=== PATIENT | female | born 1985 | race Caucasian/White ===

== ENCOUNTER → 2024-12-30 | Outpatient (CLI) | payer OTHER, SELFPAY ==
--- NOTE | 2024-12-30 15:20 | US_ITS ---
PROCEDURE: PELVIC W/ TRANSVAGINAL REASON FOR EXAM: ENLARGED UTERUS TECHNIQUE: PELVIC W/ TRANSVAGINAL COMPARISON: None FINDINGS: LMP: December 19, 2024. Measurements: Uterus: 23.7 cm x 15.9 cm x 12.1 cm with a volume of 2381.8 mL Endometrial Thickness: 2.4 mm. It is hyperechoic. Right Ovary: Not visualized. Left Ovary: 3.3 cm x 2.4 cm x 1.8 cm with a volume of 7.51 mL. TRANSABDOMINAL: Uterus: There is a large 12 cm x 12.6 cm 12.1 cm uterine fibroid. Endometrium: Unremarkable. Right ovary: Not visualized. Left ovary: Normal size and echotexture. Other: No large pelvic mass identified. Transvaginal sonography was performed to better visualize the endometrium. TRANSVAGINAL: Uterus: Enlarged fibroid uterus as described. There is a 12 cm x 12.6 cm 12.1 cm fibroid. Endometrium: Normal echotexture. Right ovary: Not visualized. Left ovary: Normal size and echotexture. Other adnexal findings: None. Cul-de-sac: No free intraperitoneal fluid identified. Tenderness: No tenderness US/Pelvic w/ Transvaginal IMPRESSION: Enlarged fibroid uterus. Reading Location: [place] [id number]
--- NOTE | 2024-12-30 15:20 | US_ITS ---
PROCEDURE: PELVIC W/ TRANSVAGINAL REASON FOR EXAM: ENLARGED UTERUS TECHNIQUE: PELVIC W/ TRANSVAGINAL COMPARISON: None FINDINGS: LMP: December 19, 2024. Measurements: Uterus: 23.7 cm x 15.9 cm x 12.1 cm with a volume of 2381.8 mL Endometrial Thickness: 2.4 mm. It is hyperechoic. Right Ovary: Not visualized. Left Ovary: 3.3 cm x 2.4 cm x 1.8 cm with a volume of 7.51 mL. TRANSABDOMINAL: Uterus: There is a large 12 cm x 12.6 cm 12.1 cm uterine fibroid. Endometrium: Unremarkable. Right ovary: Not visualized. Left ovary: Normal size and echotexture. Other: No large pelvic mass identified. Transvaginal sonography was performed to better visualize the endometrium. TRANSVAGINAL: Uterus: Enlarged fibroid uterus as described. There is a 12 cm x 12.6 cm 12.1 cm fibroid. Endometrium: Normal echotexture. Right ovary: Not visualized. Left ovary: Normal size and echotexture. Other adnexal findings: None. Cul-de-sac: No free intraperitoneal fluid identified. Tenderness: No tenderness US/Pelvic w/ Transvaginal IMPRESSION: Enlarged fibroid uterus. Reading Location: [place] [id number]
== END | disposition home or self-care (01) ==
LOC: US 15:19
PROVIDERS: PCP Internal Medicine; Referring Provider Nurse Practitioner Family; Visit Provider Nurse Practitioner Family
DX: N85.2 Hypertrophy of uterus (principal)
CPT/HCPCS: 76830; 76856

== ENCOUNTER → 2025-02-24 | Outpatient (CLI) | payer OTHER, SELFPAY ==
--- NOTE | 2025-02-24 09:10 | EMB_PTH ---
PATIENT: ANURAG VALENCIA LOC: [facility] U#:[id number] AGE/SX: 39/F ROOM: RE02/24/[address]: Dr. Dione Arreola MD : [id number] BED: DIS: 02/24/2025 SPEC #: [id number] RECD: 02/24/25 10:33 STATUS: NICOLAS RESilvina #: [id number] AMBERLY: 02/24/25 09:[address]: Dione Arreola DEPT: SURGICAL PATHOLOGY RECD BY: Guy Garcia ENTERED: 02/24/25 11:15 SP TYPE: ENDOM BX/C VINNIE DR: Dr. Kathleen Dumas, DO Tissues: A - Endometrium, NOS Procedures: Surgery Specimen Level IV HEADER OPERATION: Endometrial biopsy PRE-OP DIAGNOSIS: Uterine fibroid TISSUE SUBMITTED: A- Endometrial tissue MICROSCOPIC DIAGNOSIS A. Endometrium, biopsy: * Fragments of proliferative endometrium. * Scant benign endocervical mucosa. * MICROSCOPIC DESCRIPTION Slides are reviewed. GROSS DESCRIPTION A. Received in formalin labeled the patient's name and date of is a 2.8 x 1.9 x 0.3 cm aggregate of mucoid material and dark red tissue fragments. Submitted in 1 cassette. ME 02/24/2025 CPT:92599
[2025-02-24 12:28] LABS: Hematocrit 32.0 % (37-47); Hemoglobin 9.6 g/dL (12.0-15.0); Immature Granulocytes Count 0.040 X10^3/uL (0.0-0.0); Mean Corp Hgb Conc 30.0 g/dL (32-36); Mean Corpuscular Volume 72.2 fL (81-99); Mean Platelet Vol. 10.9 fl (6.2-12.0); NRBC Flagged by Analyzer 0 % (0-5); Platelet Count 321 K/mm3 (150-450); RBC Distribution Width CV 17.8 % (11.6-14.6); RBC Distribution Width SD 46.7 fl (35.1-43.9); Red Blood Count 4.43 M/mm3 (4.2-5.4); White Blood Count 8.4 K/mm3 (4.4-11.0)
[2025-02-28 13:08] LABS: HPV APTIMA, High Risk Negative (Negative)
== END | disposition home or self-care (01) ==
PROVIDERS: PCP Internal Medicine; Referring Provider Obstetrics & Gynecology; Visit Provider Obstetrics & Gynecology
DX: Z12.4 Encounter for screening for malignant neoplasm of cervix (principal); D25.9 Leiomyoma of uterus, unspecified
CPT/HCPCS: 36415; 84443; 85025; 87624; 88175; 88305; G0145

== ENCOUNTER → 2025-03-28 | Outpatient (CLI) | payer OTHER, SELFPAY ==
[2025-03-28 13:10] LABS: Hematocrit 36.2 % (37-47); Hemoglobin 11.3 g/dL (12.0-15.0); Immature Granulocytes Count 0.010 X10^3/uL (0.0-0.0); Mean Corp Hgb Conc 31.2 g/dL (32-36); Mean Corpuscular Volume 74.2 fL (81-99); Mean Platelet Vol. 10.4 fl (6.2-12.0); NRBC Flagged by Analyzer 0 % (0-5); POSITIVE MORPHOLOGY YES; Platelet Count 340 K/mm3 (150-450); RBC Distribution Width CV 21.4 % (11.6-14.6); RBC Distribution Width SD 55.8 fl (35.1-43.9); Red Blood Count 4.88 M/mm3 (4.2-5.4); White Blood Count 6.7 K/mm3 (4.4-11.0)
[2025-03-28 13:11] LABS: Differential Indicated SCAN CRITERIA MET
== END | disposition home or self-care (01) ==
LOC: LAB 12:56
PROVIDERS: PCP Family Medicine; Referring Provider Obstetrics & Gynecology; Visit Provider Obstetrics & Gynecology
DX: D50.9 Iron deficiency anemia, unspecified (principal)
CPT/HCPCS: 36415; 85025

== ENCOUNTER 2025-04-22 09:06 | Inpatient (IN) | payer OTHER, SELFPAY ==
--- NOTE | 2025-04-15 07:44 | EKG12_ITS ---
Test Reason : PREOP Blood Pressure : */* mmHG Vent. Rate : 71 BPM Atrial Rate : 71 BPM P-R Int : 138 ms QRS Dur : 80 ms QT Int : 388 ms P-R-T Axes : 41 41 24 degrees QTcB Int : 421 ms Normal sinus rhythm Normal ECG Confirmed by CAROLINA SAWYER, REG ([id number]), mapping editor LORNE BHATIA ([id number]) on 04/16/2025 9:02:35 AM Referred By: Dione Arreola Confirmed By: REG FIGUEROA MD
[2025-04-15 08:26] LABS: Hematocrit 38.1 % (37-47); Hemoglobin 12.0 g/dL (12.0-15.0); Mean Corp Hgb Conc 31.5 g/dL (32-36); Mean Corpuscular Volume 77.9 fL (81-99); Mean Platelet Vol. 10.5 fl (6.2-12.0); POSITIVE MORPHOLOGY YES; Platelet Count 250 K/mm3 (150-450); RBC Distribution Width CV 21.9 % (11.6-14.6); RBC Distribution Width SD 60.7 fl (35.1-43.9); Red Blood Count 4.89 M/mm3 (4.2-5.4); White Blood Count 6.2 K/mm3 (4.4-11.0)
[2025-04-15 08:27] LABS: Scan Indicated on CBC? Y/N YES- FLAGS NOTED
[2025-04-15 09:06] LABS: AST(SGOT) 16 U/L (<=31); Alanine Aminotransfer ALT/SGPT 14 U/L (<=34); Albumin, Serum 4.0 g/dL (3.5-5.0); Alkaline Phosphatase 46 U/L (35-104); Anion Gap 10 (5-15); BUN 8 mg/dL (4-19); BUN/Creat Ratio 8.6 RATIO (10-20); Calcium,Total 9.0 mg/dL (7.6-11.0); Carbon Dioxide 21.2 mmol/L (21.0-32.0); Chloride 108 mmol/L (98-108); Globulin 3.4 g/dL (2.2-4.2); Glucose 90 mg/dL (70-99); Magnesium 2.2 mg/dL (1.5-2.2); Potassium 4.1 mmol/L (3.3-5.1)
[2025-04-22] VITALS (20 sets, daily range): BP systolic 126–159; BP diastolic 71–97; PULSE 74–97; RESP 15–18; TEMP 36.1–37.3; O2SAT 97–100; BMI 45.1; BMI 45.8
--- OUTSIDE RECORDS SUMMARY | 2025-04-22 07:10 | XMS RPT_ITS | CCD ---
Author Organization [facility] Care Team Providers Care Discharge Rn Name Role Phone Grenora, Ingris Unavailable Unavailable Grenora, Ingris Unavailable Unavailable Trace Varma Unavailable Unavaila ble Reamer HandTrace hernandez Unavailable Unavaila ble Grenora, Ingris October Admitting Unavailab le Grenora, Ingris October Attending Unavailab le Grenora, Ingris October Primary Care Unavailab le HARPSTER, INGRIS OCTOBER Admitting Unavailab le HARPSTER, INGRIS OCTOBER Primary Care Unavailab TRACE Sanchez Attending Unavaila ble HARPSTER, INGRIS OCTOBER Primary Care Unavailab le Grenora, Ingris J Unavailable Unavailable Melanie Dumas DO Primary Care Provider [phone] Melanie Dumas Unavailable Unavailable Unavailable Melanie Dumas DO Primary Care Provider [phone] Piter, Dr. Melanie Mi Primary Care Unava ilable Newbill, Mr. Adis Howard Attending Unavail able Newbill, Mr. Adis Howard Referring Unavail able Oberhauser, Dr. Melanie Mi Attending Unava ilable Oberhauscurt, Dr. Melanie Mi Referring Unava ilable Oberjamie, Dr. Melanie Mi Primary Care Unava ilable Obracquel, Dr. Melanie Mi Attending Unava ilable Oberhauser, Dr. Melanie Mi Referring Unava ilable Oberhauscurt, Dr. Melanie Mi Primary Care Unava ilable Obracquel, Dr. Melanie Mi Referring Unava ilable Oberhauser, Dr. Melaine Mi Primary Care Unava ilable Oberhauser, Dr. Melanie Mi Attending Unava ilable OBERHAUSER, MELANIE Primary Care Unavailable MIRELLA, CECELIA CACERES Attending Unavailable MIRELLA, CECELIA CACERES Attending Unavailable OBERHAUSER, MELANIE Primary Care Unavailable MIRELLA, CECELIA ALVARY Referring Unavailable OBERHAUSER, MELANIE Primary Care Unavailable MIRELLA, CECELIA ALVARY Admitting Unavailable OBERHAUSER, MELANIE Primary Care Unavailable MIRELLA, CECELIA ALVARY Attending Unavailable OBERHAUSER, MELANIE Primary Care Unavailable MIRELLA, CECELIA CACERES Attending Unavailable OBERHAUSER, MELANIE Primary Care Unavailable MIRELLA, CECELIA CACERES Attending Unavailable Oberhauser Melanie GARZON L Primary Care Provider ObMelanie clement DO Unavailable OBERHAUSERMELANIE L Primary Care Unavailable OBERHAUSER, MELANIE L Primary Care Unavailable Unavailable Primary Care Provider Unavailabl e Generic Provider MD, No Assigned Pcp Primary Car e Provider Unavailable Nuris Das Attending Provider Piter GARZON, Dr. Wang Primary Care Provider Nuris Das Referring Provider [phone] Yadira Arenas MD Primary Care Provider MELANIE HUNG Attending Unavailable GENERIC PROVIDER, NO ASSIGNED PCP Primary Care Unavailable YADIRA ARENAS Attending Unavailab YADIRA Denny Primary Care Unavailab FARAZ Limon Attending Unavailable YADIRA ARENAS Referring Unavailab YADIRA Denny Primary Care Unavailab le MELANIE HUNG Attending Unavailable Nuris Das Attending Physician Piter GARZON, Dr. Wang Primary Care Physician Dr. Melanie Dumas DO Referring Provider Maxwell SAWYER, Dr. Parham Attending Physician Maxwell SAWYER, Dr. Parham Referring Provider [phone] ERIN HUNGN Admitting Unavailable SUE MELANIE Attending Unavailable LONGSDORF, YADIRA A Referring Unavailab le LONGSDORF, YADIRA A Primary Care Unavailab le LONGSDORF, YADIRA A Referring Unavailab le LONGSDORF, YADIRA A Primary Care Unavailab FARAZ Limon Referring Unavailable LONGSDORF, YADIRA A Primary Care Unavailab FARAZ Limon Referring Unavailable LONGSDORF, YADIRA A Primary Care Unavailab Dione Menard Referring Unavailable Longsdorf, Yadira Primary Care Unavailable Dione Arreola Attending Unavailable Nuris Rubio Attending Unavailable Dione Arreola Attending Unavailable Oberhauser, Melanie Primary Care Unavailable ObErin clementn Referring Unavailable Dione Arreola Attending Unavailable Maxwell, Dione Referring Unavailable MarcanthonyDione Admitting Unavailable Longsdorf, Yadira Primary Care Unavailable Nuris Rubio Attending Unavailable Nuris Rubio Referring Unavailable Oberhauser, Melanie Primary Care Unavailable Dione Arreola Attending Unavailable Dione Arreola Referring Unavailable Oberhauser, Melanie Primary Care Unavailable Medications Current Medications Medication Drug Class(es) Dates Sig (Normalized) Sig (Original) acetaminophen 500 mg oral tablet (1 source) take 1 tablet by mouth every six hours as needed for pain acetaminophen (TYLENOL) 500 MG tablet Take 1 (one) tablet (500 mg total) by mouth every 6 (six) hours as needed for pain . 0 Active acetaminophen 325 mg / oxyCODONE hydrochloride 5 mg oral tablet (1 source) Opioid Agonist Start: 12-03-2024 End: 12-05-2024 take 1 tablet by mouth every six hours in the evening for pain oxyCODONE-acetamino phen (Percocet) 5-325 mg tablet Indications: Post-operative pain Take 1 tablet by mouth every 6 hours if needed for severe pain (7 - 10) (post-operative pain) for up to 2 days. 8 tablet 12/03/2024 5:17 PM EDT 12/03/2024 12/05/2024 Active busPIRone hydrochloride 5 mg oral tablet (20 sources) Start: 05-11-2021 take 1 tablet by mouth three times daily busPIRone (Buspar) 5 mg tablet Take 1 tablet (5 mg) by mouth 3 times a day. 05/11/2021 Active Start: 05-11-2021 take 1 tablet by osvaldo th three times daily busPIRone HCl - 10 MG Oral Tablet TAKE 1 TABLET 3 TIMES DAILY. Quantity: 90 Refills: 5 Ordered: 24-May-2022 Melanie Dumas DO Start : 11-May-2021 Active calcium chloride 0.0014 meq/ml / potassium chloride 0.004 meq/ml / sodium chloride 0.103 meq/ml / sodium lactate 0.028 meq/ml injectable solution (2 sources) Start: 12-03-2024 End: 12-04-2024 take 125 mL intravenously every hour 125 mL/hr, intravenous, Continuous, Starting on Mon12/03/24 at 1645, For 1 day, Recovery (only) HYDROmorphone (1 source) Opioid Agonist Start: 12-03-2024 0.5 mg, intravenous, Every 5 min PRN, pain severe (7-10), first line, Starting on Mon12/03/24 at 1623, Recovery (only) lisinopril 20 mg oral tablet (2 sources) Angiotensin Converting Enzyme Inhibitor Start: 12-21-2022 End: 01-24-2023 take 1 tablet by mouth once daily lisinopril 20 mg tablet Indications: Primary hypertension Take 1 tablet (20 mg) by mouth once daily. 30 tablet 1 12/21/2022 01/24/2023 Discontinued (Therapy completed) Start: 11-15-2022 End: 05-14-2023 take 1 tablet by mouth once daily lisinopril 10 mg tablet Indications: Primary hypertension Take 1 tablet (10 mg) by mouth once daily. 30 tablet 5 11/15/2022 05/14/2023 Active losartan potassium 25 mg oral tablet (18 sources) Angiotensin 2 Receptor Benjamin Start: 01-24-2023 End: 01-28-2026 take 1 tablet by mouth once daily Losartan 25 mg tablet Active 25 mg PO daily December 19, 2024 12:00am htn Complies with drug therapy medroxyPROGESTERone acetate 5 mg oral tablet (2 sources) Progestin Start: 03-04-2025 End: 03-19-2025 Medroxyprogesterone 5 mg tablet Discontinued 5 mg PO .COMPLEX 33 2 March 17, 2025 5:08pm March 19, 2025 8:46am 5 mg PO bid x 3 days then once daily meloxicam 15 mg oral tablet (1 source) Nonsteroidal Anti-inflammatory Drug Start: 02-01-2022 End: 02-01-2023 take 1 tablet by mouth once daily meloxicam (MOBIC) 15 MG tablet Take 1 (one) tablet (15 mg total) by mouth daily . 30 tablet 3 02/01/2022 02/01/2023 Active metroNIDAZOLE 0.0075 mg/mg topical gel (4 sources) Nitroimidazole Antimicrobial Start: 10-25-2023 End: 10-24-2024 metroNIDAZOLE (Metrogel) 0.75 % gel Indications: Rosacea Apply topically 2 times a day. Apply twice daily to rosacea 45 g 2 10/25/2023 10/24/2024 Active norethindrone acetate 5 mg oral tablet (1 source) Start: 03-19-2025 Start: 03-19-2025 nystatin 100 unt/mg / triamcinolone acetonide 0.001 mg/mg topical ointment (2 sources) Polyene Antifungal, Corticosteroid Start: 12-19-2024 Nystatin-Triamcinolone 100,000-0.1 unit/gram-% ointment Active 1 NMA TOPICAL TWICE A DAY December 19, 2024 12:00am fungal infection Complies with drug therapy Nystatin-Triamcinolone 100,000-0.1 unit/gram-% ointment (1 source) Start: 12-19-2024 Nystatin-Triamcinolone 100,000-0.1 unit/gram-% ointment Active 1 NMA TOPICAL TWICE A DAY December 19, 2024 12:00am oxygen (O2) therapy (1 source) Start: 12-03-2024 inhalation, Continuous - Inhalation, First dose on Mon12/03/24 at 1645, Recovery (only), Device: Simple Face Mask, Rate in Liters per minute: 8 LPM prochlorperazine 5 mg/ml injectable solution (1 source) Phenothiazine Start: 12-03-2024 10 mg, intravenous, Once as needed, nausea/vomiting, first line, Starting on Mon12/03/24 at 1623, For 1 dose, Recovery (only) Completed/Discontinued Medications Medication Drug Class(es) Dates Sig (Normalized) Sig (Original) amoxicillin 875 mg oral tablet (3 sources) Penicillin-class Antibacterial Start: 11-23-2021 take 1 tablet by mouth once daily Amoxicillin 875 MG Oral Tablet TAKE 1 TABLET EVERY 12 HOURS DAILY. Quantity: 14 Refills: 0 Ordered: 23-Nov-2021 Melanie Dumas DO Start : 23-Nov-2021 Active cefOXitin 2000 mg injection (1 source) Cephalosporin Antibacterial Start: 12-03-2024 End: 12-03-2024 2 g, intravenous, at 100 mL/hr, Administer over 30 Minutes, Once, On Mon12/03/24 at 1115, For 1 dose, Preprocedure, Duplex bag - activate before hanging., Suspected Indication (Select all that apply): Surgical Prophylaxis, Indications: Surgical Prophylaxis docusate sodium 50 mg / sennosides, chcf 8.6 mg oral tablet (3 sources) End: 01-28-2025 take 1 tablet by mouth once daily sennosides-docusat e sodium (Jillian-Colace) 8.6-50 mg tablet Take 1 tablet by mouth once daily. 01/28/2025 Discontinued (Med List Cleanup) furosemide 20 mg oral tablet (8 sources) Loop Diuretic Start: 10-25-2023 End: 01-28-2025 take 1 tablet by mouth once daily furosemide (Lasix) 20 mg tablet Indications: Leg edema Take 1 tablet (20 mg) by mouth once daily. 30 tablet 10/25/2023 01/28/2025 Discontinued (Med List Cleanup) 1 ml heparin sodium, porcine 5000 unt/ml injection (1 source) Unfractionated Heparin, Anti-coagulant Start: 12-03-2024 End: 12-03-2024 inject 5000 [IU] by subcutaneous injection once 5,000 Units, subcutaneous, Once, On Mon12/03/24 at 1115, For 1 dose, Preprocedure No Reported Medications (1 source) No Reported Medications Refills: 0 DO Active triamcinolone acetonide 1 mg/ml topical cream (2 sources) Corticosteroid Start: 07-20-2021 End: 11-23-2021 Triamcinolone Acetonide 0.1 % External Cream APPLY AND RUB IN A THIN FILM TO AFFECTED AREAS TWICE DAILY.(AM AND PM). Quantity: 1 Refills: 6 Ordered: 20-Jul-2021 Melanie Dumas DO Start : 20-Jul-2021 End : 23-Nov-2021 Complete Problems Active Problems Problem Classification Problem Date Documented Date Episodic/Chronic Abdominal pain (5 sources) Right upper quadrant pain; Translations: [Right upper quadrant pain] Onset: 01-09-2024 Episodic Administrative/social admission (20 sources) Patient encounter status; Translations: [Other reasons for seeking consultation] 10-25-2023 Episodic Allergic reactions (5 sources) Hand eczema; Translations: [Contact dermatitis and other eczema, unspecified cause] Episodic Anxiety disorders (20 sources) Anxiety; Translations: [Anxiety state, unspecified] Onset: 10-13-2022 10-13-2022 Chronic Benign neoplasm of uterus (6 sources) Uterine leiomyoma; Translations: [Leiomyoma of uterus, unspecified] Onset: 02-25-2025 12-31-2024 Episodic Comment on above: 12cm:plan LINDY per with JV asst Cancer; other and unspecified primary (4 sources) Malignant neoplasm of eye; Translations: [Malignant neoplasm of unspecified site of unspecified eye] 11-10-2020 Chronic Cancer; other and unspecified primary (11 sources) History of retinoblastoma; Translations: [Personal history of malignant neoplasm of eye] Onset: 01-28-2025 01-28-2025 Episodic Cancer; other and unspecified primary (2 sources) Personal history of malignant neoplasm of eye; Translations: [Personal history of malignant neoplasm of eye] Onset: 01-28-2025 Episodic Deficiency and other anemia (2 sources) Anemia, unspecified; Translations: [Anemia, unspecified] Onset: 10-26-2023 Episodic Deficiency and other anemia (1 source) Iron deficiency anemia, unspecified; Translations: [Iron deficiency anemia, unspecified] Onset: 03-28-2025 Episodic Essential hypertension (20 sources) Essential hypertension; Translations: [Essential (primary) hypertension] Onset: 11-15-2022 11-15-2022 Chronic Fracture of lower limb (4 sources) Stress fracture of left foot; Translations: [Stress fracture, left foot, initial encounter for fracture] Episodic Immunizations and screening for infectious disease (1 source) Needs influenza immunization; Translations: [Encounter for immunization] 04-25-2023 Episodic Menstrual disorders (6 sources) Menorrhagia; Translations: [Excessive and frequent menstruation with regular cycle] Onset: 02-25-2025 12-31-2024 Chronic Mycoses (6 sources) Candidiasis of skin; Translations: [Candidiasis of skin and nail] 12-19-2024 Episodic Comment on above: abd/pelvic folds Other acquired deformities (1 source) Equinus contracture of the ankle; Translations: [Contracture, unspecified ankle] Chronic Other aftercare (1 source) Postoperative visit; Translations: [Encounter for other specified surgical aftercare] 12-19-2024 Episodic Other connective tissue disease (5 sources) Pain of toe of right foot; Translations: [Pain in right toe(s)] Onset: 08-01-2017 11-10-2020 Episodic Other connective tissue disease (1 source) Pain in right foot; Translations: [Pain in right foot] Episodic Other connective tissue disease (1 source) Plantar fasciitis of left foot; Translations: [Plantar fascial fibromatosis] Episodic Other connective tissue disease (1 source) Pain in left foot; Translations: [Pain in left foot] Episodic Other connective tissue disease (1 source) Pain in right toe(s); Translations: [Pain in right toe(s)] Onset: 10-03-2022 Episodic Other connective tissue disease (2 sources) Rotator cuff impingement syndrome; Translations: [Impingement syndrome of right shoulder] 02-10-2025 Episodic Other endocrine disorders (1 source) Menarche; Translations: [History of Menarche] Chronic Other female genital disorders (10 sources) Enlarged uterus; Translations: [Hypertrophy of uterus] 12-19-2024 Episodic Comment on above: 23cm per [place] Other female genital disorders (4 sources) Female genital organ symptoms; Translations: [Pelvic pressure in female] 12-31-2024 Episodic Other female genital disorders (1 source) Hypertrophy of uterus; Translations: [Hypertrophy of uterus] Onset: 02-25-2025 Episodic Other inflammatory condition of skin (1 source) Rosacea; Translations: [Rosacea, unspecified] 10-25-2023 Chronic Other nervous system disorders (4 sources) Other chronic pain; Translations: [Other chronic pain] Onset: 01-28-2025 Chronic Other non-traumatic joint disorders (2 sources) Chronic pain of right upper limb; Translations: [Pain in right shoulder] 01-28-2025 Episodic Other non-traumatic joint disorders (5 sources) Pain in right shoulder; Translations: [Pain in joint, shoulder region] Onset: 01-28-2025 02-10-2025 Episodic Other non-traumatic joint disorders (2 sources) Stiffness of right shoulder, not elsewhere classified; Translations: [Stiffness of right shoulder, not elsewhere classified] Onset: 02-11-2025 Episodic Other nutritional; endocrine; and metabolic disorders (4 sources) Morbid obesity; Translations: [Morbid (severe) obesity due to excess calories] 11-10-2020 Chronic Other nutritional; endocrine; and metabolic disorders (11 sources) Body mass index 40+ - severely obese; Translations: [Morbid obesity] Chronic Other nutritional; endocrine; and metabolic disorders (7 sources) Obesity caused by energy imbalance; Translations: [Other obesity due to excess calories] Onset: 12-03-2024 12-03-2024 Chronic Other screening for suspected conditions (not mental disorders or infectious disease) (11 sources) Cancer cervix screening status; Translations: [Screening for malignant neoplasms of cervix] Onset: 01-28-2025 Episodic Other skin disorders (4 sources) Ingrowing great toenail; Translations: [Ingrowing nail] Episodic Other skin disorders (2 sources) Ingrowing nail; Translations: [Ingrowing nail] Onset: 10-03-2022 Episodic Residual codes; unclassified (7 sources) H/O: ; Translations: [Personal history of other genital system and obstetric disorders] Episodic Comment on above: 02-14-13 41wks vagina l femal - 39wks vaginal male 12-03; Residual codes; unclassified (1 source) Edema of lower extremity; Translations: [Localized edema] 10-25-2023 Episodic Skin and subcutaneous tissue infections (2 sources) Cellulitis of right toe; Translations: [Cellulitis of right toe] Onset: 08-30-2022 Episodic Superficial injury; contusion (1 source) Abrasion, right foot, initial encounter; Translations: [Abrasion or friction burn of foot and toe(s), without mention of infection] Episodic Unclassified (5 sources) Patient encounter status; Translations: [Screening for breast cancer] 01-28-2025 Unclassified (1 source) Autogenerated Problem Onset: 11-07-2024 11-07-2024 Unclassified (3 sources) Chronic pain of right upper limb 01-28-2025 Unclassified (1 source) Right shoulder pain, unspecified chronicity 02-10-2025 Past or Other Problems Problem Classification Problem Date Documented Date Episodic/Chronic Biliary tract disease (14 sources) Cholelithiasis without obstruction; Translations: [Calculus of gallbladder without cholecystitis without obstruction] Onset: 11-07-2024 Resolved: 01-28-2025 01-29-2024 Episodic Other circulatory disease (14 sources) Elevated blood pressure; Translations: [Elevated blood-pressure reading, without diagnosis of hypertension] Onset: 10-13-2022 Resolved: 01-28-2025 10-13-2022 Episodic Other connective tissue disease (2 sources) Pain in left foot; Translations: [Pain in left foot] Onset: 02-01-2022 Episodic Other nervous system disorders (8 sources) Postoperative pain ; Translations: [Other acute postprocedural pain] Onset: 12-03-2024 Resolved: 01-28-2025 12-03-2024 Episodic Other skin disorders (4 sources) Ingrowing toenail; Translations: [Ingrowing nail] Onset: 08-01-2017 11-10-2020 Episodic Unclassified (1 source) Cancer cervix screening status; Translations: [Screening for cervical cancer] Unclassified (11 sources) Onset: 10-25-2023 Resolved: 01-28-2025 10-25-2023 Results Test Name Value Interpretation Reference Range Facility CBC W/Diff, Automatedon 11-0 Absolute Lymph 2.91 X10 3/uL Normal 0.83-4.51 [facility] Comment on above: Performed By: #### L 100.0100 #### [facility] [address] [place], [place], [id number] (371) Absolute Neut 3.0 X10 3/uL Normal 2.0-7.7 [facility] Comment on above: Performed By: #### L 100.0100 #### [facility] [address] [place], [address] Basophils/100 WBC (Bld) 0.6 % Normal 0-1 [facility] Comment on above: Performed By: #### L 100.0100 #### [facility] [address] [place], [address] Eosinophils/100 WBC (Bld) 1.8 % Normal 0-5 [facility] Comment on above: Performed By: #### L 100.0100 #### [facility] [address] [place], [address] Erythrocyte distribution width (RBC) [Ratio] 21.4 % High 11.6-14.6 [facility] Comment on above: Performed By: #### L 100.0100 #### [facility] [address] [place], [address] Hematocrit (Bld) [Volume fraction] 36.2 % Low 37-47 [facility] Comment on above: Performed By: #### L 100.0100 #### [facility] [address] [place], [address] Hemoglobin (Bld) [Mass/Vol] 11.3 g/dL Low 12.0-15.0 [facility] Comment on above: Performed By: #### L 100.0100 #### [facility] [address] [place], [address] IG% 0.200 Normal 0.0-0.9 [facility] Comment on above: Result Comment: IG% - Immature Granulocytes (promyelocytes, myelocytes and metamyelocytes) > 1% indicates that a LEFT SHIFT is Present. Performed By: #### L 100.0100 #### [facility] [address] [place], [address] Lymphocytes/100 WBC (Bld) 43.7 % High 19-41 [facility] Comment on above: Performed By: #### L 100.0100 #### [facility] [address] [place], [address] MCH (RBC) [Entitic mass] 23.2 pg Low 27.0-32.0 [facility] Comment on above: Performed By: #### L 100.0100 #### [facility] [address] [place], [address] MCHC (RBC) [Mass/Vol] 31.2 g/dL Low 32-36 [facility] Comment on above: Performed By: #### L 100.0100 #### [facility] [address] [place], [address] MCV (RBC) [Entitic vol] 74.2 fL Low 81-99 [facility] Comment on above: Performed By: #### L 100.0100 #### [facility] [address] [place], [address] Monocytes/100 WBC (Bld) 8.3 % Normal 0-10 [facility] Comment on above: Performed By: #### L 100.0100 #### [facility] [address] [place], [address] Neutrophils/100 WBC (Bld) 45.4 % Low 47-70 [facility] Comment on above: Performed By: #### L 100.0100 #### [facility] [address] [place], [address] Nucleated RBC (Bld) [#/Vol] 0 10*3/uL Normal 0-5 [facility] Comment on above: Performed By: #### L 100.0100 #### [facility] [address] [place], [address] Platelet mean volume (Bld) [Entitic vol] 10.4 fL Normal 6.2-12.0 [facility] Comment on above: Performed By: #### L 100.0100 #### [facility] [address] [place], [address] Platelets (Bld) [#/Vol] 340 10*3/uL Normal 150-450 [facility] Comment on above: Performed By: #### L 100.0100 #### [facility] [address] [place], [address] RBC (Bld) [#/Vol] 4.88 10*6/uL Normal 4.2-5.4 [facility] Comment on above: Performed By: #### L 100.0100 #### [facility] [address] [place], [address] RDW SD 55.8 fl High 35.1-43.9 [facility] Comment on above: Performed By: #### L 100.0100 #### [facility] [address] [place], [address] WBC (Bld) [#/Vol] 6.7 10*3/uL Normal 4.4-11.0 [facility] Comment on above: Performed By: #### L 100.0100 #### [facility] [address] [place], [address] Surgical pathology reportOrd ered By: Ingris Jamison on 03-03-2025 Surgical pathology study [facility] PAP IG HPV APTIMA 16/18,45on 02-28-2025 ADEQ Comment Normal . [facility] Comment on above: Order Comment: Speci men Comment: [id number] Specimen Comment: No. of containers..01 ThinPrep Vial Result Comment: Sati sfactory for evaluation. Endocervical and/or squamous metaplastic cells (endocervical component) are present. Performed By: #### L 7400.0280 #### [facility] [address] [place], [address] COMM . Normal . [facility] Comment on above: Order Comment: Speci men Comment: [id number] Specimen Comment: No. of containers..01 ThinPrep Vial Performed By: #### L 7400.0280 #### [facility] [address] [place], [place], [id number] COMMENT Comment Normal . [facility] Comment on above: Order Comment: Speci men Comment: [id number] Specimen Comment: No. of containers..01 ThinPrep Vial Result Comment: This liquid based ThinPrep(R) pap test was screened with the use of an image guided system. Performed By: #### L 7400.0280 #### [facility] [address] [place], [address] DIAG Comment Normal . [facility] Comment on above: Order Comment: Speci men Comment: [id number] Specimen Comment: No. of containers..01 ThinPrep Vial Result Comment: NEGA TIVE FOR INTRAEPITHELIAL LESION OR MALIGNANCY. Performed By: #### L 7400.0280 #### [facility] [address] [place], [address] HPV APTIMA, HR Negative Normal Negative [facility] Comment on above: Order Comment: Speci men Comment: [id number] Specimen Comment: No. of containers..01 ThinPrep Vial Result Comment: This nucleic acid amplification test detects fourteen high- risk HPV types (16,18,31,33,35,39,45,51,52,56,58,59,66,68) without differentiation. Performed By: #### L 7400.0280 #### [facility] [address] [place], [address] HPV Lianet Rfx Comment Normal . [facility] Comment on above: Order Comment: Speci men Comment: [id number] Specimen Comment: No. of containers..01 ThinPrep Vial Result Comment: Crit eria not met, HPV Genotype not performed. Performed at: [facility] [address] [facility], [place], [place] [id number] Specialties Operator: Ronny Kessler MD, Phone: [phone] Performed at: - [facility] [id number] Specialties Operator: Millie Freedman MD, Phone: [phone] Performed at: = - [facility] [address], [place] [id number] Specialties Operator: Millie Freedman MD, Phone: [phone] Performed By: #### L 7400.0280 #### [facility] [address] [place], [place], [id number] PAPSMR Comment Normal . [facility] Comment on above: Order Comment: Speci men Comment: [id number] Specimen Comment: No. of containers..01 ThinPrep Vial Result Comment: The Pap smear is a screening test designed to aid in the detection of premalignant and malignant conditions of the uterine cervix. It is not a diagnostic procedure and should not be used as the sole means of detecting cervical cancer. Both false-positive and false-negative reports do occur. Performed By: #### L 7400.0280 #### [facility] [address] [place], [place], [address] PERFORM Comment Normal . [facility] Comment on above: Order Comment: Speci men Comment: [id number] Specimen Comment: No. of containers..01 ThinPrep Vial Result Comment: Gilad Santos Separator Operator [employer] (ASCP) Performed By: #### L 7400.0280 #### [facility] [address] [place], [place], [address] Absolute lymphocyte countOrd ered By: Dione Arreola on 02-24-2025 Lymphocytes Auto (Unsp spec) [#/Vol] 2.62 10*3/uL 0.83-4.51 [facility] Absolute neutrophil countOrd ered By: Dione Arreola on 02-24-2025 Neutrophils (Bld) [#/Vol] 4.9 10*3/uL 2.0-7.7 [facility] Automated lymphocyte count a s percentage of total leukocytesOrdered By: Dione rAreola on 02-24-2025 Lymphocytes/100 WBC Auto (Unsp spec) 31.3 % 19-41 [facility] Basophil percentageOrdered B y: Dione Arreola on 02-24-2025 Basophils/100 WBC (Bld) 0.5 % 0-1 [facility] CBC W/Diff, [place] Absolute Lymph 2.62 X10 3/uL Normal 0.83-4.51 [facility] Comment on above: Performed By: #### L 501.9520, L100.0100 #### [facility] [address] [place], [address] Absolute Neut 4.9 X10 3/uL Normal 2.0-7.7 [facility] Comment on above: Performed By: #### L 501.9520, L100.0100 #### [facility] [address] [place], [address] Basophils/100 WBC (Bld) 0.5 % Normal 0-1 [facility] Comment on above: Performed By: #### L 501.9520, L100.0100 #### [facility] [address] [place], [address] Eosinophils/100 WBC (Bld) 1.1 % Normal 0-5 [facility] Comment on above: Performed By: #### L 501.9520, L100.0100 #### [facility] [address] [place], [address] Erythrocyte distribution width (RBC) [Ratio] 17.8 % High 11.6-14.6 [facility] Comment on above: Performed By: #### L 501.9520, L100.0100 #### [facility] [address] [place], [address] Hematocrit (Bld) [Volume fraction] 32.0 % Low 37-47 [facility] Comment on above: Performed By: #### L 501.9520, L100.0100 #### [facility] [address] [place], [address] Hemoglobin (Bld) [Mass/Vol] 9.6 g/dL Low 12.0-15.0 [facility] Comment on above: Performed By: #### L 501.9520, L100.0100 #### [facility] [address] [place], [address] IG% 0.500 Normal 0.0-0.9 [facility] Comment on above: Result Comment: IG% - Immature Granulocytes (promyelocytes, myelocytes and metamyelocytes) > 1% indicates that a LEFT SHIFT is Present. Performed By: #### L 501.9520, L100.0100 #### [facility] [address] [place], [address] Lymphocytes/100 WBC (Bld) 31.3 % Normal 19-41 [facility] Comment on above: Performed By: #### L 501.9520, L100.0100 #### [facility] [address] [place], [address] MCH (RBC) [Entitic mass] 21.7 pg Low 27.0-32.0 [facility] Comment on above: Performed By: #### L 501.9520, L100.0100 #### [facility] [address] [place], [address] MCHC (RBC) [Mass/Vol] 30.0 g/dL Low 32-36 [facility] Comment on above: Performed By: #### L 501.9520, L100.0100 #### [facility] [address] [place], [address] MCV (RBC) [Entitic vol] 72.2 fL Low 81-99 [facility] Comment on above: Performed By: #### L 501.9520, L100.0100 #### [facility] [address] [place], [address] Monocytes/100 WBC (Bld) 8.3 % Normal 0-10 [facility] Comment on above: Performed By: #### L 501.9519, L100.0100 #### [facility] [address] [place], [address] Neutrophils/100 WBC (Bld) 58.3 % Normal 47-70 [facility] Comment on above: Performed By: #### L 501.9519, L100.0100 #### [facility] [address] [place], [address] Nucleated RBC (Bld) [#/Vol] 0 10*3/uL Normal 0-5 [facility] Comment on above: Performed By: #### L 501.9519, L100.0100 #### [facility] [address] [place], [address] Platelet mean volume (Bld) [Entitic vol] 10.9 fL Normal 6.2-12.0 [facility] Comment on above: Performed By: #### L 501.9519, L100.0100 #### [facility] [address] [place], [address] Platelets (Bld) [#/Vol] 321 10*3/uL Normal 150-450 [facility] Comment on above: Performed By: #### L 501.9519, L100.0100 #### [facility] [address] [place], [address] RBC (Bld) [#/Vol] 4.43 10*6/uL Normal 4.2-5.4 [facility] Comment on above: Performed By: #### L 501.9519, L100.0100 #### [facility] [address] [place], [address] RDW SD 46.7 fl High 35.1-43.9 [facility] Comment on above: Performed By: #### L 501.9520, L100.0100 #### [facility] [address] [place], [address] WBC (Bld) [#/Vol] 8.4 10*3/uL Normal 4.4-11.0 [facility] Comment on above: Performed By: #### L 501.9520, L100.0100 #### [facility] [address] [place], [address] Cervical or vaginal specimen microscopic examination by liquid based cytology (reportOrdered By: Dione Arreola on 02-24-2025 Cytology report Cyto stain.thin prep Doc (Cvx/Vag) Comment . [facility] Comment on above: Criteria not met, HP V Genotype not performed.Performed at: [facility] [address] [place], [place] [id number] Director: Ronny Kessler MD, Phone: [phone] at: [address] [id number] Director: Millie Freedman MD, Phone: [phone] at: =[address] [id number] Director: Millie Freedman MD, Phone: [phone] Cervical or vagninal specime n microscopic examination by cytology stain (reported asOrdered By: Dione Arreola on 02-24-2025 Cytology report Cyto stain Doc (Cvx/Vag) Comment . [facility] Comment on above: The Pap smear is a s creening test designed to aid in thedetection of premalignant and malignant conditions of theuterine cervix. It is not a diagnostic procedure andshould not be used as the sole means of detecting cervicalcancer. Both false-positive and false-negative reports dooccur. Detection in cervical specim en of any of human papilloma virus (HPV) 16, 18, 31, 33,Ordered By: Dione Arreola on 02-24-2025 HPV 16+18+31+33+35+39+45+5 1+52+56+58+59+66+68 DNA Probe+sig amp Ql (Cvx) Negative Negative [facility] Comment on above: This nucleic acid am plification test detects fourteen high- risk HPV types (16,18,31,33,35,39,45,51,52,56,58,59,66,68)without differentiation. Eosinophil percentageOrdered By: Dione Arreola on 02-24-2025 Eosinophils/100 WBC (Bld) 1.1 % 0-5 [facility] Erythrocyte distribution wid th ratioOrdered By: Dione Arreola on 02-24-2025 Erythrocyte distribution width (RBC) [Ratio] 17.8 % High 11.6-14.6 [facility] Erythrocyte distribution wid th standard deviationOrdered By: Dione Arreola on 02-24-2025 Erythrocyte distribution width (RBC) [Ratio] 46.7 fl High 35.1-43.9 [facility] Hematocrit Auto (Bld) [Volum e fraction]Ordered By: Dione Arreloa on 02-24-2025 Hematocrit (Bld) [Volume fraction] 32.0 % Low 37-47 [facility] Hemoglobin measurementOrdere d By: Dione Arreola on 02-24-2025 Hemoglobin (Bld) [Mass/Vol] 9.6 g/dL Low 12.0-15.0 [facility] Immature granulocytes/100 WB C Auto (Bld)Ordered By: Dione Arreola on 02-24-2025 Immature granulocytes/100 WBC (Bld) 0.500 % 0.0-0.9 [facility] Comment on above: IG% - Immature Granu locytes (promyelocytes, myelocytes and metamyelocytes) > 1% indicates that a LEFT SHIFT is Present. Laboratory - CytologyOrdered By: Dione Arreola on 02-24-2025 Separator Operator [employer] Cyto stain Nom (Cvx/Vag) [ID] Comment . [facility] Comment on above: Doris Santos Cyt ologist (ASCP) Laboratory - Miscellaneous t estsOrdered By: Dione Arreola on 02-24-2025 Service comment (Unsp spec) [Interp] . . [facility] MCV (mean corpuscular volume ) determinationOrdered By: Dione Arreola on 02-24-2025 MCV (RBC) [Entitic vol] 72.2 fL Low 81-99 [facility] Mean corpuscular hemoglobin (MCH) determinationOrdered By: Dione Arreola on 02-24-2025 MCH (RBC) [Entitic mass] 21.7 pg Low 27.0-32.0 [facility] Mean corpuscular hemoglobin concentration (MCHC) determinationOrdered By: Dione Arreola on 02-24-2025 MCHC (RBC) [Mass/Vol] 30.0 g/dL Low 32-36 [facility] Mean platelet volume determi nationOrdered By: Dione Arreola on 02-24-2025 Platelet mean volume (Bld) [Entitic vol] 10.9 fL 6.2-12.0 [facility] Monocyte percentageOrdered B y: Dione Arreola on 02-24-2025 Monocytes/100 WBC (Bld) 8.3 % 0-10 [facility] Neutrophil percentageOrdered By: Dione Arreola on 02-24-2025 Neutrophils/100 WBC (Bld) 58.3 % 47-70 [facility] No Panel InformationOrdered By: Dione Arreola on 02-24-2025 Pap Smear Specimen Adequacy Comment . [facility] Comment on above: Satisfactory for kd luation. Endocervical and/or squamous metaplasticcells (endocervical component) are present. Nucleated red blood cell per centageOrdered By: Dione Arreola on 02-24-2025 Nucleated RBC/100 WBC (Bld) [Ratio] 0 % 0-5 [facility] Residential Roofer Office Visit Reporton 02-24-2025 Residential Roofer Office Visit Report [facility] [address], [address] [place] [address] OFFICE VISIT Date of Service: 02/24/25 MR#: [id number] Acct: [id number] Name: ANURAG VALENCIA Rep #: [id number] : 1985 Provider: Dr. Dione daiz MD Age/Sex: 39/F [place] [facility] [place]: Signed Intake Vital Signs 12/19/24 08:28 02/24/25 08:20 02/24/25 08:22 Height 5 ft 6 in 5 ft 6 in 5 ft 6 in Weight: 264 lb 2 oz 278 lb 9 oz BMI 42.6 44.9 BP 123/84 H 155/88 H Intake Visit Reasons: consult for TAHBS keep 20 minutes Hand Router Operator Required: No Is patient in pain?: No Allergies No Known Allergies Allergy (Unverified 02/24/25 08:17) Medications ???Medication ???Instructions ???Recorded ???Confirmed ???Type losartan 25 mg tablet 25 mg PO QDAY 12/19/24 02/24/25 Hi story nystatin-triamcinolone 100,000 1 applic topical BID #15 grams 02/24/25 Rx unit/gram-0.1 % topical ointment Is last menstrual period known: Yes Last Menstrual Period: 02/06/25 Post menopausal: No Patient : No : No PFSH Medical History Gallstones Hypertension Retinoblastoma Surgical History (Updated 02/24/25 @ 08:[address] 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 The uterine fibroids were incidentally discovered during a gallbladder surgery in November, and the patient reports heavy menstrual bleeding over the past couple of years, which has worsened recently. She experiences menstrual cycles every 26 days, with bleeding lasting five days and requiring pad changes every three to four hours on days two and three. The patient has a history of hypertension, which is currently managed with medication. She reports urinary frequency, which may be related to the fibroids, and constipation, which she hopes will improve post-surgery. 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 Attestation: Documentation on this patient encounter was supported using ambient scribe technology/ voice AI technology. The patient consented to recording for the purpose of documenting the encounter. Provider reviewed content of the generated note prior to signature. declined test. Female Reproductive History Last Menstrual Period: 02/06/25 Menopausal Symptoms: No night sweats History 2 Elective abortions Hx Para 2 Spontaneous abortions Hx # Term Pregnancies Ectopic pregnancies Hx # Pregnancies Multiple births # of living children 2 Past Pregnancies Del. Date Name GA/Weeks Outcome Route Bth Weight Infant Gen Labor Lgth Anesthesia Del Locatn Provider FOB 02/14/13 Calissa live - full term 7lbs 2oz Female none [place] d 08/21/15 [place] live - full term 7lbs 15oz Male none [place]lan d ROS Const Constitutional: Denies fatigue, night sweats, weight gain or weight loss ENT ENT: Reports system reviewed and no additional complaints, except as documented Cardio Card: Denies chest pain Resp Resp: Denies cough or dyspnea GI GI: Reports as per HPI; Denies abdominal pain, constipation, nausea or vomiting : Denies nipple discharge, urinary frequency, urinary incontinence, urinary hesitancy, urinary urgency, vaginal discharge, vaginal dryness, vaginal odor or vaginal pruritus Musc Musc: Denies arthralgias, back pain or muscle weakness Skin Skin/Breast: Denies alopecia, change in hair, dry skin, breast mass, breast pain, breast skin changes or nipple discharge Neuro (more content not included)... Normal [facility] Platelet countOrdered By: Gerardo Arreola on 02-24-2025 Platelets (Bld) [#/Vol] 321 10*3/uL 150-450 [facility] RBC Auto (Bld) [#/Vol]Mook tellez By: Dione Arreola on 02-24-2025 RBC (Bld) [#/Vol] 4.43 10*6/uL 4.2-5.4 [facility] Surgery Specimen Level Liam 02-24-2025 Surgery Specimen Level IV Patient Age/Sex Location Account Attending Physician ANURAG VALENCIA 39/F [facility] [id number] Dr. Dione Arreola MD Specimen: [id number] Received: 02/24/25 Status: NICOLAS Phillips Num: [id number] Spec Type: JOSE BX/C West Dr: Dr. Dione Arreola MD HEADER OPERATION: Endometrial biopsy PRE-OP DIAGNOSIS: Uterine fibroid TISSUE SUBMITTED: A- Endometrial tissue MICROSCOPIC DIAGNOSIS A. Endometrium, biopsy: * Fragments of proliferative endometrium. * Scant benign endocervical mucosa. * MICROSCOPIC DESCRIPTION Slides are reviewed. GROSS DESCRIPTION A. Received in formalin labeled the patient's name and date of is a 2.8 x 1.9 x 0.3 cm aggregate of mucoid material and dark red tissue fragments. Submitted in 1 cassette. [place] 02/24/2025 CPT:62593 Patient Age/Sex Location Account Attending Physician ANURAG VALENCIA 39/F [facility] [id number] Dr. Dione Arreola MD Signed (signature on file) Dr. Ingris Jamison MD 03/03/25 1136 Normal [facility] Comment on above: Performed By: #### P SUIV #### [facility] [address] [place], [address] TSH DL <= 0.005 mIU/L QnOrde red By: Dione Arreola on 02-24-2025 TSH Qn 3.060 uIU/mL 0.300-4.200 [facility] Thyroid Stim Hormone (TSH)on 02-24-2025 TSH 3.060 uIU/mL Normal 0.300-4.200 [facility] Comment on above: Performed By: #### L 501.9520, L100.0100 #### [facility] [address] [place], [place], [id number] White blood cell (WBC) count Ordered By: Dione Arreola on 02-24-2025 WBC (Bld) [#/Vol] 8.4 10*3/uL 4.4-11.0 [facility] CBC (INCLUDES DIFF/PLT)on Basophils (Bld) [#/Vol] 0.053 10*3/uL Normal 0-200 [facility] Comment on above: Performed By: #### 6 399, 78805, 7600, 37472 #### [facility] [address] , [address] [place] [id number] [address] Sql Developer: Rodri Latham MD Basophils/100 WBC (Bld) 0.7 % Normal [facility] Comment on above: Performed By: #### 6 399, 26339, 4450, 38228 #### [facility] [address] , [address] [place] [phone] [address] Sql Developer: Rodri Latham MD Eosinophils (Bld) [#/Vol] 0.152 10*3/uL Normal 15-500 [facility] Comment on above: Performed By: #### 6 399, 41340, 7600, 50403 #### [facility] of [place] [address] [address] Sql Developer: Rodri Latham MD Eosinophils/100 WBC (Bld) 2.0 % Normal [facility] Comment on above: Performed By: #### 6 399, 09600, 7600, 22344 #### [facility] [place] [address] [address] Sql Developer: Rodri Latham MD Erythrocyte distribution width (RBC) [Ratio] 17.5 % High 11.0-15.0 [facility] Comment on above: Performed By: #### 6 399, 05002, 7600, 44307 #### [facility] [place] [address] [address] Sql Developer: Rodri Latham MD Hematocrit (Bld) [Volume fraction] 36.2 % Normal 35.0-45.0 [facility] Comment on above: Performed By: #### 6 399, 26163, 7600, 26334 #### [facility] [place] [address] [address] Sql Developer: Rodri Latham MD Hemoglobin (Bld) [Mass/Vol] 10.0 g/dL Low 11.7-15.5 [facility] Comment on above: Performed By: #### 6 399, 56084, 7600, 28683 #### [facility] [place] [address] [address] Sql Developer: Rodri Latham MD Lymphocytes (Bld) [#/Vol] 2.219 10*3/uL Normal 850-3900 [facility] Comment on above: Performed By: #### 6 399, 02265, 7600, 67155 #### [facility] [place] [address] [address] Sql Developer: Rodri Latham MD Lymphocytes/100 WBC (Bld) 29.2 % Normal [facility] Comment on above: Performed By: #### 6 399, 57560, 7600, 26879 #### [facility] [place] [address] [address] Sql Developer: Rodri Latham MD MCH (RBC) [Entitic mass] 21.6 pg Low 27.0-33.0 [facility] Comment on above: Performed By: #### 6 399, 83620, 7600, 91406 #### [facility] [place] [address] [address] Sql Developer: Rodri Latham MD MCHC (RBC) [Mass/Vol] 27.6 g/dL Low 32.0-36.[address] [facility] Comment on above: Result Comment: For adults, a slight decrease in the calculated MCHC value (in the range of 30 to 32 g/dL) is most likely not clinically significant; however, it should be interpreted with caution in correlation with other red cell parameters and the patient's clinical condition. Performed By: #### 6 399, 60628, 7600, 08201 #### [facility] [place] [address] [address] Sql Developer: Rodri Latham MD MCV (RBC) [Entitic vol] 78.4 fL Low 80.0-100.0 [facility] Comment on above: Performed By: #### 6 399, 75732, 7600, 21377 #### [facility] [place] [address] [address] Sql Developer: Rodri Latham MD Monocytes (Bld) [#/Vol] 0.502 10*3/uL Normal 200-950 [facility] Comment on above: Performed By: #### 6 399, 22929, 7600, 58766 #### [facility] [place] [address] [address] Sql Developer: Rodri Latham MD Monocytes/100 WBC (Bld) 6.6 % Normal [facility] Comment on above: Performed By: #### 6 399, 94453, 7600, 40513 #### [facility] [place] [address] [address] Sql Developer: Rodri Latham MD Neutrophils (Bld) [#/Vol] 4.674 10*3/uL Normal 8271-8377 [facility] Comment on above: Performed By: #### 6 399, 24258, 7600, 93810 #### [facility] [place] [address] [address] Sql Developer: Rodri Latham MD Neutrophils/100 WBC (Bld) 61.5 % Normal [facility] Comment on above: Performed By: #### 6 399, 43097, 7600, 41053 #### [facility] [place] [address] [address] Sql Developer: Rodri Latham MD Platelet mean volume (Bld) [Entitic vol] 10.8 fL Normal 7.5-12.5 [facility] Comment on above: Performed By: #### 6 399, 92833, 7600, 01776 #### [facility] [place] [address] [address] Sql Developer: Rodri Latham MD Platelets (Bld) [#/Vol] 339 10*3/uL Normal 140-400 [facility] Comment on above: Performed By: #### 6 399, 44548, 7600, 42853 #### [facility] [place] [address] [address] Sql Developer: Rodri Latham MD RBC (Bld) [#/Vol] 4.62 10*6/uL Normal 3.80-5.10 [facility] Comment on above: Performed By: #### 6 399, 57542, 7600, 99720 #### [facility] [place] [address] [address] Sql Developer: Rodri Latham MD WBC (Bld) [#/Vol] 7.6 10*3/uL Normal 3.8-10.8 [facility] Comment on above: Performed By: #### 6 399, 27396, 7600, 15745 #### [facility] [place] [address] [address] Sql Developer: Rodri Latham MD COMPREHENSIVE METABOLIC PANE L W/ANION GAPon 01-30-2025 Albumin [Mass/Vol] 4.0 g/dL Normal 3.6-5.1 [facility] Comment on above: Performed By: #### 6 399, 56457, 7600, 79747 #### [facility] of [address], [address] [place] [address] Pl Sql Developer: Rodri Latham MD ALP [Catalytic activity/Vol] 57 U/L Normal 31-125 [facility] Comment on above: Performed By: #### 6 399, 41210, 7600, 35455 #### [facility] of [address], [address] [place] [address] Pl Sql Developer: Rodri Latham MD ALT [Catalytic activity/Vol] 13 U/L Normal 6-29 [facility] Comment on above: Performed By: #### 6 399, 94260, 7600, 26234 #### [facility] [place] [address] [address] Sql Developer: Rodri Latham MD AST [Catalytic activity/Vol] 15 U/L Normal 10-30 [facility] Comment on above: Performed By: #### 6 399, 75976, 7600, 88258 #### [facility] [place] [address] [address] Sql Developer: Rodri Latham MD Bilirubin [Mass/Vol] 0.5 mg/dL Normal 0.2-1.2 [facility] Comment on above: Performed By: #### 6 399, 02737, 7600, 33453 #### [facility] [place] [address] [address] Sql Developer: Rodri Latham MD Calcium [Mass/Vol] 9.1 mg/dL Normal 8.6-10.2 [facility] Comment on above: Performed By: #### 6 399, 71513, 7600, 73468 #### [facility] [place] [address] [address] Sql Developer: Rodri Latham MD Chloride [Moles/Vol] 106 mmol/L Normal 98-110 [facility] Comment on above: Performed By: #### 6 399, 46916, 7600, 44917 #### [facility] [place] [address] [address] Sql Developer: Rodri Latham MD CO2 [Moles/Vol] 25 mmol/L Normal 20-32 [facility] Comment on above: Performed By: #### 6 399, 40518, 7600, 70220 #### [facility] [place] [address] [address] Sql Developer: Rodri Latham MD Creatinine [Mass/Vol] 0.76 mg/dL Normal 0.50-0.99 [facility] Comment on above: Performed By: #### 6 399, 75597, 7600, 88455 #### [facility] [place] [address] [address] Sql Developer: Rodri Latham MD ELECTROLYTE BALANCE 7 mmol/L (calc) Normal 7-17 [facility] Comment on above: Performed By: #### 6 399, 22930, 7600, 08111 #### [facility] [place] [address] [address] Sql Developer: Rodri Latham MD GFR/1.73 sq M.predicted among non-blacks MDRD (S/P/Bld) [Vol rate/Area] 101 mL/min/{1.73_m2} Normal > OR = 60 [facility] Comment on above: Performed By: #### 6 399, 79280, 7600, 60390 #### [facility] [place] [address] [address] Sql Developer: Rodri Latham MD Glucose [Mass/Vol] 79 mg/dL Normal 65-99 [facility] Comment on above: Result Comment: Fasting reference interval Performed By: #### 6 399, 29578, 7600, 60296 #### [facility] [place] [address] [address] Sql Developer: Rodri Latham MD Potassium [Moles/Vol] 4.3 mmol/L Normal 3.5-5.3 [facility] Comment on above: Performed By: #### 6 399, 27398, 7600, 42530 #### [facility] of [address], [address] [place] [address] Pl Sql Developer: Rodri Latham MD Protein [Mass/Vol] 7.2 g/dL Normal 6.1-8.1 [facility] Comment on above: Performed By: #### 6 399, 39283, 7600, 03484 #### [facility] [place] [address] [address] Sql Developer: Rodri Latham MD Sodium [Moles/Vol] 138 mmol/L Normal 135-146 [facility] Comment on above: Performed By: #### 6 399, 28326, 7600, 05224 #### [facility] [place] [address] [address] Sql Developer: Rodri Latham MD Urea nitrogen [Mass/Vol] 9 mg/dL Normal 7-25 [facility] Comment on above: Performed By: #### 6 399, 03692, 7600, 19726 #### [facility] [place] [address] [address] Sql Developer: Rodri Latham MD LIPID PANEL, [facility] 01-20 Cholesterol [Mass/Vol] 148 mg/dL Normal <200 [facility] Comment on above: Order Comment: FASTI NG:YES FASTING: YES Performed By: #### 6 399, 33746, 7600, 85305 #### [facility] [place] [address] [address] Sql Developer: Rodri Latham MD Cholesterol in HDL [Mass/Vol] 50 mg/dL Normal > OR = 50 [facility] Comment on above: Order Comment: FASTI NG:YES FASTING: YES Performed By: #### 6 399, 94591, 7600, 82778 #### [facility] [address], [address] [place] [address] Pl Sql Developer: Rodri Latham MD Cholesterol in LDL [Mass/Vol] 78 mg/dL Normal [facility] Comment on above: Order Comment: FASTI NG:YES FASTING: YES Result Comment: Refe rence range: <100 Desirable range <100 mg/dL for primary prevention; <70 mg/dL for patients with CHD or diabetic patients with > or = 2 CHD risk factors. LDL-C is now calculated using the Rafael calculation, which is a validated novel method providing better accuracy than the Friedewald equation in the estimation of LDL-C. Luis GILBERT et al. APRYL. 2013;310(19): 2743-1671 (http://education.Second Porch/faq/BDA069) Performed By: #### 6 399, 02286, 7600, 64413 #### [facility] [address], [address] [place] [address] Pl Sql Developer: Rodri Latham MD Cholesterol.total/Chol esterol in HDL [Mass ratio] 3.0 {ratio} Normal <5.0 [facility] Comment on above: Order Comment: FASTI NG:YES FASTING: YES Performed By: #### 6 399, 00651, 7600, 80503 #### [facility] [address], [address] [place] [address] Pl Sql Developer: Rodri Latham MD NON HDL CHOLESTEROL 98 mg/dL (calc) Normal <130 [facility] Comment on above: Order Comment: FASTI NG:YES FASTING: YES Result Comment: For patients with diabetes plus 1 major ASCVD risk factor, treating to a non-HDL-C goal of <100 mg/dL (LDL-C of <70 mg/dL) is considered a therapeutic option. Performed By: #### 6 399, 04696, 7600, 18396 #### [facility] [address], [address] [place] [address] [address] Sql Developer: Rodri Latham MD Triglyceride [Mass/Vol] 118 mg/dL Normal <150 [facility] Comment on above: Order Comment: FASTI NG:YES FASTING: YES Performed By: #### 6 399, 95214, 7600, 79681 #### [facility] [address], [address] [place] [address] [address] Sql Developer: Rodri Latham MD TSH W/REFLEX TO FT4on 2024 TSH W/REFLEX TO FT4 2.68 mIU/L Normal [facility] Comment on above: Result Comment: Refe rence Range > or = 20 Years 0.40-4.50 Ranges First trimester 0.26-2.66 Second trimester 0.55-2.73 Third trimester 0.43-2.91 Performed By: #### 6 399, 68523, 7600, 37663 #### [facility] [address], [address] [place] [address] Pl Sql Developer: Rodri Latham MD BI MAMMO BILATERAL SCREENING TOMOSYNTHESISon 01-29-2025 BI MAMMO BILATERAL SCREENING TOMOSYNTHESIS Interpreted By: Jacoby Das, STUDY: BI MAMMO BILATERAL SCREENING TOMOSYNTHESIS; 01/29/2025 7:51 am ACCESSION NUMBER(S): [id number] ORDERING CLINICIAN: YADIRA ARENAS INDICATION: Screening. COMPARISON: Digital mammograms dated 10/26/2023 FINDINGS: CC and MLO 2D digital mammograms and digital breast tomosynthesis images were obtained of the bilateral breasts. 3-D volume images were reconstructed in 5 views at an independent workstation as 1 mm slices through the breasts in both the CC and MLO projections. Density: The breasts are almost entirely fatty. No discrete mass or focal asymmetry is identified. No suspicious microcalcifications or foci of architectural distortion are seen. There has been no significant change. This study was interpreted with CAD. IMPRESSION: No mammographic evidence of malignancy. BI-RADS CATEGORY: BI-RADS Category: 1 Negative. Recommendation: Annual Screening. Recommended Date: 1 Year. Laterality: Bilateral. MACRO: None Signed by: Jacoby Das 01/29/2025 9:50 AM Dictation workstation: [id number] [facility] DBT Breast - bilateralon No mammographic evid ence of malignancy. BI-RADS CATEGORY: BI-RADS Category: 1 Negative. Recommendation: Annual Screening. Recommended Date: 1 Year. Laterality: Bilateral. MACRO: None Signed by: Jacoby Das 01/29/2025 9:50 AM Dictation workstation: [id number] MMODAL Interpreted By: Jacoby Sesay, STUDY: BI MAMMO BILATERAL SCREENING TOMOSYNTHESIS; 01/29/2025 7:51 am ACCESSION NUMBER(S): [id number] ORDERING CLINICIAN: YADIRA ARENAS INDICATION: Screening. COMPARISON: Digital mammograms dated 10/26/2023 FINDINGS: CC and MLO 2D digital mammograms and digital breast tomosynthesis images were obtained of the bilateral breasts. 3-D volume images were reconstructed in 5 views at an independent workstation as 1 mm slices through the breasts in both the CC and MLO projections. Density: The breasts are almost entirely fatty. No discrete mass or focal asymmetry is identified. No suspicious microcalcifications or foci of architectural distortion are seen. There has been no significant change. This study was interpreted with CAD. MMODAL Jacoby Das MD - 01/29/2025 Interpreted By: Jacoby Das, STUDY: BI MAMMO BILATERAL SCREENING TOMOSYNTHESIS; 01/29/2025 7:51 am ACCESSION NUMBER(S): [id number] ORDERING CLINICIAN: YADIRA ARENAS INDICATION: Screening. COMPARISON: Digital mammograms dated 10/26/2023 FINDINGS: CC and MLO 2D digital mammograms and digital breast tomosynthesis images were obtained of the bilateral breasts. 3-D volume images were reconstructed in 5 views at an independent workstation as 1 mm slices through the breasts in both the CC and MLO projections. Density: The breasts are almost entirely fatty. No discrete mass or focal asymmetry is identified. No suspicious microcalcifications or foci of architectural distortion are seen. There has been no significant change. This study was interpreted with CAD. IMPRESSION: No mammographic evidence of malignancy. BI-RADS CATEGORY: BI-RADS Category: 1 Negative. Recommendation: Annual Screening. Recommended Date: 1 Year. Laterality: Bilateral. MACRO: None Signed by: Jacoby Das 01/29/2025 9:50 AM Dictation workstation: [id number] [facility] Work Phone: Radiology Study observation (narrative) [facility] Work Phone: DBT Breast - bilateralOrdere d By: Jacoby Das on 01-29-2025 [facility] Work Phone: XR SHOULDER RIGHT 2+ VIEWSon 01-29-2025 XR SHOULDER RIGHT 2+ VIEWS Interpreted By: Shay Kirkland, STUDY: XR SHOULDER RIGHT 2+ VIEWS; 01/29/2025 7:31 am INDICATION: Signs/Symptoms:pain. ,M25.511 Pain in right shoulder,G89.29 Other chronic pain COMPARISON: None. ACCESSION NUMBER(S): [id number] ORDERING CLINICIAN: YADIRA ARENAS TECHNIQUE: Right shoulder series performed with 5 total images. FINDINGS: The normal glenohumeral and acromioclavicular relations are maintained. No acute fracture or subluxation is seen. There is mild spurring along the greater tuberosity which could be related to calcific tendinitis. Soft tissues are unremarkable. IMPRESSION: Mild marginal spurring along the greater tuberosity possibly related to calcific tendinitis. MACRO: None. Signed by: Shay Kirkland 02/01/2025 8:19 AM Dictation workstation: [id number] [facility] Pelvic w/ Transvaginalon Pelvic w/ Transvaginal [facility] Imaging Services [address], [place] [address] Pelvic w/ Transvaginal MR#: [id number] Acct: [id number] Name: ANURAG VALENCIA Rep #: [id number] : 1985 F 39 From: Evert radford MD PCP: Dr. Melanie Dumas, DO Status: REG CLI Study: Pelvic w/ Transvaginal Date of Exam: 12/30/24 Exam# [id number] Ordering Dr: Nuris Rubio PROCEDURE: PELVIC W/ TRANSVAGINAL REASON FOR EXAM: ENLARGED UTERUS TECHNIQUE: PELVIC W/ TRANSVAGINAL COMPARISON: None FINDINGS: LMP: December 19, 2024. Measurements: Uterus: 23.7 cm x 15.9 cm x 12.1 cm with a volume of 2381.8 mL Endometrial Thickness: 2.4 mm. It is hyperechoic. Right Ovary: Not visualized. Left Ovary: 3.3 cm x 2.4 cm x 1.8 cm with a volume of 7.51 mL. TRANSABDOMINAL: Uterus: There is a large 12 cm x 12.6 cm 12.1 cm uterine fibroid. Endometrium: Unremarkable. Right ovary: Not visualized. Left ovary: Normal size and echotexture. Other: No large pelvic mass identified. Transvaginal sonography was performed to better visualize the endometrium. TRANSVAGINAL: Uterus: Enlarged fibroid uterus as described. There is a 12 cm x 12.6 cm 12.1 cm fibroid. Endometrium: Normal echotexture. Right ovary: Not visualized. Left ovary: Normal size and echotexture. Other adnexal findings: None. Cul-de-sac: No free intraperitoneal fluid identified. Tenderness: No tenderness US/Pelvic w/ Transvaginal IMPRESSION: Enlarged fibroid uterus. Reading Location: [place] [address] CC: JOSEY Rubio; Dr. Melanie Dumas DO B Operator: Signed Normal [facility] Residential Roofer Office Visit Reporton 12-19-2024 Residential [facility]ofer Office Visit Report 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: No Is patient in pain?: No Allergies No Known Allergies Allergy (Unverified 12/19/24 08:31) Medications ???Medication ???Instructions ???Recorded ???Confirmed ???Type losartan 25 mg tablet 25 mg PO QDAY 12/19/24 12/19/24 Hi story nystatin-triamcinolone 100,000 1 applic topical BID #15 grams 12/19/24 Rx unit/gram-0.1 % topical ointment Is last menstrual period known: Yes Last Menstrual Period: 11/25/24 Post menopausal: No Patient : No : No Control Method: vasectomy PFSH Medical History Gallstones Hypertension Retinoblastoma Surgical History H/O eye surgery H/O knee surgery History of cholecystectomy Family History Grandfather Myocardial infarction, Onset Age: 65 Grandmother Breast cancer Father Alcoholism CVA (cerebral vascular accident) Hypertension Mother Hypertension Social History adopted: No household members: spouse, family and children number of children: 2 current occupational status: employed 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 Approx 2 weeks ago had gallbladder out; after surgery she was told she had an enlarged uterus. It was recommended that she follow up with [facility] for further evaluation. She reports her menses are regular however heavy--on her heaviest days she is changing maxi pad approx 4-5 times a day then this bleeding tapers off. Her last PAP smear was approx 5 years ago-she has never had an abnormal PAP. Female Reproductive History Last Menstrual Period: 11/25/24 Cycle Length: 21-35 Bleeding Duration: 5 Questions: metrorrhagia: No, sexually active: Yes (vasectomy), dyspareunia: No and PCB: No History 2 Elective abortions Hx Para 2 Spontaneous abortions Hx # Term Pregnancies Ectopic pregnancies Hx # Pregnancies Multiple births # of living children 2 Past Pregnancies Del. Date Name GA/Weeks Outcome Route Bth Weight Infant Gen Labor Lgth Anesthesia Del Locatn Provider FOB 02/14/13 Calissa live - full term 7lbs 2oz Female none [facility] d 08/21/15 [place] live - full term 7lbs 15oz Male none [facility] d ROS Const Constitutional: Denies body ache, chills, fatigue, fever(s) or headache(s) Cardio Card: Denies chest pain at rest or palpitations Resp Resp: Denies cough or dyspnea GI GI: Denies abdominal pain : Reports menorrhagia; Denies prolapse symptoms, vaginal discharge, vaginal dryness, vaginal odor or vaginal pruritus Skin Skin/Breast: Reports other (itchy rash under abdominal skin fold) Exam Const General: cooperative, healthy appearing, comfortable, no acute distress and well developed Resp Effort Inspection: normal respiratory effort and able to speak in complete sentences GI Palpation: soft Rectal Exam: other (midline laparoscopic incision C/D/I; dermabond.) General: bladder normal to palpation External Female Exam: normal external appearance and normal appearance of the urethra Urethra: normal appearance of the urethra Speculum Exam - Vagina: normal appearance of the vagina, normal vaginal discharge, no lesions, no masses, no swelling and nontender Speculum Exam - Cervix: normal appearance of the cervix and nontender Bimanual Exam- Vagina Uterus: normal bimanual exam, normal palpation, uterine size normal (mildly enlarged; soft.), bladder normal to palpation, uterine shape normal, No tender, uterine mobility normal, consistency normal and non-tender Bimanual Exam- Adnexa, other: (more content not included)... Normal [facility] Surgical pathology studyon 0 12-03-2024 Surgical pathology study Pathology report.total SEE COMMENT Surgical Pathology Case: [id number] Authorizing Provider: Melanie Hung MD Collected: 12/03/2024 1535 Ordering Location: [facility] Received: 12/03/2024 1642 Center OR Pathologist: Tyra Tian MD Specimen: GALLBLADDER CHOLECYSTECTOMY, gallbladder Path report.final diagnosis SEE COMMENT GALLBLADDER, CHOLECYSTECTOMY: - Chronic cholecystitis and cholelithiasis. at 1621 EDT Laboratory comment By the signature on this report, the individual or group listed as making the Final Interpretation/Diagnosis certifies that they have reviewed this case. Path report.relevant Hx SEE COMMENT Pre-op diagnosis: Symptomatic cholelithiasis Path report.gross observation SEE COMMENT Received in formalin, labeled with the patient's name, hospital number and gallbladder, is a gallbladder measuring 8.7 x 3.5 x 3.1 cm. The serosa is reyna smooth and glistening. A defect is not present. The lumen contains green viscous bile. The wall measures up to 0.3 cm in thickness. Multiple calculi are identified ranging in size from 1.5 to 3.7 in greatest dimension. A calculus is not impacted in the cystic duct. The mucosa is bile-stained and velvety. A lymph node is not identified adjacent to the cystic duct. Pipeliner sections are submitted in 1 cassette. [facility] Summary of Cassettes: Specimen Label Site A 1 cystic duct margin en face, gallbladder wall Normal [facility] Comment on above: Order Comment: Pre-o p diagnosis: Symptomatic cholelithiasis [K80.20] CBC W Auto Differential pane l (Bld)on 01-09-2024 Basophils (Bld) [#/Vol] 0.04 x10*3/uL Normal 0.00-0.10 [facility] Comment on above: Performed By: #### 5 7021-8 #### AARON KNIGHT ([id number]) [facility] ([facility]) [address] [place] [address] Basophils/100 WBC (Bld) 0.6 % Normal 0.0-2.0 [facility] Comment on above: Performed By: #### 5 7021-8 #### AARON KNIGHT ([id number]) [facility] ([facility]) [address] [place] [address] Eosinophils (Bld) [#/Vol] 0.12 x10*3/uL Normal 0.00-0.70 [facility] Comment on above: Performed By: #### 5 7021-8 #### AARON KNIGHT ([id number]) [facility] ([facility]) [address] [place] [address] Eosinophils/100 WBC (Bld) 1.7 % Normal 0.0-6.0 [facility] Comment on above: Performed By: #### 7021-8 #### AARON KNIGHT ([id number]) [facility] ([facility]) [address] [place] [address]697 Erythrocyte distribution width (RBC) [Ratio] 17.9 % High 11.5-14.5 [facility] Comment on above: Performed By: #### 5 7021-8 #### AARON KNIGHT ([id number]) [facility] ([facility]) [address] [place] [address] Hematocrit (Bld) [Volume fraction] 36.7 % Normal 36.0-46.0 [facility] Comment on above: Performed By: #### 5 7021-8 #### AARON KNIGHT ([id number]) [facility] ([facility]) [address] [place] [address] Hemoglobin (Bld) [Mass/Vol] 10.9 g/dL Low 12.0-16.0 [facility] Comment on above: Performed By: #### 5 7021-8 #### AARON KNIGHT ([id number]) [facility] ([facility]) [address] [place] [address]39[address] Immature granulocytes (Bld) [#/Vol] 0.01 x10*3/uL Normal 0.00-0.70 [facility] Comment on above: Performed By: #### 5 7021-8 #### AARON KNIGHT ([id number]) [facility] ([facility]) [address] [place] [address] 27974 Immature granulocytes/100 WBC (Bld) 0.1 % Normal 0.0-0.9 [facility] Comment on above: Result Comment: Trini ture Granulocyte Count (IG) includes promyelocytes, myelocytes and metamyelocytes but does not include bands. Percent differential counts (%) should be interpreted in the context of the absolute cell counts (cells/UL). Performed By: #### 5 7021-8 #### AARON KNIGHT ([id number]) [facility] ([facility]) [address] [place] [address] Lymphocytes (Bld) [#/Vol] 2.57 x10*3/uL Normal 1.20-4.80 [facility] Comment on above: Performed By: #### 5 7021-8 #### AARON KNIGHT ([id number]) [facility] ([facility]) [address] [place] [address] Lymphocytes/100 WBC (Bld) 35.6 % Normal 13.0-44.0 [facility] Comment on above: Performed By: #### 5 7021-8 #### AARON KNIGHT ([id number]) [facility] ([facility]) [address] [place] [address] MCH (RBC) [Entitic mass] 23.9 pg Low 26.0-34.0 [facility] Comment on above: Performed By: #### 5 7021-8 #### AARON KNIGHT ([id number]) [facility] ([facility]) [address] [place] [address] MCHC (RBC) [Mass/Vol] 29.7 g/dL Low 32.0-36.0 [facility] Comment on above: Performed By: #### 5 7021-8 #### AARON KNIGHT ([id number]) [facility] ([facility]) [address] [place] [address] MCV (RBC) [Entitic vol] 81 fL Normal 80-100 [facility] Comment on above: Performed By: #### 5 7021-8 #### AARON KNIGHT ([id number]) [facility] ([facility]) [address] [place] [address] Monocytes (Bld) [#/Vol] 0.51 x10*3/uL Normal 0.10-1.00 [facility] Comment on above: Performed By: #### 5 7021-8 #### AARON KNIGHT ([id number]) [facility] ([facility]) [address] [place] [address] Monocytes/100 WBC (Bld) 7.1 % Normal 2.0-10.0 [facility] Comment on above: Performed By: #### 5 7021-8 #### AARON KNIGHT ([id number]) [facility] ([facility]) [address] [place] [address]76[address] Neutrophils (Bld) [#/Vol] 3.97 x10*3/uL Normal 1.20-7.70 [facility] Comment on above: Result Comment: Perc ent differential counts (%) should be interpreted in the context of the absolute cell counts (cells/uL). Performed By: #### 5 7021-8 #### AARON KNIGHT ([id number]) [facility] ([facility]) [address] [place] [address]3445 Neutrophils/100 WBC (Bld) 54.9 % Normal 40.0-80.0 [facility] Comment on above: Performed By: #### 5 7021-8 #### AARON KNIGHT ([id number]) [facility] ([facility]) [address] [place] [address] 24509 Nucleated RBC/100 WBC (Bld) [Ratio] 0.0 /100 WBCs Normal 0.0-0.0 [facility] Comment on above: Performed By: #### 5 7021-8 #### AARON KNIGHT ([id number]) [facility] ([facility]) [address] [place] [address] 41[address] Platelets (Bld) [#/Vol] 281 x10*3/uL Normal 150-450 [facility] Comment on above: Performed By: #### 5 7021-8 #### AARON KNIGHT ([id number]) [facility] ([facility]) [address] [place] [address] RBC (Bld) [#/Vol] 4.56 x10*6/uL Normal 4.00-5.20 [facility] Comment on above: Performed By: #### 5 7021-8 #### AARON KNIGHT ([id number]) [facility] ([facility]) [address] [place] [address] 41560 WBC (Bld) [#/Vol] 7.2 x10*3/uL Normal 4.4-11.3 [facility] Comment on above: Performed By: #### 5 7021-8 #### AARON KNIGHT ([id number]) [facility] ([facility]) [address] [place] [address] Comprehensive metabolic 2000 panelon 01-09-2024 Albumin BCP dye [Mass/Vol] 3.8 g/dL Normal 3.4-5.0 [facility] Comment on above: Performed By: #### 2 4323-8 #### AARON KNIGHT ([id number]) [facility] ([facility]) [address] [place] [address] ALP [Catalytic activity/Vol] 55 U/L Normal 33-110 [facility] Comment on above: Performed By: #### 2 4323-8 #### AARON KNIGHT ([id number]) [facility] ([facility]) [address] [place] [address] 64539 ALT With P-5'-P [Catalytic activity/Vol] 9 U/L Normal 7-45 [facility] Comment on above: Result Comment: Queta ents treated with Sulfasalazine may generate falsely decreased results for ALT. Performed By: #### 2 4323-8 #### AARON KNIGHT ([id number]) [facility] ([facility]) [address] [place] [address] 02370 Anion gap [Moles/Vol] 9 mmol/L Low 10-20 [facility] Comment on above: Performed By: #### 2 4323-8 #### AARON KNIGHT ([id number]) [facility] ([facility]) [address] [place], [place] [address] AST With P-5'-P [Catalytic activity/Vol] 11 U/L Normal 9-39 [facility] Comment on above: Performed By: #### 2 4323-8 #### AARON KNIGHT ([id number]) [facility] ([facility]) [address] [place] [address] 77827 Bilirubin [Mass/Vol] 0.4 mg/dL Normal 0.0-1.2 [facility] Comment on above: Performed By: #### 2 4323-8 #### AARON KNIGHT ([id number]) [facility] ([facility]) [address] [place] [address] 43091 Calcium [Mass/Vol] 8.9 mg/dL Normal 8.6-10.3 [facility] Comment on above: Performed By: #### 2 4323-8 #### AARON KNIGHT ([id number]) [facility] ([facility]) [address] [place] [address] 62240 Chloride [Moles/Vol] 108 mmol/L High 98-107 [facility] Comment on above: Performed By: #### 2 4323-8 #### AARON KNIGHT ([id number]) [facility] ([facility]) [address] [place] [address] 78535 CO2 [Moles/Vol] 26 mmol/L Normal 21-32 [facility] Comment on above: Performed By: #### 2 4323-8 #### AARON KNIGHT ([id number]) [facility] ([facility]) [address] [place] [address] 43166 Creatinine [Mass/Vol] 0.90 mg/dL Normal 0.50-1.05 [facility] Comment on above: Performed By: #### 2 4323-8 #### AARON KNIGHT ([id number]) [facility] ([facility]) [address] [place] [address] 85556 Glomerular filtration rate/1.73 sq M.predicted 83 mL/min/1.73m*2 Normal >60 [facility] Comment on above: Result Comment: Calc ulations of estimated GFR are performed using the 2020 CKD-EPI Study Refit equation without the race variable for the IDMS-Traceable creatinine methods. https://jasn.asnjournals.org/content//ASN.43658 58544 Performed By: #### 2 4323-8 #### AARON KNIGHT ([id number]) [facility] ([facility]) [address] [place] [address] 87620 Glucose [Mass/Vol] 84 mg/dL Normal 74-99 [facility] Comment on above: Performed By: #### 2 4323-8 #### AARON KNIGHT ([id number]) [facility] ([facility]) [address] [place] [address] 52039 Potassium [Moles/Vol] 4.6 mmol/L Normal 3.5-5.3 [facility] Comment on above: Performed By: #### 2 4323-8 #### AARON KNIGHT ([id number]) [facility] ([facility]) [address] [place] [address] 91934 Protein [Mass/Vol] 6.7 g/dL Normal 6.4-8.2 [facility] Comment on above: Performed By: #### 2 4323-8 #### AARON KNIGHT ([id number]) [facility] ([facility]) [address] [place] [address] 38138 Sodium [Moles/Vol] 138 mmol/L Normal 136-145 [facility] Comment on above: Performed By: #### 2 4323-8 #### AARON KNIGHT ([id number]) [facility] ([facility]) [address] [place] [address] 11755 Urea nitrogen [Mass/Vol] 12 mg/dL Normal 6-23 [facility] Comment on above: Performed By: #### 2 4323-8 #### AARON KNIGHT ([id number]) [facility] ([facility]) [address] [place] [address] 32060 US Abdomen RUQon 01-09-2024 Cholelithiasis. MACRO: None Signed by: Vitor Luong 01/09/2024 11:07 AM Dictation workstation: [id number] MMODAL Interpreted By: Vitor Richey, STUDY: US GALLBLADDER; 01/09/2024 9:39 am INDICATION: Signs/Symptoms:ruq pain. COMPARISON: None. ACCESSION NUMBER(S): [id number] ORDERING CLINICIAN: MELANIE DUMAS TECHNIQUE: Multiple images of the right upper quadrant were obtained. FINDINGS: LIVER: The liver measures 16.5 cm and is grossly unremarkable and free of any focal lesions. GALLBLADDER: The gallbladder is nondistended, and contains a calculus measuring about 2.7 cm in size. The gallbladder wall thickness is 0.33 cm. No pericholecystic edema. Sonographic Umana's sign is negative. BILE DUCTS: No evidence of intra or extrahepatic biliary dilatation is identified; the common bile duct measures 4.7 mm. PANCREAS: The pancreas is poorly visualized due to overlying bowel gas. RIGHT KIDNEY: The right kidney measures 10.5 cm in length. The renal cortical echogenicity and thickness are within normal limit. The renal cortical thickness is 1.2 cm. No hydronephrosis or renal calculi are seen. MMODAL Vitor Luong MD - 01/09/2024 Interpreted By: Vitor Luong, STUDY: US GALLBLADDER; 01/09/2024 9:39 am INDICATION: Signs/Symptoms:ruq pain. COMPARISON: None. ACCESSION NUMBER(S): [id number] ORDERING CLINICIAN: MELANIE DUMAS TECHNIQUE: Multiple images of the right upper quadrant were obtained. FINDINGS: LIVER: The liver measures 16.5 cm and is grossly unremarkable and free of any focal lesions. GALLBLADDER: The gallbladder is nondistended, and contains a calculus measuring about 2.7 cm in size. The gallbladder wall thickness is 0.33 cm. No pericholecystic edema. Sonographic Umana's sign is negative. BILE DUCTS: No evidence of intra or extrahepatic biliary dilatation is identified; the common bile duct measures 4.7 mm. PANCREAS: The pancreas is poorly visualized due to overlying bowel gas. RIGHT KIDNEY: The right kidney measures 10.5 cm in length. The renal cortical echogenicity and thickness are within normal limit. The renal cortical thickness is 1.2 cm. No hydronephrosis or renal calculi are seen. IMPRESSION: Cholelithiasis. MACRO: None Signed by: Vitor Luong 01/09/2024 11:07 AM Dictation workstation: [id number] [facility] Work Phone: Radiology Study observation (narrative) [facility] Work Phone: US Abdomen RUQOrdered By: Davide Luong on 01-09-2024 [facility] Work Phone: CBC W Auto Differential pane l (Bld)on 10-26-2023 Basophils (Bld) [#/Vol] 0.03 x10*3/uL Normal 0.00-0.10 [facility] Comment on above: Performed By: #### 5 7021-8 #### AARON KNIGHT ([id number]) [facility] ([facility]) [address] [place] [address] 87586 Basophils/100 WBC (Bld) 0.4 % Normal 0.0-2.0 [facility] Comment on above: Performed By: #### 5 7021-8 #### AARON KNIGHT ([id number]) [facility] ([facility]) [address] [place] [address] 40145 Eosinophils (Bld) [#/Vol] 0.10 x10*3/uL Normal 0.00-0.70 [facility] Comment on above: Performed By: #### 5 7021-8 #### AARON KNIGHT ([id number]) [facility] ([facility]) [address] [place] [address] 31436 Eosinophils/100 WBC (Bld) 1.4 % Normal 0.0-6.0 [facility] Comment on above: Performed By: #### 5 7021-8 #### AARON KNIGHT ([id number]) [facility] ([facility]) [address] [place] [address] 33608 Erythrocyte distribution width (RBC) [Ratio] 17.0 % High 11.5-14.5 [facility] Comment on above: Performed By: #### 5 7021-8 #### AARON KNIGHT (69791) [facility] ([facility]) [address] [place] [address] 51618 Hematocrit (Bld) [Volume fraction] 34.0 % Low 36.0-46.0 [facility] Comment on above: Performed By: #### 5 7021-8 #### AARON KNIGHT ([id number]) [facility] ([facility]) [address] [place] [address] 31404 Hemoglobin (Bld) [Mass/Vol] 9.9 g/dL Low 12.0-16.0 [facility] Comment on above: Performed By: #### 5 7021-8 #### AARON KNIGHT ([id number]) [facility] ([facility]) [address] [place] [address] 78931 Immature granulocytes (Bld) [#/Vol] 0.01 x10*3/uL Normal 0.00-0.70 [facility] Comment on above: Performed By: #### 5 7021-8 #### AARON KNIGHT ([id number]) [facility] ([facility]) [address] [place] [address] 28401 Immature granulocytes/100 WBC (Bld) 0.1 % Normal 0.0-0.9 [facility] Comment on above: Result Comment: Trini ture Granulocyte Count (IG) includes promyelocytes, myelocytes and metamyelocytes but does not include bands. Percent differential counts (%) should be interpreted in the context of the absolute cell counts (cells/UL). Performed By: #### 5 7021-8 #### AARON KNIGHT ([id number]) [facility] ([facility]) [address] [place] [address] 99183 Lymphocytes (Bld) [#/Vol] 2.62 x10*3/uL Normal 1.20-4.80 [facility] Comment on above: Performed By: #### 5 7021-8 #### AARON KNIGHT ([id number]) [facility] ([facility]) [address] [place] [address] 08003 Lymphocytes/100 WBC (Bld) 37.6 % Normal 13.0-44.0 [facility] Comment on above: Performed By: #### 5 7021-8 #### AARON KNIGHT ([id number]) [facility] ([facility]) [address] [place] [address] 13531 MCH (RBC) [Entitic mass] 21.9 pg Low 26.0-34.0 [facility] Comment on above: Performed By: #### 5 7021-8 #### AARON KNIGHT ([id number]) [facility] ([facility]) [address] [place] [address] 84965 MCHC (RBC) [Mass/Vol] 29.1 g/dL Low 32.0-36.0 [facility] Comment on above: Performed By: #### 5 7021-8 #### AARON KNIGHT ([id number]) [facility] ([facility]) [address] [place] [address] 19169 MCV (RBC) [Entitic vol] 75 fL Low 80-100 [facility] Comment on above: Performed By: #### 5 7021-8 #### AARON KNIGHT ([id number]) [facility] ([facility]) [address] [place] [address] 00658 Monocytes (Bld) [#/Vol] 0.44 x10*3/uL Normal 0.10-1.00 [facility] Comment on above: Performed By: #### 5 7021-8 #### AARON KNIGHT ([id number]) [facility] ([facility]) [address] [place] [address] 96114 Monocytes/100 WBC (Bld) 6.3 % Normal 2.0-10.0 [facility] Comment on above: Performed By: #### 5 7021-8 #### AARON KNIGHT ([id number]) [facility] ([facility]) [address] [place] [address] 40198 Neutrophils (Bld) [#/Vol] 3.77 x10*3/uL Normal 1.20-7.70 [facility] Comment on above: Result Comment: Perc ent differential counts (%) should be interpreted in the context of the absolute cell counts (cells/uL). Performed By: #### 5 7021-8 #### AARON KNIGHT ([id number]) [facility] ([facility]) [address] [place] [address] 79000 Neutrophils/100 WBC (Bld) 54.2 % Normal 40.0-80.0 [facility] Comment on above: Performed By: #### 5 7021-8 #### AARON KNIGHT ([id number]) [facility] ([facility]) [address] [place] [address] 22044 Nucleated RBC/100 WBC (Bld) [Ratio] 0.0 /100 WBCs Normal 0.0-0.0 [facility] Comment on above: Performed By: #### 5 7021-8 #### AARON KNIGHT ([id number]) [facility] ([facility]) [address] [place] [address] 74304 Platelets (Bld) [#/Vol] 331 x10*3/uL Normal 150-450 [facility] Comment on above: Performed By: #### 5 7021-8 #### AARON KNIGHT ([id number]) [facility] ([facility]) [address] [place] [address] 34994 RBC (Bld) [#/Vol] 4.52 x10*6/uL Normal 4.00-5.20 [facility] Comment on above: Performed By: #### 5 7021-8 #### AARON KNIGHT ([id number]) [facility] ([facility]) [address] [place] [address] 72861 WBC (Bld) [#/Vol] 7.0 x10*3/uL Normal 4.4-11.3 [facility] Comment on above: Performed By: #### 5 7021-8 #### AARON KNIGHT ([id number]) [facility] ([facility]) [address] [place] [address] 43394 Cobalaminson 10-26-2023 Cobalamin (Vitamin B12) [Mass/Vol] 168 pg/mL Low 211-911 [facility] Comment on above: Performed By: #### 2 132-9 #### AARON KNIGHT ([id number]) [facility] ([facility]) [address] [place] [address] 65688 Comprehensive metabolic 2000 panelon 10-26-2023 Albumin BCP dye [Mass/Vol] 4.1 g/dL Normal 3.4-5.0 [facility] Comment on above: Performed By: #### 2 4323-8 #### AARON KNIGHT ([id number]) [facility] ([facility]) [address] [place] [address] ALP [Catalytic activity/Vol] 57 U/L Normal 33-110 [facility] Comment on above: Performed By: #### 2 4323-8 #### AARON KNIGHT ([id number]) [facility] ([facility]) [address] [place] [address] ALT With P-5'-P [Catalytic activity/Vol] 13 U/L Normal 7-45 [facility] Comment on above: Result Comment: Queta ents treated with Sulfasalazine may generate falsely decreased results for ALT. Performed By: #### 2 4323-8 #### AARON KNIGHT ([id number]) [facility] ([facility]) [address] [place] [address] 54028 Anion gap [Moles/Vol] 11 mmol/L Normal 10-20 [facility] Comment on above: Performed By: #### 2 4323-8 #### AARON KNIGHT ([id number]) [facility] ([facility]) [address] [place] [address] AST With P-5'-P [Catalytic activity/Vol] 12 U/L Normal 9-39 [facility] Comment on above: Performed By: #### 2 4323-8 #### AARON KNIGHT ([id number]) [facility] ([facility]) [address] [place] [address] Bilirubin [Mass/Vol] 0.3 mg/dL Normal 0.0-1.2 [facility] Comment on above: Performed By: #### 2 4323-8 #### AARON KNIGHT ([id number]) [facility] ([facility]) [address] [place] [address] Calcium [Mass/Vol] 8.8 mg/dL Normal 8.6-10.3 [facility] Comment on above: Performed By: #### 2 4323-8 #### AARON KNIGHT (85946) [facility] ([facility]) [facility] [place] [address] Chloride [Moles/Vol] 106 mmol/L Normal 98-107 [facility] Comment on above: Performed By: #### 2 4323-8 #### AARON KNIGHT ([id number]) [facility] ([facility]) [address] [place] [address] 51005 CO2 [Moles/Vol] 24 mmol/L Normal 21-32 [facility] Comment on above: Performed By: #### 2 4323-8 #### AARON KNIGHT ([id number]) [facility] ([facility]) [address] [place] [address] 66045 Creatinine [Mass/Vol] 0.83 mg/dL Normal 0.50-1.05 [facility] Comment on above: Performed By: #### 2 4323-8 #### AARON KNIGHT (82001) [facility] ([facility]) [address] [place] [address] 89000 GFR/1.73 sq M.predicted MDRD (S/P/Bld) [Vol rate/Area] mL/min/{1.73_m2} Normal >60 [facility] Comment on above: Result Comment: Calc ulations of estimated GFR are performed using the 2020 CKD-EPI Study Refit equation without the race variable for the IDMS-Traceable creatinine methods. https://jasn.asnjournals.org/content/early//ASN.04993 24908 Performed By: #### 2 4323-8 #### AARON KNIGHT ([id number]) [facility] ([facility]) [address] [place] [address] 04696 Glucose [Mass/Vol] 81 mg/dL Normal 74-99 [facility] Comment on above: Performed By: #### 2 4323-8 #### AARON KNIGHT (09273) [facility] ([facility]) [address] [place] [address] 15752 Potassium [Moles/Vol] 4.5 mmol/L Normal 3.5-5.3 [facility] Comment on above: Performed By: #### 2 4323-8 #### AARON KNIGHT ([id number]) [facility] ([facility]) [address] [place] [address] 78832 Protein [Mass/Vol] 7.0 g/dL Normal 6.4-8.2 [facility] Comment on above: Performed By: #### 2 4323-8 #### AARON KNIGHT ([id number]) [facility] ([facility]) [address] [place] [address] 01057 Sodium [Moles/Vol] 136 mmol/L Normal 136-145 [facility] Comment on above: Performed By: #### 2 4323-8 #### AARON KNIGHT (05584) [facility] ([facility]) [address] [place] [address] 62756 Urea nitrogen [Mass/Vol] 15 mg/dL Normal 6-23 [facility] Comment on above: Performed By: #### 2 4323-8 #### AARON KNIGHT ([id number]) [facility] ([facility]) [address] [place] [address] 20745 Ferritinon 10-26-2023 Ferritin [Mass/Vol] 16 ng/mL Normal 8-150 [facility] Comment on above: Performed By: #### 2 276-4 #### AARON KNIGHT (42005) [facility] ([facility]) [address] [place] [address] 55251 Iron and Iron binding capaci ty panelon 10-26-2023 Iron [Mass/Vol] 12 ug/dL Low 35-150 [facility] Comment on above: Performed By: #### 5 0190-8 #### AARON KNIGHT (40263) [facility] ([facility]) [address] [place] [address] 35087 Iron binding capacity [Mass/Vol] 438 ug/dL Normal 240-445 [facility] Comment on above: Performed By: #### 5 0190-8 #### AARON KNIGHT ([id number]) [facility] ([facility]) [facility] [place] [address] Iron binding capacity.unsaturated [Mass/Vol] 426 ug/dL High 110-370 [facility] Comment on above: Performed By: #### 5 0190-8 #### AARON KNIGHT ([id number]) [facility] ([facility]) [address] [place] [address] 95617 Iron saturation [Mass fraction] 3 % Low 25-45 [facility] Comment on above: Performed By: #### 5 0190-8 #### AARON KNIGHT ([id number]) [facility] ([facility]) [address] [place], [place] [address] Lipid 1996 panelon 4 Cholesterol [Mass/Vol] 142 mg/dL Normal 0-199 [facility] Comment on above: Result Comment: Age Desirable Borderline High High 0-19 Y 0 - 169 170 - 199 >/= 200 20-24 Y 0 - 189 190 - 224 >/= 225 >24 Y 0 - 199 200 - 239 >/= 240 All ranges are based on fasting samples. Specific therapeutic targets will vary based on patient-specific cardiac risk. Pediatric guidelines reference:Pediatrics 2011, 128(S5).Adult guidelines reference: NCEP ATPIII Guidelines,APRYL 2001, 258:2486-97 Venipuncture immediately after or during the administration of Metamizole may lead to falsely low results. Testing should be performed immediately prior to Metamizole dosing. Performed By: #### 2 4331-1 #### AARON KNIGHT ([id number]) [facility] ([facility]) [address] [place] [address] 19341 Cholesterol in HDL [Mass/Vol] 38.0 mg/dL Normal [facility] Comment on above: Result Comment: Age Very Low Low Normal High 0-19 Y < 35 < 40 40-45 ---- 20-24 Y ---- < 40 >45 ---- >24 Y ---- < 40 40-60 >60 Performed By: #### 2 4331-1 #### AARON KNIGHT ([id number]) [facility] ([facility]) [address] [place] [address] Cholesterol in LDL [Mass/Vol] 80 mg/dL Normal <=99 [facility] Comment on above: Result Comment: Near Borderline AGE Desirable Optimal High High Very High 0-19 Y 0 - 109 --- 110-129 >/= 130 ---- 20-24 Y 0 - 119 --- 120-159 >/= 160 ---- >24 Y 0 - 99 100-129 130-159 160-189 >/=190 Performed By: #### 2 4331-1 #### AARON KNIGHT ([id number]) [facility] ([facility]) [facility] [place] [address] Cholesterol in VLDL [Mass/Vol] 24 mg/dL Normal 0-40 [facility] Comment on above: Performed By: #### 2 4331-1 #### AARON KNIGHT ([id number]) [facility] ([facility]) [address] [place] [address] 00814 CHOLESTEROL/HDL RATIO 3.7 Normal [facility] Comment on above: Result Comment: Ref Values Desirable < 3.4 High Risk > 5.0 Performed By: #### 2 4331-1 #### AARON KNIGHT ([id number]) [facility] ([facility]) [address] [place] [address] 95900 NON HDL CHOLESTEROL 104 mg/dL Normal 0-149 [facility] Comment on above: Result Comment: Age Desirable Borderline High High Very High 0-19 Y 0 - 119 120 - 144 >/= 145 >/= 160 20-24 Y 0 - 149 150 - 189 >/= 190 ---- >24 Y 30 mg/dL above LDL Cholesterol goal Performed By: #### 2 4331-1 #### AARON KNIGHT ([id number]) [facility] ([facility]) [address] [place] [address] 77138 Triglyceride [Mass/Vol] 121 mg/dL Normal 0-149 [facility] Comment on above: Result Comment: Age Desirable Borderline High High Very High 0 D-90 D 19 - 174 ---- ---- ---- 91 D- 9 Y 0 - 74 75 - 99 >/= 100 ---- 10-19 Y 0 - 89 90 - 129 >/= 130 ---- 20-24 Y 0 - 114 115 - 149 >/= 150 ---- >24 Y 0 - 149 150 - 199 200- 499 >/= 500 Venipuncture immediately after or during the administration of Metamizole may lead to falsely low results. Testing should be performed immediately prior to Metamizole dosing. Performed By: #### 2 4331-1 #### AARON KNIGHT ([id number]) [facility] ([facility]) [address] [place], [place] [address] TSH WITH REFLEX TO FREE T4 I F ABNORMALon 10-26-2023 TSH Qn 1.27 m[IU]/L Normal 0.44-3.98 [facility] Comment on above: Order Comment: TSH t esting is performed using different testing methodology at [facility] than at [facility]. Direct result comparisons should only be made within the same method. Performed By: #### T TWYLA #### AARON KNIGHT ([id number]) [facility] ([facility]) [address] [place], [place] [address] Tobacco Screening.on 023 Fall risk assessment a) No falls within the last year [facility] Work Phone: Tobacco use status CP b) No [facility] Work Phone: Tobacco Screening. Adult [facility] Work Phone: COMPREHENSIVE PANELon 2021 Albumin [Mass/Vol] 3.9 g/dL Normal 3.4 - 5.0 [facility] Comment on above: Performed By: #### C MP #### [address] [address] ALP [Catalytic activity/Vol] 61 U/L Normal 33 - 110 [facility] Comment on above: Performed By: #### C MP #### [address] [address] ALT [Catalytic activity/Vol] 12 U/L Normal 7 - 45 [facility] Comment on above: Result Comment: Queta ents treated with Sulfasalazine may generate falsely decreased results for ALT. Performed By: #### C MP #### [address] [address] Anion gap [Moles/Vol] 10 mmol/L Normal 10 - 20 [facility] Comment on above: Performed By: #### C MP #### [address] [address] [address] AST [Catalytic activity/Vol] 14 U/L Normal 9 - 39 [facility] Comment on above: Performed By: #### C MP #### [address] [address] Bilirubin [Mass/Vol] 0.6 mg/dL Normal 0.0 - 1.2 [facility] Comment on above: Performed By: #### C MP #### [address] [address] Calcium [Mass/Vol] 9.0 mg/dL Normal 8.6 - 10.3 [facility] Comment on above: Performed By: #### C MP #### [address] [address] Chloride [Moles/Vol] 106 mmol/L Normal 98 - 107 [facility] Comment on above: Performed By: #### C MP #### [address] [address] Creatinine [Mass/Vol] 0.86 mg/dL Normal 0.50 - 1.05 [facility] Comment on above: Performed By: #### C MP #### [address] [address] GFR/1.73 sq M.predicted among non-blacks MDRD (S/P/Bld) [Vol rate/Area] 88 mL/min/{1.73_m2} Normal >90 [facility] Comment on above: Result Comment: CALC ULATIONS OF ESTIMATED GFR ARE PERFORMED USING THE 2020 CKD-EPI STUDY REFIT EQUATION WITHOUT THE RACE VARIABLE FOR THE IDMS-TRACEABLE CREATININE METHODS. https://jasn.asnjournals.org/content//ASN.52267 03192 Performed By: #### C MP #### [address] [address] Glucose [Mass/Vol] 93 mg/dL Normal 74 - 99 [facility] Comment on above: Performed By: #### C MP #### [address] [address] HCO3 (Bld) [Moles/Vol] 26 mmol/L Normal 21 - 32 [facility] Comment on above: Performed By: #### C MP #### [address] [address] Potassium [Moles/Vol] 4.3 mmol/L Normal 3.5 - 5.3 [facility] Comment on above: Performed By: #### C MP #### [address] [address] Protein [Mass/Vol] 6.8 g/dL Normal 6.4 - 8.2 [facility] Comment on above: Performed By: #### C MP #### [address] [address] Sodium [Moles/Vol] 138 mmol/L Normal 136 - 145 [facility] Comment on above: Performed By: #### C MP #### [address] [address] Urea nitrogen [Mass/Vol] 9 mg/dL Normal 6 - 23 [facility] Comment on above: Performed By: #### C MP #### [address] [address] LIPID PANEL (CORONARY RISK 2 )on 03-25-2022 Cholesterol [Mass/Vol] 149 mg/dL Normal 0 - 199 [facility] Comment on above: Result Comment: . AGE DESIRABLE BORDERLINE HIGH HIGH 0-19 Y 0 - 169 170 - 199 >/= 200 20-24 Y 0 - 189 190 - 224 >/= 225 >24 Y 0 - 199 200 - 239 >/= 240 All ranges are based on fasting samples. Specific therapeutic targets will vary based on patient-specific cardiac risk. . Pediatric guidelines reference:Pediatrics 2011, 128(S5). Adult guidelines reference: NCEP ATPIII Guidelines, APRYL 2001, 258:2486-97 . Venipuncture immediately after or during the administration of Metamizole may lead to falsely low results. Testing should be performed immediately prior to Metamizole dosing. Performed By: #### L IPID #### [address] [address] Cholesterol in HDL [Mass/Vol] 42.0 mg/dL Normal [facility] Comment on above: Result Comment: . AGE VERY LOW LOW NORMAL HIGH 0-19 Y < 35 < 40 40-45 ---- 20-24 Y ---- < 40 >45 ---- >24 Y ---- < 40 40-60 >60 . Performed By: #### L IPID #### [address] [address] Cholesterol in LDL [Mass/Vol] 85 mg/dL Normal 0 - 99 [facility] Comment on above: Result Comment: . NEAR BORD AGE DESIRABLE OPTIMAL HIGH HIGH VERY HIGH 0-19 Y 0 - 109 --- 110-129 >/= 130 ---- 20-24 Y 0 - 119 --- 120-159 >/= 160 ---- >24 Y 0 - 99 100-129 130-159 160-189 >/=190 . Performed By: #### L IPID #### [address] [address] Cholesterol in VLDL [Mass/Vol] 22 mg/dL Normal 0 - 40 [facility] Comment on above: Performed By: #### L IPID #### [address] [address] Cholesterol.total/Chol esterol in HDL [Mass ratio] 3.5 {ratio} Normal [facility] Comment on above: Result Comment: REF VALUES DESIRABLE < 3.4 HIGH RISK > 5.0 Performed By: #### L IPID #### [address] [address] Triglyceride [Mass/Vol] 110 mg/dL Normal 0 - 149 [facility] Comment on above: Result Comment: . AGE DESIRABLE BORDERLINE HIGH HIGH VERY HIGH 0 D-90 D 19 - 174 ---- ---- ---- 91 D- 9 Y 0 - 74 75 - 99 >/= 100 ---- 10-19 Y 0 - 89 90 - 129 >/= 130 ---- 20-24 Y 0 - 114 115 - 149 >/= 150 ---- >24 Y 0 - 149 150 - 199 200- 499 >/= 500 . Venipuncture immediately after or during the administration of Metamizole may lead to falsely low results. Testing should be performed immediately prior to Metamizole dosing. Performed By: #### L IPID #### [facility] [address] [place] [address] Laboratory - Chemistry and C hemistry - challengeon 03-25-2022 Albumin BCP dye [Mass/Vol] 3.9 g/dL 3.4 - 5.0 [facility] Work Phone: [phone] ALP [Catalytic activity/Vol] 61 U/L 33 - 110 [facility] Work Phone: [phone] ALT With P-5'-P [Catalytic activity/Vol] 12 U/L 7 - 45 [facility] Work Phone: [phone] Comment on above: Patients treated wit h Sulfasalazine may generate falsely decreased results for ALT. Anion gap [Moles/Vol] 10 mmol/L 10 - 20 [facility] Work Phone: [phone] AST With P-5'-P [Catalytic activity/Vol] 14 U/L 9 - 39 [facility] Work Phone: [phone] Bilirubin [Mass/Vol] 0.6 mg/dL 0.0 - 1.2 [facility] Work Phone: [phone] Calcium [Mass/Vol] 9.0 mg/dL 8.6 - 10.3 [facility] Work Phone: [phone] Chloride [Moles/Vol] 106 mmol/L 98 - 107 [facility] Work Phone: [phone] CO2 [Moles/Vol] 26 mmol/L 21 - 32 [facility] Work Phone: [phone] Creatinine [Mass/Vol] 0.86 mg/dL See Below [facility] Work Phone: Comment on above: Reference Range: 0.5 0 - 1.05 Glucose [Mass/Vol] 93 mg/dL 74 - 99 [facility] Work Phone: [phone] Potassium [Moles/Vol] 4.3 mmol/L 3.5 - 5.3 [facility] Work Phone: [phone] Protein [Mass/Vol] 6.8 g/dL 6.4 - 8.2 [facility] Work Phone: [phone] Sodium [Moles/Vol] 138 mmol/L 136 - 145 [facility] Work Phone: [phone] Urea nitrogen [Mass/Vol] 9 mg/dL 6 - 23 [facility] Work Phone: [phone] Lipid Panelon 03-25-2022 Cholesterol [Mass/Vol] 149 mg/dL 0 - 199 [facility] Work Phone: [phone] Comment on above: . AGE DESIRABLE BORD TYE HIGH HIGH 0-19 Y 0 - 169 170 - 199 >/= 200 20-24 Y 0 - 189 190 - 224 >/= 225 >24 Y 0 - 199 200 - 239 >/= 240 All ranges are based on fasting samples. Specific therapeutic targets will vary based on patient-specific cardiac risk.. Pediatric guidelines reference:Pediatrics 2011, 128(S5). Adult guidelines reference: NCEP ATPIII Guidelines, APRYL 2001, 258:2486-97. Venipuncture immediately after or during the administration of Metamizole may lead to falsely low results. Testing should be performed immediately prior to Metamizole dosing. Cholesterol in HDL [Mass/Vol] 42.0 mg/dL [facility] Work Phone: Comment on above: . AGE VERY LOW LOW N ORMAL HIGH 0-19 Y < 35 < 40 40-45 ---- 20-24 Y ---- < 40 >45 ---- >24 Y ---- < 40 40-60 >60. Cholesterol in LDL [Mass/Vol] 85 mg/dL 0 - 99 [facility] Work Phone: [phone] Comment on above: . NEAR BORD AGE JEFF RABLE OPTIMAL HIGH HIGH VERY HIGH 0-19 Y 0 - 109 --- 110-129 >/= 130 ---- 20-24 Y 0 - 119 --- 120-159 >/= 160 ---- >24 Y 0 - 99 100-129 130-159 160-189 >/=190. Cholesterol.total/Chol esterol in HDL [Mass ratio] 3.5 {ratio} [facility] Work Phone: [phone] Comment on above: REF VALUESDESIRABLE < 3.4HIGH RISK > 5.0 Triglyceride [Mass/Vol] 110 mg/dL 0 - 149 [facility] Work Phone: [phone] Comment on above: . AGE DESIRABLE BORD TYE HIGH HIGH VERY HIGH 0 D-90 D 19 - 174 ---- ---- ----91 D- 9 Y 0 - 74 75 - 99 >/= 100 ---- 10-19 Y 0 - 89 90 - 129 >/= 130 ---- 20-24 Y 0 - 114 115 - 149 >/= 150 ---- >24 Y 0 - 149 150 - 199 200- 499 >/= 500. Venipuncture immediately after or during the administration of Metamizole may lead to falsely low results. Testing should be performed immediately prior to Metamizole dosing. Lipid Panel 22 mg/dL 0 - 40 [facility] Work Phone: No Panel Informationon 03-25 88 {mL/min/1.73m2} >90 [facility] Work Phone: Comment on above: CALCULATIONS OF JACQUI MATED GFR ARE PERFORMED USING THE 2020 CKD-EPI STUDY REFIT EQUATION WITHOUT THE RACE VARIABLE FOR THE IDMS-TRACEABLE CREATININE METHODS.https://jasn.asnjournals.org/content//A SN.1834584438 XR FOOT LEFT 3+ VIEWS (STAND AR)on 02-01-2022 XR FOOT LEFT 3+ VIEWS (STANDARD) A plantar calcaneal enthesophyte is noted. No cystic or osseous lesions noted. Joint spaces are within normal limits. No gross deformity noted Dictated by: CECELIA VU on MonFeb 01, 2022 5:24:00 PM EDT Transcribed by: CECELIA VU on MonFeb 01, 2022 5:24:00 PM EDT Finalized by: CECELIA VU on MonFeb 01, 2022 5:24:00 PM EDT Normal [facility] Comment on above: Order Comment: Injur y/Trauma or Illness?:Illness/Other How long have you had these symptoms (acute/chronic)?:Unknown Reason for exam?:Leftr heel pain History of cancer?:Unknown Surgeries, chemotherapy, or radiation?:Unknown Type of Exam?:Subsequent/Follow-up Additional signs and symptoms?:H/o Fx XR Foot Left 3+ Views (Stand ar)on 02-01-2022 A plantar calcaneal enthesophyte is noted. No cystic or osseous lesions noted. Joint spaces are within normal limits. No gross deformity noted [facility] Radiology Study observation (narrative) [facility] Office Visit (Internal Medic ine)on 11-25-2021 Follow-up visit Diagnoses/Problems Assessed Ingrown nail of great toe (703.0) (L60.0) Patient Discussion/Summary Ingrowing toenail: Medial and lateral aspects were excised with good results. Wound care reviewed. Follow-up as scheduled or as needed. Chief Complaint Patient here today to be seen for ingrown toenail of the right great toe x 2 weeks, with swelling discomfort and drainage. Patient is currently taking Amoxicillin for it prescribed by Dr. Dumas on Monday. History of Present IllnessPatient presents for ingrown toenail removal. Patient has history of ingrowing toenails on the great toes and has had removal in the past. Patient reports onset of this particular ingrowing nail on the right great toe 1 to 2 weeks prior to arrival. Patient presented to primary care and was treated with Augmentin. Patient reports improvement in erythema and pain since that started. Review of Systems Constitutional: no fever. Skin: as noted in HPI. Active Problems Problems Anxiety (300.00) (F41.9) BMI 50.0-59.9, adult (V85.43) (Z68.43) Encounter to establish care (V65.8) (Z76.89) Hand dermatitis (692.9) (L30.9) Ingrown nail of great toe (703.0) (L60.0) Morbid obesity with BMI of 50.0-59.9, adult (278.01,V85.43) (E66.01,Z68.43) Screening for breast cancer (V76.10) (Z12.39) Screening for cervical cancer (V76.2) (Z12.4) Screening for lipid disorders (V77.91) (Z13.220) Women's annual routine gynecological examination (V72.31) (Z01.419) Past Medical History Problems History of Encounter for cervical Pap smear with pelvic exam (V76.2,V72.31) (Z01.419) Resolved Date: 09 Mar 2020 03/09/20 HPV- NIL 10/11/16 NIL History of (V13.29) 9-26-13 41wks vaginal femal 7-2 4-1-16 39wks vaginal male 7-15 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) History of Menarche (V21.8) AGE 9 Surgical History Problems History of Eye surgery History of Knee surgery Family History Mother Family history of hypertension (V17.49) (Z82.49) Father Family history of cerebrovascular accident (CVA) (V17.1) (Z82.3) Family history of hypertension (V17.49) (Z82.49) Brother Family history of hypertension (V17.49) (Z82.49) Paternal Grandmother Family history of malignant neoplasm of breast (V16.3) (Z80.3) 70s Paternal Grandfather Family history of myocardial infarction (V17.3) (Z82.49) Social History Problems Consumes alcohol occasionally (V49.89) (Z78.9) Daily caffeine consumption, 4-5 servings a day Does not use illicit drugs (V49.89) (Z78.9) Never a smoker Sexually active Allergies Medication No Known Drug Allergies Recorded By: Ann Felipe; 03/09/2020 9:18:00 AM Current Meds Medication NameInstruction Amoxicillin 875 MG Oral TabletTAKE 1 TABLET EVERY 12 HOURS DAILY. busPIRone HCl - 5 MG Oral TabletTake 1 tablet by mouth three times a day Vitals Vital Signs Recorded: 25Nov2021 09:35AM Mzdrrdxrsaz54.8 F Heart Rate85 Idzkusny927 Saratgqgc29 Height5 ft 6 in Zfeksw979 lb 12.8 oz BMI Amllawipui21.1 kg/m2 BSA Calculated2.45 Tobacco Useb) No PHQ-2 #1. Over the last 2 weeks have you felt down, depressed or hopeless? (If yes, answer PHQ-9 below)No Falls Screening (Age 18+)a) No falls within the last year Physical Exam Constitutional General appearance: Alert and in no acute distress. Eyes Inspection of eyes: Sclera and conjunctiva were normal. Ears, Nose, Mouth, and Throat Ears: Auricles: Normal. Pulmonary Respiratory assessment: No respiratory distress, normal respiratory rhythm and effort. Musculoskeletal Examination of gait: Normal. Skin Medial and lateral aspect of the right great toe with ingrowing nails; minimal erythema medially. Procedure Right great toe was cleansed with Betasept solution. 1% lidocaine with epinephrine was infiltrated medially and laterally at the base of the toe for digital block. Lidocaine was then applied distally until total anesthesia was achieved. Hemostats were then used to remove the ingrowing nail which was then excised with nail splitters. Wound was cleansed with Betasept solution and dressed with bacitracin and gauze. Good hemostasis was observed. Patient tolerated procedure well. Signatures Electronically signed by : Adis Carrillo PA-C; Nov 25 2021 10:18AM EST (Author) Normal [employer] Tobacco Screening.on 022 Adult depression screening assessment No [facility] Work Phone: Fall risk assessment a) No falls within the last year [facility] Work Phone: Tobacco use status [facility] b) No [facility] Work Phone: Blood Pressure Cuff Sizeon 0 11-23-2021 Adult depression screening assessment No [facility] Work Phone: Fall risk assessment a) No falls within the last year [facility] Work Phone: Tobacco use status CP b) No [facility] Work Phone: [phone] Blood Pressure Cuff Size Adult [facility] Work Phone: [phone] Office Visit (Internal Medic ine)on 11-23-2021 Follow-up visit Diagnoses/Problems Health Maintenance/Risks Encounter for preventive health examination (V70.0) (Z00.00) Assessed Ingrown nail of great toe (703.0) (L60.0) Screening for lipid disorders (V77.91) (Z13.220) Orders Health Maintenance Comprehensive Metabolic Panel; Status:Active; Requested for:[id number]; Perform:Lab Services - Lab To Draw (Blood Test); Due:21Feb2022;Ordered; For:Health Maintenance; Ordered By:Melanie Dumas; Ingrown nail of great toe Start: Amoxicillin 875 MG Oral Tablet; TAKE 1 TABLET EVERY 12 HOURS DAILY Rx By: Melanie Dumas; Dispense: 7 Days ; #:14 Tablet; Refill: 0;For: Ingrown nail of great toe; GIAN = N; Verified Transmission to [facility]; Last Updated By: Pharmacy Development; 11/23/2021 10:54:36 AM Screening for lipid disorders Lipid Panel; Status:Active; Requested for:[id number]; Perform:Lab Services - Lab To Draw (Blood Test); Due:21Feb2022;Ordered; For:Screening for lipid disorders; Ordered By:Melanie Dumas; Provider Impressions 1. Will order cmp and lipid panel 2. Ingrown toenail - will give her Augmentin and have her see manuela for removal of ingrown toenail Chief Complaint 36 y/o female presents for 4 month f/u Pt thinks she may have an ingrown toenail Rt great toe, no pain Adult Risk Screening Initial Fall Risk Screening: ANURAG has not fallen in the last 6 months. Tobacco Screening: ANURAG does not use tobacco. History of Present Illness Patient is here today for 4 mo follow up Patient thinks she may have an ingrown town. She has had some reddness and drainage from her right medial side of her great toe. She has had ingrown toenails before. Anxiety is stable, BuSpar is helping, just as needed usually one -2 x a day. weekends she generally does not need it. Hand dermatitis resolved. Review of Systems Integumentary: skin lesions. Active Problems Problems Anxiety (300.00) (F41.9) BMI 50.0-59.9, adult (V85.43) (Z68.43) Encounter to establish care (V65.8) (Z76.89) Hand dermatitis (692.9) (L30.9) Morbid obesity with BMI of 50.0-59.9, adult (278.01,V85.43) (E66.01,Z68.43) Screening for breast cancer (V76.10) (Z12.39) Screening for cervical cancer (V76.2) (Z12.4) Women's annual routine gynecological examination (V72.31) (Z01.419) Past Medical History Problems History of Encounter for cervical Pap smear with pelvic exam (V76.2,V72.31) (Z01.419) Resolved Date: 09 Mar 2020 03/09/20 HPV- NIL 10/11/16 NIL History of (V13.29) 9-26-13 41wks vaginal femal 7-2 4-1-16 39wks vaginal male 7-15 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) History of Menarche (V21.8) AGE 9 Surgical History Problems History of Eye surgery History of Knee surgery Family History Mother Family history of hypertension (V17.49) (Z82.49) Father Family history of cerebrovascular accident (CVA) (V17.1) (Z82.3) Family history of hypertension (V17.49) (Z82.49) Brother Family history of hypertension (V17.49) (Z82.49) Paternal Grandmother Family history of malignant neoplasm of breast (V16.3) (Z80.3) 70s Paternal Grandfather Family history of myocardial infarction (V17.3) (Z82.49) Social History Problems Consumes alcohol occasionally (V49.89) (Z78.9) Daily caffeine consumption, 4-5 servings a day Does not use illicit drugs (V49.89) (Z78.9) Never a smoker Sexually active Allergies Medication No Known Drug Allergies Recorded By: Ann Felipe; 03/09/2020 9:18:00 AM Current Meds Medication NameInstruction busPIRone HCl - 5 MG Oral TabletTake 1 tablet by mouth three times a day Vitals Vital Signs Recorded: [id number] 10:38AM Heart Rate75 Rekxjszm189 Uaxiigtlf42 Blood Pressure Cuff SizeAdult Height5 ft 6 in Jzwirv848 lb BMI Nxjujpylyf43.13 kg/m2 BSA Calculated2.45 Tobacco Useb) No PHQ-2 #1. Over the last 2 weeks have you felt down, depressed or hopeless? (If yes, answer PHQ-9 below)No Falls Screening (Age 18+)a) No falls within the last year Physical Exam Constitutional General appearance: Alert and in no acute distress. Eyes Inspection of eyes: Sclera and conjunctiva were normal. Pupil exam: Pupils were equal in size. Extraocular movements were intact. Pulmonary Respiratory assessment: No respiratory distress, normal respiratory rhythm and effort. Auscultation of Lungs: Clear bilateral breath sounds. Cardiovascular Auscultation of heart: Apical pulse normal, heart rate and rhythm normal, normal S1 and S2, no murmurs and no pericardial rub. Exam for edema: No peripheral edema. Skin Skin and subcutaneous tissue: Abnormal. erythematous inner lesion on left medial great toe with some evidence of some drainage. Psychiatric Orientation: Oriented to person, place, and time. Mood and affect: Normal. Signatures Electronically signed by : Melanie Dumas DO; Nov 23 2021 4:10PM EST (Author) Normal [employer] Blood Pressure Cuff Sizeon 0 07-20-2021 Adult depression screening assessment No [facility] Work Phone: Fall risk assessment a) No falls within the last year [facility] Work Phone: Tobacco use status CP b) No [facility] Work Phone: Blood Pressure Cuff Size Adult [facility] Work Phone: Office Visit (Internal Medic ine)on 07-20-2021 Follow-up visit Diagnoses/Problems Assessed Hand dermatitis (692.9) (L30.9) Anxiety (300.00) (F41.9) Morbid obesity with BMI of 50.0-59.9, adult (278.01,V85.43) (E66.01,Z68.43) BMI 50.0-59.9, adult (V85.43) (Z68.43) Orders Hand dermatitis Start: Triamcinolone Acetonide 0.1 % External Cream; APPLY AND RUB IN A THIN FILM TO AFFECTED AREAS TWICE DAILY.(AM AND PM) Rx By: Melanie Dumas; Dispense: 0 Days ; #:1 X 30 GM Tube; Refill: 6;For: Hand dermatitis; GIAN = N; Sent To: [facility]; Last Updated By: [employer]; 07/20/2021 9:51:48 AM Provider Impressions 1. ANxiety, improved - continue buspar 5mg po bid 2. Dermatitis likely from adhesive on bandage - recommend triamcinolone cream Chief Complaint 36 y/o female presents for 2 month f/u Pt states she is doing a better She does reports sleeping better She is not where she wants to be quite yet Pt also reports rash on her LT 4th finger She noticed the rash mid last week Pt states the rash is where she had a Band-Aid She has used the same bandages in the past She does report itchiness but applies calamine lotion to help She states the rash makes her finger feel tight with mild blistering Adult Risk Screening Initial Fall Risk Screening: ANURAG has not fallen in the last 6 months. Tobacco Screening: ANURAG does not use tobacco. History of Present Illness Patient is here today for 2 mo follow up She does feel like the BuSpar has been helping, her family seems to think she is in a better mood. She is sleeping better. No side effects with the medication. She had a splinter in her finger, took a week to get it out. She w as wearing a band aid, in the middle of the week then she got pumps and it started itching. She kept it covered. Review of Systems Integumentary: a skin rash and itching. 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) History of Menarche (V21.8) AGE 9 Surgical History Problems History of Eye surgery History of Knee surgery Family History Mother Family history of hypertension (V17.49) (Z82.49) Father Family history of cerebrovascular accident (CVA) (V17.1) (Z82.3) Family history of hypertension (V17.49) (Z82.49) Brother Family history of hypertension (V17.49) (Z82.49) Paternal Grandmother Family history of malignant neoplasm of breast (V16.3) (Z80.3) 70s Paternal Grandfather Family history of myocardial infarction (V17.3) (Z82.49) Social History Problems Consumes alcohol occasionally (V49.89) (Z78.9) Daily caffeine consumption, 4-5 servings a day Does not use illicit drugs (V49.89) (Z78.9) Never a smoker Sexually active Allergies Medication No Known Drug Allergies Recorded By: Ann Felipe; 03/09/2020 9:18:00 AM Current Meds Medication NameInstruction busPIRone HCl - 5 MG Oral TabletTake 1 tablet by mouth three times a day Vitals Vital Signs Recorded: 20Jul2021 09:36AM Egtrfjatjhv00.3 F, Temporal Heart Rate80 Sbiqnfnd506 Qcjobfbqm45 Blood Pressure Cuff SizeAdult Height5 ft 6 in Cxxqmy373 lb BMI Jlhdmfznek80.49 kg/m2 BSA Calculated2.44 Tobacco Useb) No PHQ-2 #1. Over the last 2 weeks have you felt down, depressed or hopeless? (If yes, answer PHQ-9 below)No Fall Screeninga) No falls within the last year Physical Exam Constitutional General appearance: Alert and in no acute distress. Eyes Inspection of eyes: Sclera and conjunctiva were normal. Pupil exam: Pupils were equal in size. Extraocular movements were intact. Skin Skin and subcutaneous tissue: Abnormal. rash on left medial index finger some maceration consistent with dermatitis probably form adhesive of bandage. Psychiatric Orientation: Oriented to person, place, and time. Mood and affect: Normal. Signatures Electronically signed by : Melanie Dumas DO; Jul 20 2021 12:39PM EST (Author) Normal [employer] Blood Pressure Cuff Sizeon 1 07-12-2020 Fall risk assessment a) No falls within the last year [facility] Work Phone: Tobacco use status [facility] b) No [facility] Work Phone: Blood Pressure Cuff Size Adult [facility] [facility] Work Phone: Office Visit (Internal Medic ine)on 05-11-2021 Follow-up visit Diagnoses/Problems Assessed Anxiety (300.00) (F41.9) Morbid obesity with BMI of 50.0-59.9, adult (278.01,V85.43) (E66.01,Z68.43) Orders Anxiety Start: busPIRone HCl - 5 MG Oral Tablet; Take 1 tablet by mouth three times a day Rx By: Melanie Dumas; Dispense: 0 Days ; #:60 Tablet; Refill: 3;For: Anxiety; GIAN = N; Sent To: [facility] 1444 Provider Impressions 1. Anxiety - will start BuSpar 5 mg po tid prn 2. Obesity bmi 50 - discussedd weight loss and diet with exercise - discusse weight watchers etc, could try Wellbutrin 3. Will see her back in 2 mo Chief Complaint 35 y/o female presents for 1 year f/u No reported medications Pt would like to talk about everyday life and stress Adult Risk Screening Initial Fall Risk Screening: ANURAG has not fallen in the last 6 months. Tobacco Screening: ANURAG does not use tobacco. History of Present Illness Patient is here today for 1 year follow up with a cc of stress. Pt reports that in the last year she has gotten a promotion at work, which has brought on more stress with added responsibilities. Her company was bought out so just worried about whats going to happen. Five year old son was diagnosed with ADD. not on medication yet. Difficult learning how to parent with this diagnosis. She is emotional regarding this. She does admit to feeling some anxiety. No panic attacks. Denies any depression but she is more emotional. feels like she is more snappish than normal. Review of Systems Constitutional: no fever, no chills, not feeling poorly, not feeling tired, no recent weight gain and no recent weight loss. ENT: no earache, no hearing loss, no nosebleeds, no nasal discharge, no sore throat and no hoarseness. Cardiovascular: the heart rate was not slow, the heart rate was not fast, no chest pain, no palpitations, no intermittent leg claudication and no lower extremity edema. Respiratory: no cough, not coughing up sputum and no wheezing that is consistent with asthma. Gastrointestinal: no abdominal pain, no constipation, no melena, no nausea, no diarrhea, no vomiting and no blood in stools. Musculoskeletal: no arthralgias, no myalgias, no back pain, no joint swelling, no joint stiffness, no limb pain and no limb swelling. Integumentary: no skin rashes, no skin lesions, no itching, no skin wound and no dry skin. Neurological: +anxiety and depression, but no headache, no confusion, no numbness, no dizziness, no tingling and no fainting. All other systems have been reviewed and are negative for complaint. 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) History of Menarche (V21.8) AGE 9 Surgical History Problems History of Eye surgery History of Knee surgery Family History Mother Family history of hypertension (V17.49) (Z82.49) Father Family history of cerebrovascular accident (CVA) (V17.1) (Z82.3) Family history of hypertension (V17.49) (Z82.49) Brother Family history of hypertension (V17.49) (Z82.49) Paternal Grandmother Family history of malignant neoplasm of breast (V16.3) (Z80.3) 70s Paternal Grandfather Family history of myocardial infarction (V17.3) (Z82.49) Social History Problems Consumes alcohol occasionally (V49.89) (Z78.9) Daily caffeine consumption, 4-5 servings a day Does not use illicit drugs (V49.89) (Z78.9) Never a smoker Sexually active Allergies Medication No Known Drug Allergies Recorded By: Ann Felipe; 03/09/2020 9:18:00 AM Vitals Vital Signs Recorded: [id number] 09:26AM Ittjelwnntt73.5 F, Temporal Heart Rate84 Dbcqaabx929 Gnojqiqcl78 Blood Pressure Cuff SizeAdult Height5 ft 6 in Tbyvxy823 lb BMI Orcrgbzpbo33.68 kg/m2 BSA Calculated2.42 Tobacco Useb) No Fall Screeninga) No falls within the last year Physical Exam Constitutional General appearance: Alert and in no acute distress. Eyes Inspection of eyes: Sclera and conjunctiva were normal. Pupil exam: Pupils were equal in size. Extraocular movements were intact. Ears, Nose, Mouth, and Throat Ears: Auricles: Normal. Otoscopic examination: Abnormal. effusion no erythmea behind left tm. Pulmonary Respiratory assessment: No respiratory distress, normal respiratory rhythm and effort. Auscultation of Lungs: Clear bilateral breath sounds. Cardiovascular Auscultation of heart: Apical pulse normal, heart rate and rhythm normal, normal S1 and S2, no murmurs and no pericardial rub. (more content not included)... 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 CBE benign. Colon cancer screening is up to date. Pap not indicated as was cotest neg 2019. Reviewed HPV vaccine and guidelines. Discussed safe sex practices. Discussed diet and exercise. Reviewed bone health, namely exercise with vitamin D/calcium. Reviewed hereditary cancer screening. Discussed that patient is not at increased risk. All questions answered. Chief Complaint PT IS HERE TODAY FOR HER ANNUAL EXAM. LAST PAP WAS 03/09/2020, COTEST NEG. HAS NO CONCERNS. DOES A SELF BREAST CHECK. LMP: 02/28/2021 History of Present Glyaelo31-xmkn-dlm G2, P2 presents for annual exam. Patient safe at home denies abuse. Patient sexually active without concern. Patient is a breast exams no new lumps lumps masses. Patient working on physical activity. Patient COVID vaccinated. Patient has no other acute concerns Review of Systems Constitutional: No fevers, chills Eye:no vision changes Respiratory: no SOB Cardiovascular: no chest pain Breast: No lump/mass or discharge Gastrointestinal: No nausea, vomiting, diarrhea, constipation, abdominal pain Genitourinary:no dysuria Gynecology: See HPI Endocrine: No heat or cold intolerance Musculoskeletal: No decreased ROM Skin:No rash Neurologic: No numbness tingling Psychiatric: No anxiety, depression All other: all other systems reviewed and negative for complaint 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) History of Menarche (V21.8) AGE 9 Surgical History Problems History of Eye surgery History of Knee surgery Family History Mother Family history of hypertension (V17.49) (Z82.49) Father Family history of cerebrovascular accident (CVA) (V17.1) (Z82.3) Family history of hypertension (V17.49) (Z82.49) Brother Family history of hypertension (V17.49) (Z82.49) Paternal Grandmother Family history of malignant neoplasm of breast (V16.3) (Z80.3) 70s Paternal Grandfather Family history of myocardial infarction (V17.3) (Z82.49) Social History Problems Consumes alcohol occasionally (V49.89) (Z78.9) Daily caffeine consumption, 4-5 servings a day Does not use illicit drugs (V49.89) (Z78.9) Never a smoker Sexually active Allergies Medication No Known Drug Allergies Recorded By: Ann Felipe; 03/09/2020 9:18:00 AM Current Meds Medication NameInstruction Erythromycin 5 MG/GM Ophthalmic Ointment Vitals Vital Signs Recorded: 10Mar2021 09:39AM Hlbzkupihnt78.8 F Oxagxomh925 Hnqafkyft88 Height5 ft 6 in Rtpmxf345 lb 2.21 oz BMI Ercwkqqitq19.03 kg/m2 BSA Calculated2.43 [id number] Physical Exam General: None acute distress Eye: Intraocular movements are intact HEENT: Normocephalic Cardiovascular: Regular rate rhythm Respiratory: Lungs are clear to auscultation, respirations are nonlabored Breast: No masses no tenderness no discharge no adenopathy or skin changes Gastrointestinal: Soft nontender nondistended normal bowel sounds Gynecology: External genitalia within normal limits for age. Urethral meatus normal bladder nontender. Vagina without discharge. No vaginal bleeding. Multiparous cervix. No lesions. No CMT. Uterus mobile midline nontender. No levator ani tenderness. No adnexal tenderness. No adnexal masses Musculoskeletal: Normal range of motion Skin: Warm and dry Neurologic: Alert and oriented x3 Psychiatric: Cooperative appropriate mood and affect. 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 THINPREP PAP CERVICAL: Specimen adequacy: SATISFACTORY FOR EVALUATION. Quality Indicator: Endocervical/transformati on zone component is present. General Categorization: NEGATIVE FOR INTRAEPITHELIAL LESION OR MALIGNANCY. Descriptive Interpretation: REACTIVE CELLULAR CHANGES ASSOCIATED WITH (more content not included)... Normal [employer] XR FOOT RIGHT 3+ VIEWS (ONESIMO DARD)Ordered By: Dominik Colby on 12-30-2020 No fractures no dislocations no subluxations. Moderate great toe edema. [facility] Nursing communicationOrdered By: Dominik Colby on 12-16-2020 Boot Applied [facility] XR FOOT LEFT 3+ VIEWS (STAND AR)Ordered By: Dominik Colby on 12-16-2020 AP oblique lateral: early stress fracture appreciated, nondisplaced, on the oblique and lateral view to the base of the fifth metatarsal. Otherwise no fractures no dislocations no subluxations appreciated. Mild lateral foot edema [facility] Imm/Pathon 03-09-2020 Cytology report Cyto stain.thin prep Doc (Cvx/Vag) Date of Procedure: 03/09/2020 Pathologist: ROMEL CHISHOLMate Reported: 03/19/2020Date Received: 03/09/2020Submitting Physician: JOSH DIAZ DO FINAL CYTOLOGICAL INTERPRETATIONA. THINPREP PAP CERVICAL: Specimen adequacy:SATISFACTORY FOR EVALUATION.Quality Indicator: Endocervical/transformati on zone component is present. General Categorization:NEGATIVE FOR INTRAEPITHELIAL LESION OR MALIGNANCY. Descriptive Interpretation:REACTIVE CELLULAR CHANGES ASSOCIATED WITH INFLAMMATION.HIGH RISK HPV TEST RESULT: HPV GENOTYPE 16 NEGATIVEHPV GENOTYPE 18 NEGATIVEHPV GENOTYPE OTHER NEGATIVEReference Range: NegativeTesting for high-risk (HR) type of human papilloma virus (HPV) is performed bythe Carmela nasir HPV Test. The nasir HPV Test is a qualitative polymerase chainreaction that amplifies DNA of HPV16, HPV18 and 12 other high-risk HPV types(31, 33, 35, 39, 45, 51, 52, 56, 58, 59, 66, and 68) associated with cervicalcancer and its precursor lesions. A positive result indicates the presence ofHPV DNA due to one or more of the 14 genotypes: 16, 18, 31, 33, 35, 39, 45, 51,52, 56, 58, 59, 66, and 68. Negative results indicate HPV DNA concentrationsare undetectable or below the pre-set threshold for detection. False negativeresults may be associated with unoptimized sampling. A negative HR HPV resultdoes not exclude the possibility of future cytologic HSIL or underlying CIN2-3or cancer.This test is approved for cervical specimens by the [place] Food and DrugAdministration. Results of this test should be interpreted in conjunction withthe patient's Pap test results. Please refer to ASCCP current guidelines forthe use of HPV DNA testing, result interpretation, and patient management. The performance of this test was verified by [facility]. The lab iscertified under the Clinical Laboratory Amendments of 1988 (CLIA 88) asqualified to perform high complexity clinical laboratory testing.This specimen has been analyzed by the [employer] Imaging System ([employer], [employer].),an automated imaging and review system, which assists the laboratory inevaluating cells on ThinPrep Pap tests. Following automated imaging, selectedfields from every slide were reviewed by a perinatology physician and/or pathologist.Electronicall y Signed Out By NELLY BLANCHARD MD/RXG/LHP By the signature on this report, the individual or group listed as making theFinal Interpretation/Diagnosis certifies that they have reviewed this case.Educational Note:Cervical cytology is a screening procedure primarily for squamous cancers andprecursors and has associated false-negative and false-positive results asevidenced by published data. Your patient's test should be interpreted in thiscontext, together with patient's history and clinical findings. Regularsampling and follow-up of unexplained clinical signs and symptoms arerecommended to minimize false negative results. Clinical HistoryDate of Last Menstrual Period: 02/14/2020Other Clinical Conditions:COTEST HPV(Genotype) except for ASC-H, HSIL, Carcinoma - Include HPV Genotypetesting AnnualClinical Diagnosis History: Screening for cervical cancer - (Z12.4) Source of SpecimenA: THINPREP PAP CERVICAL [facility] [address] [place] [address] [facility] [address] [place] Work Phone: Culture,Bacterialon 08-02-19 18 Culture,Bacterial Test Name: Culture,BacterialSite: RIGHT GREAT TOECulture Status: FinalGram Stain: Few WBC'sFew Squamous Epithelial CellsFew Gram Positive CocciMicro Source: WoundORGANISM ID: 1 - Light STAPHYLOCOCCUS AUREUSANTIBIOTIC INTERPRETATION AMANDA STATUSClindamycin S 0.25 FDoxycycline S <= 0.5 FErythromycin S <= 0.25 FOxacillin S <= 0.25 FTrimeth/Sulfa S <= 10 FVancomycin S <= 0.5 FORGANISM ID: 2 - Moderate BETA HEMOLYTIC STREPTOCOCCUS, GROUP C Normal [facility] Comment on above: Performed By: #### C ULT ####Unless otherwise noted, all testing performed by [address] [id number]: [id number] Director: Atul Borjas M.D. Antinuclear Antibodyon 03-16 Antinuclear Antibody 0.3 U Normal <=1.0 (Negative) [facility] Comment on above: Result Comment: Test Performed by:[place] [address] Performed By: #### U NORAH, DARRICK ####Unless otherwise noted, all testing performed by [address] [id number]: [id number] Director: Atul Borjas M.D. Rheumatoid Factoron 03-16-20 17 Rheumatoid Factor Negative Normal Negative [facility] Comment on above: Performed By: #### R F ####Unless otherwise noted, all testing performed by [address] [id number]: [id number] Director: Atul Borjas M.D. Uric Acidon 03-16-2017 Urate 4.4 mg/dL Normal 2.4-7.0 [facility] Comment on above: Performed By: #### U DARRICK ALMAZAN ####Unless otherwise noted, all testing performed by [place] [address] [place], [place] [phone]: [id number] Director: Atul Borjas M.D. Vital Signs Date Time Vital Sign Value Performing Clinician Facility 02-24-2025 08:22-0400 Body height 167.[address] Melanie Dumas DO Work Phone: [facility] 02-24-2025 08:20-0400 Body mass index (BMI) [Ratio] 44.9 kg/m2 Dr. Melanie Dumas DO Work Phone: [facility] 02-24-2025 08:20-0400 Body weight 126.[address] Melanie Dumas DO Work Phone: [facility] 02-24-2025 08:20-0400 Diastolic blood pressure 88 mm[Hg] Dr. Melanie Dumas DO Work Phone: [facility] 02-24-2025 08:20-0400 Systolic blood pressure 155 mm[Hg] Dr. Melanie Dumas DO Work Phone: [facility] 02-10-2025 07:52-0400 Body mass index (BMI) [Ratio] 43.9 kg/m2 Faraz Taylor MD Work Phone: [facility] 02-10-2025 07:52-0400 Body weight 123.38 kg Faraz Taylor MD Work Phone: [facility] 01-28-2025 13:56-0400 Body height 167.6 cm Yadira Arenas MD Work Phone: [facility] 01-28-2025 13:56-0400 Body mass index (BMI) [Ratio] 43.98 kg/m2 Yadira Arenas MD Work Phone: [facility] 01-28-2025 13:56-0400 Body weight 123.61 kg Yadira Arenas MD Work Phone: [facility] 01-28-2025 13:56-0400 Diastolic blood pressure 78 mm[Hg] Yadira Arenas MD Work Phone: [facility] 01-28-2025 13:56-0400 Heart rate 78 /min Yadira Arenas MD Work Phone: [facility] 01-28-2025 13:56-0400 SaO2% (BldA) [Mass fraction] 99 % Yadira Arenas MD Work Phone: [facility] 01-28-2025 13:56-0400 Systolic blood pressure 126 mm[Hg] Yadira Arenas MD Work Phone: [facility] 12-19-2024 08:28-0400 Body height 167.64 cm Nuris Rubio WALL COVERING INSTALLER-C Work Phone: [facility] 12-19-2024 08:28-0400 Body mass index (BMI) [Ratio] 42.6 kg/m2 Nuris Rubio WALL COVERING INSTALLER-C Work Phone: [facility] 12-19-2024 08:28-0400 Body weight 119.8 kg Nuris Rubio WALL COVERING INSTALLER-C Work Phone: [facility] 12-19-2024 08:28-0400 Diastolic blood pressure 84 mm[Hg] Nuris Rubio WALL COVERING INSTALLER-C Work Phone: [facility] 12-19-2024 08:28-0400 Systolic blood pressure 123 mm[Hg] Nuris Rubio WALL COVERING INSTALLER-C Work Phone: [facility] 12-03-2024 18:15-0400 Diastolic blood pressure 77 mm[Hg] Melanie Hung MD Work Phone: [facility] 12-03-2024 18:15-0400 Heart rate 62 /min Melanie Hung MD Work Phone: 9(652)759-196502 [place] [address] 12-03-2024 18:15-0400 Respiratory rate 16 /min Melanie Hung MD Work Phone: 2(829)475-788402 [place] [address] 12-03-2024 18:15-0400 SaO2% (BldA) [Mass fraction] 95 % Melanie Hung MD Work Phone: 5(378)282-195502 [place] [address] 12-03-2024 18:15-0400 Systolic blood pressure 130 mm[Hg] Melanie Hung MD Work Phone: 1(056)710-207464 [place] [address] 12-03-2024 17:00-0400 Body temperature 97.3 [degF] Melanie Hung MD Work Phone: 0(543)983-239464 [place] [address] 12-03-2024 11:00-0400 Body height 167.6 cm Melanie Hung MD Work Phone: 8(369)827-119985 [address] 12-03-2024 11:00-0400 Body mass index (BMI) [Ratio] 41.92 kg/m2 Melanie Hung MD Work Phone: 1(244)522-307885 [address] 12-03-2024 11:00-0400 Body weight 117.8 kg Melanie Hung MD Work Phone: 9(006)718-592085 [address] 11-07-2024 15:29-0400 Body height 167.6 cm Melanie Hung MD Work Phone: 0(493)033-389702 [place] [address] 11-07-2024 15:29-0400 Body mass index (BMI) [Ratio] 41.47 kg/m2 Melanie Hung MD Work Phone: 8(967)342-881402 [place] [address] 11-07-2024 15:29-0400 Body weight 116.48 kg Melanie Hung MD Work Phone: 4(191)045-572602 [place] [address] 11-07-2024 15:29-0400 Diastolic blood pressure 78 mm[Hg] Melanie Hung MD Work Phone: [facility] 11-07-2024 15:29-0400 Heart rate 73 /min Melanie Hung MD Work Phone: [facility] 11-07-2024 15:29-0400 Systolic blood pressure 138 mm[Hg] Melanie Hung MD Work Phone: [facility] 01-29-2024 14:59-0400 Body height 167.6 cm Melanie Hung MD Work Phone: [facility] 01-29-2024 14:59-0400 Body mass index (BMI) [Ratio] 50.71 kg/m2 Melanie Hung MD Work Phone: [facility] 01-29-2024 14:59-0400 Body weight 142.43 kg Melanie Hung MD Work Phone: [facility] 01-29-2024 14:59-0400 Diastolic blood pressure 78 mm[Hg] Melanie Hung MD Work Phone: [facility] 01-29-2024 14:59-0400 Heart rate 86 /min Melanie Hung MD Work Phone: [facility] 01-29-2024 14:59-0400 Systolic blood pressure 122 mm[Hg] Melanie Hung MD Work Phone: [facility] 10-26-2023 10:22-0400 Body height 167.6 cm [facility] 10-26-2023 10:22-0400 Body mass index (BMI) [Ratio] 50.84 kg/m2 [facility] 10-26-2023 10:22-0400 Body weight 142.88 kg [facility] 10-25-2023 08:15-0400 Body height 167.6 cm Melanie Dumas DO Work Phone: [facility] 10-25-2023 08:15-0400 Body mass index (BMI) [Ratio] 50.68 kg/m2 Melanie Oberhauser DO Work Phone: [facility] 10-25-2023 08:15-0400 Body weight 142.43 kg Melanie Oberhauser DO Work Phone: [facility] 10-25-2023 08:15-0400 Diastolic blood pressure 77 mm[Hg] Melanie Oberhauser DO Work Phone: [facility] 10-25-2023 08:15-0400 Heart rate 71 /min Melanie Oberhauser DO Work Phone: [facility] 10-25-2023 08:15-0400 Systolic blood pressure 130 mm[Hg] Melanie Oberhauser DO Work Phone: [facility] 04-25-2023 08:35-0500 Body height 167.6 cm Melanie Oberhauser DO Work Phone: 5(868)149-339382 [place] [address] 04-25-2023 08:35-0500 Body mass index (BMI) [Ratio] 50.84 kg/m2 Melanie Oberhauser DO Work Phone: 4(143)667-257882 [place] [address] 04-25-2023 08:35-0500 Body weight 142.88 kg Melanie Oberhauser DO Work Phone: [facility] 04-25-2023 08:35-0500 Diastolic blood pressure 82 mm[Hg] Melanie Oberhauser DO Work Phone: [facility] 04-25-2023 08:35-0500 Heart rate 80 /min Melanie Oberhauser DO Work Phone: [facility] 04-25-2023 08:35-0500 Systolic blood pressure 131 mm[Hg] Melanie Oberhauser DO Work Phone: [facility] 01-24-2023 08:56-0400 Body height 167.6 cm Melanie Oberhauser DO Work Phone: [facility] 01-24-2023 08:56-0400 Body mass index (BMI) [Ratio] 50.36 kg/m2 Melanie Oberhauser DO Work Phone: [facility] 01-24-2023 08:56-0400 Body weight 141.52 kg Melanie Oberhauser DO Work Phone: [facility] 01-24-2023 08:56-0400 Diastolic blood pressure 80 mm[Hg] Melanie Oberhauser DO Work Phone: [facility] 01-24-2023 08:56-0400 Heart rate 81 /min Melanie Oberhauser DO Work Phone: [facility] 01-24-2023 08:56-0400 Systolic blood pressure 132 mm[Hg] Melanie Oberhauser DO Work Phone: [facility] 11-15-2022 08:59-0400 Body height 167.6 cm Melanie Oberhauser DO Work Phone: [facility] 11-15-2022 08:59-0400 Body mass index (BMI) [Ratio] 51.65 kg/m2 Melanie Oberhauser DO Work Phone: [facility] 11-15-2022 08:59-0400 Body weight 145.15 kg Melanie Oberhauser DO Work Phone: [facility] 11-15-2022 08:59-0400 Diastolic blood pressure 91 mm[Hg] Melanie Oberhauser DO Work Phone: [facility] 11-15-2022 08:59-0400 Heart rate 80 /min Melanie Oberhauser DO Work Phone: [facility] 11-15-2022 08:59-0400 Systolic blood pressure 149 mm[Hg] Melanie Oberhauser DO Work Phone: 4(824)115-243982 [place] [address] 05-24-2022 09:16-0500 Body height 167.64 cm Melanie L Oberhauser Work Phone: [facility] Work Phone: 05-24-2022 09:16-0500 Body mass index (BMI) [Ratio] 50.2 kg/m2 Melanie L Oberhauser Work Phone: [facility] Work Phone: 05-24-2022 09:16-0500 Body surface area Derived from formula 2.41 m2 Melanie L Oberhauser Work Phone: [facility] Work Phone: 05-24-2022 09:16-0500 Body weight 141.07 kg Melanie L Oberhauser Work Phone: [facility] Work Phone: 05-24-2022 09:16-0500 Diastolic blood pressure 83 mm[Hg] Melanie L Oberhauser Work Phone: [facility] Work Phone: 05-24-2022 09:16-0500 Heart rate 87 /min Melanie L Oberhauser Work Phone: [facility] Work Phone: 05-24-2022 09:16-0500 Systolic blood pressure 132 mm[Hg] Melanie L Oberhauser Work Phone: [facility] Work Phone: 02-01-2022 16:05-0400 Diastolic blood pressure 103 mm[Hg] Cecelia Mirella DPM Work Phone: [facility] 02-01-2022 16:05-0400 Heart rate 108 /min Cecelia Potter DPM Work Phone: [facility] 02-01-2022 16:05-0400 Systolic blood pressure 175 mm[Hg] Cecelia Potter DPM Work Phone: [facility] 09-13-2022 15:58-0400 Body temperature 97.9 [degF] Ceceliazoie Vu DP Work Phone: [facility] 11-25-2021 09:35-0400 Body height 167.64 cm Melanie L Oberhauser Work Phone: [facility] Work Phone: 11-25-2021 09:35-0400 Body mass index (BMI) [Ratio] 52.1 kg/m2 Melanie L Oberhauser Work Phone: [facility] Work Phone: 11-25-2021 09:35-0400 Body surface area Derived from formula 2.45 m2 Melanie L Oberhauser Work Phone: [facility] Work Phone: 11-25-2021 09:35-0400 Body temperature 97.8 [degF] Melanie L Oberhauser Work Phone: [facility] Work Phone: 11-25-2021 09:35-0400 Body weight 146.42 kg Melanie L Oberhauser Work Phone: [facility] Work Phone: 11-25-2021 09:35-0400 Diastolic blood pressure 78 mm[Hg] Melanie L Oberhauser Work Phone: [facility] Work Phone: 11-25-2021 09:35-0400 Heart rate 85 /min Melanie L Oberhauser Work Phone: [facility] Work Phone: 11-25-2021 09:35-0400 Systolic blood pressure 151 mm[Hg] Melanie L Oberhauser Work Phone: [facility] Work Phone: 11-23-2021 10:38-0400 Body height 167.64 cm Melanie L Oberhauser Work Phone: [facility] Work Phone: 11-23-2021 10:38-0400 Body mass index (BMI) [Ratio] 52.13 kg/m2 Melanie L Oberhauser Work Phone: [facility] Work Phone: 11-23-2021 10:38-0400 Body surface area Derived from formula 2.45 m2 Melanie L Oberhauser Work Phone: [facility] Work Phone: 11-23-2021 10:38-0400 Body weight 146.51 kg Melanie L Oberhauser Work Phone: [facility] Work Phone: 11-23-2021 10:38-0400 Diastolic blood pressure 74 mm[Hg] Melanie L Oberhauser Work Phone: [facility] Work Phone: 11-23-2021 10:38-0400 Heart rate 75 /min Melanie L Oberhauser Work Phone: [facility] Work Phone: 11-23-2021 10:38-0400 Systolic blood pressure 143 mm[Hg] Melanie L Oberhauser Work Phone: [facility] Work Phone: 07-20-2021 09:36-0500 Body height 167.64 cm Melanie L Oberhauser Work Phone: [facility] Work Phone: 07-20-2021 09:36-0500 Body mass index (BMI) [Ratio] 51.49 kg/m2 Melanie L Oberhauser Work Phone: [facility] Work Phone: 07-20-2021 09:36-0500 Body surface area Derived from formula 2.44 m2 Melanie L Oberhauser Work Phone: [facility] Work Phone: 07-20-2021 09:36-0500 Body temperature 97.3 [degF] Melanie L Oberhauser Work Phone: [facility] Work Phone: 07-20-2021 09:36-0500 Body weight 144.7 kg Melanie L Oberhauser Work Phone: [facility] Work Phone: 07-20-2021 09:36-0500 Diastolic blood pressure 87 mm[Hg] Melanie L Oberhauser Work Phone: [facility] Work Phone: 07-20-2021 09:36-0500 Heart rate 80 /min Melanie L Oberhauser Work Phone: [facility] Work Phone: 07-20-2021 09:36-0500 Systolic blood pressure 137 mm[Hg] Melanie L Oberhauser Work Phone: [facility] Work Phone: 05-11-2021 09:26-0500 Body height 167.64 cm Melanie L Oberhauser Work Phone: [facility] Work Phone: 05-11-2021 09:26-0500 Body mass index (BMI) [Ratio] 50.68 kg/m2 Melanie L Oberhauser Work Phone: [facility] Work Phone: 05-11-2021 09:26-0500 Body surface area Derived from formula 2.42 m2 Melanie L Oberhauser Work Phone: [facility] Work Phone: 05-11-2021 09:26-0500 Body temperature 97.5 [degF] Melanie L Oberhauser Work Phone: [facility] Work Phone: 05-11-2021 09:26-0500 Body weight 142.43 kg Melanie L Oberhauser Work Phone: [facility] Work Phone: 05-11-2021 09:26-0500 Diastolic blood pressure 90 mm[Hg] Melanie L Oberhauser Work Phone: [facility] Work Phone: 05-11-2021 09:26-0500 Heart rate 84 /min Melanie L Oberhauser Work Phone: [facility] Work Phone: 05-11-2021 09:26-0500 Systolic blood pressure 142 mm[Hg] Melanie L Oberhauser Work Phone: [facility] Work Phone: 12-30-2020 15:54-0400 Body temperature 97.3 [degF] Dominik Colby Jr., DPM Work Phone: [facility] 12-30-2020 15:54-0400 Diastolic blood pressure 97 mm[Hg] Dominik Colby Jr., DPM Work Phone: [facility] 12-30-2020 15:54-0400 Heart rate 86 /min Dominik Colby Jr., DPM Work Phone: [facility] 12-30-2020 15:54-0400 Systolic blood pressure 157 mm[Hg] Dominik Colby Jr., DPM Work Phone: [facility] 12-16-2020 08:27-0400 Body height 167.6 cm Dominik Vidalrupinder Biswas., DPM Work Phone: [facility] 12-16-2020 08:27-0400 Body mass index (BMI) [Ratio] 48.42 kg/m2 Dominik Sidhun Jr., DPM Work Phone: [facility] 12-16-2020 08:27-0400 Body temperature 97.7 [degF] Dominik Vidallon Jr., DPM Work Phone: [facility] 12-16-2020 08:27-0400 Body weight 136.08 kg Dominik Vidallon Jr., DPM Work Phone: [facility] 12-16-2020 08:27-0400 Diastolic blood pressure 79 mm[Hg] Dominik Vidalrupinder Biswas., DPM Work Phone: [facility] 12-16-2020 08:27-0400 Heart rate 92 /min Dominik Vidalrupinder Biswas., DPM Work Phone: [facility] 12-16-2020 08:27-0400 Systolic blood pressure 146 mm[Hg] Dominik Vidalrupinder Biswas., DPM Work Phone: [facility] 03-09-2020 11:21-0400 BMI (Body Mass Index) 50.81 kg/m2 Ingris Chan [facility] [address] Work Phone: 03-09-2020 11:21-0400 Body Temperature 96.9 [degF] Ingris Chan [facility] [address] Work Phone: Comment on above: Method: Temporal 03-09-2020 11:21-0400 Body weight 142.8 kg Ingris Chan [facility] [address] Work Phone: 03-09-2020 11:21-0400 BP Diastolic 80 mm[Hg] Ingris Chan [facility] [address] Work Phone: Comment on above: Location: LUE; Position: Sitting 03-09-2020 11:210400 BP Systolic 130 mm[Hg] Ingris Chan [facility] [address] Work Phone: Comment on above: Location: LUE; Position: Sitting 03-09-2020 11:0400 BSA (Body Surface Area) 2.43 m2 Ingris Chan [facility] [address] Work Phone: 03-09-2020 11:0400 Height 167.64 cm Ingris Chan [facility] [address] Work Phone: Encounters Encounter Date Encounter Type Care Provider Facility Start: 04-22-2025 ambulatory Dione Fragoso lity:[facility] Start: 03-31-2025 Encounter for other preprocedural examination Dione Arreola [facility] Start: 03-28-2025 ambulatory Dione Fragoso lity:[facility] Start: 02-24-2025 End: 02-24-[address] Melanie Dumas DO Work Phone: -[facility] Start: 02-24-2025 End: 02-24-[address] Dione Arreola MD -[facility] Start: 02-24-2025 End: 02-24-[address] Dione Arreola MD -[facility] Work Phone: Start: 02-24-2025 End: 02-24-[address] Melanie Dumas DO Work Phone: -[facility] Start: 02-24-2025 End: 02-24-2025 ambulatory Dione Arreola Facility:[facility] Start: 02-20-2025 End: 02-20-2025 ambulatory [facility] Start: 02-11-2025 End: 02-11-2025 ambulatory [facility] Start: 02-10-2025 End: 02-10-2025 Office outpatient new 45 minutes Faraz Taylor MD Work Phone: [facility] Comment on above: Rotator cuff impinge ment syndrome of right shoulder (Primary Dx); Right shoulder pain, unspecified chronicity Start: 02-10-2025 End: 02-10-2025 ambulatory FARAZ TAYLOR [facility] Ambulatory Start: 01-29-2025 End: 01-29-2025 Subsequent hospital visit by physician Rocky X-Ray Fluoro 1 [facility] Comment on above: Chronic right should er pain Visit for screening mammogram Start: 01-29-2025 End: 01-29-[address] [facility] Start: 01-28-2025 End: 01-28-2025 Office outpatient visit 25 minutes Yadira Arenas MD Work Phone: [facility] Comment on above: Primary hypertension (Primary Dx); Anxiety; History of retinoblastoma; Chronic right shoulder pain; Healthcare maintenance; Visit for screening mammogram Start: 01-28-2025 End: 01-28-2025 Patient encounter status Yadira Arenas MD Work Phone: [facility] Work Phone: Start: 01-28-2025 End: 01-28-2025 ambulatory YADIRA Lino [facility] Ambulatory Start: 01-28-2025 End: 01-28-2025 Encounter for general adult medical examination without abnormal findings YADIRA Zoie [facility] Ambulatory Start: 12-30-2024 End: 12-30-[address] Melanie Dumas DO Work Phone: -[facility] Start: 12-30-2024 End: 12-30-2024 Patient encounter procedure Nuris Rubio [employer]-C -[facility] Work Phone: Start: 12-30-2024 End: 12-30-2024 ambulatory Nuris Rubio Facility:[facility] Start: 12-19-2024 End: 12-19-2024 Postop follow up visit related to original px Melanie Hung MD Work Phone: [facility] Comment on above: Postoperative visit (Primary Dx) Start: 12-19-2024 End: 12-19-2024 [facility] Ambulatory Start: 12-19-2024 End: 12-19-2024 Patient encounter procedure Nuris Rubio NP-Arcelia -[facility] Work Phone: Start: 12-19-2024 End: 12-19-2024 ambulatory Nuris Rubio [facility] Start: 12-03-2024 End: 12-03-2024 Subsequent hospital visit by physician Melanie Hung MD Work Phone: [facility] [place] Comment on above: Post-operative pain (Primary Dx); Symptomatic cholelithiasis Start: 11-19-2024 [facility] Start: 11-07-2024 End: 11-07-2024 Office outpatient visit 25 minutes Melanie Hung MD Work Phone: [facility] Comment on above: Symptomatic cholelit hiasis (Primary Dx) Start: 11-07-2024 End: 11-07-2024 [facility] Ambulatory Start: 01-29-2024 End: 01-29-2024 Office consultation new/estab patient 60 min Melanie Hung MD Work Phone: [facility] Comment on above: Calculus of gallblad kofi without cholecystitis without obstruction Start: 01-09-2024 End: 01-09-2024 ambulatory [facility] Start: 01-09-2024 End: 01-09-2024 Subsequent hospital visit by physician Rocky Xie 2 [facility] Comment on above: RUQ pain Start: 10-26-2023 End: 10-26-2023 ambulatory [facility] Start: 10-26-2023 End: 10-26-2023 Encounter for general adult medical examination without abnormal findings [facility] Start: 10-26-2023 End: 10-26-2023 Subsequent hospital visit by physician Rocky Ibrahim [facility] Comment on above: Screening mammogram for breast cancer Start: 10-25-2023 End: 10-25-2023 Patient encounter status Melanie Dumas DO Work Phone: [facility] Work Phone: Start: 10-25-2023 End: 10-25-2023 Periodic preventive med est patient 40-64yrs Melanie Dumas DO Work Phone: [facility] Comment on above: Leg edema (Primary D x); Screening mammogram for breast cancer; Wellness examination; Rosacea; Primary hypertension Start: 04-25-2023 End: 04-25-2023 Office outpatient visit 15 minutes Melanie Dumas DO Work Phone: [facility] Comment on above: Need for influenza v accination (Primary Dx); Primary hypertension Start: 01-24-2023 End: 01-24-2023 Office outpatient visit 15 minutes Melanie Dumas DO Work Phone: [facility] Comment on above: Primary hypertension (Primary Dx) Start: 11-15-2022 End: 11-15-2022 Office outpatient visit 15 minutes Melanie Dumas DO Work Phone: [facility] Comment on above: Primary hypertension (Primary Dx) Start: 10-03-2022 End: 10-03-2022 ambulatory MELANIE DUMAS [facility] Ambulatory Start: 09-06-2022 End: 09-06-2022 ambulatory MELANIE DUMAS [facility] Ambulatory Start: 08-30-2022 End: 08-30-2022 ambulatory MELANIE DUMAS [facility] Ambulatory Start: 05-24-2022 Office outpatient vi sit 15 minutes Melanie Dumas Work Phone: [facility] Work Phone: Start: 05-24-[address] Melanie Dumas Facility:[id number] Start: 03-25-2022 Chart Update Melanie Fatima user Work Phone: [facility] Work Phone: Start: 03-01-2022 End: 03-01-2022 ambulatory MELANIE DUMAS [facility] Ambulatory Start: 02-01-2022 End: 02-05-2022 ambulatory CECELIA VU [facility] Ambulatory Start: 02-01-2022 End: 02-01-2022 Office outpatient visit 15 minutes Cecelia Vu DPM Work Phone: [facility] Comment on above: Plantar fasciitis of left foot; Equinus contracture of ankle; Left foot pain Start: 11-25-2021 FUV, Provider: Adis Carrillo, Status: Pen, Time: 9:30 AM Melanie Dumas Work Phone: [facility] Work Phone: Start: 11-25-2021 Office outpatient vi sit 15 minutes Melanie Dumas Work Phone: [facility] Work Phone: Start: 11-25-[address] Melanie Dumas Facility:[id number] Start: 11-23-2021 Office outpatient vi sit 15 minutes Melanie Dumas Work Phone: [facility] Work Phone: Start: 11-23-[address] Melanie Dumas Facility:[id number] Start: 08-18-2021 AUDIT Melanie mcgregor Work Phone: [facility] Work Phone: Start: 07-20-[address] Melanie Dumas Facility:[id number] Start: 05-11-2021 Office outpatient vi sit 25 minutes Melanie Dumas Work Phone: [facility] Work Phone: Start: 12-30-2020 End: 12-30-2020 Office outpatient visit 10 minutes Dominik Lasha DPM Work Phone: [facility] Comment on above: Abrasion of right fo ot, initial encounter (Primary Dx); Right foot pain Start: 12-16-2020 End: 12-16-2020 Office outpatient visit 15 minutes Dominik Vidallon DPM Work Phone: [facility] Comment on above: Stress fracture of l eft foot (Primary Dx); Stress fracture of left foot, initial encounter; Stress fracture of left foot with routine healing, subsequent encounter Start: 11-14-2018 End: 11-14-2018 Patient encounter procedure [facility]ACE GREEN [facility] Start: 08-10-2018 End: 08-14-2018 Patient encounter procedure [facility] Start: 08-07-2018 End: 08-08-2018 Patient encounter procedure [facility] Facility:[facility] Start: 08-01-2017 Ambulatory Trace Green [facility] Facility:[place] Start: 03-16-2017 Ambulatory [facility] Facili ty:[place] End: 03-09-2020 Manual pelvic examination Melanie Dumas Work Phone: [facility] Work Phone: Comment on above: 03/09/20 HPV- NIL5/2 08/05 NIL; Menarche Melanie elias Work Phone: [facility] Work Phone: Comment on above: AGE 9; Patient encounter procedure Melanie Dumas Work Phone: [facility] Work Phone: Procedures Date Procedure Procedure Detail Performing Clinician Start: 02-24-2025 Liquid based cervica l cytology screening Dr. Melanie Dumas DO Work Phone: Comment on above: NEGATIVE FOR INTRAEP ITHELIAL LESION OR MALIGNANCY. This liquid based Th inPrep(R) pap test was screened withthe use of an image guided system. Start: 01-29-2025 Lipid 1996 panel - S yoel or Plasma Faraz Taylor MD Work Phone: Start: 01-29-2025 End: 01-29-2025 Mammography Yadira stewart MD Work Phone: Start: 12-30-[address] Priscilla Dumas DO Work Phone: Start: 01-09-2024 Us abdominal real ti me w/image limited Melanie Dumas DO Work Phone: Start: 10-26-2023 Lipid 1996 panel - S yoel or Plasma [facility] Start: 10-26-2023 Mammography Rocky 2 Start: 03-25-2022 Lipid 1996 panel - S yoel or Plasma Melanie Dumas DO Work Phone: Start: 03-01-2022 Follow-up visit Follow-up CECELIA SA ANDRE MIRELLA Start: 02-01-2022 Radex foot complete minimum 3 views Cecelia Annemarie Mirella DPM Work Phone: Start: 12-30-2020 Radex foot complete minimum 3 views Dominik Lasha DPM Work Phone: Start: 12-16-2020 NURSING COMMUNICATIO N - DO NOT USE IN ORDER SETS Dominik Lasha DPM Work Phone: Start: 12-16-2020 Radex foot complete minimum 3 views Dominik Lasha DPM Work Phone: Start: 03-09-2020 Microscopic observat ion [Identifier] in Cervix by Cyto stain Melanie Dumas DO Work Phone: Operative procedure on knee Ingris Dustin Surgical procedure o n eye proper Melanie Dumas Work Phone: Plan of Treatment Date Care Activity Detail Author Start: 2033 Zoster Vaccines (1 of 2) Zoster Vacc allan (1 of 2) [facility] Start: 01-29-2030 Lipid panel Lipid Panel [facility] Start: 10-25-2028 Lipid panel Lipid Panel [facility] Start: 03-25-2027 Lipid panel Lipid Panel [facility] Start: 01-08-2027 Diabetes mellitus screening Diabetes Screening [facility] Start: 01-29-2026 Screening for malign ant neoplasm of breast Mammogram [facility] Start: 07-28-2025 End: 07-28-2025 Patient encounter procedure 07/28/2025 2:00 PM EDT Office Visit [facility] [address] [facility] [address] [place] [address] Yadira Arenas MD [address] [facility] [address] [place] [address] [facility] Start: 04-14-2025 End: 04-14-2025 Patient encounter procedure 04/14/2025 8:00 AM EST Office Visit [facility] [address] [place] [id number] Faraz Taylor MD [address] [place] [address] [facility] Start: 02-24-2025 Liquid based cervica l cytology screening [facility] Start: 02-10-2025 End: 02-10-2025 Patient encounter procedure 02/10/2025 8:00 AM EDT Office Visit [facility] [address] [facility] [address] [place] [phone] Faraz Taylor MD [address] [place] [address] [facility] Start: 01-29-2025 End: 01-29-2025 Patient encounter procedure 01/29/2025 8:00 AM EDT Appointment [address] [phone] [facility] Start: 01-28-2025 End: 01-28-2026 CBC W Auto Differential panel - Blood CBC and Auto Differential Lab Routine Primary hypertension Healthcare maintenance Expected: 01/28/2025 (Approximate), Expires: 01/28/2026 [facility] Work Phone: Comment on above: Expected: 01/28/2025 (Approximate), Expires: 01/28/2026 Start: 01-28-2025 End: 01-28-2026 Comprehensive metabolic 2000 panel - Serum or Plasma Comprehensive Metabolic Panel Lab Routine Primary hypertension Healthcare maintenance Expected: 01/28/2025 (Approximate), Expires: 01/28/2026 [facility] Work Phone: Comment on above: Expected: 01/28/2025 (Approximate), Expires: 01/28/2026 Start: 01-28-2025 End: 03-30-2026 DBT Breast - bilateral BI mammo bilateral screening tomosynthesis Imaging Routine Visit for screening mammogram Expected: 01/28/2025, Expires: 03/30/2026 [facility] Work Phone: Comment on above: Expected: 01/28/2025 , Expires: 03/30/2026 Start: 01-28-2025 End: 01-28-2026 Lipid 1996 panel - Serum or Plasma Lipid Panel Lab Routine Primary hypertension Healthcare maintenance Expected: 01/28/2025 (Approximate), Expires: 01/28/2026 [facility] Work Phone: Comment on above: Expected: 01/28/2025 (Approximate), Expires: 01/28/2026 Start: 01-28-2025 End: 01-28-2026 TSH with reflex to Free T4 if abnormal TSH with reflex to Free T4 if abnormal Lab Routine Primary hypertension Healthcare maintenance Expected: 01/28/2025 (Approximate), Expires: 01/28/2026 [facility] Work Phone: Comment on above: Expected: 01/28/2025 (Approximate), Expires: 01/28/2026 Start: 01-28-2025 End: 01-28-2026 XR Shoulder - right 2 Views XR shoulder right 2+ views Imaging Routine Chronic right shoulder pain Expected: 01/28/2025, Expires: 01/28/2026 [facility] Work Phone: Comment on above: Expected: 01/28/2025 , Expires: 01/28/2026 Start: 01-20-2025 COVID-19 Vaccine ( season) COVID-19 Vaccine ( season) [facility] Start: 01-20-2025 Influenza vaccination Influenza Vacc ine (#1) [facility] Start: 12-19-2024 End: 12-19-2024 Patient encounter procedure 12/19/2024 11:30 AM EDT Office Visit [facility] [address] [facility] [address] [place] [address] Melanie Hung MD [address] [facility], [facility] [address] [place] [address] [facility] Start: 12-03-2024 Subsequent hospital visit by physician 12/03/2024 Hospital Encounter [facility] [place] [address] [place] [phone] [place] [address] [place] [address], [facility] [address] [place] [id number] [facility] [place] Start: 10-25-2024 Screening for malign ant neoplasm of breast Mammogram [facility] Start: 10-25-2024 Yearly Adult Physical Yearly Adult P hysical [facility] Start: 10-24-2024 End: 10-24-2024 Patient encounter procedure 10/24/2024 9:00 AM EDT Office Visit [facility] [address] [place] [address] Melanie Dumas DO [address] [facility] [place] [address] [facility] Start: 04-29-2024 End: 04-29-2024 Patient encounter procedure 04/29/2024 1:30 PM EST Office Visit [facility] [address] [facility] [address] [place] [address] Melanie Hung MD [address] [facility] [place] [address] [facility] Start: 01-29-2024 End: 01-29-2024 Patient encounter procedure 01/29/2024 3:00 PM EDT Office Visit [facility] [address] [facility] [address] [place] [address] Melanie Hung MD [address] [facility], [facility] [address] [place] [address] [facility] Start: 01-21-2024 COVID-19 Vaccine ( season) COVID-19 Vaccine ( season) [facility] Start: 01-21-2024 COVID-19 Vaccine ( season) COVID-19 Vaccine ( season) [facility] Start: 01-21-2024 Influenza vaccination Influenza Vacc ine (#1) [facility] Start: 10-25-2023 End: 10-24-2024 CBC W Auto Differential panel - Blood CBC and Auto Differential Lab Routine Wellness examination Expected: 10/25/2023 (Approximate), Expires: 10/24/2024 [facility] Work Phone: Comment on above: Expected: 10/25/2023 (Approximate), Expires: 10/24/2024 Start: 10-25-2023 End: 10-24-2024 Comprehensive metabolic 2000 panel - Serum or Plasma Comprehensive Metabolic Panel Lab Routine Wellness examination Expected: 10/25/2023 (Approximate), Expires: 10/24/2024 [facility] Work Phone: Comment on above: Expected: 10/25/2023 (Approximate), Expires: 10/24/2024 Start: 10-25-2023 End: 12-24-2024 DBT Breast - bilateral BI mammo bilateral screening tomosynthesis Imaging Routine Screening mammogram for breast cancer Expected: 10/25/2023, Expires: 12/24/2024 [facility] Service Area Work Phone: Comment on above: Expected: 10/25/2023 , Expires: 12/24/2024 Start: 10-25-2023 End: 10-24-2024 Lipid 1996 panel - Serum or Plasma Lipid Panel Lab Routine Wellness examination Expected: 10/25/2023 (Approximate), Expires: 10/24/2024 [facility] Work Phone: Comment on above: Expected: 10/25/2023 (Approximate), Expires: 10/24/2024 Start: 10-25-2023 End: 10-24-2024 TSH with reflex to Free T4 if abnormal TSH with reflex to Free T4 if abnormal Lab Routine Wellness examination Expected: 10/25/2023 (Approximate), Expires: 10/24/2024 [facility] Work Phone: Comment on above: Expected: 10/25/2023 (Approximate), Expires: 10/24/2024 Start: 10-25-2023 End: 10-25-2023 Patient encounter procedure 10/25/2023 8:20 AM EDT Office Visit [facility] [address] [place], [place] [id number] Melanie Dumas DO [address] [facility] [place] [address] [facility] Start: 2023 Screening for malign ant neoplasm of breast Mammogram [facility] Start: 05-23-2023 FUV, Provider: Melanie Dumas, Status: Pen, Time: 9:20 AM FUV, Provider: Melanie Dumas, Status: Pen, Time: 9:20 AM -[facility] Work Phone: Start: 05-23-2023 End: 05-23-2023 Patient encounter procedure 05/23/2023 9:20 AM EST Office Visit [facility] [address] [place] [address] Melanie Dumas DO [address] [facility] [place] [address] [facility] Start: 03-09-2023 Screening for malign ant neoplasm of cervix [facility] Start: 01-24-2023 End: 01-24-2023 Patient encounter procedure 01/24/2023 9:00 AM EDT Office Visit [facility] [address] [place] [id number] Melanie Dumas DO [address] [facility] [place] [address] [facility] Start: 01-20-2023 COVID-19 Vaccine ( season) COVID-19 Vaccine ( season) [facility] Start: 01-20-2023 Influenza vaccination Influenza Vacc ine (#1) [facility] Start: 05-24-2022 FUV, Provider: Melanie Dumas, Status: Pen, Time: 9:20 AM FUV, Provider: Melanie Dumas, Status: Pen, Time: 9:20 AM [facility] Work Phone: Start: 05-07-2022 COVID-19 Vaccine (4 - Moderna series) COVID-19 Vaccine (4 - Moderna series) [facility] Start: 04-02-2022 COVID-19 Vaccine (2 - Pfizer series) COVID-19 Vaccine (2 - Pfizer series) [facility] Start: 03-11-2022 Patient encounter procedure ANNUAL, Provider: Josh Diaz, Status: Pen, Time: 9:45 AM [facility] Work Phone: Start: 03-01-2022 End: 03-01-2022 Patient encounter procedure 03/01/2022 Office Visit Podiatry Cecelia Vu, DPM [address] [place] [id number] [facility] Start: 01-20-2022 Influenza vaccination Sequenti al Influenza Vaccine (#1) [facility] Start: 11-23-2021 FUV, Provider: Melanie Dumas, Status: Pen, Time: 10:40 AM FUV, Provider: Melanie Dumas, Status: Pen, Time: 10:40 AM [facility] Work Phone: Start: 07-23-2021 COVID-19 Vaccine (4 - Booster) COVID-19 Vaccine (4 - Booster) [facility] Start: 07-13-2021 FUV, Provider: Melanie Dumas, Status: Pen, Time: 9:40 AM FUV, Provider: Melanie Dumas, Status: Pen, Time: 9:40 AM [facility] Work Phone: Start: 01-20-2021 Influenza vaccination Sequenti al Influenza Vaccine (#1) [facility] Start: 01-13-2021 End: 01-13-2021 Patient encounter procedure [facility] Start: 2010 HPV Vaccines (1 - 3- dose standard series) HPV Vaccines (1 - 3-dose standard series) [facility] Start: 2005 DTaP/Tdap/Td Vaccine s (1 - Tdap) DTaP/Tdap/Td Vaccines (1 - Tdap) [facility] Start: 2004 Screening for malign ant neoplasm of cervix HPV/Cotest [facility] Start: 2002 Hepatitis B Vaccines (1 of 3 - 19+ 3-dose series) Hepatitis B Vaccines (1 of 3 - 19+ 3-dose series) [facility] Start: 2001 Diabetes mellitus screening Diabetes Screening [facility] Start: 2001 Hepatitis C screening Hepatitis C Sc reening [facility] Start: 1998 HIV screening HIV Screening [facility] Start: 1996 Varicella vaccination Varicell a Vaccines (1 of 2 - 13+ 2-dose series) [facility] Start: 1995 Depression screening using PHQ-9 (Patient Health Questionnaire 9) score [facility] Start: 1989 Pneumococcal Vaccine : Ped or At-Risk (1 - PCV) Pneumococcal Vaccine: Ped or At-Risk (1 - PCV) [facility] Start: 1989 Pneumococcal Vaccine : Ped or At-Risk (1 of 4 - PCV13) Pneumococcal Vaccine: Ped or At-Risk (1 of 4 - PCV13) [facility] Start: 1986 History and physical examination, annual for health maintenance Wellness Visit [facility] Start: 1984 MMR Vaccines (1 of 1 - Standard series) MMR Vaccines (1 of 1 - Standard series) [facility] Start: 1984 Varicella vaccination Varicell a Vaccines (1 of 2 - 2-dose childhood series) [facility] Start: 1983 Hepatitis B Vaccines (1 of 3 - 3-dose series) Hepatitis B Vaccines (1 of 3 - 3-dose series) [facility] Start: 1983 HIV screening HIV Screening [facility] Start: 1983 Screening for malign ant neoplasm of cervix Pap Smear [facility] Start: 1983 Tetanus vaccination Tetanus: Every 1 0yrs [facility] Start: 1983 Yearly Adult Physical Yearly Adult P hycal [facility] Cytology report of Cervical or vaginal smear or scraping Cyto stain.thin prep [facility] End: 10-26-2023 DBT Breast - bilateral [facility] Service Area Work Phone: Comment on above: Once for 1 Occurrenc es starting 10/26/2023 until 10/26/2023 Laparoscopy surg cholecystectomy CHOLECYSTECTOMY, LAPAROSCOPIC Symptomatic cholelithiasis Virtual [facility] [place] Path report.final Dx Spec [facility] Surgical pathology study [facility] Service Area Work Phone: Comment on above: Release Upon Catarina johnson for 1 Occurrences starting 12/03/2024 End: 01-29-2025 XR Shoulder - right 2 Views [facility] Service Area Work Phone: Comment on above: Once for 1 Occurrenc es starting 01/29/2025 until 01/29/2025 Immunizations Immunization Date Immunization Notes Care Provider Blaire azevedo 03-11-2024 influenza virus vaccine, unspecified formulation Melanie Hung MD Work Phone: [facility] Work Phone: 04-25-2023 influenza, injectabl e, quadrivalent, preservative free Melanie Dumas DO Work Phone: [facility] Work Phone: 04-25-2023 influenza virus vaccine, unspecified formulation [address] Work Phone: 03-12-2022 influenza virus vaccine, unspecified formulation Melanie Jayashree Familiaersebascurt Work Phone: [facility] Work Phone: Comment on above: Series: 03-12-2022 Pfizer COVID-19 Vac Bivalent 30 MCG/0.3ML Intramuscular Suspension Melanie Mcdoweller Work Phone: [facility] Work Phone: 04-30-2021 Pfizer-BioNTech COVID-19 Vacc 30 MCG/0.3ML Intramuscular Suspension Melanie Mcdoweller Work Phone: [facility] Work Phone: 02-03-2021 influenza virus vaccine, unspecified formulation Melanie Dumas Work Phone: [facility] Work Phone: Comment on above: Series: 09-25-2020 Moderna COVID-19 Vaccine 100 MCG/0.5ML Intramuscular Suspension Melanie L Oberhauser Work Phone: [facility] Work Phone: 08-27-2020 Moderna COVID-19 Vaccine 100 MCG/0.5ML Intramuscular Suspension Melanie L Oberhauser Work Phone: [facility] Work Phone: 03-26-2020 influenza, injectabl e, quadrivalent, preservative free Ingris Mathew[address] Work Phone: Comment on above: Series: 03-21-2019 influenza virus vaccine, unspecified formulation Melaine Dumas Work Phone: [facility] Work Phone: Comment on above: Series: 03-21-2019 influenza, seasonal, injectable Ingris Chan [address] Work Phone: 02-21-2018 influenza, injectabl e, quadrivalent, preservative free Melanie Dumas Work Phone: [facility] Work Phone: 03-04-2014 influenza virus vaccine, whole virus Melanie Dumas Work Phone: [facility] Work Phone: Payers Date Payer Category Payer Unknown [id number] 2024 Self-pay 2022 Managed Care (Private) [facility] [id number] 2022 Private Health Insurance [facility] [id number] 2022-Present [address] [place] [address] [id number] 2022 Private Health Insurance [id number] 2018 Unknown [id number] 2018 Unknown MMO [employer] PPO [id number] 2018-Present [id number]. [id number] 2018 Unknown 1983 Unknown [id number] 2.16.840.1.031263.3.579.2. 903 1983 Unknown [id number] 2.16.840.1.853311.3.579.2. 903 1983 Unknown [id number] 2.16.840.1.463288.3.579.2. 356 1983 Unknown [id number] 2.16.840.1.530384.3.579.2. 356 1983 Unknown [id number] 2.16.840.1.902979.3.579.2. 356 1983 Unknown [id number] 2.16.840.1.885046.3.579.2. 356 1983 Unknown [id number] 2.16.840.1.318671.3.579.2. 903 1983 Unknown [id number] 2.16.840.1.623603.3.579.2. 903 1983 Unknown [id number] 2.16.840.1.240143.3.579.2. 903 1983 Unknown [id number] 2.16.840.1.135336.3.579.2. 903 1983 Unknown [id number] 2.16.840.1.842764.3.579.2. 903 1983 Unknown [id number] 2.16.840.1.639560.3.579.2. 903 1983 Unknown [id number] 2.16.840.1.572575.3.579.2. 1245 1983 Unknown [id number] 2.16.840.1.305628.3.579.2. 1245 1983 Unknown [id number] 2.16.840.1.945383.3.579.2. 1244 1983 Unknown [id number] 2.16.840.1.464285.3.579.2. 1244 1983 Unknown [id number] 2.16.840.1.888398.3.579.2. 1244 1983 Unknown [id number] 2.16.840.1.505468.3.579.2. 1244 1983 Unknown [id number] 2.16.840.1.483057.3.579.2. 1242 1983 Unknown [id number] 2.16.840.1.474205.3.579.2. 1242 1983 Unknown [id number] 2.16840.1.912834.3.579.2. 124 1983 Unknown [id number] 2.16.840.1.603517.3.579.2. 124 1983 Unknown [id number] 2.16840.1.997741.3.579.2. 1243 Unknown [id number] Unknown [id number] 2.16840.1.090025.3.579.2. 462 Unknown [id number] 2.840.1.810825.3.579.2. 462 Unknown [id number] 2.16840.1.048918.3.579.2. 462 Unknown [id number] 2.16840.1.403250.3.579.2. 462 Unknown [id number] 2.16840.1.907460.3.579.2. 462 Unknown [id number] 2.840.1.339099.3.579.2. 462 Social History Date Type Detail Facility Start: 12-16-2020 End: 02-25-2025 Tobacco smoking status NHIS Never smoker [facility] Start: 12-16-2020 End: 10-13-2022 Tobacco use and exposure Never used [facility] Start: 12-16-2020 End: 02-01-2022 Alcohol intake Lifetime non-drinker (finding) [facility] Start: 1985 Sex Assigned At Not on file [facility] Start: 01-22-2022 End: 01-29-2024 Exposure to SARS-CoV-2 (event) Not sure [facility] Start: 10-13-2022 End: 01-28-2025 Sexually active Sexually active [facility] Work Phone: Start: 11-15-2022 End: 01-29-2024 Alcohol intake Current drinker of alcohol (finding) [facility] Work Phone: Start: 10-13-2022 End: 01-28-2025 Tobacco use panel [facility] Work Phone: Start: 11-07-2024 End: 02-10-2025 Alcoholic beverage intake Ex-drinker (finding) [facility] Work Phone: Start: 11-07-2024 Alcohol Comment [facility] Work Phone: Start: 12-03-2024 Sexual orientation Heterosexual (flor cisneros) [facility] Work Phone: Start: 1985 Sex Assigned At Female [facility] Start: 04-15-2022 Sex Female [facility] NEGATED: Highlighted row - - [facility] [address] Work Phone: Goals Date Patient Goal Desired Activity /State Personal health goal Functional Status Date Assessment Result Facility 01-28-2025 Patient Health Questionnaire 2 item (PHQ-2) [Reported] [facility] Work Phone: 12-03-2024 [place] - suicide severity rating scale screener - recent [C-SSRS] [facility] Work Phone: NEGATED: Highlighted row Functional performance Functional status health issues are not documented [facility] Work Phone: Mental Status Date Assessment Result Facility NEGATED: Highlighted row Cognitive function [Interpretation] Cognitive status health issues are not documented Disease [place] [address] [employer] Work Phone: Clinical Notes 05-11-2020 to 02-24-2025 Faraz Taylor MD - 02/10/2025 8:00 AM NBATYadira Arenas MD - 01/28/2025 2:00 PM EDTPatient Instructions Note Date & Type Note Facility 02-24-2025 Progress note [facility] 02-10-2025 History of Present illness Narrative CHIEF COMPLAINT: Chief Complaint Patient presents with Right Shoulder - New Patient Visit, Pain HPI: Anurag is a Right hand dominant 39 y.o. female who presents today for evaluation of Right shoulder pain. This been ongoing for a number of years however has been worsening over the past few months of insidious onset no specific inciting injury or event. 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 Her pain is primarily along the lateral shoulder and associated with overhead, away from the body, and behind the back activities. She denies any numbness or tingling going down her right arm. In the past, she has tried Tylenol and anti-inflammatory medications without significant relief in her symptoms. She never had any formal physical therapy or corticosteroid injections. I independently reviewed the following documents: - 01/28/25 Family Medicine note outlining history of HTN, retinal blastoma, and anxiety as well as new reports of right shoulder pain with difficulty with elevation. Xray was ordered at that visit By History: Medical History[1] Surgical History[2] Current Medications[3] Allergies[4] Review of Systems: 12 point review of systems was unremarkable or noncontributory aside from what was mentioned in the HPI Social History: Tobacco use: She reports that she has never smoked. She has never used smokeless tobacco. Alcohol use: She reports that she does not currently use alcohol. Family History[5] PHYSICAL EXAM: General: Alert, no acute distress HEENT: Normocephalic, no scleral icterus Psych: Normal mood/affect Cardiovascular: Regular rate Pulmonary: Regular respiratory rate, nonlabored on room air Lymph: No lymphedema of the associated extremity Skin: No open wounds, no rashes, normal turgor of the associated extremity Abdomen: Nondistended Musculoskeletal: Right Shoulder Exam: -No gross deformity -Nontender to palpation at the AC joint -Tender to palpation bicipital groove - Active ROM (R/L): - Forward elevation 180/180 - ER in adduction to 60/60 - IR to T12/T12 - Positive Neer and Love impingement - Negative cross body adduction - Rotator cuff strength: - Empty Can 4/5 with pain - Supraspinatus in extension 4/5 with pain - ER in adduction 5/5 without pain - ER rotation in 90 abduction 5/5 without pain - Subscapularis Testing: Negative Bear Hug, Negative Lift-Off, Negative Belly Press - Positive Speeds test, Positive Olivehill's test - Neurovascularly intact Neck examination demonstrates normal flexion and extension with no pain, nontender to palpation along the cervical spine, normal rotation to the left and right with no pain, Negative Spurling's LABS: I independently reviewed and interpreted the following labs: 01/29/25 TSH which demonstrated normal value of 2.68 IMAGING: I personally reviewed and interpreted 01/29/25's Right shoulder X-Ray which demonstrates: Grashey, Zanca, scapular Y, and axillary lateral views of the shoulder. AP Grashey shows overall well preserved glenohumeral joint space with no obvious acute bony abnormalities. The AC joint is anatomically aligned with mild arthritic changes. On the axillary view, the humeral head is concentrically reduced in the glenoid. Mild spurring along the greater tuberosity that could represent cuff pathology vs. Calcific tendinitis IMPRESSION: Right shoulder impingement, rotator cuff and long head biceps tendinopathy PLAN: We discussed Anurag's imaging and diagnosis in detail including various treatment options. The mainstay of treatment for shoulder impingement is a thorough course of physician directed physical therapy working on rotator cuff stretching and strengthening as well as periscapular strengthening. After thorough discussion of risks, benefits, and alternatives to all treatment options, Anurag and I collectively agreed on the following plan: PT referral placed today for right shoulder rotator cuff strengthening and stretching and periscapular strengthening Follow-up in 6 weeks for repeat evaluation Faraz Taylor MD Orthopaedic Sports and Shoulder Surgeon [facility] This note was created with the aid of voice recognition dictation software. 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 losartan (Cozaar) 25 mg tablet Take 1 tablet (25 mg) by mouth once daily. 90 tablet 3 No current facility-administered medications for this visit. [4] No Known Allergies [5] Family History Problem Relation Name Age of Onset Hypertension Mother Stroke Father Hypertension Father Hypertension Brother Breast cancer Paternal Grandmother 65 documented in this encounter [facility] Work Phone: 01-28-2025 History of Present illness Narrative Subjective Anurag Valencia is a 39 y.o. female who presents for Establish Care (Transferring from [facility] ). Here to get established. Previously a patient of Dr Dumas. She has a h/o HTN, retinal blastoma, edema, rosacea, anxiety. She takes buspirone prn. She had her gallbladder removed in November. Prior to the gallbladder removal she went on semaglutide for weight loss. Since she had her surgery she has gained some weight back. Her uterus is enlarged and she will be seeing [employer]PER[employer]OR for hysterectomy soon. She is also having pain with her right shoulder. No known injury. Having issues with raising the shoulder/throwing. Objective Visit Vitals BP 126/78 Pulse 78 Physical Exam Vitals reviewed. Constitutional: General: She is not in acute distress. Cardiovascular: Rate and Rhythm: Normal rate and regular rhythm. Heart sounds: No murmur heard. Pulmonary: Effort: Pulmonary effort is normal. No respiratory distress. Breath sounds: Normal breath sounds. Skin: General: Skin is warm and dry. Neurological: General: No focal deficit present. Mental Status: She is alert. Mental status is at baseline. Assessment/Plan Problem List Items Addressed This Visit Anxiety Primary hypertension - Primary Relevant Medications losartan (Cozaar) 25 mg tablet Other Relevant Orders CBC and Auto Differential Comprehensive Metabolic Panel Lipid Panel TSH with reflex to Free T4 if abnormal History of retinoblastoma Other Visit Diagnoses Chronic right shoulder pain Relevant Orders Referral to Orthopedics and Sports Medicine XR shoulder right 2+ views Healthcare maintenance Relevant Orders CBC and Auto Differential Comprehensive Metabolic Panel Lipid Panel TSH with reflex to Free T4 if abnormal Visit for screening mammogram Relevant Orders BI mammo bilateral screening tomosynthesis Yadira Arenas MD documented in this encounter [facility] Work Phone: 01-28-2025 Instructions Yadira Arenas MD - 01/28/2025 2:00 PM EDT Continue current medications. Follow up with specialists as scheduled. Follow up in 6 months, sooner if needed. documented in this encounter [facility] Work Phone: 12-31-2024 Radiology Diagnostic study note [facility] Imaging Services [address] [place] [id number] Pelvic w/ Transvaginal MR#: [id number] Acct: [id number] Name: ANURAG VALENCIA Rep #: [id number] : 1985 F 39 From: Fidel Rogers MD PCP: Dr. 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 Measurements: Uterus: 23.7 cm x 15.9 cm x 12.1 cm with a volume of 2381.8 mL Endometrial Thickness: 2.4 mm. It is hyperechoic. Right Ovary: Not visualized. Left Ovary: 3.3 cm x 2.4 cm x 1.8 cm with a volume of 7.51 mL. TRANSABDOMINAL: Uterus: There is a large 12 cm x 12.6 cm 12.1 cm uterine fibroid. Endometrium: Unremarkable. Right ovary: Not visualized. Left ovary: Normal size and echotexture. Other: No large pelvic mass identified. Transvaginal sonography was performed to better visualize the endometrium. TRANSVAGINAL: Uterus: Enlarged fibroid uterus as described. There is a 12 cm x 12.6 cm 12.1 cm fibroid. Endometrium: Normal echotexture. Right ovary: Not visualized. Left ovary: Normal size and echotexture. Other adnexal findings: None. Cul-de-sac: No free intraperitoneal fluid identified. Tenderness: No tenderness US/Pelvic w/ Transvaginal IMPRESSION: Enlarged fibroid uterus. Reading Location: [place] [address] CC: JOESY Rubio; Dr. Melanie Dumas, DO ~ B Operator: Signed [facility] 12-19-2024 Evaluation note Diagnosis Onset Date Resolution Enlarged uterus acute November 8:18am Yeast dermatitis acute November 8:18am [facility] Work Phone: 1(443) 322-450607-31-2025 Evaluation note* Diagnosis Onset Date Resolution Status Admit Date Enlarged uterus acute November 8:18am Yeast dermatitis acute November 8:18am Enlarged uterus acute February 242024 8:09am Menorrhagia with regular cycle acute February 24, 2025 8:09am Pelvic pressure in female acute February 24, 2025 8:09am Uterine fibroid acute February 242024 8:09am [facility] Work Phone: 1(675) 821-320007-15-2025 Miscellaneous Notes* Op Note - Melanie Hung MD - 12/03/2024 3:03 PM EDT [facility] Operative Report Patient: Anurag Valencia : 1985 Date of Operation: 12/03/24 Pre-Operative Diagnosis: Symptomatic cholelithiasis Post-Operative Diagnosis: Symptomatic cholelithiasis, enlarged uterus Procedure: Laparoscopic cholecystectomy Surgeon: Melanie Hung MD Wire Wheeler: n/a Anesthesia: General Findings: Cholelithiasis, including a large 2.5 cm stone, chronic inflammatory changes EBL: 10ml Specimen: Gallbladder Case Type: Clean-Contaminated Disposition: PACU Indication: Patient is a 39 y.o. female with symptomatic cholelithiasis. Risks and benefits of cholecystectomy were discussed and the patient was agreeable to proceed with surgery. Description: The patient was brought to the operating room and placed in supine position. General anesthesia was induced. The patient's abdomen was prepped and draped. Through a vertical umbilical incision, a 12mm port was placed using Glenn technique. Three 5mm ports were placed in the upper abdomen under direct visualization. The patient was placed in reverse Trendelenburg position and tilted slightly towards the left. The omentum was adherent to the gallbladder as well as the adjacent liveredge laterally. The gallbladder was grasped by the fundus and retracted cephalad. The omental adhesions were taken down with combination of blunt dissection and cautery. The peritoneum was opened to s eparate the lower third of the gallbladder from the liver. She had a moderate amount of fat needs of this peritoneum and the wall of the gallbladder itself. The infundibulum was adherent to the cystic duct from chronic inflammatory changes. These adhesions were lysed with a hook cautery to straighten the cystic duct. The cystic artery was identified and dissected. She had a large stone within thebody of the gallbladder, roughly 2.5 cm. It felt as though she had a smaller stone in the cystic duct and this was milked back proximally into the gallbladder. Once the cystic duct and artery were completely dissected and a critical view of safety was obtained, the cystic duct and artery were clipped, with two clips proximally and one clip distally, and divided. The gallbladder was removed from the hepatic bed using electrocautery. There was no spillage of bile at any point during the case. Hemostasis was obtained in the hepatic bed with cautery. The camera was changed to a 5mm scope. The gallbladder was placed in an Endocatch bag and removed via the umbilical port. She was noted to have a fairly enlarged uterus. This extended up to the umbilicus. The 5mm ports were removed. The fascial defect at the umbilicus was closed with 0 Vicryl. Skin incisions were closed with 4-0 Vicryl and steri strips. The patient tolerated the procedure well, was extubated and transferred to PACU in stable condition. Melanie Hung MD 12/03/2024 * Preprocedure Instructions - Tiffanie Liu RN - 11/28/2024 9:14 AM EDT Current Rx Instructions for Day of Surgery[1] NPO Instructions: Do not eat any food after midnight the night before your surgery/procedure. You may have clear liquids until TWO hours before surgery/procedure. This includes water, black tea/coffee, (no milk or cream) apple juice and electrolyte drinks (Gatorade). Additional Instructions: Will need restaurant delivery driver home, will receive call day before surgery with arrival time [1] No outpatient medications have been marked as taking for the 12/03/24 encounter (Hospital Encounter). [facility] Phone: [phone] Surgery Surgical operation note* Op Note - Melanie Hung MD - 12/03/2024 3:03 PM EDT [facility] Operative Report Patient: Anurag Valencia : 1985 Date of Operation: 12/03/24 Pre-Operative Diagnosis: Symptomatic cholelithiasis Post-Operative Diagnosis: Symptomatic cholelithiasis, enlarged uterus Procedure: Laparoscopic cholecystectomy Surgeon: Melanie Hung MD Wire Wheeler: n/a Anesthesia: General Findings: Cholelithiasis, including a large 2.5 cm stone, chronic inflammatory changes EBL: 10ml Specimen: Gallbladder Case Type: Clean-Contaminated Disposition: PACU Indication: Patient is a 39 y.o. female with symptomatic cholelithiasis. Risks and benefits of cholecystectomy were discussed and the patient was agreeable to proceed with surgery. Description: The patient was brought to the operating room and placed in supine position. General anesthesia was induced. The patient's abdomen was prepped and draped. Through a vertical umbilical incision, a 12mm port was placed using Glenn technique. Three 5mm ports were placed in the upper abdomen under direct visualization. The patient was placed in reverse Trendelenburg position and tilted slightly towards the left. The omentum was adherent to the gallbladder as well as the adjacent liveredge laterally. The gallbladder was grasped by the fundus and retracted cephalad. The omental adhesions were taken down with combination of blunt dissection and cautery. The peritoneum was opened to s eparate the lower third of the gallbladder from the liver. She had a moderate amount of fat needs of this peritoneum and the wall of the gallbladder itself. The infundibulum was adherent to the cystic duct from chronic inflammatory changes. These adhesions were lysed with a hook cautery to straighten the cystic duct. The cystic artery was identified and dissected. She had a large stone within thebody of the gallbladder, roughly 2.5 cm. It felt as though she had a smaller stone in the cystic duct and this was milked back proximally into the gallbladder. Once the cystic duct and artery were completely dissected and a critical view of safety was obtained, the cystic duct and artery were clipped, with two clips proximally and one clip distally, and divided. The gallbladder was removed from the hepatic bed using electrocautery. There was no spillage of bile at any point during the case. Hemostasis was obtained in the hepatic bed with cautery. The camera was changed to a 5mm scope. The gallbladder was placed in an Endocatch bag and removed via the umbilical port. She was noted to have a fairly enlarged uterus. This extended up to the umbilicus. The 5mm ports were removed. The fascial defect at the umbilicus was closed with 0 Vicryl. Skin incisions were closed with 4-0 Vicryl and steri strips. The patient tolerated the procedure well, was extubated and transferred to PACU in stable condition. Melanie Hung MD 12/03/2024 [facility] Work Phone: [phone] Attending History and physical note* Melanie Hung MD - 12/03/2024 12:20 PM EDT H&P reviewed. The patient was examined and there are no changes to the H&P. Source Note - Melanie Hung MD - 11/07/2024 3:30 PM EDT General Surgery Follow-up Visit Patient: Anurag Valencia : 1985 Date of Visit: 11/07/24 Chief Complaint: RUQ pain History of Present Illness: Anurag Valencia is a 39 y.o. old female with somatic cholelithiasis. I previously evaluated her for this in January. At that time, her BMI was 51. We discussed medical weight loss prior to proceeding with cholecystectomy to decrease her perioperative risk. She has had great success and over the last 9 months has lost about 60 pounds. Her BMI is now 41. She continues to have intermittent episodes of right upper quadrant abdominal pain. Recently, these have been occurring about once per week. Typically, they last about an hour. However, 2 weeks ago she had more severe pain that lasted all day. She denies any fever, yellowing of the skin or eyes or dark-colored urine a t time of pain. She has had some nausea but no vomiting. Previous imaging showed a 2.7 cm stone in the gallbladder but no acute inflammatory changes. LFTs were within normal limits. She has no previous abdominal surgery. Medical History: Symptomatic cholelithiasis Obesity, BMI 41 History of retinoblastoma Hypertension Leg edema Rosacea Surgical History: No previous abdominal surgery. Knee surgery Eye surgery Home Medications: Prior to Admission medications Medication Sig Start Date End Date Taking? Authorizing Provider losartan (Cozaar) 25 mg tablet Take 1 tablet (25 mg) by mouth once daily. 03/11/24 03/11/25 Yes Melanie Dumas DO busPIRone (Buspar) 5 mg tablet Take 1 tablet (5 mg) by mouth 3 times a day. Patient not taking: Reported on 11/07/2024 05/11/21 Historical Provider, furosemide (Lasix) 20 mg tablet Take 1 tablet (20 mg) by mouth once daily. Patient not taking: Reported on 01/29/2024 10/25/23 10/24/24 Melanie Dumas DO Allergies: No known allergies. Family History: Mother, maternal grandmother, and maternal aunt with cholecystectomies for benign indication. Social History: Non-smoker. No drug use. Rare alcohol use. She has a trip to [place], [place] planned with her [facility] team for early November. ROS: Constitutional: no fever, sweats, and chills Cardiovascular: No chest pain Respiratory: No cough or shortness of breath Gastrointestinal: + Intermittent right upper quadrant abdominal pain, vaginally with associated nausea. No vomiting. + Chronic constipation, bowel movement once every couple of days. No blood in the stool. Genitourinary: no dark-colored urine Musculoskeletal: no weakness or swelling Integumentary: no jaundice Neurological: no confusion Endocrine: no heat or cold intolerance Heme/Lymph: no easy bruising or bleeding Objective: BP 138/78 Pulse 73 Ht 1.676 m (5' 5.98) Wt 116 kg (256 lb 12.8 oz) BMI 41.47 kg/m Physical Exam: Constitutional: No acute distress, conversant, pleasant Neurologic: alert and oriented Psych: appropriate affect Ears, Nose, Mouth and Throat: mucus membranes moist Pulmonary: No labored breathing Cardiovascular: Regular rate and rhythm Abdomen: soft, non-distended, BMI 41, nontender, she has a palpable mass in the upper abdomen that I suspect may be stool burden as it is mobile, no surgical scars Musculoskeletal: Moves all extremities, no edema Skin: no jaundice Labs: Labs from 01/09/24 reviewed: WBC 7.2, Hgb 10.9, Plts 281, LFTs within normal limits including T. bili 0.4 Imaging: Right upper quadrant ultrasound from 01/09/24 reviewed: Liver is grossly unremarkable, gallbladder is nondistended and contains a 2.7 cm calculus. No gallbladder wall thickening or pericholecystic fluid. Sonographic Umana sign is negative. No biliary ductal dilation, CBD measures 4.7 mm. Assessment and Plan: Anurag Valencia is a 39 y.o. old female with symptomatic cholelithiasis. Risks, benefits and alternatives of laparoscopic cholecystectomy were discussed with the patient. This included risk of bleeding, infection, viscus injury, conversion to an open procedure, bile leakage or bileduct injury, post-cholecystectomy diarrhea, possible non-resolution or recurrence of symptoms, and possible need for subsequent endoscopic or surgical interventions. The patient was agreeable to proceed with surgery and is scheduled for laparoscopic [place] discussed taking a daily stool softener to help with her chronic constipation. Melanie Hung MD 11/07/2024 [facility] Work Phone: [phone] History and physical note* Melanie Hung MD - 12/03/2024 12:20 PM EDT H&P reviewed. The patient was examined and there are no changes to the H&P. Source Note - Melanie Hung MD - 11/07/2024 3:30 PM EDT General Surgery Follow-up Visit Patient: Anurag Valencia : 1985 Date of Visit: 11/07/24 Chief Complaint: RUQ pain History of Present Illness: Anurag Valencia is a 39 y.o. old female with somatic cholelithiasis. I previously evaluated her for this in January. At that time, her BMI was 51. We discussed medical weight loss prior to proceeding with cholecystectomy to decrease her perioperative risk. She has had great success and over the last 9 months has lost about 60 pounds. Her BMI is now 41. She continues to have intermittent episodes of right upper quadrant abdominal pain. Recently, these have been occurring about once per week. Typically, they last about an hour. However, 2 weeks ago she had more severe pain that lasted all day. She denies any fever, yellowing of the skin or eyes or dark-colored urine a t time of pain. She has had some nausea but no vomiting. Previous imaging showed a 2.7 cm stone in the gallbladder but no acute inflammatory changes. LFTs were within normal limits. She has no previous abdominal surgery. Medical History: Symptomatic cholelithiasis Obesity, BMI 41 History of retinoblastoma Hypertension Leg edema Rosacea Surgical History: No previous abdominal surgery. Knee surgery Eye surgery Home Medications: Prior to Admission medications Medication Sig Start Date End Date Taking? Authorizing Provider losartan (Cozaar) 25 mg tablet Take 1 tablet (25 mg) by mouth once daily. 03/11/24 03/11/25 Yes Melanie Dumas DO busPIRone (Buspar) 5 mg tablet Take 1 tablet (5 mg) by mouth 3 times a day. Patient not taking: Reported on 11/07/2024 05/11/21 Historical Provider, furosemide (Lasix) 20 mg tablet Take 1 tablet (20 mg) by mouth once daily. Patient not taking: Reported on 01/29/2024 10/25/23 10/24/24 Melanie Dumas DO Allergies: No known allergies. Family History: Mother, maternal grandmother, and maternal aunt with cholecystectomies for benign indication. Social History: Non-smoker. No drug use. Rare alcohol use. She has a trip to [place], [place] planned with her daughter[facility] team for early November. ROS: Constitutional: no fever, sweats, and chills Cardiovascular: No chest pain Respiratory: No cough or shortness of breath Gastrointestinal: + Intermittent right upper quadrant abdominal pain, vaginally with associated nausea. No vomiting. + Chronic constipation, bowel movement once every couple of days. No blood in the stool. Genitourinary: no dark-colored urine Musculoskeletal: no weakness or swelling Integumentary: no jaundice Neurological: no confusion Endocrine: no heat or cold intolerance Heme/Lymph: no easy bruising or bleeding Objective: BP 138/78 Pulse 73 Ht 1.676 m (5' 5.98) Wt 116 kg (256 lb 12.8 oz) BMI 41.47 kg/m Physical Exam: Constitutional: No acute distress, conversant, pleasant Neurologic: alert and oriented Psych: appropriate affect Ears, Nose, Mouth and Throat: mucus membranes moist Pulmonary: No labored breathing Cardiovascular: Regular rate and rhythm Abdomen: soft, non-distended, BMI 41, nontender, she has a palpable mass in the upper abdomen that I suspect may be stool burden as it is mobile, no surgical scars Musculoskeletal: Moves all extremities, no edema Skin: no jaundice Labs: Labs from 01/09/24 reviewed: WBC 7.2, Hgb 10.9, Plts 281, LFTs within normal limits including T. bili 0.4 Imaging: Right upper quadrant ultrasound from 01/09/24 reviewed: Liver is grossly unremarkable, gallbladder is nondistended and contains a 2.7 cm calculus. No gallbladder wall thickening or pericholecystic fluid. Sonographic Umana sign is negative. No biliary ductal dilation, CBD measures 4.7 mm. Assessment and Plan: Anurag Valencia is a 39 y.o. old female with symptomatic cholelithiasis. Risks, benefits and alternatives of laparoscopic cholecystectomy were discussed with the patient. This included risk of bleeding, infection, viscus injury, conversion to an open procedure, bile leakage or bileduct injury, post-cholecystectomy diarrhea, possible non-resolution or recurrence of symptoms, and possible need for subsequent endoscopic or surgical interventions. The patient was agreeable to proceed with surgery and is scheduled for laparoscopic cholecystectomy [place] 12[place]03[place] We discussed taking a daily stool softener to help with her chronic constipation. Melanie Hung MD 11/07/2024 [facility] Work Phone: [phone] Instructions* Preprocedure Instructions - Tiffanie Liu RN - 11/28/2024 9:14 AM EDT Current Rx Instructions for Day of Surgery[1] NPO Instructions: Do not eat any food after midnight the night before your surgery/procedure. You may have clear liquids until TWO hours before surgery/procedure. This includes water, black tea/coffee, (no milk or cream) apple juice and electrolyte drinks (Gatorade). Additional Instructions: Will need restaurant delivery driver home, will receive call day before surgery with arrival time [1] No outpatient medications have been marked as taking for the 12/03/24 encounter (Hospital Encounter). [facility] History of Present illness Narrative * Melanie Hung MD - 11/07/2024 3:30 PM EDT General Surgery Follow-up Visit Patient: Anurag Valencia : 1985 Date of Visit: 11/07/24 Chief Complaint: RUQ pain History of Present Illness: Anurag Valencia is a 39 y.o. old female with somatic cholelithiasis. I previously evaluated her for this in January. At that time, her BMI was 51. We discussed medical weight loss prior to proceeding with cholecystectomy to decrease her perioperative risk. She has had great success and over the last 9 months has lost about 60 pounds. Her BMI is now 41. She continues to have intermittent episodes of right upper quadrant abdominal pain. Recently, these have been occurring about once per week. Typically, they last about an hour. However, 2 weeks ago she had more severe pain that lasted all day. She denies any fever, yellowing of the skin or eyes or dark-colored urine a t time of pain. She has had some nausea but no vomiting. Previous imaging showed a 2.7 cm stone in the gallbladder but no acute inflammatory changes. LFTs were within normal limits. She has no previous abdominal surgery. Medical History: Symptomatic cholelithiasis Obesity, BMI 41 History of retinoblastoma Hypertension Leg edema Rosacea Surgical History: No previous abdominal surgery. Knee surgery Eye surgery Home Medications: Prior to Admission medications Medication Sig Start Date End Date Taking? Authorizing Provider losartan (Cozaar) 25 mg tablet Take 1 tablet (25 mg) by mouth once daily. 03/11/24 03/11/25 Yes Melanie Dumas DO busPIRone (Buspar) 5 mg tablet Take 1 tablet (5 mg) by mouth 3 times a day. Patient not taking: Reported on 11/07/2024 05/11/21 Historical Provider, furosemide (Lasix) 20 mg tablet Take 1 tablet (20 mg) by mouth once daily. Patient not taking: Reported on 01/29/2024 10/25/23 10/24/24 Melanie Dumas DO Allergies: No known allergies. Family History: Mother, maternal grandmother, and maternal aunt with cholecystectomies for benign indication. Social History: Non-smoker. No drug use. Rare alcohol use. She has a trip to [place], [place] planned with her daughter[facility] team for early November. ROS: Constitutional: no fever, sweats, and chills Cardiovascular: No chest pain Respiratory: No cough or shortness of breath Gastrointestinal: + Intermittent right upper quadrant abdominal pain, vaginally with associated nausea. No vomiting. + Chronic constipation, bowel movement once every couple of days. No blood in the stool. Genitourinary: no dark-colored urine Musculoskeletal: no weakness or swelling Integumentary: no jaundice Neurological: no confusion Endocrine: no heat or cold intolerance Heme/Lymph: no easy bruising or bleeding Objective: BP 138/78 Pulse 73 Ht 1.676 m (5' 5.98) Wt 116 kg (256 lb 12.8 oz) BMI 41.47 kg/m Physical Exam: Constitutional: No acute distress, conversant, pleasant Neurologic: alert and oriented Psych: appropriate affect Ears, Nose, Mouth and Throat: mucus membranes moist Pulmonary: No labored breathing Cardiovascular: Regular rate and rhythm Abdomen: soft, non-distended, BMI 41, nontender, she has a palpable mass in the upper abdomen that I suspect may be stool burden as it is mobile, no surgical scars Musculoskeletal: Moves all extremities, no edema Skin: no jaundice Labs: Labs from 01/09/24 reviewed: WBC 7.2, Hgb 10.9, Plts 281, LFTs within normal limits including T. bili 0.4 Imaging: Right upper quadrant ultrasound from 01/09/24 reviewed: Liver is grossly unremarkable, gallbladder is nondistended and contains a 2.7 cm calculus. No gallbladder wall thickening or pericholecystic fluid. Sonographic Umana sign is negative. No biliary ductal dilation, CBD measures 4.7 mm. Assessment and Plan: Anurag Valencia is a 39 y.o. old female with symptomatic cholelithiasis. Risks, benefits and alternatives of laparoscopic cholecystectomy were discussed with the patient. This included risk of bleeding, infection, viscus injury, conversion to an open procedure, bile leakage or bileduct injury, post-cholecystectomy diarrhea, possible non-resolution or recurrence of symptoms, and possible need for subsequent endoscopic or surgical interventions. The patient was agreeable to proceed with surgery and is scheduled for laparoscopic cholecystectomy [place]03[place] We discussed taking a daily stool softener to help with her chronic constipation. Melanie Hung MD 11/07/[address] [facility] Work Phone: [phone]) 136-373209-09-2024 History of Present illness Narrative* Melanie Hung MD - 01/29/2024 3:00 PM EDT General Surgery Consultation Patient: Anurag Valencia : 1985 Date of Consultation: 01/29/24 Referring Primary Care Provider: Melanie Dumas DO Chief Complaint: Right upper quadrant abdominal pain History of Present Illness: Anurag Valencia is a 38 y.o. old female seen at the request of Dr. Dumas for evaluation of gallstones. About a month ago she had 3 episodes of sharp right upper quadrant abdominal pain. These episodes lasted for a few hours. She had some mild nausea, but no vomiting. She denies any fever, yellowing of the skin or dark-colored urine at time of this pain. All 3 episodesoccurred at night. She cannot recall what she ate prior to onset of the symptoms. She had a ultrasound performed which showed a 2.7 cm stone in the gallbladder. There was no acute inflammatory changes and no biliary ductal dilation. LFTs were within normal limits including T. bili 0.4. Her BMI is 51. Her weight has been relatively stable over time. She has not really made any kind of effort at weight loss but is open to trying this. She has no previous abdominal surgery. Medical History: Symptomatic cholelithiasis Severe obesity, BMI 51 History of retinoblastoma Hypertension Leg edema Rosacea Surgical History: No previous abdominal surgery. Knee surgery Eye surgery Home Medications: Prior to Admission medications Medication Sig Start Date End Date Taking? Authorizing Provider busPIRone (Buspar) 5 mg tablet Take 1 tablet (5 mg) by mouth 3 times a day. 05/11/21 Historical Provider, furosemide (Lasix) 20 mg tablet Take 1 tablet (20 mg) by mouth once daily. 10/25/23 10/24/24 Melanie Dumas DO losartan (Cozaar) 25 mg tablet Take 1 tablet (25 mg) by mouth once daily. 04/04/23 04/03/24 Melanie LOberhauserDO metroNIDAZOLE (Metrogel) 0.75 % gel Apply topically 2 times a day. Apply twice daily to rosacea 10/25/23 10/24/24 Melanie Dumas DO Allergies: No Known Allergies Family History: Mother, maternal grandmother, and maternal aunt with cholecystectomies for benign indication. Social History: Non-smoker. No drug use. Rare alcohol use. ROS: Constitutional: no fever, sweats, and chills Cardiovascular: No chest pain Respiratory: No cough or shortness of breath Gastrointestinal: + Intermittent right upper quadrant abdominal pain Genitourinary: no dark-colored urine Musculoskeletal: no weakness or swelling Integumentary: no jaundice Neurological: no confusion Endocrine: no heat or cold intolerance Heme/Lymph: no easy bruising or bleeding Objective: BP 122/78 Pulse 86 Ht 1.676 m (5' 5.98) Wt 142 kg (314 lb) BMI 50.71 kg/m Physical Exam: Constitutional: No acute distress, very pleasant Neurologic: alert and oriented Psych: appropriate affect Ears, Nose, Mouth and Throat: mucus membranes moist Pulmonary: No labored breathing Cardiovascular: Regular rate and rhythm Abdomen: soft, non-distended, obese with BMI 51, non-tender on today's exam, no surgical scars Musculoskeletal: Moves all extremities, no edema Skin: no jaundice Labs: Labs from 01/09/24 reviewed: WBC 7.2, Hgb 10.9, Plts 281, LFTs within normal limits including T. bili 0.4 Imaging: Right upper quadrant ultrasound from 01/09/24 reviewed: Liver is grossly unremarkable, gallbladder is nondistended and contains a 2.7 cm calculus. No gallbladder wall thickening or pericholecystic fluid. Sonographic Umana sign is negative. No biliary ductal dilation, CBD measures 4.7 mm. Assessment and Plan: Anurag Valencia is a 38 y.o. old female with symptomatic cholelithiasis. We discussed the option of cholecystectomy versus following a low-fat biliary diet. Given the size of her stone, I recommend that at some point she have her gallbladder removed. However, her BMI of 51 we will make that a challenging case. We discussed that if she would be able to achieve some medical weight loss prior to proceeding with surgery it would decrease her perioperative risk. She was interested in this. I will see her back in 3 months for reevaluation. Melanie Hung MD 01/29/[address] [facility] Work Phone: [phone] History of Present illness Narrative* Melanie Dumas, DO - 10/25/2023 8:20 AM EDT Subjective Patient ID: Anurag Valencia is a 38 y.o. female who presents for Follow-up (6 month). HPI Patient is here today for 6 mo follow up Review of Systems Objective BP 130/77 Pulse 71 Ht 1.676 m (5' 6) Wt 142 kg (314 lb) BMI 50.68 kg/m Physical Exam Constitutional: General: She is not in acute distress. Appearance: Normal appearance. HENT: Head: Normocephalic. Nose: Nose normal. Mouth/Throat: Mouth: Mucous membranes are moist. Pharynx: No oropharyngeal exudate. Eyes: General: Right eye: No discharge. Left eye: No discharge. Extraocular Movements: Extraocular movements intact. Pupils: Pupils are equal, round, and reactive to light. Cardiovascular: Rate and Rhythm: Normal rate and regular rhythm. Heart sounds: No murmur heard. No gallop. Pulmonary: Effort: Pulmonary effort is normal. No respiratory distress. Breath sounds: Normal breath sounds. No wheezing. Musculoskeletal: General: No swelling. Normal range of motion. Right lower leg: Edema present. Left lower leg: Edema present. Comments: Trace non pitting edema bilaterally Skin: General: Skin is warm and dry. Coloration: Skin is not jaundiced. Comments: Rash consistent with rosacea on simon cheeks Neurological: General: No focal deficit present. Mental Status: She is alert and oriented to person, place, and time. Cranial Nerves: No cranial nerve deficit. Psychiatric: Mood and Affect: Mood normal. Behavior: Behavior normal. Assessment/Plan Problem List Items Addressed This Visit Primary hypertension Other Visit Diagnoses Leg edema - Primary Relevant Medications furosemide (Lasix) 20 mg tablet Screening mammogram for breast cancer Relevant Orders BI mammo bilateral screening tomosynthesis Wellness examination Relevant Orders Comprehensive Metabolic Panel TSH with reflex to Free T4 if abnormal Lipid Panel CBC and Auto Differential Rosacea Relevant Medications metroNIDAZOLE (Metrogel) 0.75 % gel HTN,controlled - cough resolved with changing to losartan - continue losartan 25mg po daily 2. Leg edema - will try lasix prn - recommend compression stockings 3. Rosacea - will try topical flagyl gel Flu shot received COVID received PNA -- Shingles -- RSV -- Pap 2020 Mammo will order Colon cancer screening -- DEXA -- Final diagnoses: [R60.0] Leg edema [Z12.31] Screening mammogram for breast cancer [Z00.00] Wellness examination [L71.9] Rosacea [I10] Primary hypertension documented in this [facility] Work Phone: [phone]) 473-524812-05-2023 History of Present illness Narrative* Melanie Dumas DO - 04/25/2023 8:40 AM EST Subjective Patient ID: Anurag Valencia is a 37 y.o. female who presents for Follow-up (3 month). HPI Patient is here today for 3 mo follow up She states that the cough that she was having resolved with changing to the losartan. Bp otherwise controlled today. Review of Systems Constitutional: Negative for activity change, appetite change, chills and fatigue. HENT: Negative for congestion, postnasal drip, sinus pressure, sinus pain and sore throat. Respiratory: Negative for cough, shortness of breath and wheezing. Cardiovascular: Negative for chest pain and leg swelling. Gastrointestinal: Negative for abdominal distention, diarrhea, nausea and vomiting. Musculoskeletal: Negative for back pain. Neurological: Negative for weakness and numbness. Objective BP 131/82 Pulse 80 Ht 1.676 m (5' 6) Wt 143 kg (315 lb) BMI 50.84 kg/m Physical Exam Constitutional: General: She is not in acute distress. Appearance: Normal appearance. HENT: Head: Normocephalic. Nose: Nose normal. Mouth/Throat: Pharynx: No oropharyngeal exudate. Eyes: General: Right eye: No discharge. Left eye: No discharge. Extraocular Movements: Extraocular movements intact. Pupils: Pupils are equal, round, and reactive to light. Cardiovascular: Rate and Rhythm: Normal rate and regular rhythm. Heart sounds: No murmur heard. No gallop. Pulmonary: Effort: Pulmonary effort is normal. No respiratory distress. Breath sounds: Normal breath sounds. No wheezing. Musculoskeletal: General: No swelling. Normal range of motion. Skin: General: Skin is warm and dry. Coloration: Skin is not jaundiced. Neurological: General: No focal deficit present. Mental Status: She is alert and oriented to person, place, and time. Cranial Nerves: No cranial nerve deficit. Psychiatric: Mood and Affect: Mood normal. Behavior: Behavior normal. Assessment/Plan Problem List Items Addressed This Visit Primary hypertension Other Visit Diagnoses Need for influenza vaccination - Primary Relevant Orders Flu vaccine (IIV4) age 6 months and greater, preservative free (Completed) HTN,controlled - cough resolved with changing to losartan - continue losartan 25mg po daily Final diagnoses: [Z23] Need for influenza vaccination [I10] Primary hypertension documented in this [facility] Work Phone: [phone] 397-697809-05-2023 History of Present illness Narrative* Melanie Dumas DO - 01/24/2023 9:00 AM EDT Subjective Patient ID: Anurag Valencia is a 37 y.o. female who presents for Follow-up (3 month /BP averaging 135/85 at home). HPI Patient is here today for 3 mo follow up on htn. Patient reports that she has been having a dry cough at night when she lays down. She does take otcallergy medicine and has been having mild symptoms. Review of Systems Respiratory: Positive for cough. Negative for shortness of breath. Objective BP 132/80 (BP Location: Right arm, Patient Position: Sitting, BP Cuff Size: Adult) Pulse 81 Ht 1.676 m (5' 6) Wt 142 kg (312 lb) BMI 50.36 kg/m Physical Exam Constitutional: General: She is not in acute distress. Appearance: Normal appearance. HENT: Head: Normocephalic. Nose: Nose normal. Mouth/Throat: Mouth: Mucous membranes are dry. Pharynx: No oropharyngeal exudate. Eyes: General: Right eye: No discharge. Left eye: No discharge. Extraocular Movements: Extraocular movements intact. Pupils: Pupils are equal, round, and reactive to light. Cardiovascular: Rate and Rhythm: Normal rate and regular rhythm. Heart sounds: No murmur heard. No gallop. Pulmonary: Effort: Pulmonary effort is normal. No respiratory distress. Breath sounds: Normal breath sounds. No wheezing. Musculoskeletal: General: No swelling. Normal range of motion. Skin: General: Skin is warm and dry. Coloration: Skin is not jaundiced. Neurological: General: No focal deficit present. Mental Status: She is alert and oriented to person, place, and time. Cranial Nerves: No cranial nerve deficit. Psychiatric: Mood and Affect: Mood normal. Behavior: Behavior normal. Assessment/Plan Problem List Items Addressed This Visit Primary hypertension - Primary Relevant Medications losartan (Cozaar) 25 mg tablet HTN, improved - having cough, will change to losartan 25mg po daily - call in 2 weeks with update blood pressures - follow up in 3 mo Final diagnoses: [I10] Primary hypertension documented in this [facility] Work Phone: [phone]) [phone] History of Present illness Narrative* Melanie Dumas DO - 11/15/2022 9:00 AM EDT Subjective Patient ID: Anurag Valencia is a 37 y.o. female who presents for Hypertension (1 month/Pt brought in BPlog/Highest being 176/105/Lowest being 139/96). Hypertension Pertinent negatives include no chest pain or palpitations. Patient is here today for htn follow up Patient has blood pressure log, she is ranging from 171/102, 170/105, 183/96, 139/96, 154/96,m 176/105, 150/99. She reports that she does not feel it when it is high or when it drops into the 130s. She is watching her salt and caffeine. Review of Systems Cardiovascular: Negative for chest pain, palpitations and leg swelling. Objective BP (!) 149/91 (BP Location: Right arm, Patient Position: Sitting, BP Cuff Size: Adult) Pulse 80 Ht 1.676 m (5' 6) Wt 145 kg (320 lb) BMI 51.65 kg/m Physical Exam Constitutional: Appearance: Normal appearance. HENT: Head: Normocephalic and atraumatic. Cardiovascular: Rate and Rhythm: Normal rate and regular rhythm. Heart sounds: No murmur heard. Pulmonary: Effort: Pulmonary effort is normal. No respiratory distress. Breath sounds: Normal breath sounds. Musculoskeletal: Left lower leg: No edema. Neurological: Mental Status: She is alert. Psychiatric: Mood and Affect: Mood normal. Behavior: Behavior normal. Thought Content: Thought content normal. Assessment/Plan Problem List Items Addressed This Visit None Visit Diagnoses Primary hypertension - Primary Relevant Medications lisinopril 10 mg tablet HTN - reviewed pts blood pressure log, ranging from 140s-180s/90s-100s, will start lisinopril 10mg po daily - advised most common side effect can be dry nagging cough, if that occurs to please let me know - call in 2 weeks with update blood pressures - follow up in 6-8 weeks for htn check Final diagnoses: [I10] [facility] [phone] History of Present illness Narrative* Cecelia Vu DPM - 02/01/2022 4:46 PM EDT Images from the original note were not included. Established Patient Visit Cecelia Vu DPM Patient Name: Anurag Valencia. . Date of : 1985, 36 y.o.. Gender: female. Subjective: Patient is a pleasant 36-year-old female who presents to clinic complaining of left heel pain that has been getting worse for the last month. She denies any trauma or injury. States that the pain is sharp in nature especially when she steps out of bed in the morning. No other pedal complaints at this time. Denies fevers, chills, nausea, vomiting, chest pain, shortness of breath, or any other constitutional symptoms. Physical Examination: BP (!) 175/103 (BP Location: Left arm, Patient Position: Sitting, BP Cuff Size: Adult) Pulse (!) 108 Temp 97.9 F (36.6 C) (Temporal) General Appearance: Alert, cooperative, no distress, appears stated age. Podiatric Exam Vascular: DP and PT pulses are palpable. Capillary refill time is less than 3- second to distal digits. Skin temperature is warm to warm from proximal tibial tuberosity to distal digit. Neurological: Gross sensation is intact. Protective sensation is intact. Dermatologic: No open wounds or ulceration Interdigital spaces are clean dry and intact. Musculoskeletal: Pain on palpation to the medial calcaneal tubercle, left heel. Decrease in ankle joint dorsiflexion with the knee extended and full with knee flexion. Ankle joint range of motion is intact. Muscle strength is 5/5 to dorsiflexors, plantar flexors, inverters and everters. Compartments soft and compressible. No calf pain Diagnoses: 1. Plantar fasciitis of left foot 2. Equinus contracture of ankle 3. Left foot pain XR Foot Left 3+ Views (Standard) Imaging: Left foot 3 views weightbearing radiographs were ordered and interpreted as follows: A plantar calcaneal enthesophyte is noted. No cystic or osseous lesions noted. Joint spaces are within normal limits. No gross deformity noted Assessment/Plan: Patient was seen and evaluated. Discussed all clinical findings I ordered, interpreted, and discussed left foot radiographic findings with patient as noted above. Discussed conservative treatment options for plantar fasciitis including stretching, icing, anti-inflammatories, and good supportive shoes. I illustrated proper stretching techniques in the office. Advised on proper supporting shoes. I prescribed an oral anti-inflammatory, meloxicam, to help alleviate pain and inflammation with ambulation. This was sent to patient's pharmacy. Recommended a steroidal injection to help alleviate pain and inflammation at the heel site if pain fails to improve or worsen All questions were answered to patient satisfaction. Patient understands to call with any questionsor concerns. Follow-up in 4 weeks. This note was partially created using voice recognition software and is inherently subject to errors including those of syntax and sound-alike substitutions which may escape proofreading. In such instances, original meaning may be extrapolated by contextual derivation. Cecelia Vu DPM, MS Podiatric Physician & Surgeon documented in this [id number] History of Present illness NarrativePatient presents for ingrown toenail removal. Patient has history of ingrowing toenails on the great toes and has had removal in the past. Patient reports onset of this particular ingrowing nail on the right great toe 1 to 2 weeks prior to arrival. Patient presented to primary care and was treated with Augmentin. Patient reports improvement in erythema and pain since that started. [facility] Work Phone: [phone] History of Present illness Narrative* Dominik Colby Jr., KETAN - 12/30/2020 4:43 PM EDT Right great toe trauma Patient is a pleasant 35-year-old female who comes in today with a 1 day history of getting steppedon by horse . 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 Not sure how it happened just knows that her toe was quite painful. It started bleeding initially she got it to stop bleeding with pressure. Called and came in to have this evaluated to make sure nothing was truly wrong. She is currently with a cam boot on her left foot forfifth metatarsal stress fracture which she states is doing she thinks okay. Physical Vascular: DP PT pulses are easily palpable 2-4. CFT is fair some right great toe edema. Derm: Much ecchymosis present with an abrasion with some tearing as well just proximal to the nail fold. No streaking no lymphangitis no undermining purulence or deep palpable nodules. Neuro: Light touch is normal Babinski's is normal. Musculoskeletal: Muscle strength is 5/5 with fair tone. IPJ and MPJ are full and pain-free to the right great toe however she is with tremendous pain to the great toe with compression and pressure. X-rays AP oblique lateral: No obvious fractures dislocations or subluxations appreciated. Moderate great toe edema. Assessment and plan: Patient is a pleasant female with right great toe trauma after getting steppedon by a horse with abrasion. -To the abrasion portion can apply topical Betadine daily for the next week. -At this time is too early to tell if she will lose her nail however for let nail loosens in the next 1 to 2 weeks will need to return for formal nail avulsion again today this is well attached to the. Follow-up for stress fracture left foot. Straightforward medical complexity decision making. documented in this [id number] History of Present illness Narrative* Dominik Colby Jr., DPM - 12/16/2020 8:43 AM EDT Stress fracture left foot Patient is a pleasant 35-year-old female who comes in today with a 6-week history of lateral left foot pain. Denies any trauma. States that her foot is quite achy sore and uncomfortable pointing to the back of her fifth metatarsal. She admits to doing well with the oral Medrol Dosepak without any side effects or illness however states that her foot essentially is not much better. She reports maybe being 25 to 30% improved in terms of pain tenderness and swelling. Still does not think that she is doing great wondering what her next option is. Physical Vascular: DP PT pulses are easily palpable 2 out of 4. CFT is fair minimal baseline edema nonpitting in nature Neuro: Light touch is normal Babinski's is normal Musculoskeletal: Does have pain palpation of the base of the left fifth metatarsal, mild pain at the insertion of the left peroneal brevis especially with forced eversion. Ankle subtalar midtarsal range of motion are full and pain-free without any clicking or catching. No pain to the metatarsophalangeal joint. X-rays taken and ordered AP oblique lateral: early stress fracture appreciated, nondisplaced, on the oblique and lateral view to the base of the fifth metatarsal. Otherwise no fractures no dislocations no subluxations appreciated. Mild lateral foot edema Patient is a pleasant 35-year-old female with acute left foot fifth metatarsal base stress fractureand likely peroneal brevis tendinitis. -Minimal clinical improvement in the last month therefore repeat radiographs ordered and taken. Differential and diagnosis discussed as well as etiology. -Based on plain film radiographs, and clinical findings, do need to uptitrate care adding immobilization. -Therefore did prescribe dispense and fit her with a cam boot which is medically necessary for the next 4-8 weeks to immobilize her stress fracture portion of fifth metatarsal base. Low medical complexity decision making based on up titration of care. documented in this [id number] NoteHNO ID: [id number] Author: Luis Gu MD Service: ? Author Type: Physician Type: Progress Notes Filed: 12/14/2020 5:09 PM Note Text: Assessment and Plan 1. Acute follicular conjunctivitis of left eye -likely mechanical from prothesis -also discharge Plan: -erythromycin ointment four times a day left eye -follow-up in 1 week if not better, otherwise 1 year / as needed I have confirmed and edited as necessary the relevant ophthalmic history, ROS, and the neuro exam findings as obtained by others. I have seen and examined Anurag Valencia. I have discussed the case and the management of this patient's care with the Resident/Fellow, if applicable. I also have reviewed and agree with the assessment and plan as stated above and agree with all of its relevant components. Luis Gu MD December 14, 2020 5:08 [facility]12-21-2020 History of Present illness Narrative* Patient is here today for 1 year follow up with a cc of stress. * Pt reports that in the last year she has gotten a promotion at work, which has brought on more stress with added responsibilities. Her company was bought out so just worried about whats going to happen. * Five year old son was diagnosed with ADD. not on medication yet. Difficult learning how to parent with this diagnosis. * She is emotional regarding this. * She does admit to feeling some anxiety. No panic attacks. Denies any depression but she is more emotional. * feels like she is more snappish than normal. -[facility] Work Phone: Evaluation note* Diagnosis Stress fracture of left foot, initial encounter Stress fracture of left foot with routine healing, [facility] Abrasion of right foot, initial encounter- Primary Right foot pain Pain in soft tissues of [facility] Diagnosis Plantar fasciitis of left foot Equinus contracture of ankle Left foot pain Pain in soft tissues of limb [facility]* Diagnosis Primary hypertension- Primary Unspecified essential hypertension documented in [facility] Work Phone: [phone] note* Diagnosis Need for influenza vaccination- Primary Need for prophylactic vaccination and inoculation against influenza Primary hypertension Unspecified essential hypertension documented in this encounter [facility] Work Phone: [phone] note* Diagnosis Leg edema- Primary Edema Screening mammogram for breast cancer Wellness examination Rosacea Primary hypertension Unspecified essential hypertension documented in this encounter [facility] Work Phone: [phone] note* Diagnosis Screening mammogram for breast cancer documented in this encounter [facility] Work Phone: [phone] note* Diagnosis Elevated blood pressure reading- Primary Elevated blood pressure reading without diagnosis of hypertension Anxiety Anxiety state, unspecified RUQ pain Abdominal pain, right upper quadrant documented in this encounter [facility] Work Phone: [phone] note* Diagnosis Elevated blood pressure reading- Primary Elevated blood pressure reading without diagnosis of hypertension Anxiety Anxiety state, unspecified Calculus of gallbladder without cholecystitis without obstruction documented in this encounter [facility] Work Phone: [phone] note* Diagnosis Elevated blood pressure reading- Primary Elevated blood pressure reading without diagnosis of hypertension Anxiety Anxiety state, unspecified Symptomatic cholelithiasis- Primary Symptomatic cholelithiasis- Primary documented in this encounter [facility] Work Phone: Evaluation note* Diagnosis Elevated blood pressure reading- Primary Elevated blood pressure reading without diagnosis of hypertension Anxiety Anxiety state, unspecified Symptomatic cholelithiasis- Primary Post-operative pain Other acute postoperative pain Post-operative pain Other acute postoperative pain Obesity due to excess calories documented in this encounter [facility] Work Phone: Evaluation note* Diagnosis Onset Date Resolution Status Admit Date Enlarged uterus acute November 8:18am [facility] Work Phone: Evaluation note* Diagnosis Elevated blood pressure reading- Primary Elevated blood pressure reading without diagnosis of hypertension Anxiety Anxiety state, unspecified Postoperative visit- Primary documented in this encounter [facility] Work Phone: Evaluation note* Diagnosis Primary hypertension- Primary Unspecified essential hypertension Anxiety Anxiety state, unspecified History of retinoblastoma Chronic right shoulder pain Pain in joint, shoulder region Healthcare maintenance Visit for screening mammogram documented in this encounter [facility] Work Phone: Evaluation note* Diagnosis Chronic right shoulder pain Pain in joint, shoulder region documented in this encounter [facility] Work Phone: Evaluation note* Diagnosis Visit for screening mammogram documented in this encounter [facility] Work Phone: Evaluation note* Diagnosis Rotator cuff impingement syndrome of right shoulder- Primary Right shoulder pain, unspecified chronicity documented in this encounter [facility] Work Phone: History of Present illness Narrative* Patient is here today for 4 mo follow up * Patient thinks she may have an ingrown town. * She has had some reddness and drainage from her right medial side of her great toe. * She has had ingrown toenails before. * Anxiety is stable, BuSpar is helping, just as needed usually one -2 x a day. weekends she generallydoes not need it. * Hand dermatitis resolved. [facility] Work Phone: History of Present illness Narrative* Patient is here today for 6 mo follow up * Patient reports that she is doing ok. * She is not sure if the buspar is helping as much. * Work has been stressful so she generally takes it more often then, not so much at home. * She is working on losing weight, is down 10 lbs since her last appt. * Is going to try to get more into it now that the holidays are over. * Her m uncle suddenly passed from an [place] at 64. Had no previous inclinations. [facility] Work Phone: History of Present illness Narrative* Melanie Hung MD - 12/19/2024 11:30 AM EDT General Surgery Post-Operative Visit Patient: Anurag Valencia : 1985 Date of Visit: 12/19/24 Chief Complaint: s/p laparoscopic cholecystectomy History of Present Illness: Anurag Valencia is a 39 y.o. old female s/p laparoscopic cholecystectomy on12/03/24 for symptomatic cholelithiasis. Surgical pathology showed chronic cholecystitis and cholelithiasis. She was also noted to have an enlarged uterus at time of surgery. She has already arranged follow-up for this on her own. She actually saw her lawyers this morning and has an ultrasound ordered. Prior to surgery, she was having intermittent right upper quadrant abdominal pain on average once per week. Since surgery, that has completely resolved. She is overall very satisfied with herresult. She states that she had much less pain than she thought she would. She denies any nausea orvomiting. She denies any yellowing of the skin or eyes or dark-colored urine. She has no issues with loose bowel movements. Home Medications: Prior to Admission medications Medication Sig Start Date End Date Taking? Authorizing Provider busPIRone (Buspar) 5 mg tablet Take 1 tablet (5 mg) by mouth 3 times a day. Patient taking differently: Take 1 tablet (5 mg) by mouth 3 times a day as needed. 05/11/21 Historical Provider, furosemide (Lasix) 20 mg tablet Take 1 tablet (20 mg) by mouth once daily. Patient not taking: Reported on 01/29/2024 10/25/23 10/24/24 Melanie Dumas DO losartan (Cozaar) 25 mg tablet Take 1 tablet (25 mg) by mouth once daily. 03/11/24 03/11/25 Melanie GayrhDO medhat sennosides-docusate sodium (Jillian-Colace) 8.6-50 mg tablet Take 1 tablet by mouth once daily. Historical Provider, Allergies: No known allergies. ROS: No fever, redness or drainage at incisions No yellowing of the skin or eyes or dark-colored urine No diarrhea Resolution of previous abdominal pain Physical Exam: No physical exam performed as this was a virtual telephone follow up. Assessment and Plan: Anurag Valencia is a 39 y.o. old female s/p laparoscopic cholecystectomy. She is doing well without any symptoms of postoperative complication. She will continue to refrain from any heavy lifting for another 2 weeks to minimize risk of incisional hernia, but may otherwise resume regular activity. She is already being evaluated by Gynecology for the enlarged uterus seen at time ofsurgery. She will follow-up with me as needed. Mleanie Hung MD 12/19/[address] [facility] Work Phone: Progress note Author Dione Arreola [facility] Note Date/Time February 24, 2025 9: 24am [facility] [address], [address] [place] [address] OFFICE VISIT Date of Service: 02/24/25 MR#: [id number] Acct: [id number] Name: ANURAG VALENCIA Rep #: [id number] Provider: Dr. Mike Arreola MD Age/Sex: 39/F Location[place] [facility] 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 The uterine fibroids were incidentally discovered during a gallbladder surgery in November, and the patient reports heavy menstrual bleeding over the past couple of years, which has worsened recently. She experiences menstrual cycles every 26 days, with bleeding lasting five days and requiring pad changes every three to four hours on days two and three. The patient has a history of hypertension, which is currently managed with medication. She reports urinary frequency, which may be related to the fibroids,and constipation, which she hopes will improve post-surgery. 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 Attestation: Documentation on this patient encounter was supported using ambient scribe technology/ voice AI technology. The patient consented to recording for the purpose of documenting the encounter. Provider reviewed content of the generatednote prior to signature. declined test. Female Reproductive History Last Menstrual Period: 02/06/25 Menopausal Symptoms: No night sweats History 2 Elective abortions Hx Para 2 Spontaneous abortions Hx # Term Pregnancies Ectopic pregnancies Hx # Pregnancies Multiple births # of living children 2 Past Pregnancies Del. Date Name GA/Weeks Outcome Route Bth Weight Gen Labor Lgth Anesthesia Del Locatn Provider FOB 02/14/13 [place] live - full term 7lbs 2oz Female none [facility] 08/21/15 [place] live - full term 7lbs 15oz Male no ne [facility] ROS Const Constitutional: Denies fatigue, night sweats, weight gain or weight loss ENT ENT: Reports system reviewed and no additional complaints, except as documented Cardio Card: Denies chest pain Resp Resp: Denies cough or dyspnea GI GI: Reports as per HPI; Denies abdominal pain, constipation, nausea or vomiting : Denies nipple discharge, urinary frequency, urinary incontinence, urinary hesitancy, urinary urgency, vaginal discharge, vaginal dryness, vaginal odor or vaginal pruritus Musc Musc: Denies arthralgias, back pain or muscle weakness Skin Skin/Breast: Denies alopecia, change in hair, dry skin, breast mass, breast pain, breast skin changes or nipple discharge Neuro Neuro: Reports system reviewed and no additional complaints, except as documented Psych Psych: Reports system reviewed and no additional complaints, except as documented Endo Endo: Denies cold intolerance, excessive sweating, heat intolerance or polydipsia Erwin/Lymph Hematologic/Lymphatic: Denies easy bleeding, Denies easy bruising and Denies lymphadenopathy Exam Const General: cooperative, healthy appearing, comfortable, no acute distress and welldeveloped Orientation: alert [facility] Head: normal to inspection and normocephalic Ears: hearing grossly normal bilaterally and external ears normal Nose: external nose normal and nares normal Face and sinus: normal facial exam Neck Neck: normal visual inspection and no lymphadenopathy Thyroid: thyroid normal Chest Chest palpation & inspection: normal inspection of the chest Resp Effort & Inspection: normal respiratory effort Auscultation: clear to auscultation bilaterally Cardio Rate: regular rate Rhythm: regular rhythm Heart Sounds: S1 normal and S2 normal GI Inspection: normal to inspection and non-distended Palpation: soft and no hepatosplenomegaly External Female Exam: normal external appearance and normal appearance of the urethra Urethra: normal appearance of the urethra, normal palpation and no discharge Speculum Exam - Vagina: normal appearance of the vagina and normal vaginal discharge Speculum Exam - Cervix: normal appearance of the cervix Musc Other: gross motor intact no deficits, full bilateral strength Skin General: no rashes or lesions noted Neuro General: patient alert, patient awake, moves all extremities and no focal motor deficits Motor: muscle tone normal throughout Extrem General: normal to inspection and no pedal edema Psych Appearance: grossly normal Mental Status: mental status grossly normal Affect: normal affect Speech and Movement: speech and movement normal Office Procedures Endometrial Biopsy Endometrial Biopsy Test: Yes declined Consent Signed: Yes Time out time: 09:00 tenaculum used: Yes Details: Cervix prepped with betadine and pipelle inserted into uterus without complication. Specimen obtained and sent to lab for analysis. All instruments removed from vagina without complications. Excellent hemostasis noted. Coding Level of Care Code Off vis,est,level 4 Diagnoses Uterine fibroid D25.9 Menorrhagia with regular cycle N92.0 Pelvic pressure in female R10.2 Enlarged uterus N85.2 CPT Codes Endometrial Biopsy (43640) Assessment and Plan Assessment and Plan (1) Uterine fibroid: Status: Acute Comment: 12cm:plan LINDY per with JV asst (2) Menorrhagia with regular cycle: Status: Acute (3) Pelvic pressure in female: Status: Acute (4) Enlarged uterus: Status: Acute Comment: 23cm per US Orders: Orders CBC W/Diff, Automated Today D25.9 - Leiomyoma of uterus, unspecified Thyroid Stim Hormone (TSH) Today D25.9 - Leiomyoma of uterus, unspecified Endometrial Biopsy Today D25.9 - Leiomyoma of uterus, unspecified PAP IG HPV APTIMA 16/18,45 Today Z12.4 - Encounter for screening for malignant neoplasm of cervix Plan Assessment and Plan 39-year-old female with a history of hypertension presenting with uterine fibroids and associated symptoms. The uterine fibroids are likely contributing to the patient's heavy menstrual bleeding and urinary frequency. The patient's history of retinoblastoma is noted but not currently impacting her health status. 1. Uterine Fibroids The plan includes surgical intervention to remove the uterus, cervix, and tubes while preserving the ovaries to prevent early menopause. Preoperative preparations include rechecking hemoglobin and iron levels, performing a Pap smear, and an endometrial biopsy to rule out any precancerous changes. The surgery will be performed through an open incision due to the size of the uterus, with expected hospitalization for one to two nights and limited activityfor four to six weeks postoperatively. 2. Hypertension The patient's hypertension is currently managed with medication, and her blood pressure was slightly elevated during the visit, possibly due to anxiety. 3. Constipation The patient is advised to consider using a stool softener to manage constipation, which may improve following the surgical intervention for fibroids. 4. Urinary Frequency Urinary frequency is likely related to the fibroids, and improvement is anticipated post-surgery. 5. Retinoblastoma (History) The history of retinoblastoma is noted, with no current impact on the patient's health status. After discussing the patient's diagnosis and treatment plan options, patient wishes to proceed with surgical management. I have discussed with the patient the risks, benefits, and alternatives of the procedure which include but are notlimited to risks of anesthesia, bleeding, infection, possible damage to bowel, bladder, or surrounding vasculature which could lead to additional surgery to evaluate any complications. Patient agrees to procedure and wishes to proceed. ACOG/uptodate references given for additional information regarding procedure. Patient Instructions: - Follow preoperative instructions, including special drink and soap use. - Monitor blood pressure and continue medication as prescribed. - Consider using a stool softener to manage constipation. - Expect limited activity for four to six weeks post-surgery. Plan Details Additional Comments: I discussed the surgical plan to remove the uterus, cervix, and tubes while preserving the ovaries to prevent early menopause. We reviewed the need for preoperative tests, including a Pap smear and endometrial biopsy, to rule out precancerous changes. I explained the surgical approach, expected recovery, and potential risks, including bleeding and infection. We also discussed the management of hypertension and constipation, and I provided instructions for preoperative preparation and postoperative care. Consent for the procedure was obtained. 02/24/25 1117 <Electronically signed by Dione frazier MD> Date _ Dione Arreola MD Cosigner Signature: Date (if applicable) CC: ~ [facility] Work Phone: Reason for referral (narrative)* Consultation (Routine) - Authorized Specialty Diagnoses / Procedures Referred By Contac t Referred To Contact Primary Care Procedures Follow Up In Primary Care Melanie Dumas DO [address] [facility] [place] [address] Referral ID Status Reason Start Date Expiration Date V isits Requested Visits Authorized [id number] Authorized 11/15/2022 05/14/2023 1 1 T [facility] Work Phone: reason for referral (narrative)* Consultation (Routine) - Authorized Specialty Diagnoses / Procedures Referred By Contac t Referred To Contact Primary Care Procedures Follow Up In Primary Care - Established Melanie Dumas DO [address] [facility] [place] [address] Referral ID Status Reason Start Date Expiration Date V isits Requested Visits Authorized [id number] Authorized 01/24/2023 07/23/2023 1 1 T [facility] Work Phone: reason for referral (narrative)* Consultation (Routine) - Authorized Specialty Diagnoses / Procedures Referred By Contac t Referred To Contact Primary Care Procedures Follow Up In Primary Care - Established Melanie Dumas DO [address] [facility] [place] [address] Referral ID Status Reason Start Date Expiration Date V isits Requested Visits Authorized [id number] Authorized 10/25/2023 10/24/2024 1 1 * Imaging (Routine) - Authorized Specialty Diagnoses / Procedures Referred By Contac t Referred To Contact Radiology Diagnoses Screening mammogram for breast cancer Procedures BI mammo bilateral screening tomosynthesis Melanie Dumas DO [address] [facility] [place] [address] Referral ID Status Reason Start Date Expiration Date Visits Requested Visits Authorized [id number] Authorized Perform Procedure 10/25/2023 10/24/2024 1 1 [facility] Work Phone: Reafmv for referral (narrative)No reason for [facility] Work [facility]: Reason for visit Narrative* Consultation (Routine) - Authorized Specialty Diagnoses / Procedures Referred By Prabhu martin Referred To Contact General Surgery Diagnoses Calculus of gallbladder without cholecystitis without obstruction Melanie Dumas DO [address] [facility] [place] [address] Referral ID Status Reason Start Date Expiration Date Visits Requested Visits Authorized [id number] Authorized Specialty Services Required 01/09/2024 01/08/2025 1 1 [facility] Work Phone: Rejyhb for visit Narrative* Auth/Cert Specialty Diagnoses / Procedures Referred By Prabhu martin Referred To Contact Diagnoses Symptomatic cholelithiasis Symptomatic cholelithiasis [K80.20] Procedures MA LAPAROSCOPY SURG CHOLECYSTECTOMY Laparoscopic [place], [place] [address] [place] [address], [address] [address] Phone: tel: fax: [facility] [place] [address] [place] [phone] fax: Referral ID Status Reason Start Date Expiration Date Visits Re quested Visits Authorized [id number] 1 1 [facility] Work Phone: reason for visit Narrative* Imaging (Routine) - Authorized Specialty Diagnoses / Procedures Referred By Prabhu t Referred To Contact Radiology Diagnoses Chronic right shoulder pain Procedures XR shoulder right 2+ views Yadira Arenas MD [address] [address] Phone: tel: fax: Referral ID Status Reason Start Date Expiration Date Visits Requested Visits Authorized [id number] Authorized Perform Procedure 01/28/2025 02/27/2026 1 1 [facility] Work Phone: Reason for visit Narrative* Imaging (Routine) - Authorized Specialty Diagnoses / Procedures Referred By Contac t Referred To Contact Radiology Diagnoses Visit for screening mammogram Procedures BI mammo bilateral screening tomosynthesis Yadira Arenas MD [address] [address] Phone: tel: fax: Referral ID Status Reason Start Date Expiration Date Visits Requested Visits Authorized [id number] Authorized Perform Procedure 01/28/2025 02/27/2026 1 1 [facility] Work Phone: Summary Purpose Family History No Family History Records Found Grandfather Name Dates Details Family history of myocardial infarction(V17.3, Z82.49) Status:Active Grandmother Name Dates Details Family history of malignant neoplasm of breast(V16.3, Z80.3) Status:Active Mother Name Dates Details Family history of hypertensi on(V17.49, Z82.49) Status:Active Father Name Dates Details Family history of hypertensi on(V17.49, Z82.49) Status:Active Unknown Family Member Name Dates Details Family history of myocardial infarction: Paternal Grandfather(V17.3, Z82.49) Status:Active Family history of malignant neoplasm of breast: Paternal Grandmother(V16.3, Z80.3) Comments:70s; Status:Active Family history of hypertensi on: Mother, Father, Brother(V17.49, Z82.49) Status:Active Family history of cerebrovas cular accident (CVA): Father(V17.1, Z82.3) Status:Active Unknown Family Member Name Dates Details Family history of myocardial infarction: Paternal Grandfather(V17.3, Z82.49) Status:Active Family history of malignant neoplasm of breast: Paternal Grandmother(V16.3, Z80.3) Comments:70s; Status:Active Family history of hypertensi on: Mother, Father, Brother(V17.49, Z82.49) Status:Active Family history of cerebrovas cular accident (CVA): Father(V17.1, Z82.3) Status:Active Unknown Family Member Name Dates Details Family history of myocardial infarction: Paternal Grandfather(V17.3, Z82.49) Status:Active Family history of malignant neoplasm of breast: Paternal Grandmother(V16.3, Z80.3) Comments:70s; Status:Active Family history of hypertensi on: Mother, Father, Brother(V17.49, Z82.49) Status:Active Family history of cerebrovas cular accident (CVA): Father(V17.1, Z82.3) Status:Active Unknown Family Member Name Dates Details Family history of myocardial infarction: Paternal Grandfather(V17.3, Z82.49) Status:Active Family history of malignant neoplasm of breast: Paternal Grandmother(V16.3, Z80.3) Comments:70s; Status:Active Family history of hypertensi on: Mother, Father, Brother(V17.49, Z82.49) Status:Active Family history of cerebrovas cular accident (CVA): Father(V17.1, Z82.3) Status:Active Unknown Family Member Name Dates Details Family history of myocardial infarction: Paternal Grandfather(V17.3, Z82.49) Status:Active Family history of malignant neoplasm of breast: Paternal Grandmother(V16.3, Z80.3) Comments:70s; Status:Active Family history of hypertensi on: Mother, Father, Brother(V17.49, Z82.49) Status:Active Family history of cerebrovas cular accident (CVA): Father(V17.1, Z82.3) Status:Active Unknown Family Member Name Dates Details Family history of myocardial infarction: Paternal Grandfather(V17.3, Z82.49) Status:Active Family history of malignant neoplasm of breast: Paternal Grandmother(V16.3, Z80.3) Comments:70s; Status:Active Family history of cerebrovas cular accident (CVA): Father(V17.1, Z82.3) Status:Active Family history of hypertensi on: Mother, Father, Brother(V17.49, Z82.49) Status:Active Relationship Condition Age at Onset Recorded Date/T pramod grandfather Myocardial infarction 65 grandmother Malignant neoplasm of breast Unknown father Alcoholism Unknown Cerebrovascular accident (CVA) Unknown Hypertension Unknown mother Hypertension Unknown Advance Directives No Advanced Directives Records FoundDocuments on File Type Date Recorded Patient Pipeliner Expl anation Advance Directives and Living Will Date Activated Date Inactivated Comments 12/03/2024 10:48 AM Question Answer Comments Plan of Care: Code Status Discussion Not Compl eted Decision Maker: Provider Rationale: Patient condition does not warra nt discussion Date Activated Date Inactivated Comments 12/03/2024 10:48 AM Question Answer Comments Plan of Care: Code Status Discussion Not Compl eted Decision Maker: Provider Rationale: Patient condition does not warra nt discussion Chief Complaint * 35 y/o female presents for 1 year f/u * No reported medications * Pt would like to talk about everyday life and stress * 36 y/o female presents for 4 month f/u * Pt thinks she may have an ingrown toenail * Rt great toe, no pain Patient here today to be seen for ingrown toenail of the right great toe x 2 weeks, with swelling discomfort and drainage. Patient is currently taking Amoxicillin for it prescribed by Dr. Dumas on Monday.* 36 y/o female presents for 6 month * Pt would like to discuss her buspar Reason for Referral Specialty Diagnoses / Procedures Referred By Prabhu martin Referred To Contact Radiology Diagnoses Screening mammogram for breast cancer Procedures BI mammo bilateral screening tomosynthesis Melanie Dumas, DO [address] [facility] [address] Referral ID Status Reason Start Date Expiration Date Visits Requested Visits Authorized [id number] Authorized Perform Procedure 10/25/2023 10/24/2024 1 1 Specialty Diagnoses / Procedures Referred By Prabhu martin Referred To Contact Radiology Diagnoses RUQ pain Procedures US gallbladder Melanie Dumas, DO [address] [facility] [address] Referral ID Status Reason Start Date Expiration Date Visits Requested Visits Authorized [id number] Authorized Perform Procedure 01/04/2024 01/03/2025 1 1 Chief Complaint and Reason for Visit Chief Complaint Admit Date Enlarged Uterus *ok per CB December 19 8:18am Reason for Visit Admit Date Enlarged uterus December 19, 2024 8:18 am Chief Complaint Admit Date Enlarged Uterus *ok per CB December 19 8:18am enlarged uterus December 30, 2024 3: 17pm Reason for Visit Admit Date Enlarged uterus December 19, 2024 8:18 am Yeast dermatitis December 19, 2024 8:18 am Chief Complaint Admit Date Enlarged Uterus *ok per CB December 19 8:18am enlarged uterus December 30, 2024 3: 17pm consult for TAHBS keep 20 minutes Octobe r 2024 8:09am Reason for Visit Admit Date Enlarged uterus December 19, 2024 8:18 am Yeast dermatitis December 19, 2024 8:18 am Enlarged uterus February 24, 2025 8: 09am Menorrhagia with regular cycle February 242024 8:09am Pelvic pressure in female February 24 8:09am Uterine fibroid February 24, 2025 8: 09am Additional Source Comments INFORMATION SOURCE (unrecogn ized section and content) DATE CREATED AUTHOR 11/10/2017 [facility] DATE CREATED AUTHOR AUTHOR'S ORGANIZ ATION 08/08/2018 [facility] DATE CREATED AUTHOR AUTHOR'S ORGANIZ ATION 11/15/2018 [facility] DATE CREATED AUTHOR AUTHOR'S ORGANIZ ATION 07/13/2021 [facility] DATE CREATED AUTHOR AUTHOR'S ORGANIZ ATION 11/25/2021 [facility] DATE CREATED AUTHOR AUTHOR'S ORGANIZ ATION 05/24/2022 [facility] [place] DATE CREATED AUTHOR AUTHOR'S ORGANIZ ATION 10/03/2022 [facility] DATE CREATED AUTHOR AUTHOR'S ORGANIZ ATION 01/15/2024 [facility] DATE CREATED AUTHOR AUTHOR'S ORGANIZ ATION 02/01/2025 [facility] DATE CREATED AUTHOR AUTHOR'S ORGANIZ ATION 02/10/2025 [facility] DATE CREATED AUTHOR AUTHOR'S ORGANIZ ATION 03/07/2025 [facility] DATE CREATED AUTHOR AUTHOR'S ORGANIZ ATION 03/31/2025 [facility] Reason for Visit (unrecogniz ed section and content) Reason Comments Follow-up 3 month BP averaging 135/85 at home Specialty Diagnoses / Procedures Referred By Contac t Referred To Contact Primary Care Procedures Follow Up In Primary Care Melanie Dumas DO [address] [place] [address] Physician [place] [phone] Referral ID Status Reason Start Date Expiration Date V isits Requested Visits Authorized [id number] Authorized 11/15/2022 05/14/2023 1 1 Reason Comments Follow-up L 5th met stress fx Reason Comments Foot Pain right foot pain. got stepped on by a horse today. Reason Comments Other Left heel pain getti ng worse [id number]. H/o stress Fx. New x-rays today. Reason Comments Hypertension 1 monthPt brought in BP logHighest being 176/105Lowest being 139/96 Referral ID Status Reason Start Date Expiration Date V isits Requested Visits Authorized [id number] Authorized 10/13/2022 04/11/2023 1 1 Reason Comments Follow-up 3 month Specialty Diagnoses / Procedures Referred By Contac t Referred To Contact Primary Care Procedures Follow Up In Primary Care - Established Melanie Dumas [address] Physician [place] [phone] Referral ID Status Reason Start Date Expiration Date V isits Requested Visits Authorized [id number] Authorized 01/24/2023 07/23/2023 1 1 Reason Comments Follow-up 6 month Specialty Diagnoses / Procedures Referred By Contac t Referred To Contact Radiology Diagnoses Screening mammogram for breast cancer Procedures BI mammo bilateral screening tomosynthesis Melanie Dumas DO [address] [facility] [place] [address] Referral ID Status Reason Start Date Expiration Date Visits Requested Visits Authorized [id number] Authorized Perform Procedure 10/25/2023 10/24/2024 1 1 Specialty Diagnoses / Procedures Referred By Contac t Referred To Contact Radiology Diagnoses RUQ pain Procedures US gallbladder Melanie Dumas DO [address] [facility] [place] [address] Referral ID Status Reason Start Date Expiration Date Visits Requested Visits Authorized [id number] Authorized Perform Procedure 01/04/2024 01/03/2025 1 1 Reason Comments Establish Care [facility] Reason Comments New Patient Visit Pain Specialty Diagnoses / Procedures Referred By Contac t Referred To Contact Orthopaedic Surgery / Orthopedic Surgery Diagnoses Chronic right shoulder pain Yadira Arenas MD [address] [address] Phone: tel: fax: Referral ID Status Reason Start Date Expiration Date Visits Requested Visits Authorized [id number] Authorized Specialty Services Required 01/28/2025 01/28/2026 1 1 Care Teams (unrecognized sec tion and content) Discharge Rn Relationship Specialty Start Date End Date Melanie Dumas DO [address] [place] [id number] PCP - General Internal Medicine 11/18/20 Discharge Rn Relationship Specialty Start Date End Date Melanie Dumas DO [address] [facility] [place] [address] PCP - General 05/19/20 Melanie Dumas DO [address] [place] [address] [place] [address] PCP - MMO ACO PCP 05/22/21 Discharge Rn Relationship Specialty Start Date End Date Melanie Dumas DO [address] [facility] [place] [address] PCP - General 05/19/20 Melanie Dumas DO [address] [facility] [place] [address] PCP - MMO ACO PCP 05/22/21 Discharge Rn Relationship Specialty Start Date End Date Melanie Dumas DO [address] [facility] [place] [address] PCP - General 05/19/20 Discharge Rn Relationship Specialty Start Date End Date Melanie Dumas DO [address] [facility] [place] [address] PCP - General 05/19/20 Discharge Rn Relationship Specialty Start Date End Date Melanie Dumas DO [address] [facility] [place] [address] PCP - General 05/19/20 Discharge Rn Relationship Specialty Start Date End Date Melanie Dumas DO [address] [facility] [place] [address] PCP - General 05/19/20 Discharge Rn Relationship Specialty Start Date End Date Generic Provider, [place] [address] PCP - General Cytotechnologist 12/03/24 Team Status: Active Member Role/Relationship Status Dates James Ruiz Family Provider Active Team Status: Inactive Member Role/Relationship Status Dates JOSEY Real Attending Provider Active Start: December 19, 2024 End: December 19, 2024 Discharge Rn Relationship Specialty Start Date End Date Generic Provider, No [place] [address] PCP - General Cytotechnologist 12/03/24 Team Status: Active Member Role/Relationship Status Dates Dr. Melanie Dumas , DO Primary Care Provider Active Team Status: Inactive Member Role/Relationship Status Dates Dr. Melanie Dumas , Primary Care Provider Active Start: December 30, 2024 End: December 30, 2024 JOSEY Real Attending Provider Active Start: December 30, 2024 End: December 30, 2024 JOSEY Real Referring Provider Active Start: December 30, 2024 End: December 30, 2024 Discharge Rn Relationship Specialty Start Date End Date Yadira Arenas MD [address] [address] PCP - General Family Medicine 01/28/25 Discharge Rn Relationship Specialty Start Date End Date Yadira Arenas MD [address] [address] PCP - General Family Medicine 01/28/25 Discharge Rn Relationship Specialty Start Date End Date Yadira Arenas MD [address] [address] PCP - General Family Medicine 01/28/25 Discharge Rn Relationship Specialty Start Date End Date Yadira Arenas MD [address] [address] PCP - General Family Medicine 01/28/25 Team Status: Active Member Role/Relationship Status Dates Dr. Melanie Dumas DO Primary care physician Activ e Team Status: Inactive Member Role/Relationship Status Dates JOSEY Real Attending physician Active Start: December 19, 2024 End: December 19, 2024 Team Status: Inactive Member Role/Relationship Status Dates Dr. Melanie Dumas DO Primary care physician Activ e Start: December 30, 2024 End: December 30, 2024 JOSEY Real Attending physician Active Start: December 30, 2024 End: December 30, 2024 JOSEY Real Referring Provider Active Start: December 30, 2024 End: December 30, 2024 Team Status: Inactive Member Role/Relationship Status Dates Dr. Melanie Dumas DO Primary care physician Activ e Start: February 24, 2025 End: February 24, 2025 Dr. Melanie Dumas DO Referring Provider Active Start: February 24, 2025 End: February 24, 2025 Dr. Dione Arreola MD Attending physician Active Start: February 24, 2025 End: February 24, 2025 Team Status: Active Member Role/Relationship Status Dates Dr. Melanie Dumas DO Primary care physician Activ e Start: February 24, 2025 Dr. Dione Arreola MD Attending physician Active Start: February 24, 2025 Dr. Dione Arreola MD Referring Provider Active Start: February 24, 2025 Team Status: Active Member Role/Relationship Status Dates Dr. Yadira Arenas MD Primary care physician Ac tive Team Status: Inactive Member Role/Relationship Status Dates Dr. Melanie Dumas DO Primary care physician Activ e Start: February 24, 2025 End: February 24, 2025 Dr. Dione Arreola MD Attending physician Active Start: February 24, 2025 End: February 24, 2025 Dr. Dione Arreola MD Referring Provider Active Start: February 24, 2025 End: February 24, 2025 Scheduled Active and Recently Administ ered Medications (unrecognized section and content) Medication Order 12/01/2024 12/02/2024 12/03/2024 cefOXitin (Mefoxin) 2 g in dextrose (iso) IV 50 mL (COMPLETED) 2 g, intravenous, at 100 mL/hr, Administer over 30 Minutes, Once, On Mon12/03/24 at 1115, For 1 dose, Preprocedure, Duplex bag - activate before hanging., Suspected Indication (Select all that apply): Surgical Prophylaxis, Indications: Surgical Prophylaxis 1408 (New Bag - Prov ider: Lay Winters RN)1438 (Due: Stopped - Provider: Lay Winters RN) heparin (porcine) injection 5,000 Units (COMPLETED) 5,000 Units, subcutaneous, Once, On Mon12/03/24 at 1115, For 1 dose, Preprocedure 1134 (Given - Provid er: Lay Winters RN) oxyCODONE (Roxicodone) immediate release tablet 5 mg 5 mg, oral, Once, On Mon12/03/24 at 1645, For 1 dose, If ordered PRN for pain, nurse is permitted to administer this medication for higher pain scores based on patient preference? Yes 1644 (Due) oxygen (O2) therapy inhalation, Continuous - Inhalation, First dose on Mon12/03/24 at 1645, Recovery (only), Device: Simple Face Mask, Rate in Liters per minute: 8 LPM 164 (Due)1999 (Due) Continuous Medication Order 12/01/2024 12/02/2024 12/03/2024 lactated Ringer's infusion 100 mL/hr, intravenous, Continuous, Starting on Mon12/03/24 at 1115, For 1 day, Preprocedure 1123 (New Bag - Prov ider: Lay Winters RN)1429 (Paused - Provider: Tony Palafox MD PhD - Comment: Switch to gravity)1430 (Restarted - Provider: Tony Palafox MD PhD)1442 (Continued by Anesthesia - Provider: Tony Palafox MD PhD)1602 (New Bag - Provider: Tony Palafox MD PhD)1612 (Anesthesia Volume Adjustment - Provider: Tony Palafox MD PhD) lactated Ringer's infusion 125 mL/hr, intravenous, Continuous, Starting on Mon12/03/24 at 1645, For 1 day, Recovery (only) 1645 (Due) PRN Medication Order 12/01/2024 12/02/2024 12/03/2024 bupivacaine PF 0.25 % (Marcaine) 0.25 % (2.5 mg/mL) injection (CANCELED) As needed, Starting on Mon12/03/24 at 1558, Intraprocedure 1558 (Given - Provid er: Melanie Hung MD) HYDROmorphone (Dilaudid) injection 0.5 mg 0.5 mg, intravenous, Every 5 min PRN, pain severe (7-10), first line, Starting on Mon12/03/24 at 1623, Recovery (only) prochlorperazine (Compazine) injection 10 mg 10 mg, intravenous, Once as needed, nausea/vomiting, first line, Starting on Mon12/03/24 at 1623, For 1 dose, Recovery (only) Goals (unrecognized section and content) Goals may be documented in a n alternate sectionGoals may be documented in an alternate sectionGoals may be documented in an alternate sectionGoals may be documented in an alternate section FOR RECORDS PERTAINING TO PATIENTS WHO ARE OR HAVE BEEN ENROLLED IN A CHEMICAL DEPENDENCY/SUBSTANCEABUSE PROGRAM, SOME INFORMATION MAY BE OMITTED. This clinical summary was aggregated from multiple sources. Caution should be exercised in using it in the provision of clinical care. This summary normalizes information from multiple sources, and as a consequence, information in this document may materially change the coding, format and clinical context of patient data. In addition, data may be omitted in some cases. CLINICAL DECISIONS SHOULD BE BASED ON THE PRIMARY CLINICAL RECORDS. [facility]. provides no warranty or guarantee of the accuracy or completeness of information in this document.
--- NOTE | 2025-04-22 07:25 | PCM.HP.BLA ---
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 sexually active: Yes Smoking Status: Never smoker alcohol intake: current alcohol intake frequency: holidays/special occasions only Alcohol type: other substance use type: does not use caffeine: Yes Type: carbonated beverages and tea eating out: 1-3 times/week during the past year weight has: decreased > 10 lbs what type of physical activity do you participate in: none torey/adventism: None seatbelt use: always do you feel safe at home: Yes additional social history: - 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 The uterine fibroids were incidentally discovered during a gallbladder surgery in November, and the patient reports heavy menstrual bleeding over the past couple of years, which has worsened recently. She experiences menstrual cycles every 26 days, with bleeding lasting five days and requiring pad changes every three to four hours on days two and three. The patient has a history of hypertension, which is currently managed with medication. She reports urinary frequency, which may be related to the fibroids, and constipation, which she hopes will improve post-surgery. 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 Attestation: Documentation on this patient encounter was supported using ambient scribe technology/ voice AI technology. The patient consented to recording for the purpose of documenting the encounter. Provider reviewed content of the generated note prior to signature. declined test. Female Reproductive History Last Menstrual Period: 02/06/25 Menopausal Symptoms: No night sweats History 2 Elective abortions Hx Para 2 Spontaneous abortions Hx # Term Pregnancies Ectopic pregnancies Hx # Pregnancies Multiple births # of living children 2 Past Pregnancies Del. Date Name GA/Weeks Outcome Route Bth Weight Gen Labor Lgth Anesthesia Del Locatn Provider FOB 02/14/13 Calissa live - full term 7lbs 2oz Female none [facility] 08/21/15 [place] live - full term 7lbs 15oz Male none [facility] ROS Const Constitutional: Denies fatigue, night sweats, weight gain or weight loss ENT ENT: Reports system reviewed and no additional complaints, except as documented Cardio Card: Denies chest pain Resp Resp: Denies cough or dyspnea GI GI: Reports as per HPI; Denies abdominal pain, constipation, nausea or vomiting : Denies nipple discharge, urinary frequency, urinary incontinence, urinary hesitancy, urinary urgency, vaginal discharge, vaginal dryness, vaginal odor or vaginal pruritus Musc Musc: Denies arthralgias, back pain or muscle weakness Skin Skin/Breast: Denies alopecia, change in hair, dry skin, breast mass, breast pain, breast skin changes or nipple discharge Neuro Neuro: Reports system reviewed and no additional complaints, except as documented Psych Psych: Reports system reviewed and no additional complaints, except as documented Endo Endo: Denies cold intolerance, excessive sweating, heat intolerance or polydipsia Erwin/Lymph Hematologic/Lymphatic: Denies easy bleeding, Denies easy bruising and Denies lymphadenopathy Exam Const General: cooperative, healthy appearing, comfortable, no acute distress and well developed Orientation: alert HENWY Head: normal to inspection and normocephalic Ears: hearing grossly normal bilaterally and external ears normal Nose: external nose normal and nares normal Face and sinus: normal facial exam Neck Neck: normal visual inspection and no lymphadenopathy Thyroid: thyroid normal Chest Chest palpation & inspection: normal inspection of the chest Resp Effort & Inspection: normal respiratory effort Auscultation: clear to auscultation bilaterally Cardio Rate: regular rate Rhythm: regular rhythm Heart Sounds: S1 normal and S2 normal GI Inspection: normal to inspection and non-distended Palpation: soft and enlarged uterus 24 week size External Female Exam: normal external appearance and normal appearance of the urethra Urethra: normal appearance of the urethra, normal palpation and no discharge Speculum Exam - Vagina: normal appearance of the vagina and normal vaginal discharge Speculum Exam - Cervix: normal appearance of the cervix Musc Other: gross motor intact no deficits, full bilateral strength Skin General: no rashes or lesions noted Neuro General: patient alert, patient awake, moves all extremities and no focal motor deficits Motor: muscle tone normal throughout Extrem General: normal to inspection and no pedal edema Psych Appearance: grossly normal Mental Status: mental status grossly normal Affect: normal affect Speech and Movement: speech and movement normal Office Procedures Endometrial Biopsy Endometrial Biopsy Test: Yes declined Consent Signed: Yes Time out time: 09:00 tenaculum used: Yes Details: Cervix prepped with betadine and pipelle inserted into uterus without complication. Specimen obtained and sent to lab for analysis. All instruments removed from vagina without complications. Excellent hemostasis noted. Coding Level of Care Code Off vis,est,level 4 Diagnoses Uterine fibroid D25.9 Menorrhagia with regular cycle N92.0 Pelvic pressure in female R10.2 Enlarged uterus N85.2 CPT Codes Endometrial Biopsy (01681) Assessment and Plan Assessment and Plan (1) Uterine fibroid: Status: Acute Comment: 12cm:plan LINDY per with JV asst (2) Menorrhagia with regular cycle: Status: Acute (3) Pelvic pressure in female: Status: Acute (4) Enlarged uterus: Status: Acute Comment: 23cm per US Orders: Orders CBC W/Diff, Automated Today D25.9 - Leiomyoma of uterus, unspecified Thyroid Stim Hormone (TSH) Today D25.9 - Leiomyoma of uterus, unspecified Endometrial Biopsy Today D25.9 - Leiomyoma of uterus, unspecified PAP IG HPV APTIMA 16/18,45 Today Z12.4 - Encounter for screening for malignant neoplasm of cervix Plan Assessment and Plan 39-year-old female with a history of hypertension presenting with uterine fibroids and associated symptoms. The uterine fibroids are likely contributing to the patient's heavy menstrual bleeding and urinary frequency. The patient's history of retinoblastoma is noted but not currently impacting her health status. 1. Uterine Fibroids The plan includes surgical intervention to remove the uterus, cervix, and tubes while preserving the ovaries to prevent early menopause. Preoperative preparations include rechecking hemoglobin and iron levels, performing a Pap smear, and an endometrial biopsy to rule out any precancerous changes. The surgery will be performed through an open incision due to the size of the uterus, with expected hospitalization for one to two nights and limited activity for four to six weeks postoperatively. 2. Hypertension The patient's hypertension is currently managed with medication, and her blood pressure was slightly elevated during the visit, possibly due to anxiety. 3. Constipation The patient is advised to consider using a stool softener to manage constipation, which may improve following the surgical intervention for fibroids. 4. Urinary Frequency Urinary frequency is likely related to the fibroids, and improvement is anticipated post-surgery. 5. Retinoblastoma (History) The history of retinoblastoma is noted, with no current impact on the patient's health status. After discussing the patient's diagnosis and treatment plan options, patient wishes to proceed with surgical management. I have discussed with the patient the risks, benefits, and alternatives of the procedure which include but are not limited to risks of anesthesia, bleeding, infection, possible damage to bowel, bladder, or surrounding vasculature which could lead to additional surgery to evaluate any complications. Patient agrees to procedure and wishes to proceed. ACOG/uptodate references given for additional information regarding procedure. Patient Instructions: - Follow preoperative instructions, including special drink and soap use. - Monitor blood pressure and continue medication as prescribed. - Consider using a stool softener to manage constipation. - Expect limited activity for four to six weeks post-surgery. Plan Details Additional Comments: I discussed the surgical plan to remove the uterus, cervix, and tubes while preserving the ovaries to prevent early menopause. We reviewed the need for preoperative tests, including a Pap smear and endometrial biopsy, to rule out precancerous changes. I explained the surgical approach, expected recovery, and potential risks, including bleeding and infection. We also discussed the management of hypertension and constipation, and I provided instructions for preoperative preparation and postoperative care. Consent for the procedure was obtained. UPDATE- I have seen the patient and performed any clinically relevant updates to the history and physical exam. Dione Arreola MD
[2025-04-22 07:29] LABS: Internal QC Validated? YES +Cl - CLEAR BKGD; Pregnancy, Urine Negative Negative; Record Kit Lot#,Urine Preg 980607
[2025-04-22] MEDS: Lactated Ringers 1,000 ML 40 ML IV (07:36)
[2025-04-22] MEDS: Magnesium 1 GM over 15 mins IV (07:38)
[2025-04-22] MEDS: Scopolamine 1mg/72hr Patch 1 PATCH TD (07:41)
[2025-04-22 07:42] LABS: Hematocrit 39.3 % (37-47); Hemoglobin 12.2 g/dL (12.0-15.0); Mean Corp Hgb Conc 31.0 g/dL (32-36); Mean Corpuscular Volume 78.4 fL (81-99); Mean Platelet Vol. 11.0 fl (6.2-12.0); POSITIVE MORPHOLOGY YES; Platelet Count 323 K/mm3 (150-450); RBC Distribution Width CV 21.6 % (11.6-14.6); RBC Distribution Width SD 60.2 fl (35.1-43.9); Red Blood Count 5.01 M/mm3 (4.2-5.4); White Blood Count 7.9 K/mm3 (4.4-11.0)
[2025-04-22 07:43] LABS: Scan Indicated on CBC? Y/N YES- FLAGS NOTED
--- NOTE | 2025-04-22 08:25 | PRE.ANES_ITS ---
ASA Classification* ASA Classification ASA Classification: 3 Assessment & Plan Anesthesia* Anesthesia Assessment Anesthesia Assessment: Discussed sedation and/or anesthesia options, risks, benefits, and alternatives with patient/parents/legal guardian/POA. Questions invited. The patient/parents/legal guardian/POA seems to understand and agrees to proceed with anesthesia plan. Reviewed the physical assessment, medical history, allergy history and patient home medications list prior to surgery/procedure/anesthetic and documented any changes. Performed airway and anesthesia risk assessments. Anesthesia Type Anesthesia Type: General History Source History Obtained from:: Patient and Chart Anesthesia Focused Assessment* Temperature: 98.5 F Pulse Rate: 97 Blood Pressure: 144/97 Respiratory Rate: 18 Pulse Ox: 100 Oxygen Delivery Method: Room Air Airway Assessment Mouth opens: >3 cm Mallampati Score: II Teeth Condition: Intact Neck Range of motion (ROM): Full ROM Labs Anesthesia Preop lab: CBC WBC, (4.4-11.0) 7.9 K/mm3 Today, 07:30 RBC, (4.2-5.4) 5.01 M/mm3 Today, 07:30 Hgb, (12.0-15.0) 12.2 g/dL Today, 07:30 Hct, (37-47) 39.3 % Today, 07:30 Plt Count, (150-450) 323 K/mm3 Today, 07:30 CHEMISTRY Potassium, (3.3-5.1) 4.1 mmol/L 04/15/25, 08:03 Sodium, (133-145) 139 mmol/L 04/15/25, 08:03 Magnesium, (1.5-2.2) 2.2 mg/dL 04/15/25, 08:03 BUN, (4-19) 8 mg/dL 04/15/25, 08:03 Creatinine, (0.70-1.20) 0.98 mg/dL 04/15/25, 08:03 Glucose, (70-99) 90 mg/dL 04/15/25, 08:03 POC Glucose, (74-106) 96 mg/dL Today, 07:23 TSH, (0.300-4.200) 3.060 uIU/mL 02/24/25, 09:14 COAG Urine Test Negative Negative Today, 07:10 Pre-Assessment Diagnosis/Proposed Procedure Planned Operative Procedure(s): (B) ERAS, Hysterectomy,LINDY, Bilateral Salpingectomy Anesthesia History 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 When Was Last Pacemaker Check QUESTION #4 FULL TEXT: You/Your Family Experience fever (hyperthermia) with Anesthesia Last Oral Intake Last Oral intake: Last Oral Intake NPO since 05:00 04/22/25 07:20 Meds taken in AM with sips of Yes 04/22/25 07:20 water? Meds patient instructed to losartan 04/22/25 07:20 take am of surgery Any additional information?: Yes NPO since: 05:00 (Patient had Ensure at 5 AM.) Meds taken in AM with sips of water?: Yes PONV PONV - central office equipment engineer: PONV - central office equipment engineer Female Yes 04/11/25 09:38 HX of Motion Sickness No 04/11/25 09:38 HX of N/V After Surgery No 04/11/25 09:38 Non-Smoker Yes 04/11/25 09:38 Duration of Surgery greater Yes 04/11/25 09:38 than 60 minutes Number of Risk Factors 3 04/11/25 09:38 PONV Score Moderate Risk 04/11/25 09:38 Height & Weight Height & Weight: Anesthesia: Height & Weight Height 5 ft 6 in 04/22/25 07:20 Weight: 127 kg 04/22/25 07:20 Body Mass Index (BMI) 45.1 04/22/25 07:20 Respiratory Assessment Respiratory Assessment - central office equipment engineer: Respiratory Tract Infection Hx - central office equipment engineer Hx Respiratory Tract Infection No 04/11/25 09:38 STOP Sleep Apnea STOP Sleep Apnea - central office equipment engineer: STOP Sleep Apnea - central office equipment engineer Hx Hypertension Yes: controlled with med 04/11/25 09:38 Hx Sleep Apnea No 04/11/25 09:38 CPAP BIPAP Do you snore loudly (louder No 04/11/25 09:38 than talking or can be heard Do you often feel tired/ No 04/11/25 09:38 fatigued/ sleepy during daytime? Has anyone observed you stop No 04/11/25 09:38 breathing during sleep? STOP Results Negative 04/11/25 09:38 QUESTION #5 FULL TEXT : Do you snore loudly (louder than talking or can be heard through closed doors)? Tobacco Use History Tobacco Use History - central office equipment engineer: Tobacco Use History - central office equipment engineer Tobacco Use Smoking Status Never smoker 04/11/25 09:38 Hx Tobacco Use No 04/11/25 09:38 Years Smoking Packs Smoked per Day Smoking Cessation Date was within the last 15 years Hx Smoking Cessation Date Hx Smoking Cessation Counseling Hematologic Medial History Hematologic Hx - central office equipment engineer: Hematologic Medical Hx - desktop architect Hx of Blood Transfusion No 04/11/25 09:38 Hx of Transfusion in last 3 No 04/11/25 09:38 Months Date of Last Transfusion (if within last 3 months) Ever experience any problems No 04/11/25 09:38 with transfusion(s)? Specify any problems Hx of Preganancy in last 3 Yes 04/11/25 09:38 Months Nurse Filling Out Transfusion AURELIO 04/11/25 09:38 & Questions: Date: 04/11/25 04/11/25 09:38 Time: 09:38 04/11/25 09:38 Patient unable to answer at this time (ie. confused, unrespo /Reproduction History /Reproductive History - central office equipment engineer: /Reproductive Hx- central office equipment engineer Hx Now No 04/11/25 09:38 Gestational Age (in weeks): EDC: Hx Hx Para Hx Section SAB No 04/11/25 09:38 Does the father of the baby or his family experience fever w Father of the baby Malignant Hypertension history comment Active Medications Active Medications: Current Medications Generic Name Dose Route Start Last Admin Trade Name Freq PRN Reason Stop Dose Admin Acetaminophen 1,000 mg 04/22/25 08:45 12 07:39 Acetaminophen 500 Mg Tablet PO 04/22/25 08:46 1,000 mg PREOP ONE Administration Celecoxib 400 mg 04/22/25 08:45 12/02/25 07:39 Celecoxib 200 Mg Capsule PO 04/22/25 08:46 400 mg PREOP ONE Administration Dexamethasone Sodium Phosphate 8 mg 04/22/25 08:45 Dexamethasone 4 Mg/Ml Vial IV 04/22/25 08:46 INTRAOP ONE Enoxaparin Sodium 40 mg 04/22/25 08:45 04/22/25 07:42 Enoxaparin 40 Mg/0.4 Ml Syringe SC 04/22/25 08:46 40 mg PREOP ONE Administration Gabapentin 600 mg 04/22/25 08:45 04/22/25 07:39 Gabapentin 600 Mg Tablet PO 04/22/25 08:46 600 mg PREOP ONE Administration Lactated Ringer's 1,000 mls @ 40 mls/hr 04/22/25 08:45 04/22/25 07:36 IV 40 mls/hr .Q25H ESA Administration Cefazolin Sodium 3 gm/ Sodium 115 mls @ 150 mls/hr 04/22/25 08:45 Chloride IV 04/22/25 09:30 INTRAOP ONE Lactated Ringer's 1,000 mls @ 70 mls/hr 04/22/25 08:45 IV .[id number] ESA Magnesium Sulfate 1 gm/ 102 mls @ 408 mls/hr 04/22/25 08:45 04/22/25 07:38 Dextrose IV 04/22/25 08:59 408 mls/hr PREOP ONE Administration Insulin Human Lispro 0 unit 04/22/25 08:45 Insulin Lispro 100 Unit/Ml Insuln.Pen SC Q4H PRN PRN BG >/= 180, SEE PROTOCOL Protocol Ondansetron HCl 4 mg 04/22/25 08:45 Ondansetron 4 Mg/2 Ml Vial IV 04/22/25 08:46 INTRAOP ONE Phenazopyridine HCl 190 mg 04/22/25 08:45 04/22/25 07:42 Phenazopyridine 95 Mg Tablet PO 04/22/25 08:46 190 mg PREOP ONE Administration Scopolamine HBr 1 patch 04/22/25 08:45 04/22/25 07:41 Scopolamine 1mg/72hr Patch TD 04/22/25 08:46 1 patch PREOP ONE Administration PFSH Medical History Wears glasses Cancer Low iron Non-smoker Gallstones Hypertension Retinoblastoma Home Medications ?Medication ?Instructions ?Recorded ?Last Taken ?Type losartan 25 mg tablet 25 mg PO QDAY htn 12/19/24 1 06/23/24 History norethindrone acetate 5 mg tablet 5 mg PO .COMPLEX BLE EDING #60 tabs 03/19/25 04/21/25 Rx ferrous sulfate 325 mg (65 mg 325 mg PO BID SUPPLEMENT 04/11/25 04/21/25 History iron) tablet (iron) Allergy/AdvReac Type Severity Reaction Status Date / Time No Known Allergies Allergy Verified 04/22/25 07:19 Family History Grandfather Myocardial infarction, Onset Age: 65 Grandmother Breast cancer Father Alcoholism CVA (cerebral vascular accident) Hypertension Mother Hypertension Surgical History H/O eye surgery (~05/22/84) H/O knee surgery (~05/22/98) History of cholecystectomy Social History adopted: No household members: spouse, family and children number of children: 2 current occupational status: employed 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
--- NOTE | 2025-04-22 08:45 | UT_PTH ---
PATIENT: ANURAG VALENCIA LOC: MS3 U#:[id number] AGE/SX: 39/F ROOM: [facility] [place] RE04/22/[address]: Dr. Dione Arreola MD : 1985 BED: 1 DIS: 04/23/2025 SPEC #: [id number] RECD: 04/22/25 11:25 STATUS: NICOLAS EATON #: [id number] AMBERLY: 04/22/25 08:[address]: Dione Arreola DEPT: SURGICAL PATHOLOGY RECD BY: Guy Garcia ENTERED: 04/22/25 11:32 SP TYPE: UTERUS OTHR DR: Dr. Yadira Arita MD Tissues: A - Uterus, NOS Procedures: Surgery Specimen Level V HEADER OPERATION: ERAS, hysterectomy, LINDY, bilateral salpingectomy PRE-OP DIAGNOSIS: Uterine fibroid, menorrhagia with regular cycle, pelvic pressure in female, enlarged uterus TISSUE SUBMITTED: A- Uterus, cervix, bilateral fallopian tubes MICROSCOPIC DIAGNOSIS A. Uterus, cervix, fallopian tubes, total abdominal hysterectomy, bilateral salpingectomy: - Cervix: no specific pathologic change. - Endometrium: secretory endometrium with pseudodecidual stromal change and superficial shedding stroma. - Myometrium: leiomyomata (up to 13.6 cm). - Bilateral fallopian tubes: no specific pathologic change. MICROSCOPIC DESCRIPTION Slides are reviewed. GROSS DESCRIPTION A. Received fresh and subsequently placed in formalin labeled with the patient's name and date of . Designated as uterus, cervix, bilateral fallopian tubes is an approximately 2032 g, 16.2 x 14.7 x 12.2 cm irregular, bulbous uterus with detached adnexa. The serosa is pink-red with focal defects, favor iatrogenic. The attached cervix is shaggy and grossly devoid of ectocervical tissue, measuring 3.5 x 3.1; the 1.5 cm os is probe patent. Mucus containing cysts are present. The specimen is oriented using the presumed, posterior peritoneal reflection; the specimen is inked as follows: [id number] Opening reveals a 13.6 cm reyna-white, fibrotic and bulging intramural leiomyoma that is grossly compressing and distorting the endometrial cavity which measures 12.9 x 2.9 cm and is lined by dark red, somewhat sloughing and granular endometrium up to 0.7 cm thick. The myometrium is pink, trabeculated and distorted, measuring up to approximately 4.1 cm thick. A few additional intramural leiomyomas are identified, up to 0.8 cm. The detached, pink-red fallopian tubes are fimbriated, measuring 4.6 x 0.5 cm and 3.9 x 0.6 cm. Paratubal cysts are present up to 0.4 cm. Room Server sections are submitted as follows: A1: Anterior cervixA2: Posterior cervixA3: Anterior endomyometriumA4-A5: Posterior endomyometriumA6-A7: Fallopian tubesA8-A10: Largest leiomyoma (with section of smaller leiomyoma in cassette A8) MS 04/22/2025 CPT:94438
[2025-04-22] MEDS: Lactated Ringers 1,000 ML 1000 ML IV (08:54)
[2025-04-22] MEDS: Cefazolin 1 GM/5 ML Vial 3 GM IV (08:54)
[2025-04-22] MEDS: Midazolam 2 MG/2 ML Syringe IV (08:55)
[2025-04-22] MEDS: Lidocaine 1% (5 ml sdv) 5 ML Vial 10 ML IV (08:56)
[2025-04-22] MEDS: dexMEDEtomidine 200 MCG/2 ML ML 101.9 MCG IV (09:11)
[2025-04-22] MEDS: metroNIDAZOLE 500 MG/100 ML BAG 100 MG IV ×2 (09:29)
[2025-04-22] MEDS: fentaNYL 100 MCG/2 ML Ampul 125 MCG IV (10:37)
[2025-04-22] MEDS: BUPIVACAINE LIPOSOME/PF 20 ML VIAL OPERA.SITE (10:41)
--- NOTE | 2025-04-22 11:30 | PCM.POST.ANE ---
Anesthesia: Postop Eval I Current Vital Signs Temperature: 97.1 F Pulse Rate: 78 Blood Pressure: 129/75 Respiratory Rate: 16 Pulse Ox: 97 Oxygen Delivery Method: Room Air Assessment Airway patent: Yes Spontaneous unlabored respirations: Yes Mental status: Awake and Calm nausea: No Vomiting: No Anesthesia Complication: No Fluid Hydration Crystalloid volume administer (ml): 800 Total IV fluid infused: 800 Progress Note Anesthesia document: Postop Eval 1 completed: Yes
[2025-04-22] MEDS: Lactated Ringers @ 70 MLS/HR 70 ML IV (17:00)
--- NOTE | 2025-04-22 20:48 | POSTOPAN2_ITS ---
Anesthesia Postop Eval I Sum Postop Eval Completion status Anesthesia document: Postop Eval 1 completed: Yes Anesthesia Postop Eval I Summary Anesthesia Postop Eval I Summary: Anesthesia Postop Eval I: Assessment Summary Airway patent Yes 04/22/25 11:31 MAIL SUPERINTENDENT.JELENAAN Spontaneous unlabored Yes 04/22/25 11:31 MAIL SUPERINTENDENT.VASILIY respirations Mental status Awake,Calm 04/22/25 11:31 MAIL SUPERINTENDENT.SJAN nausea No 04/22/25 11:31 MAIL SUPERINTENDENT.SJAN Vomiting No 04/22/25 11:31 MAIL SUPERINTENDENT.VASILIY Anesthesia Postop Eval I: Fluid Summary Crystalloid volume administer 800 04/22/25 11:31 MAIL SUPERINTENDENT.SJAN (ml) Colloids volume administered ( ml) Blood Product volume administered (ml) Total IV fluid infused 800 04/22/25 11:31 MAIL SUPERINTENDENT.VASILIY Anesthesia Postop Eval I: Summary Notes Anesthesia Complication No 04/22/25 11:31 MAIL SUPERINTENDENT.VASILIY Anesthesia Complication Comment: Post-operative progress note Anesthesia: Postop Eval II Evaluation Mental status: Awake and Calm Pain Level: 2 nausea: No Vomiting: No Complications Anesthesia Complication: No
--- NOTE | 2025-04-22 20:48 | PCM.POSTANE2 ---
Anesthesia Postop Eval I Sum Postop Eval Completion status Anesthesia document: Postop Eval 1 completed: Yes Anesthesia Postop Eval I Summary Anesthesia Postop Eval I Summary: Anesthesia Postop Eval I: Assessment Summary Airway patent Yes 04/22/25 11:31 FOLDER GLUER OPERATOR.JELENAAN Spontaneous unlabored Yes 04/22/25 11:31 FOLDER GLUER OPERATOR.VASILIY respirations Mental status Awake,Calm 04/22/25 11:31 FOLDER GLUER OPERATOR.SJAN nausea No 04/22/25 11:31 FOLDER GLUER OPERATOR.SJAN Vomiting No 04/22/25 11:31 FOLDER GLUER OPERATOR.VASILIY Anesthesia Postop Eval I: Fluid Summary Crystalloid volume administer 800 04/22/25 11:31 FOLDER GLUER OPERATOR.SJAN (ml) Colloids volume administered ( ml) Blood Product volume administered (ml) Total IV fluid infused 800 04/22/25 11:31 FOLDER GLUER OPERATOR.VASILIY Anesthesia Postop Eval I: Summary Notes Anesthesia Complication No 04/22/25 11:31 FOLDER GLUER OPERATOR.VASILIY Anesthesia Complication Comment: Post-operative progress note Anesthesia: Postop Eval II Evaluation Mental status: Awake and Calm Pain Level: 2 nausea: No Vomiting: No Complications Anesthesia Complication: No
[2025-04-23 02:39] VITALS: BP 158/82; PULSE 100; RESP 18; TEMP 37.2; O2SAT 99
[2025-04-23 06:48] VITALS: BP 149/86; PULSE 76; RESP 18; TEMP 36.8; O2SAT 99
[2025-04-23 06:49] LABS: Hematocrit 37.0 % (37-47); Hemoglobin 11.4 g/dL (12.0-15.0); Mean Corp Hgb Conc 30.8 g/dL (32-36); Mean Corpuscular Volume 79.1 fL (81-99); Mean Platelet Vol. 11.3 fl (6.2-12.0); POSITIVE MORPHOLOGY YES; Platelet Count 247 K/mm3 (150-450); RBC Distribution Width CV 21.8 % (11.6-14.6); RBC Distribution Width SD 61.4 fl (35.1-43.9); Red Blood Count 4.68 M/mm3 (4.2-5.4); White Blood Count 13.6 K/mm3 (4.4-11.0)
[2025-04-23 07:30] LABS: Scan Indicated on CBC? Y/N YES- FLAGS NOTED
[2025-04-23] MEDS: Lactated Ringers @ 70 MLS/HR 70 ML IV (07:30)
[2025-04-23 07:59] VITALS: BP 138/83; PULSE 72; RESP 16; TEMP 36.6; O2SAT 100
--- NOTE | 2025-04-23 09:15 | PCM.OPRPT ---
Multi Select Codes Urinary/Genital Urinary/Genital CPT Codes: 69486 [facility] Operative Report (Standard) Operative Information Date of Procedure: 04/22/25 Pre-Operative Diagnosis: AUB fibroids anemia Post-Operative Diagnosis: same Surgery/Procedure Performed: Total abdominal hysterectomy bilateral salpingectomy movie writer: Yes Electronic Warfare Linguist: Sandra Torres Tasks completed by prosthetics assistant: Opening & closing, Dissecting tissue, Removing tissue, Altering tissue, Hemostasis: Clamp, Hemostasis: Tie, Hemostasis: Electrocautery and Retracting Type of Anesthesia: General RN Documented Start/Stop Times: Operation Date: 04/22/25 08:45 Case Time Into Pre-Op 04/22/25 07:03 Out of Pre-Op 04/22/25 08:46 Anesthesia Start 04/22/25 08:50 Into Room 04/22/25 08:50 Procedure Start 04/22/25 09:16 Procedure End 04/22/25 11:10 Anesthesia End 04/22/25 11:19 Out of Room 04/22/25 11:19 Into Recovery 04/22/25 11:21 Into Phase II Recovery 04/22/25 13:25 Out of Recovery 04/22/25 13:25 Out of Phase II 04/22/25 14:46 Procedure Start Time: 09:16 Procedure Stop Time: 11:10 Select all DRAINS/GRAFTS/IMPLANTS that apply: Drains (glover) Drain details: clear urine at end of procedure Estimated Blood Loss: 300 Specimen collected: Yes Description of specimen(s) removed: uterus tubes Description of surgery: The patient was taken to the operating room and placed under general anesthesia in the dorsal supine position. She was prepped and draped in the normal sterile fashion. Glover catheter was placed in the bladder SCDs were on and preoperative antibiotics were given. A vertical skin incision was made with the scalpel and carried through the underlying layer of the fascia with the scalpel, fascia was nicked in the midline, incision extended superoirly and inferiorly. Rectus bellies were dissected off to the right bluntly and peritoneum entered digitally, incision stretched laterally and the retractor was placed after the bowel was packed away. The uterus was identified and noted to be significantly enlarged approximately 26 cm. The ovaries were noted to be within normal limits. The fallopian tubes were elevated bilaterally and the mesosalpinx transected with the ligasure and cut. The round ligaments were transected bilaterally with the ligasure and cut and the broad ligament was opened up and the utero-ovarian ligament vessels were double clamped cut and suture ligated with 0 Monocryl. The bladder flap was created taking down the vesicouterine peritoneum and the uterine vessels, cardinal ligaments, and remaining uterine vessels were skeletonized and either transected with the ligasure or clamped cut and suture ligated with 0 Monocryl bilaterally. Good attention was paid to keep the bladder inferior to the clamps and dissected off of the cervix and lower uterine corpus. The clamps were then placed underneath the cervix bilaterally the uterus amputated off of the vaginal stump. this was inspected and part of the cervix laterally was supected to still possibly be intact. the clamps were removd but no further removal of the area was possible due to concern for ijury or bleeding in the surrounding area. the vaginal cuff was suture ligated with 0 vicryl [id number] sutures . Excellent hemostasis was noted with some raw appearance which was covered with hemoblast. all instruments were removed from the abdomen and the peritoneum was closed with 3-0 Monocryl, fascia closed with 0 PDS, subcutaneous tissue reapproximated with 3-0 Monocryl and the skin closed with 4-0 Monocryl. Patient was awoken and taken recovery in stable condition. Surgical Findings: enlarged 26 cm uterus over 2000 grams Complications Complications: No
--- NOTE | 2025-04-23 09:19 | DCINST_ITS ---
Discharge Instructions DC O2, CPAP, BIPAP needs Home O2 Discharge instructions: No Dressing / Incision Discharge Activity: Return to Normal Activity, May Not Drive (while taking narcotic pain medications.) and May Shower May resume sexual activity in: 6-8 weeks Weight Bearing Status: Weight bearing as tolerated Dressing / Incision Call your doctor if your incision/area has: Continuous Slow Oozing, Sudden Increased Bleeding, Increased Pain/ Swelling, Increased Redness and Foul Smelling Discharge Call your doctor if you observe: Fever of 101 or Higher, Inability to urinate, Inability to have a bowel movement and Using more than 1 pad per hour Follow Up Care Please Follow Up With: Dione Arreola MD Test Results: Test results from this visit will be discussed in further detail at your follow- up appointment, if applicable. Discharge Plan Admission Admit Date/Time: 04/22/25 06:58 Attending Provider: Dione Arreola Primary Care Provider: Yadira Arita Discharge Orders/Prescriptions Prescriptions: New oxycodone-acetaminophen [Percocet] 5-325 mg tablet 1 tab PO Q4H PRN (Reason: pain) 7 Days Qty: 20 0RF naproxen 500 mg tablet 500 mg PO BID PRN PRN (Reason: Pain) Qty: 30 1RF No Action losartan 25 mg tablet 25 mg PO QDAY ferrous sulfate [iron] 325 mg (65 mg iron) tablet 325 mg PO BID norethindrone acetate 5 mg tablet 5 mg PO .COMPLEX Qty: 60 2RF Rx Instructions: 5 mg PO tid until bleeding stops X 24 hr then bid to finish Rx Referrals / Follow Up: Kathleen Dumas DO [Non-Staff, Internal Medicine] Disposition Disposition (needs filled in before D/C Order can be placed): Home, Self Care
--- NOTE | 2025-04-23 09:22 | PCM.PN.OB ---
Subjective Subjective Patient doing well without complaints. Tolerating PO. Ambulating without difficulty. Denies chest pain, shortness of breath, calf pain/swelling, fevers, chills, lightheadedness. Objective Data Objective Data Vital Signs: Vital Signs Temp Pulse Resp BP Pulse Ox O2 Del Method O2 Flow Rate 97.9 F 72 16 138/83 H 100 Room Air 4 04/23/25 07:59 04/23/25 07:59 04/23/25 07:59 04/23/25 07:59 04/23/25 07:59 04/23/25 07:59 04/22/25 13:00 Oxygen Flow Rate (L/min) 4 Oxygen Delivery Method Room Air Weight: 284 lb Body Mass Index (BMI) 45.8 Intake & Output: Intake and Output for Last 24 Hours 04/21/25 04/22/25 04/23/25 23:59 23:59 23:59 Intake Total 202 / 202 2336 / 2336 Output Total 1540 / 1690 150 / 150 Balance -1338 / -1488 2186 / 2186 Lab / Micro Data 04/23/25 06:18 04/15/25 08:03 Labs: Laboratory Results - last 24 hr 04/23/25 06:18: WBC 13.6 H, RBC 4.68, Hgb 11.4 L, Hct 37.0, MCV 79.1 L, MCH 24.4 L, MCHC 30.8 L, RDW Std Deviation 61.4 H, RDW Coeff of George 21.8 H, Plt Count 247, MPV 11.3 ROS Constitutional Constitutional: Reports systems reviewed and no addt'l complaints, except as documented Cardiovascular Cardiovascular: Reports systems reviewed and no addt'l complaints, except as documented Respiratory/Chest Respiratory/Chest: Reports systems reviewed and no addt'l complaints, except as documented Gastrointestinal Gastrointestinal: Reports systems reviewed and no addt'l complaints, except as documented Physical Exam Const alert, oriented x3 and no apparent distress HEENT Head and Scalp: atraumatic Resp normal respiratory effort GI soft to palpation and non-tender Assessment & Plan (1) Uterine fibroid: COMMENT: 12cm:plan LINDY per SM with JV asst (2) S/P LINDY (total abdominal hysterectomy): (3) Status post bilateral salpingectomy: PLAN: Plan patient is s/p lindy POD 1 1. routine ERAS protocol postop care- increase ambulation, encourage oral intake and oral control of pain. lovenox and scds for dvt prophylaxis, patient stable for discharge to home.
--- NOTE | 2025-04-23 11:24 | PHA.DC.MC.R ---
Pharmacy [place] Med Rec Counseling Pharmacy Service has performed discharge medication reconciliation and counseling for this patient. Patient requested meds to beds, this [facility] called retail and requested delivery. 1. NAPROXEN 500MG PO BID PRN PAIN 2. PERCOCET 5/325MG PO Q4H PRN PAIN The patient's discharge medication list was reviewed for discrepancies and discrepancies were resolved. The patient was counseled on the following discharge medications and changes in medications for homegoing were reviewed. The Reason for Use, instructions for use, and potential side effects were reviewed for all new medications. The patient's questions regarding all of their medications were answered. The patient was able to verbally demonstrate an understanding of their discharge medications. Medications at Discharge Home Medications losartan 25 mg tablet 25 mg PO QDAY htn 12/19/24 norethindrone acetate 5 mg tablet 5 mg PO .COMPLEX BLEEDING #60 tabs 03/19/25 ferrous sulfate 325 mg (65 mg iron) tablet (iron) 325 mg PO BID SUPPLEMENT 04/11/25 naproxen 500 mg tablet 500 mg PO BID PRN PRN Pain #30 tabs 04/23/25 oxycodone-acetaminophen 5 mg-325 mg tablet (Percocet) 1 tab PO Q4H PRN pain 7 days #20 tabs 04/23/25
[2025-04-23 11:48] VITALS: BP 122/76; PULSE 77; RESP 16; TEMP 36.6; O2SAT 100
[2025-04-23 13:13] VITALS: BP 148/82; PULSE 72; RESP 16; TEMP 36.4; O2SAT 100
--- OUTSIDE RECORDS SUMMARY | 2025-04-23 16:45 | XMS RPT_ITS | CCD ---
Author Organization [facility] Care Team Providers Care Gum Rolling Machine Tender Name Role Phone Snowshoe, Ingris Unavailable Unavailable Snowshoe, Ingris Unavailable Unavailable Trace Varma Unavailable Unavaila ble Automatic Car Wash AttendantTrace hernandez Unavailable Unavaila ble Snowshoe, Ingris October Admitting Unavailab le Snowshoe, Ingris October Attending Unavailab le Snowshoe, Ingris October Primary Care Unavailab le HARPSTER, INGRIS OCTOBER Admitting Unavailab le HARPSTER, INGRIS OCTOBER Primary Care Unavailab TRACE Sanchez Attending Unavaila ble HARPSTER, INGRIS OCTOBER Primary Care Unavailab le Snowshoe, Ingris J Unavailable Unavailable Melanie Dumas DO Primary Care Provider Melanie Dumas Unavailable [phone] Unavailable Unavailable Melanie Dumas DO Primary Care Provider [phone] Piter, Dr. Melanie Mi Primary Care Unava [...] Melanie Mi Referring Unava ilable Oberhauser, Dr. Melanie Mi Primary Care Unava ilable Oberhauser, Dr. [...] Physician Maxwell SAWYER, Dr. Parham Referring Provider ERIN HUNGN Admitting Unavailable SUE MELANIE Attending [...] Primary Care Unavailable Dione Arreola Attending Unavailable Nursi Rubio Attending Unavailable Dione Arreola Attending Unavailable Oberhauser, Melanie Primary Care Unavailable ObErin clementn Referring Unavailable Dione Arreola Attending Unavailable Maxwell, Dione Referring Unavailable MarcanthonyDinoe Admitting Unavailable Longsdorf, Yadira Primary Care Unavailable [...] Prophylaxis docusate sodium 50 mg / sennosides, custodial 8.6 mg oral tablet (3 sources) End: [...] Absolute Lymph 2.91 X10 3/uL Normal 0.83-4.51 [facility] Comment on above: Performed By: #### L 100.0100 #### [facility] [address] [place], [place], [id number] (716) Absolute Neut 3.0 X10 3/uL Normal 2.0-7.7 [facility] Comment on above: Performed By: #### L 100.0100 #### [facility] [address] [place], [address] Basophils/100 WBC (Bld) 0.6 % Normal 0-1 [facility] Comment on above: Performed By: #### L 100.0100 #### [facility] [address] [place], [address] Eosinophils/100 WBC (Bld) 1.8 % Normal 0-5 [facility] Comment on above: Performed By: #### L 100.0100 #### [facility] [address] [place], [address] Erythrocyte distribution width (RBC) [Ratio] 21.4 % High 11.6-14.6 [facility] Comment on above: Performed By: #### L 100.0100 #### [facility] [address] [place], [address] Hematocrit (Bld) [Volume fraction] 36.2 % Low 37-47 [facility] Comment on above: Performed By: #### L 100.0100 #### [facility] [address] [place], [address] Hemoglobin (Bld) [Mass/Vol] 11.3 g/dL Low 12.0-15.0 [facility] Comment on above: Performed By: #### L 100.0100 #### [facility] [address] [place], [address] IG% 0.200 Normal 0.0-0.9 [facility] Comment on above: Result Comment: IG% - Immature Granulocytes (promyelocytes, myelocytes and metamyelocytes) > 1% indicates that a LEFT SHIFT is Present. Performed By: #### L 100.0100 #### [facility] [address] [place], [address] Lymphocytes/100 WBC (Bld) 43.7 % High 19-41 [facility] Comment on above: Performed By: #### L 100.0100 #### [facility] [address] [place], [address] MCH (RBC) [Entitic mass] 23.2 pg Low 27.0-32.0 [facility] Comment on above: Performed By: #### L 100.0100 #### [facility] [address] [place], [address] MCHC (RBC) [Mass/Vol] 31.2 g/dL Low 32-36 [facility] Comment on above: Performed By: #### L 100.0100 #### [facility] [address] [place], [address] MCV (RBC) [Entitic vol] 74.2 fL Low 81-99 [facility] Comment on above: Performed By: #### L 100.0100 #### [facility] [address] [place], [address] Monocytes/100 WBC (Bld) 8.3 % Normal 0-10 [facility] Comment on above: Performed By: #### L 100.0100 #### [facility] [address] [place], [address] Neutrophils/100 WBC (Bld) 45.4 % Low 47-70 [facility] Comment on above: Performed By: #### L 100.0100 #### [facility] [address] [place], [address] Nucleated RBC (Bld) [#/Vol] 0 10*3/uL Normal 0-5 [facility] Comment on above: Performed By: #### L 100.0100 #### [facility] [address] [place], [address] Platelet mean volume (Bld) [Entitic vol] 10.4 fL Normal 6.2-12.0 [facility] Comment on above: Performed By: #### L 100.0100 #### [facility] [address] [place], [address] Platelets (Bld) [#/Vol] 340 10*3/uL Normal 150-450 [facility] Comment on above: Performed By: #### L 100.0100 #### [facility] [address] [place], [address] RBC (Bld) [#/Vol] 4.88 10*6/uL Normal 4.2-5.4 [facility] Comment on above: Performed By: #### L 100.0100 #### [facility] [address] [place], [address] RDW SD 55.8 fl High 35.1-43.9 [facility] Comment on above: Performed By: #### L 100.0100 #### [facility] [address] [place], [address] WBC (Bld) [#/Vol] 6.7 10*3/uL Normal 4.4-11.0 [facility] Comment on above: Performed By: #### L 100.0100 #### [facility] [address] [place], [address] Surgical pathology reportOrd ered By: Ingris Jamison on 03-03-2025 Surgical pathology study [facility] PAP IG HPV APTIMA 16/18,45on 02-28-2025 ADEQ Comment Normal . [facility] Comment on above: Order Comment: Speci men Comment: [id number] Specimen Comment: No. of containers..01 ThinPrep Vial Result Comment: Sati sfactory for evaluation. Endocervical and/or squamous metaplastic cells (endocervical component) are present. Performed By: #### L 7400.0280 #### [facility] [address] [place], [address] COMM . Normal . [facility] Comment on above: Order Comment: Speci men Comment: [id number] Specimen Comment: No. of containers..01 ThinPrep Vial Performed By: #### L 7400.0280 #### [facility] [address] [place], [place], [address] COMMENT Comment Normal . [facility] Comment on above: Order Comment: Speci men Comment: [id number] Specimen Comment: No. of containers..01 ThinPrep Vial Result Comment: This liquid based ThinPrep(R) pap test was screened with the use of an image guided system. Performed By: #### L 7400.0280 #### [facility] [address] [place], [address] DIAG Comment Normal . [facility] Comment on above: Order Comment: Speci men Comment: [id number] Specimen Comment: No. of containers..01 ThinPrep Vial Result Comment: NEGA TIVE FOR INTRAEPITHELIAL LESION OR MALIGNANCY. Performed By: #### L 7400.0280 #### [facility] [address] [place], [address] HPV APTIMA, HR Negative Normal Negative [facility] Comment on above: Order Comment: Speci men Comment: [id number] Specimen Comment: No. of containers..01 ThinPrep Vial Result Comment: This nucleic acid amplification test detects fourteen high- risk HPV types (16,18,31,33,35,39,45,51,52,56,58,59,66,68) without differentiation. Performed By: #### L 7400.0280 #### [facility] [address] [place], [address] HPV Lianet Rfx Comment Normal . [facility] Comment on above: Order Comment: Speci men Comment: [id number] Specimen Comment: No. of containers..01 ThinPrep Vial Result Comment: Crit eria not met, HPV Genotype not performed. Performed at: [facility] [address], [place], [place] [id number] Chain Puller: Ronny Kessler MD, Phone: [phone] Performed at: - [facility] [id number] Chain Puller: Millie Freedman MD, Phone: [phone] Performed at: = - [facility] [address], [place] [id number] Chain Puller: Millie Freedman MD, Phone: [phone] Performed By: #### L 7400.0280 #### [facility] [address] [place], [place], [address] PAPSMR Comment Normal . [facility] Comment on above: Order Comment: Speci men Comment: [id number] Specimen Comment: No. of containers..01 ThinPrep Vial Result Comment: The Pap smear is a screening test designed to aid in the detection of premalignant and malignant conditions of the uterine cervix. It is not a diagnostic procedure and should not be used as the sole means of detecting cervical cancer. Both false-positive and false-negative reports do occur. Performed By: #### L 7400.0280 #### [facility] [address] [place], [place], [address] PERFORM Comment Normal . [facility] Comment on above: Order Comment: Speci men Comment: [id number] Specimen Comment: No. of containers..01 ThinPrep Vial Result Comment: Gilda Santos Shipping Hand (ASCP) Performed By: #### L 7400.0280 #### [facility] [address] [place], [place], [address] Absolute lymphocyte countOrd ered By: Dione Arreola on 02-24-2025 Lymphocytes Auto (Unsp spec) [#/Vol] 2.62 10*3/uL 0.83-4.51 [facility] Absolute neutrophil countOrd ered By: Dione Arreola on 02-24-2025 Neutrophils (Bld) [#/Vol] 4.9 10*3/uL 2.0-7.7 [facility] Automated lymphocyte count a s percentage of total leukocytesOrdered By: Dione Arreola on 02-24-2025 Lymphocytes/100 WBC Auto (Unsp spec) 31.3 % 19-41 [facility] Basophil percentageOrdered B y: Dione Arreola on 02-24-2025 Basophils/100 WBC (Bld) 0.5 % 0-1 [facility] CBC W/Diff, [place] Absolute Lymph 2.62 X10 3/uL Normal 0.83-4.51 [facility] Comment on above: Performed By: #### L 501.9520, L100.0100 #### [facility] [address] [place], [address] Absolute Neut 4.9 X10 3/uL Normal 2.0-7.7 [facility] Comment on above: Performed By: #### L 501.9520, L100.0100 #### [facility] [address] [place], [address] Basophils/100 WBC (Bld) 0.5 % Normal 0-1 [facility] Comment on above: Performed By: #### L 501.9520, L100.0100 #### [facility] [address] [place], [address] Eosinophils/100 WBC (Bld) 1.1 % Normal 0-5 [facility] Comment on above: Performed By: #### L 501.9520, L100.0100 #### [facility] [address] [place], [address] Erythrocyte distribution width (RBC) [Ratio] 17.8 % High 11.6-14.6 [facility] Comment on above: Performed By: #### L 501.9520, L100.0100 #### [facility] [address] [place], [address] Hematocrit (Bld) [Volume fraction] 32.0 % Low 37-47 [facility] Comment on above: Performed By: #### L 501.9520, L100.0100 #### [facility] [address] [place], [address] Hemoglobin (Bld) [Mass/Vol] 9.6 g/dL Low 12.0-15.0 [facility] Comment on above: Performed By: #### L 501.9520, L100.0100 #### [facility] [address] [place], [address] IG% 0.500 Normal 0.0-0.9 [facility] Comment on above: Result Comment: IG% - Immature Granulocytes (promyelocytes, myelocytes and metamyelocytes) > 1% indicates that a LEFT SHIFT is Present. Performed By: #### L 501.9520, L100.0100 #### [facility] [address] [place], [address] Lymphocytes/100 WBC (Bld) 31.3 % Normal 19-41 [facility] Comment on above: Performed By: #### L 501.9520, L100.0100 #### [facility] [address] [place], [address] MCH (RBC) [Entitic mass] 21.7 pg Low 27.0-32.0 [facility] Comment on above: Performed By: #### L 501.9520, L100.0100 #### [facility] [address] [place], [address] MCHC (RBC) [Mass/Vol] 30.0 g/dL Low 32-36 [facility] Comment on above: Performed By: #### L 501.9520, L100.0100 #### [facility] [address] [place], [address] MCV (RBC) [Entitic vol] 72.2 fL Low 81-99 [facility] Comment on above: Performed By: #### L 501.9520, L100.0100 #### [facility] [address] [place], [address] Monocytes/100 WBC (Bld) 8.3 % Normal 0-10 [facility] Comment on above: Performed By: #### L 501.9519, L100.0100 #### [facility] [address] [place], [address] Neutrophils/100 WBC (Bld) 58.3 % Normal 47-70 [facility] Comment on above: Performed By: #### L 501.9519, L100.0100 #### [facility] [address] [place], [address] Nucleated RBC (Bld) [#/Vol] 0 10*3/uL Normal 0-5 [facility] Comment on above: Performed By: #### L 501.9519, L100.0100 #### [facility] [address] [place], [address] Platelet mean volume (Bld) [Entitic vol] 10.9 fL Normal 6.2-12.0 [facility] Comment on above: Performed By: #### L 501.9519, L100.0100 #### [facility] [address] [place], [address] Platelets (Bld) [#/Vol] 321 10*3/uL Normal 150-450 [facility] Comment on above: Performed By: #### L 501.9519, L100.0100 #### [facility] [address] [place], [address] RBC (Bld) [#/Vol] 4.43 10*6/uL Normal 4.2-5.4 [facility] Comment on above: Performed By: #### L 501.9519, L100.0100 #### [facility] [address] [place], [address] RDW SD 46.7 fl High 35.1-43.9 [facility] Comment on above: Performed By: #### L 501.9520, L100.0100 #### [facility] [address] [place], [address] WBC (Bld) [#/Vol] 8.4 10*3/uL Normal 4.4-11.0 [facility] Comment on above: Performed By: #### L 501.9520, L100.0100 #### [facility] [address] [place], [address] Cervical or vaginal specimen microscopic examination by liquid based cytology (reportOrdered By: Dione Arreola on 02-24-2025 Cytology report Cyto stain.thin prep Doc (Cvx/Vag) Comment . [facility] Comment on above: Criteria not met, HP V Genotype not performed.Performed at: [facility] [place], [place] [id number] Director: Ronny Kessler MD, Phone: [phone] at: [address] [id number] Director: Millie Freedman MD, Phone: [phone] at: =[address] [id number] Director: Millie Freedman MD, Phone: [phone] Cervical or vagninal specime n microscopic examination by cytology stain (reported asOrdered By: Doine Arreola on 02-24-2025 Cytology report Cyto stain Doc (Cvx/Vag) Comment . [facility] Comment on above: The Pap smear is [...] DNA Probe+sig amp Ql (Cvx) Negative Negative [facility] Comment on above: This nucleic acid am plification test detects fourteen high- risk HPV types (16,18,31,33,35,39,45,51,52,56,58,59,66,68)without differentiation. Eosinophil percentageOrdered By: Dione Arreola on 02-24-2025 Eosinophils/100 WBC (Bld) 1.1 % 0-5 [facility] Erythrocyte distribution wid th ratioOrdered By: Dione Arreola on 02-24-2025 Erythrocyte distribution width (RBC) [Ratio] 17.8 % High 11.6-14.6 [facility] Erythrocyte distribution wid th standard deviationOrdered By: Dione Arreola on 02-24-2025 Erythrocyte distribution width (RBC) [Ratio] 46.7 fl High 35.1-43.9 [facility] Hematocrit Auto (Bld) [Volum e fraction]Ordered By: Dione Arreola on 02-24-2025 Hematocrit (Bld) [Volume fraction] 32.0 % Low 37-47 [facility] Hemoglobin measurementOrdere d By: Dione Arreola on 02-24-2025 Hemoglobin (Bld) [Mass/Vol] 9.6 g/dL Low 12.0-15.0 [facility] Immature granulocytes/100 WB C Auto (Bld)Ordered By: Dione Arreola on 02-24-2025 Immature granulocytes/100 WBC (Bld) 0.500 % 0.0-0.9 [facility] Comment on above: IG% - Immature Granu locytes (promyelocytes, myelocytes and metamyelocytes) > 1% indicates that a LEFT SHIFT is Present. Laboratory - CytologyOrdered By: Dione Arreola on 02-24-2025 Shipping Hand Cyto stain Nom (Cvx/Vag) [ID] Comment . [facility] Comment on above: Doris Santos Cyt ologist (ASCP) Laboratory - Miscellaneous t estsOrdered By: Dione Arreola on 02-24-2025 Service comment (Unsp spec) [Interp] . . [facility] MCV (mean corpuscular volume ) determinationOrdered By: Dione Arreola on 02-24-2025 MCV (RBC) [Entitic vol] 72.2 fL Low 81-99 [facility] Mean corpuscular hemoglobin (MCH) determinationOrdered By: Dione Arreola on 02-24-2025 MCH (RBC) [Entitic mass] 21.7 pg Low 27.0-32.0 [facility] Mean corpuscular hemoglobin concentration (MCHC) determinationOrdered By: Dione Arreola on 02-24-2025 MCHC (RBC) [Mass/Vol] 30.0 g/dL Low 32-36 [facility] Mean platelet volume determi nationOrdered By: Dione Arreola on 02-24-2025 Platelet mean volume (Bld) [Entitic vol] 10.9 fL 6.2-12.0 [facility] Monocyte percentageOrdered B y: Dione Arreola on 02-24-2025 Monocytes/100 WBC (Bld) 8.3 % 0-10 [facility] Neutrophil percentageOrdered By: Dione Arreola on 02-24-2025 Neutrophils/100 WBC (Bld) 58.3 % 47-70 [facility] No Panel InformationOrdered By: Dione Arreola on 02-24-2025 Pap Smear Specimen Adequacy Comment . [facility] Comment on above: Satisfactory for kd luation. Endocervical and/or squamous metaplasticcells (endocervical component) are present. Nucleated red blood cell per centageOrdered By: Dione Arreola on 02-24-2025 Nucleated RBC/100 WBC (Bld) [Ratio] 0 % 0-5 [facility] Passport Application Examiner Office Visit Reporton 02-24-2025 Passport Application Examiner Office Visit Report [facility] [address], [address] [place] [address] OFFICE VISIT Date of Service: 02/24/25 MR#: [id number] Acct: [id number] Name: ANURAG VALENCIA Rep #: [id number] : 1985 Provider: Dr. Dione diaz MD Age/Sex: 39/F Location: [facility] Status: Signed Intake Vital Signs 12/19/24 08:28 02/24/25 08:20 02/24/25 08:22 Height 5 ft 6 in 5 ft 6 in 5 ft 6 in Weight: 264 lb 2 oz 278 lb 9 oz BMI 42.6 44.9 BP 123/84 H 155/88 H Intake Visit Reasons: consult for TAHBS keep 20 minutes Emergency Technician Required: No Is patient in pain?: No [...] physical activity do you participate in: none torey/temple: None seatbelt use: always do you feel safe at home: Yes additional social history: - Max. rn transitional care [facility] consult for TAHBS keep 20 minutes Details: [...] discharge Neuro (more content not included)... Normal [facility] Platelet countOrdered By: Gerardo Arreola on 02-24-2025 Platelets (Bld) [#/Vol] 321 10*3/uL 150-450 [facility] RBC Auto (Bld) [#/Vol]Mook tellez By: Dione Arreola on 02-24-2025 RBC (Bld) [#/Vol] 4.43 10*6/uL 4.2-5.4 [facility] Surgery Specimen Level Liam 02-24-2025 Surgery Specimen Level IV Patient Age/Sex Location Account Attending Physician ANURAG VALENCIA 39/F [facility] [id number] Dr. Dione Arreola MD Specimen: [id number] Received: 02/24/25 Status: NICOLAS Phillips Num: [id number] Spec Type: JOSE BX/C [place] Dr: Dr. [...] red tissue fragments. Submitted in 1 cassette. AL 02/24/2025 CPT:80185 Patient Age/Sex Location Account Attending Physician ANURAG VALENCIA 39/F [facility] [id number] Dr. Dione Arreola MD Signed (signature on file) Dr. Ingris Jamison MD 03/03/25 1136 Normal [facility] Comment on above: Performed By: #### P SUIV #### [facility] [address] [facility] [place], [address] TSH DL <= 0.005 mIU/L QnOrde red By: Dione Arreola on 02-24-2025 TSH Qn 3.060 uIU/mL 0.300-4.200 [facility] Thyroid Stim Hormone (TSH)on 02-24-2025 TSH 3.060 uIU/mL Normal 0.300-4.200 [facility] Comment on above: Performed By: #### L 501.9520, L100.0100 #### [facility] [address] [place], [place], [address] White blood cell (WBC) count Ordered By: Dione Arreola on 02-24-2025 WBC (Bld) [#/Vol] 8.4 10*3/uL 4.4-11.0 [facility] CBC (INCLUDES DIFF/PLT)on Basophils (Bld) [#/Vol] 0.053 10*3/uL Normal 0-200 [facility] Comment on above: Performed By: #### 6 399, [address], 7600, 79396 #### [facility] [address] , [address] [place] [id number] Varnish Mixer: Rodri Latham MD Basophils/100 WBC (Bld) 0.7 % Normal [facility] Comment on above: Performed By: #### 6 399, 526[address], 4840, 33263 #### [facility] [address] , [address] [place] [id number] Varnish Mixer: Rodri Latham MD Eosinophils (Bld) [#/Vol] 0.152 10*3/uL Normal 15-500 [facility] Comment on above: Performed By: #### 6 399, 96135, 7600, 29990 #### [facility] [place] [address] Varnish Mixer: Rodri Latham MD Eosinophils/100 WBC (Bld) 2.0 % Normal [facility] Comment on above: Performed By: #### 6 399, 05581, 7600, 37096 #### [facility] [place] [address] Varnish Mixer: Rodri Latham MD Erythrocyte distribution width (RBC) [Ratio] 17.5 % High 11.0-15.0 [facility] Comment on above: Performed By: #### 6 399, 20326, 7600, 97899 #### [facility] [place] [address] Varnish Mixer: Rodri Latham MD Hematocrit (Bld) [Volume fraction] 36.2 % Normal 35.0-45.0 [facility] Comment on above: Performed By: #### 6 399, 69479, 7600, 30159 #### [facility] [place] [address] Varnish Mixer: Rodri Latham MD Hemoglobin (Bld) [Mass/Vol] 10.0 g/dL Low 11.7-15.5 [facility] Comment on above: Performed By: #### 6 399, 84064, 7600, 23506 #### [facility] [place] [address] Varnish Mixer: Rodri Latham MD Lymphocytes (Bld) [#/Vol] 2.219 10*3/uL Normal 850-3900 [facility] Comment on above: Performed By: #### 6 399, 44126, 7600, 49142 #### [facility] [place] [address] Varnish Mixer: Rodri Latham MD Lymphocytes/100 WBC (Bld) 29.2 % Normal [facility] Comment on above: Performed By: #### 6 399, 99634, 7600, 96385 #### [facility] [place] [address] Varnish Mixer: Rodri Latham MD MCH (RBC) [Entitic mass] 21.6 pg Low 27.0-33.0 [facility] Comment on above: Performed By: #### 6 399, 65873, 7600, 93890 #### [facility] [place] [address] Varnish Mixer: Rodri Latham MD MCHC (RBC) [Mass/Vol] 27.6 [...] clinical condition. Performed By: #### 6 399, 13859, 7600, 87106 #### [facility] [place] [address] Varnish Mixer: Rodri Latham MD MCV (RBC) [Entitic vol] 78.4 fL Low 80.0-100.0 [facility] Comment on above: Performed By: #### 6 399, 66088, 7600, 24146 #### [facility] [place] [address] Varnish Mixer: Rodri Latham MD Monocytes (Bld) [#/Vol] 0.502 10*3/uL Normal 200-950 [facility] Comment on above: Performed By: #### 6 399, 83685, 7600, 30920 #### [facility] [place] [address] Varnish Mixer: Rodri Latham MD Monocytes/100 WBC (Bld) 6.6 % Normal [facility] Comment on above: Performed By: #### 6 399, 76709, 7600, 63326 #### [facility] [place] [address] Varnish Mixer: Rodri Latham MD Neutrophils (Bld) [#/Vol] 4.674 10*3/uL Normal 3921-5935 [facility] Comment on above: Performed By: #### 6 399, 45557, 7600, 71465 #### [facility] [place] [address] Varnish Mixer: Rodri Latham MD Neutrophils/100 WBC (Bld) 61.5 % Normal [facility] Comment on above: Performed By: #### 6 399, 80717, 7600, 97885 #### [facility] [place] [address] Varnish Mixer: Rodri Latham MD Platelet mean volume (Bld) [Entitic vol] 10.8 fL Normal 7.5-12.5 [facility] Comment on above: Performed By: #### 6 399, 20453, 7600, 03765 #### [facility] [place] [address] Varnish Mixer: Rodri Latham MD Platelets (Bld) [#/Vol] 339 10*3/uL Normal 140-400 [facility] Comment on above: Performed By: #### 6 399, 48003, 7600, 14426 #### [facility] [place] [address] Varnish Mixer: Rodri Latham MD RBC (Bld) [#/Vol] 4.62 10*6/uL Normal 3.80-5.10 [facility] Comment on above: Performed By: #### 6 399, 99024, 7600, 90806 #### [facility] [place] [address] Varnish Mixer: Rodri Latham MD WBC (Bld) [#/Vol] 7.6 10*3/uL Normal 3.8-10.8 [facility] Comment on above: Performed By: #### 6 399, 82326, 7600, 15108 #### [facility] [place] [address] Varnish Mixer: Rodri Latham MD COMPREHENSIVE METABOLIC PANE L W/ANION GAPon 01-30-2025 Albumin [Mass/Vol] 4.0 g/dL Normal 3.6-5.1 [facility] Comment on above: Performed By: #### 6 399, 65715, 7600, 16057 #### [facility] of [address], [address] [place] [address] Varnish Mixer: Rodri Latham MD ALP [Catalytic activity/Vol] 57 U/L Normal 31-125 [facility] Comment on above: Performed By: #### 6 399, 85169, 7600, 62014 #### [facility] of [address], [address] [place] [address] Varnish Mixer: Rodri Latham MD ALT [Catalytic activity/Vol] 13 U/L Normal 6-29 [facility] Comment on above: Performed By: #### 6 399, 48807, 7600, 10369 #### [facility] of [place] [address] Varnish Mixer: Rodri Latham MD AST [Catalytic activity/Vol] 15 U/L Normal 10-30 [facility] Comment on above: Performed By: #### 6 399, 69382, 7600, 77791 #### [facility] of [place] [address] Varnish Mixer: Rodri Latham MD Bilirubin [Mass/Vol] 0.5 mg/dL Normal 0.2-1.2 [facility] Comment on above: Performed By: #### 6 399, 49927, 7600, 70250 #### [facility] of [place] [address] Varnish Mixer: Rodri Latham MD Calcium [Mass/Vol] 9.1 mg/dL Normal 8.6-10.2 [facility] Comment on above: Performed By: #### 6 399, 11465, 7600, 03780 #### [facility] of [place] [address] Varnish Mixer: Rodri Latham MD Chloride [Moles/Vol] 106 mmol/L Normal 98-110 [facility] Comment on above: Performed By: #### 6 399, 09377, 7600, 65651 #### [facility] of [place] [address] Varnish Mixer: Rodri Latham MD CO2 [Moles/Vol] 25 mmol/L Normal 20-32 [facility] Comment on above: Performed By: #### 6 399, 26399, 7600, 89860 #### [facility] of [place] [address] Varnish Mixer: Rodri Latham MD Creatinine [Mass/Vol] 0.76 mg/dL Normal 0.50-0.99 [facility] Comment on above: Performed By: #### 6 399, 78511, 7600, 47789 #### [facility] [place] [address] Varnish Mixer: Rodri Latham MD ELECTROLYTE BALANCE 7 mmol/L (calc) Normal 7-17 [facility] Comment on above: Performed By: #### 6 399, 01771, 7600, 55420 #### [facility] of [place] [address] Varnish Mixer: Rodri Latham MD GFR/1.73 sq M.predicted among non-blacks MDRD (S/P/Bld) [Vol rate/Area] 101 mL/min/{1.73_m2} Normal > OR = 60 [facility] Comment on above: Performed By: #### 6 399, 83645, 7600, 92383 #### [facility] of [place] [address] Varnish Mixer: Rodri Latham MD Glucose [Mass/Vol] 79 mg/dL Normal 65-99 [facility] Comment on above: Result Comment: Fasting reference interval Performed By: #### 6 399, 32321, 7600, 74920 #### [facility] of [place] [address] Varnish Mixer: Rodri Latham MD Potassium [Moles/Vol] 4.3 mmol/L Normal 3.5-5.3 [facility] Comment on above: Performed By: #### 6 399, 64401, 7600, 53726 #### [facility] of [address], [address] [place] [address] Varnish Mixer: Rodri Latham MD Protein [Mass/Vol] 7.2 g/dL Normal 6.1-8.1 [facility] Comment on above: Performed By: #### 6 399, 98861, 7600, 63610 #### [facility] [place] [address] Varnish Mixer: Rodri Latham MD Sodium [Moles/Vol] 138 mmol/L Normal 135-146 [facility] Comment on above: Performed By: #### 6 399, 32133, 7600, 17564 #### [facility] [place] [address] Varnish Mixer: Rodri Latham MD Urea nitrogen [Mass/Vol] 9 mg/dL Normal 7-25 [facility] Comment on above: Performed By: #### 6 399, 60855, 7600, 45061 #### [facility] of [place] [address] Varnish Mixer: Rodri Latham MD LIPID PANEL, [facility] 01-20 Cholesterol [Mass/Vol] 148 mg/dL Normal <200 [facility] Comment on above: Order Comment: FASTI NG:YES FASTING: YES Performed By: #### 6 399, 81628, 7600, 55813 #### [facility] of [place] [address] Varnish Mixer: Rodri Latham MD Cholesterol in HDL [Mass/Vol] 50 mg/dL Normal > OR = 50 [facility] Comment on above: Order Comment: FASTI NG:YES FASTING: YES Performed By: #### 6 399, 50688, 7600, 43192 #### [facility] [address], [address] [place] [address] Varnish Mixer: Rodri Latham MD Cholesterol in LDL [Mass/Vol] [...] LDL-C. Luis GILBERT et al. APRYL. 2013;310(19): 4703-9401 (http://education.[employer]/faq/WGI765) Performed By: #### 6 399, 02631, 7600, 74555 #### [facility] [address], [address] [place] [address] Varnish Mixer: Rodri Latham MD Cholesterol.total/Chol esterol in HDL [Mass ratio] 3.0 {ratio} Normal <5.0 [facility] Comment on above: Order Comment: FASTI NG:YES FASTING: YES Performed By: #### 6 399, 07202, 7600, 29339 #### [facility] [address], [address] [place] [address] Varnish Mixer: Rodri Latham MD NON HDL CHOLESTEROL 98 mg/dL (calc) Normal <130 [facility] Comment on above: Order Comment: FASTI NG:YES FASTING: YES Result Comment: For patients with diabetes plus 1 major ASCVD risk factor, treating to a non-HDL-C goal of <100 mg/dL (LDL-C of <70 mg/dL) is considered a therapeutic option. Performed By: #### 6 399, 75051, 7600, 77578 #### [facility] [address], [address] [place] [address] Varnish Mixer: Rodri Latham MD Triglyceride [Mass/Vol] 118 mg/dL Normal <150 [facility] Comment on above: Order Comment: FASTI NG:YES FASTING: YES Performed By: #### 6 399, 79850, 7600, 55935 #### [facility] [address], [address] [place] [address] Varnish Mixer: Rodri Latham MD TSH W/REFLEX TO FT4on 2024 TSH W/REFLEX TO FT4 2.68 mIU/L Normal [facility] Comment on above: Result Comment: Refe rence Range > or = 20 Years 0.40-4.50 Ranges First trimester 0.26-2.66 Second trimester 0.55-2.73 Third trimester 0.43-2.91 Performed By: #### 6 399, 14682, 7600, 77902 #### [facility] [address], [address] [place] [address] Varnish Mixer: Rodri Latham MD BI MAMMO BILATERAL SCREENING TOMOSYNTHESISon 01-29-2025 BI MAMMO BILATERAL SCREENING TOMOSYNTHESIS Interpreted By: Jacoby Das, STUDY: BI MAMMO BILATERAL SCREENING TOMOSYNTHESIS; 01/29/2025 7:51 am ACCESSION NUMBER(S): [id number] ORDERING CLINICIAN: YADIRA ARENAS INDICATION: Screening. COMPARISON: [...] Jacoby Das 01/29/2025 9:50 AM Dictation workstation: [id number] [facility] DBT Breast - bilateralon No mammographic evid ence of malignancy. BI-RADS CATEGORY: BI-RADS Category: 1 Negative. Recommendation: Annual Screening. Recommended Date: 1 Year. Laterality: Bilateral. MACRO: None Signed by: Jacoby Das 01/29/2025 9:50 AM Dictation workstation: [id number] MMODAL Interpreted By: Jacoby Sesay, STUDY: BI MAMMO BILATERAL SCREENING TOMOSYNTHESIS; 01/29/2025 7:51 am ACCESSION NUMBER(S): [id number] ORDERING CLINICIAN: YADIRA ARENAS INDICATION: Screening. COMPARISON: [...] study was interpreted with CAD. MMODAL Jacoby Dsa MD - 01/29/2025 Interpreted By: Jacoby Das, STUDY: BI MAMMO BILATERAL SCREENING TOMOSYNTHESIS; 01/29/2025 7:51 am ACCESSION NUMBER(S): [id number] ORDERING CLINICIAN: YADIRA ARENAS INDICATION: Screening. COMPARISON: [...] Jacoby Das 01/29/2025 9:50 AM Dictation workstation: [id number] [facility] Work Phone: Radiology Study observation (narrative) [facility] Work Phone: DBT Breast - bilateralOrdere d By: Jacoby Das on 01-29-2025 [facility] Work Phone: XR SHOULDER RIGHT 2+ VIEWSon 01-29-2025 XR SHOULDER RIGHT 2+ VIEWS Interpreted By: Shay Kirkland, STUDY: XR SHOULDER RIGHT 2+ VIEWS; 01/29/2025 7:31 am INDICATION: Signs/Symptoms:pain. ,M25.511 Pain in right shoulder,G89.29 Other chronic pain COMPARISON: None. ACCESSION NUMBER(S): [id number] ORDERING CLINICIAN: YADIRA ARENAS TECHNIQUE: Right shoulder [...] Shay Kirkland 02/01/2025 8:19 AM Dictation workstation: [id number] [facility] Pelvic w/ Transvaginalon Pelvic w/ Transvaginal [facility] Services [address] [place], [place] [address] Pelvic w/ Transvaginal MR#: [id number] Acct: [id number] Name: ANURAG VALENCIA Rep #: [id number] : 1985 F 39 From: Evert radford MD PCP: Dr. Melanie Dumas, DO Status: REG CLI Study: Pelvic w/ Transvaginal Date of Exam: 12/30/24 Exam# [id number] Ordering Dr: Nuris Rubio PROCEDURE: PELVIC W/ [...] Transvaginal IMPRESSION: Enlarged fibroid uterus. Reading Location: [place] [address] CC: JOSEY Rubio; Dr. Melanie Dumas DO Construction Flagger: Signed Normal [facility] Passport Application Examiner Office Visit Reporton 12-19-2024 Passport Application Examiner Office Visit Report [facility] [address], [address] [place] [address] OFFICE VISIT Date of Service: 12/19/24 MR#: [id number] Acct: [id number] Name: ANURAG VALENCIA Rep #: [id number] : 1985 Provider: JOSEY Hernandez Age/Sex: 39/F Location: [facility] Status: Signed Intake Vital Signs 07/31/25 08:28 Height 5 ft 6 in Weight: 264 lb 2 oz BMI 42.6 BP 123/84 H Intake Visit Reasons: Enlarged Uterus *ok per CB Emergency Technician Required: No Is patient in pain?: No [...] physical activity do you participate in: none torey/temple: None seatbelt use: always do you feel safe at home: Yes additional social history: - [employer] [facility] HPI Enlarged Uterus *ok per CB Details: ANURAG VALENCIA is a 39 year old who presents for enlarged uterus. Approx 2 weeks ago had gallbladder out; after surgery she was told she had an enlarged uterus. 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 She reports her menses [...] Adnexa, other: (more content not included)... [facility] Surgical pathology studyon 0 12-03-2024 Surgical pathology study Pathology report.total SEE COMMENT Surgical Pathology Case: [id number] Authorizing Provider: Melanie Hung MD Collected: 12/03/2024 1535 Ordering Location: [facility] Received: 12/03/2024 1642 Center OR Pathologist: Tyra [...] not identified adjacent to the cystic duct. Cashier And Waiter/Waitress sections are submitted in 1 cassette. MJR Summary of Cassettes: Specimen Label Site A 1 cystic duct margin en face, gallbladder wall Normal [facility] Comment on above: Order Comment: Pre-o p diagnosis: Symptomatic cholelithiasis [K80.20] CBC W Auto Differential pane l (Bld)on 01-09-2024 Basophils (Bld) [#/Vol] 0.04 x10*3/uL Normal 0.00-0.10 [facility] Comment on above: Performed By: #### 5 7021-8 #### AARON KNIGHT ([id number]) [facility] ([facility]) [address] [place] [address] Basophils/100 WBC (Bld) 0.6 % Normal 0.0-2.0 [facility] Comment on above: Performed By: #### 5 7021-8 #### AARON KNIGHT ([id number]) [facility] ([facility]) [address] [place] [address] Eosinophils (Bld) [#/Vol] 0.12 x10*3/uL Normal 0.00-0.70 [facility] Comment on above: Performed By: #### 5 7021-8 #### AARON KNIGHT ([id number]) [facility] ([facility]) [address] [place] [address] Eosinophils/100 WBC (Bld) 1.7 % Normal 0.0-6.0 [facility] Comment on above: Performed By: #### 7021-8 #### AARON KNIGHT ([id number]) [facility] ([facility]) [address] [place] [address] 34385 Erythrocyte distribution width (RBC) [Ratio] 17.9 % High 11.5-14.5 [facility] Comment on above: Performed By: #### 5 7021-8 #### AARON KNIGHT (94224) [facility] ([facility]) [address] [place] [address] 89452 Hematocrit (Bld) [Volume fraction] 36.7 % Normal 36.0-46.0 [facility] Comment on above: Performed By: #### 5 7021-8 #### AARON KNIGHT (34024) [facility] ([facility]) [address] [place] [address] 85370 Hemoglobin (Bld) [Mass/Vol] 10.9 g/dL Low 12.0-16.0 [facility] Comment on above: Performed By: #### 5 7021-8 #### AARON KNIGHT (85623) [facility] ([facility]) [address] [place] [address] 23136 Immature granulocytes (Bld) [#/Vol] 0.01 x10*3/uL Normal 0.00-0.70 [facility] Comment on above: Performed By: #### 5 7021-8 #### AARON KNIGHT ([id number]) [facility] ([facility]) [address] [place] [address] 96896 Immature granulocytes/100 WBC (Bld) 0.1 % Normal 0.0-0.9 [facility] Comment on above: Result Comment: Trini ture Granulocyte Count (IG) includes promyelocytes, myelocytes and metamyelocytes but does not include bands. Percent differential counts (%) should be interpreted in the context of the absolute cell counts (cells/UL). Performed By: #### 5 7021-8 #### AARON KNIGHT ([id number]) [facility] ([facility]) [address] [place] [address] Lymphocytes (Bld) [#/Vol] 2.57 x10*3/uL Normal 1.20-4.80 [facility] Comment on above: Performed By: #### 5 7021-8 #### AARON KNIGHT ([id number]) [facility] ([facility]) [address] [place] [address] Lymphocytes/100 WBC (Bld) 35.6 % Normal 13.0-44.0 [facility] Comment on above: Performed By: #### 5 7021-8 #### AARON KNIGHT (27275) [facility] ([facility]) [address] [place] [address] MCH (RBC) [Entitic mass] 23.9 pg Low 26.0-34.0 [facility] Comment on above: Performed By: #### 5 7021-8 #### AARON KNIGHT (30479) [facility] ([facility]) [address] [place] [address] MCHC (RBC) [Mass/Vol] 29.7 g/dL Low 32.0-36.0 [facility] Comment on above: Performed By: #### 5 7021-8 #### AARON KNIGHT (73660) [facility] ([facility]) [address] [place] [address] MCV (RBC) [Entitic vol] 81 fL Normal 80-100 [facility] Comment on above: Performed By: #### 5 7021-8 #### AARON KNIGHT ([id number]) [facility] ([facility]) [address] [place] [address] Monocytes (Bld) [#/Vol] 0.51 x10*3/uL Normal 0.10-1.00 [facility] Comment on above: Performed By: #### 5 7021-8 #### AARON KNIGHT (05521) [facility] ([facility]) [address] [place] [address] 13015 Monocytes/100 WBC (Bld) 7.1 % Normal 2.0-10.0 [facility] Comment on above: Performed By: #### 5 7021-8 #### AARON KNIGHT (43618) [facility] ([facility]) [address] [place] [address] 33252 Neutrophils (Bld) [#/Vol] 3.97 x10*3/uL Normal 1.20-7.70 [facility] Comment on above: Result Comment: Perc ent differential counts (%) should be interpreted in the context of the absolute cell counts (cells/uL). Performed By: #### 5 7021-8 #### AARON KNIGHT (81992) [facility] ([facility]) [address] [place] [address] 08257 Neutrophils/100 WBC (Bld) 54.9 % Normal 40.0-80.0 [facility] Comment on above: Performed By: #### 5 7021-8 #### AARON KNIGHT (47290) [facility] ([facility]) [address] [place] [address] 30649 Nucleated RBC/100 WBC (Bld) [Ratio] 0.0 /100 WBCs Normal 0.0-0.0 [facility] Comment on above: Performed By: #### 5 7021-8 #### AARON KNIGHT (84938) [facility] ([facility]) [address] [place] [address] 83767 Platelets (Bld) [#/Vol] 281 x10*3/uL Normal 150-450 [facility] Comment on above: Performed By: #### 5 7021-8 #### AARON KNIGHT ([id number]) [facility] ([facility]) [address] [place] [address] 50879 RBC (Bld) [#/Vol] 4.56 x10*6/uL Normal 4.00-5.20 [facility] Comment on above: Performed By: #### 5 7021-8 #### AARON KNIGHT ([id number]) [facility] ([facility]) [address] [place] [address] 10967 WBC (Bld) [#/Vol] 7.2 x10*3/uL Normal 4.4-11.3 [facility] Comment on above: Performed By: #### 5 7021-8 #### AARON KNIGHT (31456) [facility] ([facility]) [address] [place] [address] Comprehensive metabolic 2000 panelon 01-09-2024 Albumin BCP dye [Mass/Vol] 3.8 g/dL Normal 3.4-5.0 [facility] Comment on above: Performed By: #### 2 4323-8 #### AARON KNIGHT ([id number]) [facility] ([facility]) [address] [place] [address] ALP [Catalytic activity/Vol] 55 U/L Normal 33-110 [facility] Comment on above: Performed By: #### 2 4323-8 #### AARON KNIGHT (18914) [facility] ([facility]) [address] [place] [address] 14986 ALT With P-5'-P [Catalytic activity/Vol] 9 U/L Normal 7-45 [facility] Comment on above: Result Comment: Queta ents treated with Sulfasalazine may generate falsely decreased results for ALT. Performed By: #### 2 4323-8 #### AARON KNIGHT (69017) [facility] ([facility]) [address] [place] [address] 36374 Anion gap [Moles/Vol] 9 mmol/L Low 10-20 [facility] Comment on above: Performed By: #### 2 4323-8 #### AARON KNIGHT (93228) [facility] ([facility]) [address] [place], [place] [address] AST With P-5'-P [Catalytic activity/Vol] 11 U/L Normal 9-39 [facility] Comment on above: Performed By: #### 2 4323-8 #### AARON KNIGHT ([id number]) [facility] ([facility]) [address] [place] [address] 84942 Bilirubin [Mass/Vol] 0.4 mg/dL Normal 0.0-1.2 [facility] Comment on above: Performed By: #### 2 4323-8 #### AARON KNIGHT (32006) [facility] ([facility]) [address] [place] [address] 74587 Calcium [Mass/Vol] 8.9 mg/dL Normal 8.6-10.3 [facility] Comment on above: Performed By: #### 2 4323-8 #### AARON KNIGHT (71205) [facility] ([facility]) [address] [place] [address] 30622 Chloride [Moles/Vol] 108 mmol/L High 98-107 [facility] Comment on above: Performed By: #### 2 4323-8 #### AARON KNIGHT (93330) [facility] ([facility]) [address] [place] [address] 82653 CO2 [Moles/Vol] 26 mmol/L Normal 21-32 [facility] Comment on above: Performed By: #### 2 4323-8 #### AARON KNIGHT (52457) [facility] ([facility]) [address] [place] [address] 14649 Creatinine [Mass/Vol] 0.90 mg/dL Normal 0.50-1.05 [facility] Comment on above: Performed By: #### 2 4323-8 #### AARON KNIGHT (90186) [facility] ([facility]) [address] [place] [address] 95264 Glomerular filtration rate/1.73 sq M.predicted 83 mL/min/1.73m*2 Normal >60 [facility] Comment on above: Result Comment: Calc ulations of estimated GFR are performed using the 2020 CKD-EPI Study Refit equation without the race variable for the IDMS-Traceable creatinine methods. https://jasn.asnjournals.org/content//ASN.42636 09923 Performed By: #### 2 4323-8 #### AARON KNIGHT (27451) [facility] ([facility]) [address] [place] [address] 55811 Glucose [Mass/Vol] 84 mg/dL Normal 74-99 [facility] Comment on above: Performed By: #### 2 4323-8 #### AARON KNIGHT (79666) [facility] ([facility]) [address] [place] [address] 01925 Potassium [Moles/Vol] 4.6 mmol/L Normal 3.5-5.3 [facility] Comment on above: Performed By: #### 2 4323-8 #### AARON KNIGHT (66909) [facility] ([facility]) [address] [place] [address] 76816 Protein [Mass/Vol] 6.7 g/dL Normal 6.4-8.2 [facility] Comment on above: Performed By: #### 2 4323-8 #### AARON KNIGHT (98875) [facility] ([facility]) [address] [place] [address] 56810 Sodium [Moles/Vol] 138 mmol/L Normal 136-145 [facility] Comment on above: Performed By: #### 2 4323-8 #### AARON KNIGHT (20925) [facility] ([facility]) [address] [place] [address] 08750 Urea nitrogen [Mass/Vol] 12 mg/dL Normal 6-23 [facility] Comment on above: Performed By: #### 2 4323-8 #### AARON KNIGHT (20831) [facility] ([facility]) [address] [place] [address] 25232 US Abdomen RUQon 01-09-2024 Cholelithiasis. MACRO: None Signed by: Vitor Luong 01/09/2024 11:07 AM Dictation workstation: [id number] MMODAL Interpreted By: Vitor Richey, STUDY: US GALLBLADDER; 01/09/2024 9:39 am INDICATION: Signs/Symptoms:ruq pain. COMPARISON: None. ACCESSION NUMBER(S): [id number] ORDERING CLINICIAN: MELANIE DUMAS TECHNIQUE: Multiple images [...] INDICATION: Signs/Symptoms:ruq pain. COMPARISON: None. ACCESSION NUMBER(S): [id number] ORDERING CLINICIAN: MELANIE DUMAS TECHNIQUE: Multiple images [...] Vitor Luong 01/09/2024 11:07 AM Dictation workstation: [id number] [facility] Work Phone: Radiology Study observation (narrative) [facility] Work Phone: US Abdomen RUQOrdered By: Davide Luong on 01-09-2024 [facility] Work Phone: CBC W Auto Differential pane l (Bld)on 10-26-2023 Basophils (Bld) [#/Vol] 0.03 x10*3/uL Normal 0.00-0.10 [facility] Comment on above: Performed By: #### 5 7021-8 #### AARON KNIGHT (40024) [facility] ([facility]) [address] [place] [address] 19564 Basophils/100 WBC (Bld) 0.4 % Normal 0.0-2.0 [facility] Comment on above: Performed By: #### 5 7021-8 #### AARON KNIGHT (76392) [facility] ([facility]) [address] [place] [address] 45147 Eosinophils (Bld) [#/Vol] 0.10 x10*3/uL Normal 0.00-0.70 [facility] Comment on above: Performed By: #### 5 7021-8 #### AARON KNIGHT (37653) [facility] ([facility]) [address] [place] [address] 16466 Eosinophils/100 WBC (Bld) 1.4 % Normal 0.0-6.0 [facility] Comment on above: Performed By: #### 5 7021-8 #### AARON KNIGHT (37640) [facility] ([facility]) [address] [place] [address] 44141 Erythrocyte distribution width (RBC) [Ratio] 17.0 % High 11.5-14.5 [facility] Comment on above: Performed By: #### 5 7021-8 #### AARON KNIGHT (90408) [facility] ([facility]) [address] [place] [address] 79020 Hematocrit (Bld) [Volume fraction] 34.0 % Low 36.0-46.0 [facility] Comment on above: Performed By: #### 5 7021-8 #### AARON KNIGHT (54985) [facility] ([facility]) [address] [place] [address] 82160 Hemoglobin (Bld) [Mass/Vol] 9.9 g/dL Low 12.0-16.0 [facility] Comment on above: Performed By: #### 5 7021-8 #### AARON KNIGHT ([id number]) [facility] ([facility]) [address] [place] [address]1984 Immature granulocytes (Bld) [#/Vol] 0.01 x10*3/uL Normal 0.00-0.70 [facility] Comment on above: Performed By: #### 5 7021-8 #### AARON KNIGHT ([id number]) [facility] ([facility]) [address] [place] [address]71 Immature granulocytes/100 WBC (Bld) 0.1 % Normal 0.0-0.9 [facility] Comment on above: Result Comment: Trini ture Granulocyte Count (IG) includes promyelocytes, myelocytes and metamyelocytes but does not include bands. Percent differential counts (%) should be interpreted in the context of the absolute cell counts (cells/UL). Performed By: #### 5 7021-8 #### AARON KNIGHT ([id number]) [facility] ([facility]) [address] [place] [address] 18334 Lymphocytes (Bld) [#/Vol] 2.62 x10*3/uL Normal 1.20-4.80 [facility] Comment on above: Performed By: #### 5 7021-8 #### AARON KNIGHT ([id number]) [facility] ([facility]) [address] [place] [address] 99018 Lymphocytes/100 WBC (Bld) 37.6 % Normal 13.0-44.0 [facility] Comment on above: Performed By: #### 5 7021-8 #### AARON KNIGHT ([id number]) [facility] ([facility]) [address] [place] [address] 52611 MCH (RBC) [Entitic mass] 21.9 pg Low 26.0-34.0 [facility] Comment on above: Performed By: #### 5 7021-8 #### AARON KNIGHT ([id number]) [facility] ([facility]) [address] [place] [address] 08321 MCHC (RBC) [Mass/Vol] 29.1 g/dL Low 32.0-36.0 [facility] Comment on above: Performed By: #### 5 7021-8 #### AARON KNIGHT ([id number]) [facility] ([facility]) [address] [place] [address] 94118 MCV (RBC) [Entitic vol] 75 fL Low 80-100 [facility] Comment on above: Performed By: #### 5 7021-8 #### AARON KNIGHT ([id number]) [facility] ([facility]) [address] [place] [address] 78167 Monocytes (Bld) [#/Vol] 0.44 x10*3/uL Normal 0.10-1.00 [facility] Comment on above: Performed By: #### 5 7021-8 #### AARON KNIGHT ([id number]) [facility] ([facility]) [address] [place] [address] 33478 Monocytes/100 WBC (Bld) 6.3 % Normal 2.0-10.0 [facility] Comment on above: Performed By: #### 5 7021-8 #### AARON KNIGHT ([id number]) [facility] ([facility]) [address] [place] [address] 42170 Neutrophils (Bld) [#/Vol] 3.77 x10*3/uL Normal 1.20-7.70 [facility] Comment on above: Result Comment: Perc ent differential counts (%) should be interpreted in the context of the absolute cell counts (cells/uL). Performed By: #### 5 7021-8 #### AARON KNIGHT ([id number]) [facility] ([facility]) [address] [place] [address] 68011 Neutrophils/100 WBC (Bld) 54.2 % Normal 40.0-80.0 [facility] Comment on above: Performed By: #### 5 7021-8 #### AARON KNIGHT ([id number]) [facility] ([facility]) [address] [place] [address] 80996 Nucleated RBC/100 WBC (Bld) [Ratio] 0.0 /100 WBCs Normal 0.0-0.0 [facility] Comment on above: Performed By: #### 5 7021-8 #### AARON KNIGHT ([id number]) [facility] ([facility]) [address] [place] [address] 72863 Platelets (Bld) [#/Vol] 331 x10*3/uL Normal 150-450 [facility] Comment on above: Performed By: #### 5 7021-8 #### AARON KNIGHT ([id number]) [facility] ([facility]) [address] [place] [address] 63877 RBC (Bld) [#/Vol] 4.52 x10*6/uL Normal 4.00-5.20 [facility] Comment on above: Performed By: #### 5 7021-8 #### AARON KNIGHT ([id number]) [facility] ([facility]) [address] [place] [address] 85272 WBC (Bld) [#/Vol] 7.0 x10*3/uL Normal 4.4-11.3 [facility] Comment on above: Performed By: #### 5 7021-8 #### AARON KNIGHT ([id number]) [facility] ([facility]) [address] [place] [address] 15107 Cobalaminson 10-26-2023 Cobalamin (Vitamin B12) [Mass/Vol] 168 pg/mL Low 211-911 [facility] Comment on above: Performed By: #### 2 132-9 #### AARON KNIGHT ([id number]) [facility] ([facility]) [address] [place] [address] 24213 Comprehensive metabolic 2000 panelon 10-26-2023 Albumin BCP dye [Mass/Vol] 4.1 g/dL Normal 3.4-5.0 [facility] Comment on above: Performed By: #### 2 4323-8 #### AARON KNIGHT ([id number]) [facility] ([facility]) [address] [place] [address] ALP [Catalytic activity/Vol] 57 U/L Normal 33-110 [facility] Comment on above: Performed By: #### 2 4323-8 #### AARON KNIGHT ([id number]) [facility] ([facility]) [address] [place] [address] ALT With P-5'-P [Catalytic activity/Vol] 13 U/L Normal 7-45 [facility] Comment on above: Result Comment: Queta ents treated with Sulfasalazine may generate falsely decreased results for ALT. Performed By: #### 2 4323-8 #### AARON KNIGHT ([id number]) [facility] ([facility]) [address] [place] [address] 16816 Anion gap [Moles/Vol] 11 mmol/L Normal 10-20 [facility] Comment on above: Performed By: #### 2 4323-8 #### AARON KNIGHT ([id number]) [facility] ([facility]) [address] [place] [address] AST With P-5'-P [Catalytic activity/Vol] 12 U/L Normal 9-39 [facility] Comment on above: Performed By: #### 2 4323-8 #### AARON KNIGHT ([id number]) [facility] ([facility]) [address] [place] [address] Bilirubin [Mass/Vol] 0.3 mg/dL Normal 0.0-1.2 [facility] Comment on above: Performed By: #### 2 4323-8 #### AARON KNIGHT ([id number]) [facility] ([facility]) [address] [place] [address] Calcium [Mass/Vol] 8.8 mg/dL Normal 8.6-10.3 [facility] Comment on above: Performed By: #### 2 4323-8 #### AARON KNIGHT ([id number]) [facility] ([facility]) [facility] [place] [address] Chloride [Moles/Vol] 106 mmol/L Normal 98-107 [facility] Comment on above: Performed By: #### 2 4323-8 #### AARON KNIGHT ([id number]) [facility] ([facility]) [address] [place] [address] 19292 CO2 [Moles/Vol] 24 mmol/L Normal 21-32 [facility] Comment on above: Performed By: #### 2 4323-8 #### AARON KNIGHT ([id number]) [facility] ([facility]) [address] [place] [address] 14609 Creatinine [Mass/Vol] 0.83 mg/dL Normal 0.50-1.05 [facility] Comment on above: Performed By: #### 2 4323-8 #### AARON KNIGHT ([id number]) [facility] ([facility]) [address] [place] [address] 64495 GFR/1.73 sq M.predicted MDRD (S/P/Bld) [Vol rate/Area] mL/min/{1.73_m2} Normal >60 [facility] Comment on above: Result Comment: Calc ulations of estimated GFR are performed using the 2020 CKD-EPI Study Refit equation without the race variable for the IDMS-Traceable creatinine methods. https://jasn.asnjournals.org/content/early//ASN.34116 53101 Performed By: #### 2 4323-8 #### AARON KNIGHT ([id number]) [facility] ([facility]) [address] [place] [address] 89305 Glucose [Mass/Vol] 81 mg/dL Normal 74-99 [facility] Comment on above: Performed By: #### 2 4323-8 #### AARON KNIGHT ([id number]) [facility] ([facility]) [address] [place] [address] 19660 Potassium [Moles/Vol] 4.5 mmol/L Normal 3.5-5.3 [facility] Comment on above: Performed By: #### 2 4323-8 #### AARON KNIGHT ([id number]) [facility] ([facility]) [address] [place] [address] 70875 Protein [Mass/Vol] 7.0 g/dL Normal 6.4-8.2 [facility] Comment on above: Performed By: #### 2 4323-8 #### AARON KNIGHT ([id number]) [facility] ([facility]) [address] [place] [address] 68565 Sodium [Moles/Vol] 136 mmol/L Normal 136-145 [facility] Comment on above: Performed By: #### 2 4323-8 #### AARON KNIGHT ([id number]) [facility] ([facility]) [address] [place] [address] 43997 Urea nitrogen [Mass/Vol] 15 mg/dL Normal 6-23 [facility] Comment on above: Performed By: #### 2 4323-8 #### AARON KNIGHT ([id number]) [facility] ([facility]) [address] [place] [address] 24667 Ferritinon 10-26-2023 Ferritin [Mass/Vol] 16 ng/mL Normal 8-150 [facility] Comment on above: Performed By: #### 2 276-4 #### AARON KNIGHT ([id number]) [facility] ([facility]) [address] [place] [address] 29706 Iron and Iron binding capaci ty panelon 10-26-2023 Iron [Mass/Vol] 12 ug/dL Low 35-150 [facility] Comment on above: Performed By: #### 5 0190-8 #### AARON KNIGHT ([id number]) [facility] ([facility]) [address] [place] [address] 92496 Iron binding capacity [Mass/Vol] 438 ug/dL Normal 240-445 [facility] Comment on above: Performed By: #### 5 0190-8 #### AARON KNIGHT ([id number]) [facility] ([facility]) [facility] [place] [address] Iron binding capacity.unsaturated [Mass/Vol] 426 ug/dL High 110-370 [facility] Comment on above: Performed By: #### 5 0190-8 #### AARON KNIGHT ([id number]) [facility] ([facility]) [address] [place] [address] 38905 Iron saturation [Mass fraction] 3 % Low 25-45 [facility] Comment on above: Performed By: #### 5 0190-8 #### AARON KNIGHT ([id number]) [facility] ([facility]) [address] [place], [place] [address] Lipid 1996 panelon 4 Cholesterol [Mass/Vol] 142 mg/dL Normal 0-199 [facility] Comment on above: Result Comment: Age Desirable [...] By: #### 2 4331-1 #### AARON KNIGHT ([id number]) [facility] ([facility]) [address] [place] [address] 68943 Cholesterol in HDL [Mass/Vol] 38.0 mg/dL Normal [facility] Comment on above: Result Comment: Age Very Low Low Normal High 0-19 Y < 35 < 40 40-45 ---- 20-24 Y ---- < 40 >45 ---- >24 Y ---- < 40 40-60 >60 Performed By: #### 2 4331-1 #### AARON KNIGHT ([id number]) [facility] ([facility]) [address] [place] [address] Cholesterol in LDL [Mass/Vol] 80 mg/dL Normal <=99 [facility] Comment on above: Result Comment: Near Borderline AGE Desirable Optimal High High Very High 0-19 Y 0 - 109 --- 110-129 >/= 130 ---- 20-24 Y 0 - 119 --- 120-159 >/= 160 ---- >24 Y 0 - 99 100-129 130-159 160-189 >/=190 Performed By: #### 2 4331-1 #### AARON KNIGHT ([id number]) [facility] ([facility]) [facility] [place] [address] Cholesterol in VLDL [Mass/Vol] 24 mg/dL Normal 0-40 [facility] Comment on above: Performed By: #### 2 4331-1 #### AARON KNIGHT ([id number]) [facility] ([facility]) [address] [place] [address] 79378 CHOLESTEROL/HDL RATIO 3.7 Normal [facility] Comment on above: Result Comment: Ref Values Desirable < 3.4 High Risk > 5.0 Performed By: #### 2 4331-1 #### AARON KNIGHT ([id number]) [facility] ([facility]) [address] [place] [address] 49628 NON HDL CHOLESTEROL 104 mg/dL Normal 0-149 [facility] Comment on above: Result Comment: Age Desirable Borderline High High Very High 0-19 Y 0 - 119 120 - 144 >/= 145 >/= 160 20-24 Y 0 - 149 150 - 189 >/= 190 ---- >24 Y 30 mg/dL above LDL Cholesterol goal Performed By: #### 2 4331-1 #### AARON KNIGHT ([id number]) [facility] ([facility]) [address] [place] [address] 00103 Triglyceride [Mass/Vol] 121 mg/dL Normal 0-149 [facility] Comment on above: Result Comment: Age [...] By: #### 2 4331-1 #### AARON KNIGHT ([id number]) [facility] ([facility]) [address] [place], [place] [address] TSH WITH REFLEX TO FREE T4 I F ABNORMALon 10-26-2023 TSH Qn 1.27 m[IU]/L Normal 0.44-3.98 [facility] Comment on above: Order Comment: TSH t esting is performed using different testing methodology at [facility] than at [facility]. Direct result comparisons should only be made within the same method. Performed By: #### T TWYLA #### AARON KNIGHT ([id number]) [facility] ([facility]) [address] [place], [place] [address] Tobacco Screening.on 023 Fall risk assessment a) No falls within the last year [facility] Work Phone: Tobacco use status CP b) No [facility] Work Phone: Tobacco Screening. Adult [facility] Work Phone: COMPREHENSIVE PANELon 2021 Albumin [Mass/Vol] 3.9 g/dL Normal 3.4 - 5.0 [facility] Comment on above: Performed By: #### C MP #### [address] [address] ALP [Catalytic activity/Vol] 61 U/L Normal 33 - 110 [facility] Comment on above: Performed By: #### C MP #### [address] [address] ALT [Catalytic activity/Vol] 12 U/L Normal 7 - 45 [facility] Comment on above: Result Comment: Queta ents treated with Sulfasalazine may generate falsely decreased results for ALT. Performed By: #### C MP #### [address] [address] Anion gap [Moles/Vol] 10 mmol/L Normal 10 - 20 [facility] Comment on above: Performed By: #### C MP #### [address] [address] AST [Catalytic activity/Vol] 14 U/L Normal 9 - 39 [facility] Comment on above: Performed By: #### C MP #### [address] [address] Bilirubin [Mass/Vol] 0.6 mg/dL Normal 0.0 - 1.2 [facility] [place] Comment on above: Performed By: #### C MP #### [address] [address] Calcium [Mass/Vol] 9.0 mg/dL Normal 8.6 - 10.3 [facility] Comment on above: Performed By: #### C MP #### [address] [address] Chloride [Moles/Vol] 106 mmol/L Normal 98 - 107 [facility] [place] Comment on above: Performed By: #### C MP #### [address] [address] Creatinine [Mass/Vol] 0.86 mg/dL Normal 0.50 - 1.05 [facility] Comment on above: Performed By: #### C MP #### [address] [address] GFR/1.73 sq M.predicted among non-blacks MDRD (S/P/Bld) [Vol rate/Area] 88 mL/min/{1.73_m2} Normal >90 [facility] Comment on above: Result Comment: CALC ULATIONS OF ESTIMATED GFR ARE PERFORMED USING THE 2020 CKD-EPI STUDY REFIT EQUATION WITHOUT THE RACE VARIABLE FOR THE IDMS-TRACEABLE CREATININE METHODS. https://jasn.asnjournals.org/content//ASN.95612 05086 Performed By: #### C MP #### [address] [address] Glucose [Mass/Vol] 93 mg/dL Normal 74 - 99 [facility] Comment on above: Performed By: #### C MP #### [address] [address] HCO3 (Bld) [Moles/Vol] 26 mmol/L Normal 21 - 32 [facility] Comment on above: Performed By: #### C MP #### [address] [address] Potassium [Moles/Vol] 4.3 mmol/L Normal 3.5 - 5.3 [facility] Comment on above: Performed By: #### C MP #### [address] [address] Protein [Mass/Vol] 6.8 g/dL Normal 6.4 - 8.2 [facility] Comment on above: Performed By: #### C MP #### [address] [address] Sodium [Moles/Vol] 138 mmol/L Normal 136 - 145 [facility] Comment on above: Performed By: #### C MP #### [address] [address] Urea nitrogen [Mass/Vol] 9 mg/dL Normal 6 - 23 [facility] Comment on above: Performed By: #### C MP #### [address] [address] LIPID PANEL (CORONARY RISK 2 )on 03-25-2022 Cholesterol [Mass/Vol] 149 mg/dL Normal 0 - 199 [facility] Comment on above: Result Comment: . [...] dosing. Performed By: #### L IPID #### [address] [address] Cholesterol in HDL [Mass/Vol] 42.0 mg/dL Normal [facility] Comment on above: Result Comment: . AGE VERY LOW LOW NORMAL HIGH 0-19 Y < 35 < 40 40-45 ---- 20-24 Y ---- < 40 >45 ---- >24 Y ---- < 40 40-60 >60 . Performed By: #### L IPID #### [address] [address] Cholesterol in LDL [Mass/Vol] 85 mg/dL Normal 0 - 99 [facility] Comment on above: Result Comment: . NEAR BORD AGE DESIRABLE OPTIMAL HIGH HIGH VERY HIGH 0-19 Y 0 - 109 --- 110-129 >/= 130 ---- 20-24 Y 0 - 119 --- 120-159 >/= 160 ---- >24 Y 0 - 99 100-129 130-159 160-189 >/=190 . Performed By: #### L IPID #### [address] [address] Cholesterol in VLDL [Mass/Vol] 22 mg/dL Normal 0 - 40 [facility] Comment on above: Performed By: #### L IPID #### [address] [address] Cholesterol.total/Chol esterol in HDL [Mass ratio] 3.5 {ratio} Normal [facility] Comment on above: Result Comment: REF VALUES DESIRABLE < 3.4 HIGH RISK > 5.0 Performed By: #### L IPID #### [address] [address] Triglyceride [Mass/Vol] 110 mg/dL Normal 0 - 149 [facility] Comment on above: Result Comment: . [...] dosing. Performed By: #### L IPID #### [facility] [address] [place] [address] Laboratory - Chemistry and C hemistry - challengeon 03-25-2022 Albumin BCP dye [Mass/Vol] 3.9 g/dL 3.4 - 5.0 [facility] Work Phone: [phone] ALP [Catalytic activity/Vol] 61 U/L 33 - 110 [facility] Work Phone: [phone] ALT With P-5'-P [Catalytic activity/Vol] 12 U/L 7 - 45 [facility] Work Phone: [phone] Comment on above: Patients treated wit h Sulfasalazine may generate falsely decreased results for ALT. Anion gap [Moles/Vol] 10 mmol/L 10 - 20 [facility] Work Phone: [phone] AST With P-5'-P [Catalytic activity/Vol] 14 U/L 9 - 39 [facility] Work Phone: [phone] Bilirubin [Mass/Vol] 0.6 mg/dL 0.0 - 1.2 [facility] Work Phone: [phone] Calcium [Mass/Vol] 9.0 mg/dL 8.6 - 10.3 [facility] Work Phone: [phone] Chloride [Moles/Vol] 106 mmol/L 98 - 107 [facility] Work Phone: [phone] CO2 [Moles/Vol] 26 mmol/L 21 - 32 [facility] Work Phone: [phone] Creatinine [Mass/Vol] 0.86 mg/dL See Below [facility] Work Phone: Comment on above: Reference Range: 0.5 0 - 1.05 Glucose [Mass/Vol] 93 mg/dL 74 - 99 [facility] Work Phone: [phone] Potassium [Moles/Vol] 4.3 mmol/L 3.5 - 5.3 [facility] Work Phone: [phone] Protein [Mass/Vol] 6.8 g/dL 6.4 - 8.2 [facility] Work Phone: [phone] Sodium [Moles/Vol] 138 mmol/L 136 - 145 [facility] Work Phone: [phone] Urea nitrogen [Mass/Vol] 9 mg/dL 6 - 23 [facility] Work Phone: [phone] Lipid Panelon 03-25-2022 Cholesterol [Mass/Vol] 149 mg/dL 0 - 199 [facility] Work Phone: [phone] Comment on above: . AGE DESIRABLE BORD [...] dosing. Cholesterol in HDL [Mass/Vol] 42.0 mg/dL [facility] Work Phone: Comment on above: . AGE VERY LOW LOW N ORMAL HIGH 0-19 Y < 35 < 40 40-45 ---- 20-24 Y ---- < 40 >45 ---- >24 Y ---- < 40 40-60 >60. Cholesterol in LDL [Mass/Vol] 85 mg/dL 0 - 99 [facility] Work Phone: [phone] Comment on above: . NEAR BORD AGE EJFF RABLE OPTIMAL HIGH HIGH VERY HIGH 0-19 Y 0 - 109 --- 110-129 >/= 130 ---- 20-24 Y 0 - 119 --- 120-159 >/= 160 ---- >24 Y 0 - 99 100-129 130-159 160-189 >/=190. Cholesterol.total/Chol esterol in HDL [Mass ratio] 3.5 {ratio} [facility] Work Phone: [phone] Comment on above: REF VALUESDESIRABLE < 3.4HIGH RISK > 5.0 Triglyceride [Mass/Vol] 110 mg/dL 0 - 149 [facility] Work Phone: [phone] Comment on above: . AGE DESIRABLE BORD [...] Lipid Panel 22 mg/dL 0 - 40 [facility] Work Phone: No Panel Informationon 03-25 88 {mL/min/1.73m2} >90 [facility] Work Phone: Comment on above: CALCULATIONS OF JACQUI MATED GFR ARE PERFORMED USING THE 2020 CKD-EPI STUDY REFIT EQUATION WITHOUT THE RACE VARIABLE FOR THE IDMS-TRACEABLE CREATININE METHODS.https://jasn.asnjournals.org/content//A SN.0849837209 XR FOOT LEFT 3+ VIEWS (STAND AR)on [...] MonFeb 01, 2022 5:24:00 PM EDT Normal [facility] Comment on above: Order Comment: Injur [...] within normal limits. No gross deformity noted [facility] Radiology Study observation (narrative) [facility] Office Visit (Internal Medic ine)on 11-25-2021 Follow-up [...] day Vitals Vital Signs Recorded: 25Nov2021 09:35AM Klmevnprxzd87.8 F Heart Rate85 Cfwcmtce819 Tgovxpjcj18 Height5 ft 6 in Cwnatf276 lb 12.8 oz BMI Bwxjgwuijj08.1 kg/m2 BSA Calculated2.45 Tobacco Useb) No PHQ-2 [...] Nov 25 2021 10:18AM EST (Author) Normal [employer] Tobacco Screening.on 022 Adult depression screening assessment No [facility] Work Phone: Fall risk assessment a) No falls within the last year [facility] Work Phone: Tobacco use status [facility] b) No [facility] Work Phone: Blood Pressure Cuff Sizeon 0 11-23-2021 Adult depression screening assessment No [facility] Work Phone: Fall risk assessment a) No falls within the last year [facility] Work Phone: Tobacco use status CP b) No [facility] Work Phone: [phone] Blood Pressure Cuff Size Adult [facility] Work Phone: [phone] Office Visit (Internal Medic ine)on 11-23-2021 Follow-up visit Diagnoses/Problems Health Maintenance/Risks Encounter for preventive health examination (V70.0) (Z00.00) Assessed Ingrown nail of great toe (703.0) (L60.0) Screening for lipid disorders (V77.91) (Z13.220) Orders Health Maintenance Comprehensive Metabolic Panel; Status:Active; Requested for:[id number]; Perform:Lab Services - Lab To Draw (Blood Test); Due:21Feb2022;Ordered; For:Health Maintenance; Ordered By:Melanie Dumas; Ingrown nail of great toe Start: Amoxicillin 875 MG Oral Tablet; TAKE 1 TABLET EVERY 12 HOURS DAILY Rx By: Melanie Dumas; Dispense: 7 Days ; #:14 Tablet; Refill: 0;For: Ingrown nail of great toe; GIAN = N; Verified Transmission to [facility]; Last Updated By: [employer]; 11/23/2021 10:54:36 AM Screening for lipid disorders Lipid Panel; Status:Active; Requested for:[id number]; Perform:Lab Services - Lab To Draw (Blood [...] times a day Vitals Vital Signs Recorded: [id number] 10:38AM Heart Rate75 Ptgthtnj157 Swplxmmyv23 Blood Pressure Cuff SizeAdult Height5 ft 6 in Qbbwnr937 lb BMI Kpqmgmwabm10.13 kg/m2 BSA Calculated2.45 Tobacco Useb) No PHQ-2 [...] Nov 23 2021 4:10PM EST (Author) Normal [employer] Blood Pressure Cuff Sizeon 0 07-20-2021 Adult depression screening assessment No [facility] Work Phone: Fall risk assessment a) No falls within the last year [facility] Work Phone: Tobacco use status CP b) No [facility] Work Phone: Blood Pressure Cuff Size Adult [facility] Work Phone: Office Visit (Internal [...] Hand dermatitis; GIAN = N; Sent To: [facility]; Last Updated By: [employer]; 07/20/2021 9:51:48 AM Provider Impressions 1. ANxiety, [...] day Vitals Vital Signs Recorded: 20Jul2021 09:36AM Lbwjexopbts75.3 F, Temporal Heart Rate80 Syrpvwsz302 Qtmeqgglq71 Blood Pressure Cuff SizeAdult Height5 ft 6 in Nfigco052 lb BMI Urvqeajlcr12.49 kg/m2 BSA Calculated2.44 Tobacco Useb) No PHQ-2 [...] affect: Normal. Signatures Electronically signed by : Melaine Dumas DO; Jul 20 2021 12:39PM EST (Author) Normal [facility] Blood Pressure Cuff Sizeon 1 07-12-2020 Fall risk assessment a) No falls within the last year [facility] Work Phone: Tobacco use status CPHS b) No [facility] Work Phone: Blood Pressure Cuff Size Adult [facility] Work Phone: Office Visit (Internal Medic ine)on 05-11-2021 Follow-up visit Diagnoses/Problems Assessed Anxiety (300.00) (F41.9) Morbid obesity with BMI of 50.0-59.9, adult (278.01,V85.43) (E66.01,Z68.43) Orders Anxiety Start: busPIRone HCl - 5 MG Oral Tablet; Take 1 tablet by mouth three times a day Rx By: Melanie Dumas; Dispense: 0 Days ; #:60 Tablet; Refill: 3;For: Anxiety; GIAN = N; Sent To: [facility] 1443 Provider Impressions 1. Anxiety - will start [...] 03/09/2020 9:18:00 AM Vitals Vital Signs Recorded: [id number] 09:26AM Zpzrgopibpx93.5 F, Temporal Heart Rate84 Uwfwgxxg417 Qxwmxcnvd60 Blood Pressure Cuff SizeAdult Height5 ft 6 in Xyvzqd506 lb BMI Zmzlgqleei46.68 kg/m2 BSA Calculated2.42 Tobacco Useb) No Fall [...] pericardial rub. (more content not included)... Normal [facility] - Office Visiton 02-20 S[place] - Office Visit Diagnoses/Problems Assessed Women's annual [...] BREAST CHECK. LMP: 02/28/2021 History of Present Mzhxhgy27-cwkd-gjm G2, P2 presents for annual exam. Patient [...] Ointment Vitals Vital Signs Recorded: 10Mar2021 09:39AM Rdwxacegmoa94.8 F Sswctknn725 Ruvskghkx52 Height5 ft 6 in Owwmqg868 lb 2.21 oz BMI Xqihtcubvu66.03 kg/m2 BSA Calculated2.43 [id number] Physical Exam General: None acute distress Eye: [...] Cooperative appropriate mood and affect. 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 Normal [facility] XR FOOT RIGHT 3+ VIEWS (ONESIMO DARD)Ordered By: Dominik Colby on 12-30-2020 No fractures no dislocations no subluxations. Moderate great toe edema. [facility] Nursing communicationOrdered By: Dominik Colby on 12-16-2020 Boot [facility] XR FOOT LEFT 3+ VIEWS (STAND AR)Ordered By: Dominik Colby on 12-16-2020 AP oblique lateral: early stress fracture appreciated, nondisplaced, on the oblique and lateral view to the base of the fifth metatarsal. Otherwise no fractures no dislocations no subluxations appreciated. Mild lateral foot edema [facility] Imm/Pathon 03-09-2020 Cytology report Cyto stain.thin prep [...] was verified by the Molecular DiagnosticLaboratory at [facility]. The lab iscertified under the Clinical Laboratory Amendments of 1988 (CLIA 88) asqualified to perform high complexity clinical laboratory testing.This specimen has been analyzed by the [employer] Imaging System ([employer], [employer]an automated imaging and review system, which assists the laboratory inevaluating cells on ThinPrep Pap tests. Following automated imaging, selectedfields from every slide were reviewed by a cad operator and/or pathologist.Electronicall y Signed Out By NELLY [...] (Z12.4) Source of SpecimenA: THINPREP PAP [facility]ERVICAL [facility] [address] [place] [address] [facility] [address] Work Phone: Culture,Bacterialon 08-02-19 18 Culture,Bacterial Test [...] Moderate BETA HEMOLYTIC STREPTOCOCCUS, GROUP C Normal [facility] Comment on above: Performed By: #### C ULT ####Unless otherwise noted, all testing performed by [address] [id number]: [id number] Director: Atul Borjas M.D. Antinuclear Antibodyon 03-16 Antinuclear Antibody 0.3 U Normal <=1.0 (Negative) [facility] Comment on above: Result Comment: Test Performed by:[place] [address] Performed By: #### U NORAH, DARRICK ####Unless otherwise noted, all testing performed by [address] [id number]: [id number] Director: Atul Borjas M.D. Rheumatoid Factoron 03-16-20 17 Rheumatoid Factor Negative Normal Negative [facility] Comment on above: Performed By: #### R F ####Unless otherwise noted, all testing performed by [address] [id number]: [id number] Director: Atul Borjas M.D. Uric Acidon 03-16-2017 Urate 4.4 mg/dL Normal 2.4-7.0 [facility] Comment on above: Performed By: #### U DARRICK ALMAZAN ####Unless otherwise noted, all testing performed by [place] [address] [place], [place] [id number]: [id number] Director: Atul Borjas M.D. Vital Signs Date Time Vital Sign Value Performing Clinician Facility 02-24-2025 08:22-0400 Body height 167.[address] Melanie Dumas DO Work Phone: [facility] 02-24-2025 08:20-0400 Body mass index (BMI) [Ratio] 44.9 kg/m2 Dr. Melanie Dumas DO Work Phone: [facility] 02-24-2025 08:20-0400 Body weight 126.[address] Melanie Dumas DO Work Phone: [facility] 02-24-2025 08:20-0400 Diastolic blood pressure 88 mm[Hg] Dr. Melanie Dumas DO Work Phone: [facility] 02-24-2025 08:20-0400 Systolic blood pressure 155 mm[Hg] Dr. Melanie Dumas DO Work Phone: [facility] 02-10-2025 07:52-0400 Body mass index (BMI) [Ratio] 43.9 kg/m2 Faraz Taylor MD Work Phone: [facility] 02-10-2025 07:52-0400 Body weight 123.38 kg Faraz Taylor MD Work Phone: [facility] 01-28-2025 13:56-0400 Body height 167.6 cm Yadira Arenas MD Work Phone: [facility] 01-28-2025 13:56-0400 Body mass index (BMI) [Ratio] 43.98 kg/m2 Yadira Arenas MD Work Phone: [facility] 01-28-2025 13:56-0400 Body weight 123.61 kg Yadira Arenas MD Work Phone: [facility] 01-28-2025 13:56-0400 Diastolic blood pressure 78 mm[Hg] Yadira Arenas MD Work Phone: [facility] 01-28-2025 13:56-0400 Heart rate 78 /min Yadira Arenas MD Work Phone: [facility] 01-28-2025 13:56-0400 SaO2% (BldA) [Mass fraction] 99 % Yadira Arenas MD Work Phone: [facility] 01-28-2025 13:56-0400 Systolic blood pressure 126 mm[Hg] Yadira Arenas MD Work Phone: [facility] 12-19-2024 08:28-0400 Body height 167.64 cm Nuris Rubio FERMENTATION ENGINEER-C Work Phone: [facility] 12-19-2024 08:28-0400 Body mass index (BMI) [Ratio] 42.6 kg/m2 Nuris Rubio FERMENTATION ENGINEER-C Work Phone: [facility] 12-19-2024 08:28-0400 Body weight 119.8 kg Nuris Rubio FERMENTATION ENGINEER-C Work Phone: [facility] 12-19-2024 08:28-0400 Diastolic blood pressure 84 mm[Hg] Nuris Rubio FERMENTATION ENGINEER-C Work Phone: [facility] 12-19-2024 08:28-0400 Systolic blood pressure 123 mm[Hg] Nuris Rubio FERMENTATION ENGINEER-C Work Phone: [facility] 12-03-2024 18:15-0400 Diastolic blood pressure 77 mm[Hg] Melanie Hung MD Work Phone: [facility] 12-03-2024 18:15-0400 Heart rate 62 /min Melanie Hung MD Work Phone: 4(076)066-504701 [place] [address] 12-03-2024 18:15-0400 Respiratory rate 16 /min Melanie Hung MD Work Phone: 3(254)449-745201 [place] [address] 12-03-2024 18:15-0400 SaO2% (BldA) [Mass fraction] 95 % Melanie Hung MD Work Phone: 0(019)077-977001 [place] [address] 12-03-2024 18:15-0400 Systolic blood pressure 130 mm[Hg] Melanie Hung MD Work Phone: 2(006)925-159558 [place] [address] 12-03-2024 17:00-0400 Body temperature 97.3 [degF] Melanie Hung MD Work Phone: 1(729)398-076658 [place] [address] 12-03-2024 11:00-0400 Body height 167.6 cm Melanie Hung MD Work Phone: 8(315)555-272471 [address] 12-03-2024 11:00-0400 Body mass index (BMI) [Ratio] 41.92 kg/m2 Melanie Hung MD Work Phone: 8(364)771-046171 [address] 12-03-2024 11:00-0400 Body weight 117.8 kg Melanie Hung MD Work Phone: 5(997)914-486071 [address] 11-07-2024 15:29-0400 Body height 167.6 cm Melanie Hung MD Work Phone: 4(069)039-913401 [place] [address] 11-07-2024 15:29-0400 Body mass index (BMI) [Ratio] 41.47 kg/m2 Melanie Hung MD Work Phone: 1(293)794-433301 [place] [address] 11-07-2024 15:29-0400 Body weight 116.48 kg Melanie Hung MD Work Phone: 7(058)832-062301 [place] [address] 11-07-2024 15:29-0400 Diastolic blood pressure 78 mm[Hg] Melanie Hung MD Work Phone: [facility] 11-07-2024 15:29-0400 Heart rate 73 /min Melanie Hung MD Work Phone: [facility] 11-07-2024 15:29-0400 Systolic blood pressure 138 mm[Hg] Melanie Hung MD Work Phone: [facility] 01-29-2024 14:59-0400 Body height 167.6 cm Melanie Hung MD Work Phone: [facility] 01-29-2024 14:59-0400 Body mass index (BMI) [Ratio] 50.71 kg/m2 Melanie Hung MD Work Phone: [facility] 01-29-2024 14:59-0400 Body weight 142.43 kg Melanie Hung MD Work Phone: [facility] 01-29-2024 14:59-0400 Diastolic blood pressure 78 mm[Hg] Melanie Hung MD Work Phone: [facility] 01-29-2024 14:59-0400 Heart rate 86 /min Melanie Hung MD Work Phone: [facility] 01-29-2024 14:59-0400 Systolic blood pressure 122 mm[Hg] Melanie Hung MD Work Phone: [facility] 10-26-2023 10:22-0400 Body height 167.6 cm [facility] 10-26-2023 10:22-0400 Body mass index (BMI) [Ratio] 50.84 kg/m2 [facility] 10-26-2023 10:22-0400 Body weight 142.88 kg [facility] 10-25-2023 08:15-0400 Body height 167.6 cm Melanie Dumas DO Work Phone: [facility] 10-25-2023 08:15-0400 Body mass index (BMI) [Ratio] 50.68 kg/m2 Melanie Oberhauser DO Work Phone: [facility] 10-25-2023 08:15-0400 Body weight 142.43 kg Melanie Oberhauser DO Work Phone: [facility] 10-25-2023 08:15-0400 Diastolic blood pressure 77 mm[Hg] Melanie Oberhauser DO Work Phone: [facility] 10-25-2023 08:15-0400 Heart rate 71 /min Melanie Oberhauser DO Work Phone: [facility] 10-25-2023 08:15-0400 Systolic blood pressure 130 mm[Hg] Melanie Oberhauser DO Work Phone: [facility] 04-25-2023 08:35-0500 Body height 167.6 cm Melanie Oberhauser DO Work Phone: 7(914)196-404284 [place] [address] 04-25-2023 08:35-0500 Body mass index (BMI) [Ratio] 50.84 kg/m2 Melanie Oberhauser DO Work Phone: 6(320)749-454484 [place] [address] 04-25-2023 08:35-0500 Body weight 142.88 kg Melanie Oberhauser DO Work Phone: [facility] 04-25-2023 08:35-0500 Diastolic blood pressure 82 mm[Hg] Melanie Oberhauser DO Work Phone: [facility] 04-25-2023 08:35-0500 Heart rate 80 /min Melanie Oberhauser DO Work Phone: [facility] 04-25-2023 08:35-0500 Systolic blood pressure 131 mm[Hg] Melanie Oberhauser DO Work Phone: [facility] 01-24-2023 08:56-0400 Body height 167.6 cm Melanie Oberhauser DO Work Phone: [facility] 01-24-2023 08:56-0400 Body mass index (BMI) [Ratio] 50.36 kg/m2 Melanie Oberhauser DO Work Phone: [facility] 01-24-2023 08:56-0400 Body weight 141.52 kg Melanie Oberhauser DO Work Phone: [facility] 01-24-2023 08:56-0400 Diastolic blood pressure 80 mm[Hg] Melanie Oberhauser DO Work Phone: [facility] 01-24-2023 08:56-0400 Heart rate 81 /min Melanie Oberhauser DO Work Phone: [facility] 01-24-2023 08:56-0400 Systolic blood pressure 132 mm[Hg] Melanie Oberhauser DO Work Phone: [facility] 11-15-2022 08:59-0400 Body height 167.6 cm Melanie Oberhauser DO Work Phone: [facility] 11-15-2022 08:59-0400 Body mass index (BMI) [Ratio] 51.65 kg/m2 Melanie Oberhauser DO Work Phone: [facility] 11-15-2022 08:59-0400 Body weight 145.15 kg Melanie Oberhauser DO Work Phone: [facility] 11-15-2022 08:59-0400 Diastolic blood pressure 91 mm[Hg] Melanie Oberhauser DO Work Phone: [facility] 11-15-2022 08:59-0400 Heart rate 80 /min Melanie Oberhauser DO Work Phone: [facility] 11-15-2022 08:59-0400 Systolic blood pressure 149 mm[Hg] Melanie Oberhauser DO Work Phone: 3(281)451-925584 [place] [address] 05-24-2022 09:16-0500 Body height 167.64 cm Melanie L Oberhauser Work Phone: [facility] Work Phone: 05-24-2022 09:16-0500 Body mass index (BMI) [Ratio] 50.2 kg/m2 Melanie L Oberhauser Work Phone: [facility] Work Phone: 05-24-2022 09:16-0500 Body surface area Derived from formula 2.41 m2 Melanie L Oberhauser Work Phone: [facility] Work Phone: 05-24-2022 09:16-0500 Body weight 141.07 kg Melanie L Oberhauser Work Phone: [facility] Work Phone: 05-24-2022 09:16-0500 Diastolic blood pressure 83 mm[Hg] Melanie L Oberhauser Work Phone: [facility] Work Phone: 05-24-2022 09:16-0500 Heart rate 87 /min Melanie L Oberhauser Work Phone: [facility] Work Phone: 05-24-2022 09:16-0500 Systolic blood pressure 132 mm[Hg] Melanie L Oberhauser Work Phone: [facility] Work Phone: 02-01-2022 16:05-0400 Diastolic blood pressure 103 mm[Hg] Cecelia Mirella DPM Work Phone: [facility] 02-01-2022 16:05-0400 Heart rate 108 /min Cecelia Millbury DPM Work Phone: [facility] 02-01-2022 16:05-0400 Systolic blood pressure 175 mm[Hg] Cecelia Millbury DPM Work Phone: [facility] 09-13-2022 15:58-0400 Body temperature 97.9 [degF] Ceceliazoie Vu DP Work Phone: [facility] 11-25-2021 09:35-0400 Body height 167.64 cm Melanie L Oberhauser Work Phone: [facility] Work Phone: 11-25-2021 09:35-0400 Body mass index (BMI) [Ratio] 52.1 kg/m2 Melanie L Oberhauser Work Phone: [facility] Work Phone: 11-25-2021 09:35-0400 Body surface area Derived from formula 2.45 m2 Melanie L Oberhauser Work Phone: [facility] Work Phone: 11-25-2021 09:35-0400 Body temperature 97.8 [degF] Melanie L Oberhauser Work Phone: [facility] Work Phone: 11-25-2021 09:35-0400 Body weight 146.42 kg Melanie L Oberhauser Work Phone: [facility] Work Phone: 11-25-2021 09:35-0400 Diastolic blood pressure 78 mm[Hg] Melanie L Oberhauser Work Phone: [facility] Work Phone: 11-25-2021 09:35-0400 Heart rate 85 /min Melanie L Oberhauser Work Phone: [facility] Work Phone: 11-25-2021 09:35-0400 Systolic blood pressure 151 mm[Hg] Melanie L Oberhauser Work Phone: [facility] Work Phone: 11-23-2021 10:38-0400 Body height 167.64 cm Melanie L Oberhauser Work Phone: [facility] Work Phone: 11-23-2021 10:38-0400 Body mass index (BMI) [Ratio] 52.13 kg/m2 Melanie L Oberhauser Work Phone: [facility] Work Phone: 11-23-2021 10:38-0400 Body surface area Derived from formula 2.45 m2 Melanie L Oberhauser Work Phone: [facility] Work Phone: 11-23-2021 10:38-0400 Body weight 146.51 kg Melanie L Oberhauser Work Phone: [facility] Work Phone: 11-23-2021 10:38-0400 Diastolic blood pressure 74 mm[Hg] Melanie L Oberhauser Work Phone: [facility] Work Phone: 11-23-2021 10:38-0400 Heart rate 75 /min Melanie L Oberhauser Work Phone: [facility] Work Phone: 11-23-2021 10:38-0400 Systolic blood pressure 143 mm[Hg] Melanie L Oberhauser Work Phone: [facility] Work Phone: 07-20-2021 09:36-0500 Body height 167.64 cm Melanie L Oberhauser Work Phone: [facility] Work Phone: 07-20-2021 09:36-0500 Body mass index (BMI) [Ratio] 51.49 kg/m2 Melanie L Oberhauser Work Phone: [facility] Work Phone: 07-20-2021 09:36-0500 Body surface area Derived from formula 2.44 m2 Melanie L Oberhauser Work Phone: [facility] Work Phone: 07-20-2021 09:36-0500 Body temperature 97.3 [degF] Melanie L Oberhauser Work Phone: [facility] Work Phone: 07-20-2021 09:36-0500 Body weight 144.7 kg Melanie L Oberhauser Work Phone: [facility] Work Phone: 07-20-2021 09:36-0500 Diastolic blood pressure 87 mm[Hg] Melanie L Oberhauser Work Phone: [facility] Work Phone: 07-20-2021 09:36-0500 Heart rate 80 /min Melanie L Oberhauser Work Phone: [facility] Work Phone: 07-20-2021 09:36-0500 Systolic blood pressure 137 mm[Hg] Melanie L Oberhauser Work Phone: [facility] Work Phone: 05-11-2021 09:26-0500 Body height 167.64 cm Melanie L Oberhauser Work Phone: [facility] Work Phone: 05-11-2021 09:26-0500 Body mass index (BMI) [Ratio] 50.68 kg/m2 Melanie L Oberhauser Work Phone: [facility] Work Phone: 05-11-2021 09:26-0500 Body surface area Derived from formula 2.42 m2 Melanie L Oberhauser Work Phone: [facility] Work Phone: 05-11-2021 09:26-0500 Body temperature 97.5 [degF] Melanie L Oberhauser Work Phone: [facility] Work Phone: 05-11-2021 09:26-0500 Body weight 142.43 kg Melanie L Oberhauser Work Phone: [facility] Work Phone: 05-11-2021 09:26-0500 Diastolic blood pressure 90 mm[Hg] Melanie L Oberhauser Work Phone: [facility] Work Phone: 05-11-2021 09:26-0500 Heart rate 84 /min Melanie L Oberhauser Work Phone: [facility] Work Phone: 05-11-2021 09:26-0500 Systolic blood pressure 142 mm[Hg] Melanie L Oberhauser Work Phone: [facility] Work Phone: 12-30-2020 15:54-0400 Body temperature 97.3 [degF] Dominik Colby Jr., DPM Work Phone: [facility] 12-30-2020 15:54-0400 Diastolic blood pressure 97 mm[Hg] Dominik Colby Jr., DPM Work Phone: [facility] 12-30-2020 15:54-0400 Heart rate 86 /min Dominik Colby Jr., DPM Work Phone: [facility] 12-30-2020 15:54-0400 Systolic blood pressure 157 mm[Hg] Dominik Colby Jr., DPM Work Phone: [facility] 12-16-2020 08:27-0400 Body height 167.6 cm Dominik Vidalrupinder Biswas., DPM Work Phone: [facility] 12-16-2020 08:27-0400 Body mass index (BMI) [Ratio] 48.42 kg/m2 Dominik Sidhun Jr., DPM Work Phone: [facility] 12-16-2020 08:27-0400 Body temperature 97.7 [degF] Dominik Vidallon Jr., DPM Work Phone: [facility] 12-16-2020 08:27-0400 Body weight 136.08 kg Dominik Vidallon Jr., DPM Work Phone: [facility] 12-16-2020 08:27-0400 Diastolic blood pressure 79 mm[Hg] Dominik Vidalrupinder Biswas., DPM Work Phone: [facility] 12-16-2020 08:27-0400 Heart rate 92 /min Dominik Vidalrupinder Biswas., DPM Work Phone: [facility] 12-16-2020 08:27-0400 Systolic blood pressure 146 mm[Hg] Dominik Vidalrupinder Biswas., DPM Work Phone: [facility] 03-09-2020 11:21-0400 BMI (Body Mass Index) 50.81 kg/m2 Ingris Chan [facility] [address] Work Phone: 03-09-2020 11:21-0400 Body Temperature 96.9 [degF] Ingris Chan [facility] and [address] Work Phone: Comment on above: Method: Temporal 03-09-2020 11:21-0400 Body weight 142.8 kg Ingris Chan [facility] [address] Work Phone: 03-09-2020 11:21-0400 BP Diastolic 80 mm[Hg] Ingris Chan [facility] [address] Work Phone: Comment on above: Location: LUE; Position: Sitting 03-09-2020 11:210400 BP Systolic 130 mm[Hg] Ingris Chan [facility] [address] Work Phone: Comment on above: Location: LUE; Position: Sitting 03-09-2020 11:0400 BSA (Body Surface Area) 2.43 m2 Ingris Chan [facility] [address] Work Phone: 03-09-2020 11:0400 Height 167.64 cm Ingris Chan [facility] [address] Work Phone: Encounters Encounter Date Encounter Type Care Provider Facility Start: 04-22-2025 ambulatory Dione Fragoso lity:[facility] Start: 03-31-2025 Encounter for other preprocedural examination Dione Arreola [facility] Start: 03-28-2025 ambulatory Dione Fragoso lity:[facility] Start: 02-24-2025 End: 02-24-[address] Melanie Dumas DO Work Phone: -[facility] Start: 02-24-2025 End: 02-24-[address] Dione Arreola MD -[facility] Start: 02-24-2025 End: 02-24-[address] Dione Arreola MD -[facility] Work Phone: Start: 02-24-2025 End: 02-24-[address] Melanie Dumas DO Work Phone: -[facility] Start: 02-24-2025 End: 02-24-2025 ambulatory Dione Arreola Facility:[facility] Start: 02-20-2025 End: 02-20-2025 ambulatory [facility] Start: 02-11-2025 End: 02-11-2025 ambulatory [facility] Start: 02-10-2025 End: 02-10-2025 Office outpatient new 45 minutes Faraz Taylor MD Work Phone: [facility] Comment on above: Rotator cuff impinge ment syndrome of right shoulder (Primary Dx); Right shoulder pain, unspecified chronicity Start: 02-10-2025 End: 02-10-2025 ambulatory FARAZ TAYLOR [facility] Ambulatory Start: 01-29-2025 End: 01-29-2025 Subsequent hospital visit by physician [facility] Comment on above: Chronic right should er pain Visit for screening mammogram Start: 01-29-2025 End: 01-29-2025 ambulatory [facility] Start: 01-28-2025 End: 01-28-2025 Office outpatient visit 25 minutes Yadira Arenas MD Work Phone: [facility] Comment on above: Primary hypertension (Primary Dx); Anxiety; History of retinoblastoma; Chronic right shoulder pain; Healthcare maintenance; Visit for screening mammogram Start: 01-28-2025 End: 01-28-2025 Patient encounter status Yadira Arenas MD Work Phone: [facility] Work Phone: Start: 01-28-2025 End: 01-28-2025 ambulatory YADIRA [facility] Ambulatory Start: 01-28-2025 End: 01-28-2025 Encounter for general adult medical examination without abnormal findings YADIRA [facility] Start: 12-30-2024 End: 12-30-[address] Melanie Dumas DO Work Phone: -[facility] Start: 12-30-2024 End: 12-30-2024 Patient encounter procedure Nuris Rubio FERMENTATION ENGINEER-C -[facility] Work Phone: Start: 12-30-2024 End: 12-30-2024 ambulatory Nuris Rubio Facility:[facility] Start: 12-19-2024 End: 12-19-2024 Postop follow up visit related to original px Melanie Hung MD Work Phone: [facility] Comment on above: Postoperative visit (Primary Dx) Start: 12-19-2024 End: 12-19-2024 [facility] Start: 12-19-2024 End: 12-19-2024 Patient encounter procedure Nuris Rubio NP-[facility] Work Phone: Start: 12-19-2024 End: 12-19-2024 ambulatory Nuris Rubio [facility] Start: 12-03-2024 End: 12-03-2024 Subsequent hospital visit by physician Melanie Hung MD Work Phone: [facility] [place] Comment on above: Post-operative pain (Primary Dx); Symptomatic cholelithiasis Start: 11-19-2024 [facility] Start: 11-07-2024 End: 11-07-2024 Office outpatient visit 25 minutes Melanie Hung MD Work Phone: [facility] Comment on above: Symptomatic cholelit hiasis (Primary Dx) Start: 11-07-2024 End: 11-07-2024 [facility] Start: 01-29-2024 End: 01-29-2024 Office consultation new/estab patient 60 min Melanie Hung MD Work Phone: [facility] Comment on above: Calculus of gallblad kofi without cholecystitis without obstruction Start: 01-09-2024 End: 01-09-2024 ambulatory [facility] Start: 01-09-2024 End: 01-09-2024 Subsequent hospital visit by physician Rocky Xie 2 [facility] Comment on above: RUQ pain Start: 10-26-2023 End: 10-26-2023 ambulatory [facility] Start: 10-26-2023 End: 10-26-2023 Encounter for general adult medical examination without abnormal findings [facility] Start: 10-26-2023 End: 10-26-2023 Subsequent hospital visit by physician Rocky Ibrahim [facility] Comment on above: Screening mammogram for breast cancer Start: 10-25-2023 End: 10-25-2023 Patient encounter status Melanie Dumas DO Work Phone: [facility] Work Phone: Start: 10-25-2023 End: 10-25-2023 Periodic preventive med est patient 40-64yrs Melanie Dumas DO Work Phone: [facility] Comment on above: Leg edema (Primary D x); Screening mammogram for breast cancer; Wellness examination; Rosacea; Primary hypertension Start: 04-25-2023 End: 04-25-2023 Office outpatient visit 15 minutes Melanie Dumas DO Work Phone: [facility] Comment on above: Need for influenza v accination (Primary Dx); Primary hypertension Start: 01-24-2023 End: 01-24-2023 Office outpatient visit 15 minutes Melanie Dumas DO Work Phone: [facility] Comment on above: Primary hypertension (Primary Dx) Start: 11-15-2022 End: 11-15-2022 Office outpatient visit 15 minutes Melanie Dumas DO Work Phone: [facility] Comment on above: Primary hypertension (Primary Dx) Start: 10-03-2022 End: 10-03-2022 ambulatory MELANIE DUMAS [facility] Start: 09-06-2022 End: 09-06-2022 ambulatory MELANIE DUMAS [facility] Start: 08-30-2022 End: 08-30-2022 ambulatory MELANIE DUMAS [facility] Start: 05-24-2022 Office outpatient vi sit 15 minutes Melanie Dumas Work Phone: [facility] Work Phone: Start: 05-24-[address] Melanie Dumas Facility:[id number] Start: 03-25-2022 Chart Update Melanie Fatima user Work Phone: [facility] Work Phone: Start: 03-01-2022 End: 03-01-2022 ambulatory MELANIE DUMAS [facility] Start: 02-01-2022 End: 02-05-2022 ambulatory CECELIA VU [facility] Start: 02-01-2022 End: 02-01-2022 Office outpatient visit 15 minutes Cecelia Vu DPM Work Phone: [facility] Comment on above: Plantar fasciitis of left foot; Equinus contracture of ankle; Left foot pain Start: 11-25-2021 FUV, Provider: Adis Carrillo, Status: Pen, Time: 9:30 AM Melanie Dumas Work Phone: [facility] Work Phone: Start: 11-25-2021 Office outpatient vi sit 15 minutes Melanie Dumas Work Phone: [facility] Work Phone: Start: 11-25-[address] Melanie Dumas Facility:[id number] Start: 11-23-2021 Office outpatient vi sit 15 minutes Melanie Dumas Work Phone: [facility] Work Phone: Start: 11-23-[address] Melanie Dumas Facility:[id number] Start: 08-18-2021 AUDIT Melanie mcgregor Work Phone: [facility] Work Phone: Start: 07-20-[address] Melanie Dumas Facility:[id number] Start: 05-11-2021 Office outpatient vi sit 25 minutes Melanie Dumas Work Phone: [facility] Work Phone: Start: 12-30-2020 End: 12-30-2020 Office outpatient visit 10 minutes Dominik Lasha DPM Work Phone: [facility] Comment on above: Abrasion of right fo ot, initial encounter (Primary Dx); Right foot pain Start: 12-16-2020 End: 12-16-2020 Office outpatient visit 15 minutes Dominik Vidallon DPM Work Phone: [facility] Comment on above: Stress fracture of l eft foot (Primary Dx); Stress fracture of left foot, initial encounter; Stress fracture of left foot with routine healing, subsequent encounter Start: 11-14-2018 End: 11-14-2018 Patient encounter procedure [facility] Start: 08-10-2018 End: 08-14-2018 Patient encounter procedure [facility] Start: 08-07-2018 End: 08-08-2018 Patient encounter procedure [facility] Facility:[facility] Start: 08-01-2017 Ambulatory [facility] Facility:[place] Start: 03-16-2017 Ambulatory [facility] Facili ty:[place] End: 03-09-2020 Manual pelvic examination Melanie Dumas Work Phone: [facility] Work Phone: Comment on above: 03/09/20 HPV- NIL5/2 08/05 NIL; Menarche Melanie elias Work Phone: [facility] Work Phone: Comment on above: AGE 9; Patient encounter procedure Melanie Dumas Work Phone: [facility] Work Phone: Procedures Date Procedure [...] foot complete minimum 3 views Cecelia Annemarie Mriella DPM Work Phone: Start: 12-30-2020 Radex foot [...] 2) Zoster Vacc allan (1 of 2) [facility] Start: 01-29-2030 Lipid panel Lipid Panel [facility] Start: 10-25-2028 Lipid panel Lipid Panel [facility] Start: 03-25-2027 Lipid panel Lipid Panel [facility] Start: 01-08-2027 Diabetes mellitus screening Diabetes Screening [facility] Start: 01-29-2026 Screening for malign ant neoplasm of breast Mammogram [facility] Start: 07-28-2025 End: 07-28-2025 Patient encounter procedure 07/28/2025 2:00 PM EDT Office Visit [facility] [address] [facility] [address] [place] [address] Yadira Arenas MD [address] [facility] [address] [place] [address] [facility] Start: 04-14-2025 End: 04-14-2025 Patient encounter procedure 04/14/2025 8:00 AM EST Office Visit [facility] [address] [place] [phone] Faraz Taylor MD [address] [place] [address] [facility] Start: 02-24-2025 Liquid based cervica l cytology screening [facility] Start: 02-10-2025 End: 02-10-2025 Patient encounter procedure 02/10/2025 8:00 AM EDT Office Visit [facility] [address] [facility] [address] [facility] [address] [place] [phone] Faraz Taylor MD [address] [place] [address] [facility] Start: 01-29-2025 End: 01-29-2025 Patient encounter procedure 01/29/2025 8:00 AM EDT Appointment [address] [phone] [facility] Start: 01-28-2025 End: 01-28-2026 CBC W Auto Differential panel - Blood CBC and Auto Differential Lab Routine Primary hypertension Healthcare maintenance Expected: 01/28/2025 (Approximate), Expires: 01/28/2026 [facility] Work Phone: Comment on above: Expected: 01/28/2025 (Approximate), Expires: 01/28/2026 Start: 01-28-2025 End: 01-28-2026 Comprehensive metabolic 2000 panel - Serum or Plasma Comprehensive Metabolic Panel Lab Routine Primary hypertension Healthcare maintenance Expected: 01/28/2025 (Approximate), Expires: 01/28/2026 [facility] Work Phone: Comment on above: Expected: 01/28/2025 (Approximate), Expires: 01/28/2026 Start: 01-28-2025 End: 03-30-2026 DBT Breast - bilateral BI mammo bilateral screening tomosynthesis Imaging Routine Visit for screening mammogram Expected: 01/28/2025, Expires: 03/30/2026 [facility] Work Phone: Comment on above: Expected: 01/28/2025 , Expires: 03/30/2026 Start: 01-28-2025 End: 01-28-2026 Lipid 1996 panel - Serum or Plasma Lipid Panel Lab Routine Primary hypertension Healthcare maintenance Expected: 01/28/2025 (Approximate), Expires: 01/28/2026 [facility] Work Phone: Comment on above: Expected: 01/28/2025 (Approximate), Expires: 01/28/2026 Start: 01-28-2025 End: 01-28-2026 TSH with reflex to Free T4 if abnormal TSH with reflex to Free T4 if abnormal Lab Routine Primary hypertension Healthcare maintenance Expected: 01/28/2025 (Approximate), Expires: 01/28/2026 [facility] Work Phone: Comment on above: Expected: 01/28/2025 (Approximate), Expires: 01/28/2026 Start: 01-28-2025 End: 01-28-2026 XR Shoulder - right 2 Views XR shoulder right 2+ views Imaging Routine Chronic right shoulder pain Expected: 01/28/2025, Expires: 01/28/2026 [facility] Work Phone: Comment on above: Expected: 01/28/2025 , Expires: 01/28/2026 Start: 01-20-2025 COVID-19 Vaccine ( season) COVID-19 Vaccine ( season) [facility] Start: 01-20-2025 Influenza vaccination Influenza Vacc ine (#1) [facility] Start: 12-19-2024 End: 12-19-2024 Patient encounter procedure 12/19/2024 11:30 AM EDT Office Visit [facility] [address] [facility] [address] [place] [address] Melanie Hung MD [address] [facility], [facility] [address] [place] [address] [facility] Start: 12-03-2024 Subsequent hospital visit by physician 12/03/2024 Hospital Encounter [facility] [place] [address] [place] [phone] [place] [address] [place] [address], [facility] [address] [place] [id number] [facility] [place] Start: 10-25-2024 Screening for malign ant neoplasm of breast Mammogram [facility] Start: 10-25-2024 Yearly Adult Physical Yearly Adult P hysical [facility] Start: 10-24-2024 End: 10-24-2024 Patient encounter procedure 10/24/2024 9:00 AM EDT Office Visit [facility] [address] [place] [address] Melanie Dumas DO [address] [facility] [place] [address] [facility] Start: 04-29-2024 End: 04-29-2024 Patient encounter procedure 04/29/2024 1:30 PM EST Office Visit [facility] [address] [facility] [address] [place] [address] Melanie Hung MD [address] [facility] [place] [address] [facility] Start: 01-29-2024 End: 01-29-2024 Patient encounter procedure 01/29/2024 3:00 PM EDT Office Visit [facility] [address] [facility] [address] [place] [address] Melanie Hung MD [address] [facility], [facility] [address] [place] [address] [facility] Start: 01-21-2024 COVID-19 Vaccine ( season) COVID-19 Vaccine ( season) [facility] Start: 01-21-2024 COVID-19 Vaccine ( season) COVID-19 Vaccine ( season) [facility] Start: 01-21-2024 Influenza vaccination Influenza Vacc ine (#1) [facility] Start: 10-25-2023 End: 10-24-2024 CBC W Auto Differential panel - Blood CBC and Auto Differential Lab Routine Wellness examination Expected: 10/25/2023 (Approximate), Expires: 10/24/2024 [facility] Work Phone: Comment on above: Expected: 10/25/2023 (Approximate), Expires: 10/24/2024 Start: 10-25-2023 End: 10-24-2024 Comprehensive metabolic 2000 panel - Serum or Plasma Comprehensive Metabolic Panel Lab Routine Wellness examination Expected: 10/25/2023 (Approximate), Expires: 10/24/2024 [facility] Work Phone: Comment on above: Expected: 10/25/2023 (Approximate), Expires: 10/24/2024 Start: 10-25-2023 End: 12-24-2024 DBT Breast - bilateral BI mammo bilateral screening tomosynthesis Imaging Routine Screening mammogram for breast cancer Expected: 10/25/2023, Expires: 12/24/2024 [facility] Service [facility] Work Phone: Comment on above: Expected: 10/25/2023 , Expires: 12/24/2024 Start: 10-25-2023 End: 10-24-2024 Lipid 1996 panel - Serum or Plasma Lipid Panel Lab Routine Wellness examination Expected: 10/25/2023 (Approximate), Expires: 10/24/2024 [facility] Work Phone: Comment on above: Expected: 10/25/2023 (Approximate), Expires: 10/24/2024 Start: 10-25-2023 End: 10-24-2024 TSH with reflex to Free T4 if abnormal TSH with reflex to Free T4 if abnormal Lab Routine Wellness examination Expected: 10/25/2023 (Approximate), Expires: 10/24/2024 [facility] Work Phone: Comment on above: Expected: 10/25/2023 (Approximate), Expires: 10/24/2024 Start: 10-25-2023 End: 10-25-2023 Patient encounter procedure 10/25/2023 8:20 AM EDT Office Visit [facility] [address] [place] [phone] Melanie Dumas DO [address] [facility] [place] [address] [facility] Start: 2023 Screening for malign ant neoplasm of breast Mammogram [facility] Start: 05-23-2023 FUV, Provider: Melanie Dumas, Status: Pen, Time: 9:20 AM FUV, Provider: Melanie Dumas, Status: Pen, Time: 9:20 AM -[facility] Work Phone: Start: 05-23-2023 End: 05-23-2023 Patient encounter procedure 05/23/2023 9:20 AM EST Office Visit [facility] [address] [place] [address] Melanie Dumas DO [address] [facility] [place] [address] [facility] Start: 03-09-2023 Screening for malign ant neoplasm of cervix [facility] Start: 01-24-2023 End: 01-24-2023 Patient encounter procedure 01/24/2023 9:00 AM EDT Office Visit [facility] [address] [place] [address] Melanie Dumas DO [address] [facility] [place] [address] [facility] Start: 01-20-2023 COVID-19 Vaccine ( season) COVID-19 Vaccine ( season) [facility] Start: 01-20-2023 Influenza vaccination Influenza Vacc ine (#1) [facility] Start: 05-24-2022 FUV, Provider: Melanie Dumas, Status: Pen, Time: 9:20 AM FUV, Provider: Melanie Dumas, Status: Pen, Time: 9:20 AM [facility] Work Phone: Start: 05-07-2022 COVID-19 Vaccine (4 - Moderna series) COVID-19 Vaccine (4 - Moderna series) [facility] Start: 04-02-2022 COVID-19 Vaccine (2 - Pfizer series) COVID-19 Vaccine (2 - Pfizer series) [facility] Start: 03-11-2022 Patient encounter procedure ANNUAL, Provider: Josh Diaz, Status: Pen, Time: 9:45 AM [facility] Work Phone: Start: 03-01-2022 End: 03-01-2022 Patient encounter procedure 03/01/2022 Office Visit Podiatry Cecelia Vu, DPM [address] [place] [phone] [facility] Start: 01-20-2022 Influenza vaccination Sequenti al Influenza Vaccine (#1) [facility] Start: 11-23-2021 FUV, Provider: Melanie Dumas, Status: Pen, Time: 10:40 AM FUV, Provider: Melanie Dumas, Status: Pen, Time: 10:40 AM [facility] Work Phone: Start: 07-23-2021 COVID-19 Vaccine (4 - Booster) COVID-19 Vaccine (4 - Booster) [facility] Start: 07-13-2021 FUV, Provider: Melanie Dumas, Status: Pen, Time: 9:40 AM FUV, Provider: Melanie Dumas, Status: Pen, Time: 9:40 AM [facility] Work Phone: Start: 01-20-2021 Influenza vaccination Sequenti al Influenza Vaccine (#1) [facility] Start: 01-13-2021 End: 01-13-2021 Patient encounter procedure [facility] Start: 2010 HPV Vaccines (1 - 3- dose standard series) HPV Vaccines (1 - 3-dose standard series) [facility] Start: 2005 DTaP/Tdap/Td Vaccine s (1 - Tdap) DTaP/Tdap/Td Vaccines (1 - Tdap) [facility] Start: 2004 Screening for malign ant neoplasm of cervix HPV/Cotest [facility] Start: 2002 Hepatitis B Vaccines (1 of 3 - 19+ 3-dose series) Hepatitis B Vaccines (1 of 3 - 19+ 3-dose series) [facility] Start: 2001 Diabetes mellitus screening Diabetes Screening [facility] Start: 2001 Hepatitis C screening Hepatitis C Sc reening [facility] Start: 1998 HIV screening HIV Screening [facility] Start: 1996 Varicella vaccination Varicell a Vaccines (1 of 2 - 13+ 2-dose series) [facility] Start: 1995 Depression screening using PHQ-9 (Patient Health Questionnaire 9) score [facility] Start: 1989 Pneumococcal Vaccine : Ped or At-Risk (1 - PCV) Pneumococcal Vaccine: Ped or At-Risk (1 - PCV) [facility] Start: 1989 Pneumococcal Vaccine : Ped or At-Risk (1 of 4 - PCV13) Pneumococcal Vaccine: Ped or At-Risk (1 of 4 - PCV13) [facility] Start: 1986 History and physical examination, annual for health maintenance Wellness Visit [facility] Start: 1984 MMR Vaccines (1 of 1 - Standard series) MMR Vaccines (1 of 1 - Standard series) [facility] Start: 1984 Varicella vaccination Varicell a Vaccines (1 of 2 - 2-dose childhood series) [facility] Start: 1983 Hepatitis B Vaccines (1 of 3 - 3-dose series) Hepatitis B Vaccines (1 of 3 - 3-dose series) [facility] Start: 1983 HIV screening HIV Screening [facility] Start: 1983 Screening for malign ant neoplasm of cervix Pap Smear [facility] Start: 1983 Tetanus vaccination Tetanus: Every 1 0yrs [facility] Start: 1983 Yearly Adult Physical Yearly Adult P hycal [facility] Cytology report of Cervical or vaginal smear or scraping Cyto stain.thin prep [facility] End: 10-26-2023 DBT Breast - bilateral [facility] Service Area Work Phone: Comment on above: Once for 1 Occurrenc es starting 10/26/2023 until 10/26/2023 Laparoscopy surg cholecystectomy CHOLECYSTECTOMY, LAPAROSCOPIC Symptomatic cholelithiasis Virtual [facility] OR Path report.final Dx Spec Wo [facility] Surgical pathology study [facility] Service Area Work Phone: Comment on above: Release Upon Catarina johnson for 1 Occurrences starting 12/03/2024 End: 01-29-2025 XR Shoulder - right 2 Views [facility] Service Area Work Phone: Comment on above: Once for 1 Occurrenc es starting 01/29/2025 until 01/29/2025 Immunizations Immunization Date Immunization Notes Care Provider Blaire azevedo 03-11-2024 influenza virus vaccine, unspecified formulation Melanie Hung MD Work Phone: [facility] Work Phone: 04-25-2023 influenza, injectabl e, quadrivalent, preservative free Melanie Dumas DO Work Phone: [facility] Work Phone: 04-25-2023 influenza virus vaccine, unspecified formulation [address] Work Phone: 03-12-2022 influenza virus vaccine, unspecified formulation Melanie Jayashree Familiaersebascurt Work Phone: [facility] Work Phone: Comment on above: Series: 03-12-2022 Pfizer COVID-19 Vac Bivalent 30 MCG/0.3ML Intramuscular Suspension Melanie Mcdoweller Work Phone: [facility] Work Phone: 04-30-2021 Pfizer-BioNTech COVID-19 Vacc 30 MCG/0.3ML Intramuscular Suspension Melanie Mcdoweller Work Phone: [facility] Work Phone: 02-03-2021 influenza virus vaccine, unspecified formulation Melanie Dumas Work Phone: [facility] Work Phone: Comment on above: Series: 09-25-2020 Moderna COVID-19 Vaccine 100 MCG/0.5ML Intramuscular Suspension Melanie L Oberhauser Work Phone: [facility] Work Phone: 08-27-2020 Moderna COVID-19 Vaccine 100 MCG/0.5ML Intramuscular Suspension Melanie L Oberhauser Work Phone: [facility] Work Phone: 03-26-2020 influenza, injectabl e, quadrivalent, preservative free Ingris Mathew[address] Work Phone: Comment on above: Series: 03-21-2019 influenza virus vaccine, unspecified formulation Melanie Dumas Work Phone: [facility] Work Phone: Comment on above: Series: 03-21-2019 influenza, seasonal, injectable Ingris Chan [address] Work Phone: 02-21-2018 influenza, injectabl e, quadrivalent, preservative free Melanie Dumas Work Phone: [facility] Work Phone: 03-04-2014 influenza virus vaccine, whole virus Melanie Dumas Work Phone: [facility] Work Phone: Payers Date Payer Category Payer Unknown [id number] 2024 Self-pay 2022 Managed Care (Private) [facility] [id number] 2022 Private Health Insurance [facility] [id number] 2022-Present [address] [place] [address] [id number] 2022 Private Health Insurance [id number] 2018 Unknown [id number] 2018 Unknown MMO [employer] PPO [id number] 2018-Present [id number] 2018 Unknown 1983 Unknown [id number] 2.16.840.1.991628.3.579.2. 903 1983 Unknown [id number] 2.16.840.1.218658.3.579.2. 903 1983 Unknown [id number] 2.16.840.1.363385.3.579.2. 356 1983 Unknown [id number] 2.16.840.1.728371.3.579.2. 356 1983 Unknown [id number] 2.16.840.1.914248.3.579.2. 356 1983 Unknown [id number] 2.16.840.1.072347.3.579.2. 356 1983 Unknown [id number] 2.16.840.1.155431.3.579.2. 903 1983 Unknown [id number] 2.16.840.1.649552.3.579.2. 903 1983 Unknown [id number] 2.16.840.1.856765.3.579.2. 903 1983 Unknown [id number] 2.16.840.1.024727.3.579.2. 903 1983 Unknown [id number] 2.16.840.1.944221.3.579.2. 903 1983 Unknown [id number] 2.16.840.1.438589.3.579.2. 903 1983 Unknown [id number] 2.16.840.1.905261.3.579.2. 1245 1983 Unknown [id number] 2.16.840.1.767291.3.579.2. 1245 1983 Unknown [id number] 2.16.840.1.122014.3.579.2. 1244 1983 Unknown [id number] 2.16.840.1.914863.3.579.2. 1244 1983 Unknown [id number] 2.16.840.1.969196.3.579.2. 1244 1983 Unknown [id number] 2.16.840.1.169746.3.579.2. 1244 1983 Unknown [id number] 2.16.840.1.034655.3.579.2. 1242 1983 Unknown [id number] 2.16.840.1.194896.3.579.2. 1242 1983 Unknown [id number] 2.16840.1.079941.3.579.2. 124 1983 Unknown [id number] 2.16.840.1.663231.3.579.2. 124 1983 Unknown [id number] 2.16840.1.364666.3.579.2. 1243 Unknown [id number] Unknown [id number] 2.16840.1.763635.3.579.2. 462 Unknown [id number] 2.840.1.051633.3.579.2. 462 Unknown [id number] 2.16840.1.938633.3.579.2. 462 Unknown [id number] 2.16840.1.790747.3.579.2. 462 Unknown [id number] 2.16840.1.325784.3.579.2. 462 Unknown [id number] 2.840.1.065912.3.579.2. 462 Social History Date Type Detail Facility Start: 12-16-2020 End: 02-25-2025 Tobacco smoking status NHIS Never smoker [facility] Start: 12-16-2020 End: 10-13-2022 Tobacco use and exposure Never used [facility] Start: 12-16-2020 End: 02-01-2022 Alcohol intake Lifetime non-drinker (finding) [facility] Start: 1985 Sex Assigned At Not on file [facility] Start: 01-22-2022 End: 01-29-2024 Exposure to SARS-CoV-2 (event) Not sure [facility] Start: 10-13-2022 End: 01-28-2025 Sexually active Sexually active [facility] Work Phone: Start: 11-15-2022 End: 01-29-2024 Alcohol intake Current drinker of alcohol (finding) [facility] Work Phone: Start: 10-13-2022 End: 01-28-2025 Tobacco use panel [facility] Work Phone: Start: 11-07-2024 End: 02-10-2025 Alcoholic beverage intake Ex-drinker (finding) [facility] Work Phone: Start: 11-07-2024 Alcohol Comment [facility] Work Phone: Start: 12-03-2024 Sexual orientation Heterosexual (flor cisneros) [facility] Work Phone: Start: 1985 Sex Assigned At Female [facility] Start: 04-15-2022 Sex Female [facility] NEGATED: Highlighted row - - [facility] [address] Work Phone: Goals Date Patient Goal Desired Activity /State Personal health goal Functional Status Date Assessment Result Facility 01-28-2025 Patient Health Questionnaire 2 item (PHQ-2) [Reported] [facility] Work Phone: 12-03-2024 Barnes - suicide severity rating scale screener - recent [C-SSRS] [facility] Work Phone: NEGATED: Highlighted row Functional performance Functional status health issues are not documented [facility] [employer] [employer] Work Phone: Mental Status Date Assessment Result Facility NEGATED: Highlighted row Cognitive function [Interpretation] Cognitive status health issues are not documented [place] [address] [employer] Work Phone: Clinical Notes 05-11-2020 to 02-24-2025 Faraz Taylor MD - 02/10/2025 8:00 AM NBATYadira Arenas MD - 01/28/2025 2:00 PM EDTPatient Instructions Note Date & Type Note Facility 02-24-2025 Progress note [facility] 02-10-2025 History of Present illness Narrative CHIEF [...] Belly Press - Positive Speeds test, Positive Hebron's test - Neurovascularly intact Neck examination demonstrates [...] Taylor MD Orthopaedic Sports and Shoulder Surgeon [facility] This note was created with the [...] Paternal Grandmother 65 documented in this encounter [facility] Work Phone: 01-28-2025 History of Present illness Narrative Subjective Anurag Valencia is a 39 y.o. female who presents for Establish Care (Transferring from [facility] Here to get established. Previously a [...] is enlarged and she will be seeing OFFICE MACHINE EMBOSSOGRAPH OPERATOR for hysterectomy soon. She is also having [...] Yadira Arenas MD documented in this encounter [facility] Work Phone: 01-28-2025 Instructions Yadira Arenas MD - 01/28/2025 2:00 PM EDT Continue current medications. Follow up with specialists as scheduled. Follow up in 6 months, sooner if needed. documented in this encounter [facility] Work Phone: 12-31-2024 Radiology Diagnostic study note [facility] Imaging Services [address] [place] [id number] Pelvic w/ Transvaginal MR#: [id number] Acct: [id number] Name: ANURAG VALENCIA Rep #: [id number] : 1985 F 39 From: Fidel Rogers MD PCP: Dr. Melanie Dumas, DO Status: R EG CLI Study:Pelvic w/ Transvaginal Date of Exam: 12/30/24 Exam# [id number] Ordering Dr: Nuris Rubio FERMENTATION ENGINEER-C PROCEDURE: PELVIC W/ TRANSVAGINAL REASON FOR EXAM: [...] Transvaginal IMPRESSION: Enlarged fibroid uterus. Reading Location: [place] [address] CC: JOSEY Rubio; Dr. Melanie Dumas, DO ~ Construction Flagger: Signed [facility] 12-19-2024 Evaluation note Diagnosis Onset Date Resolution Enlarged uterus acute November 8:18am Yeast dermatitis acute November 8:18am [facility] Work Phone: 1(810) 614-643007-31-2025 Evaluation note* Diagnosis Onset Date Resolution Status Admit Date Enlarged uterus acute November 8:18am Yeast dermatitis acute November 8:18am Enlarged uterus acute February 242024 8:09am Menorrhagia with regular cycle acute February 24, 2025 8:09am Pelvic pressure in female acute February 24, 2025 8:09am Uterine fibroid acute February 242024 8:09am [facility] Work Phone: 1([phone]) 688-353707-15-2025 Miscellaneous Notes* Op Note - Melanie Hung MD - 12/03/2024 3:03 PM EDT [facility] Operative Report Patient: Anurag Valencia : 1985 Date of Operation: 12/03/24 Pre-Operative Diagnosis: Symptomatic cholelithiasis Post-Operative Diagnosis: Symptomatic cholelithiasis, enlarged uterus Procedure: Laparoscopic cholecystectomy Surgeon: Melanie Hung MD Lift Mechanic: n/a Anesthesia: General Findings: Cholelithiasis, including a [...] electrolyte drinks (Gatorade). Additional Instructions: Will need transport driver home, will receive call day before surgery with arrival time [1] No outpatient medications have been marked as taking for the 12/03/24 encounter (Hospital Encounter). [facility]: 1(273) 177-207807-15-2025 Surgery Surgical operation note* Op Note - Melanie Hung MD - 12/03/2024 3:03 PM EDT [facility] Operative Report Patient: Anurag Valencia : 1985 Date of Operation: 12/03/24 Pre-Operative Diagnosis: Symptomatic cholelithiasis Post-Operative Diagnosis: Symptomatic cholelithiasis, enlarged uterus Procedure: Laparoscopic cholecystectomy Surgeon: Melanie Hung MD Lift Mechanic: n/a Anesthesia: General Findings: Cholelithiasis, including a [...] in stable condition. Melanie Hung MD 12/03/2024 [facility] Work Phone: 1([phone]) 130-240707-15-2025 Attending History and physical note* Melanie Hung [...] alcohol use. She has a trip to [place], [place] planned with her [facility] team for early November. ROS: Constitutional: no [...] laparoscopic [place] a daily stool softener to help with her chronic constipation. Melanie Hung MD 11/07/2024 [facility] Work Phone: [phone] History and physical note* Melanie Hung MD [...] alcohol use. She has a trip to [place], [place] planned with her [facility] for early November. ROS: Constitutional: no [...] laparoscopic cholecyst[place] discussed taking a daily stool softener to help with her chronic constipation. Melanie Hung MD 11/07/2024 [facility] Work Phone: [phone]) 966-209407-10-2025 Instructions* Preprocedure Instructions - Tiffanie Liu RN - 11/28/2024 9:14 AM EDT Current Rx Instructions for Day of Surgery[1] NPO Instructions: Do not eat any food after midnight the night before your surgery/procedure. You may have clear liquids until TWO hours before surgery/procedure. This includes water, black tea/coffee, (no milk or cream) apple juice and electrolyte drinks (Gatorade). Additional Instructions: Will need transport driver home, will receive call day before surgery with arrival time [1] No outpatient medications have been marked as taking for the 12/03/24 encounter (Hospital Encounter). [facility]06-19-2025 History of Present illness Narrative * [...] alcohol use. She has a trip to [place], [place] planned with her [facility] for early November. ROS: Constitutional: no [...] laparoscopic cholecyst[place] discussed taking a daily stool softener to help with her chronic constipation. Melanie Hung MD 11/07/2024 documented in this [facility] Work Phone: [phone]) 380-648309-09-2024 History of Present illness Narrative* Melanie Hung [...] Melanie Hung MD 01/29/2024 documented in this [facility] Work Phone: [phone]) 784-135106-05-2024 History of Present illness Narrative* Melanie Dumas, [...] Rosacea [I10] Primary hypertension documented in this [facility] Work Phone: [phone]) 706-443912-05-2023 History of Present illness Narrative* Mealnie Dumas DO - 04/25/2023 8:40 AM EST [...] vaccination [I10] Primary hypertension documented in this [facility] Work Phone: 1(956) 524-501709-05-2023 History of Present illness Narrative* Melanie Dumas [...] diagnoses: [I10] Primary hypertension documented in this [facility] Work Phone: [phone]) [phone] History of Present illness Narrative* Melanie Dumas [...] diagnoses: [I10] Primary hypertension [facility]: [phone]) 745-184209-13-2022 History of Present illness Narrative* Cecelia Vu [...] Podiatric Physician & Surgeon documented in this [id number] History of Present illness NarrativePatient presents for [...] in erythema and pain since that started. [facility] Work Phone: [phone]) 186-718408-11-2021 History of Present illness Narrative* Dominik Colby [...] medical complexity decision making. documented in this [id number] History of Present illness Narrative* Dominik Colby [...] up titration of care. documented in this [id number] NoteHNO ID: [id number] Author: Luis Gu MD Service: ? Author [...] Luis Gu MD December 14, 2020 5:08 [facility]12-[facility] History of Present illness Narrative* Patient is [...] like she is more snappish than normal. -[facility] Work Phone: Evaluation note* Diagnosis [...] Unspecified essential hypertension documented in this encounter [facility] Work Phone: [phone] note* Diagnosis Need for influenza vaccination- Primary Need for prophylactic vaccination and inoculation against influenza Primary hypertension Unspecified essential hypertension documented in this encounter [facility] Work Phone: [phone] note* Diagnosis Leg edema- Primary Edema Screening mammogram for breast cancer Wellness examination Rosacea Primary hypertension Unspecified essential hypertension documented in this encounter [facility] Work Phone: [phone] note* Diagnosis Screening mammogram for breast cancer documented in this encounter [facility] Work Phone: [phone] note* Diagnosis Elevated blood pressure reading- Primary Elevated blood pressure reading without diagnosis of hypertension Anxiety Anxiety state, unspecified RUQ pain Abdominal pain, right upper quadrant documented in this encounter [facility] Work Phone: [phone] note* Diagnosis Elevated blood pressure reading- Primary Elevated blood pressure reading without diagnosis of hypertension Anxiety Anxiety state, unspecified Calculus of gallbladder without cholecystitis without obstruction documented in this encounter [facility] Work Phone: [phone] note* Diagnosis Elevated blood pressure reading- Primary Elevated blood pressure reading without diagnosis of hypertension Anxiety Anxiety state, unspecified Symptomatic cholelithiasis- Primary Symptomatic cholelithiasis- Primary documented in this encounter [facility] Work Phone: Evaluation note* Diagnosis Elevated blood pressure reading- Primary Elevated blood pressure reading without diagnosis of hypertension Anxiety Anxiety state, unspecified Symptomatic cholelithiasis- Primary Post-operative pain Other acute postoperative pain Post-operative pain Other acute postoperative pain Obesity due to excess calories documented in this encounter [facility] Work Phone: Evaluation note* Diagnosis Onset Date Resolution Status Admit Date Enlarged uterus acute November 8:18am [facility] Work Phone: Evaluation note* Diagnosis Elevated blood pressure reading- Primary Elevated blood pressure reading without diagnosis of hypertension Anxiety Anxiety state, unspecified Postoperative visit- Primary documented in this encounter [facility] Work Phone: Evaluation note* Diagnosis Primary hypertension- Primary Unspecified essential hypertension Anxiety Anxiety state, unspecified History of retinoblastoma Chronic right shoulder pain Pain in joint, shoulder region Healthcare maintenance Visit for screening mammogram documented in this encounter [facility] Work Phone: Evaluation note* Diagnosis Chronic right shoulder pain Pain in joint, shoulder region documented in this encounter [facility] Work Phone: Evaluation note* Diagnosis Visit for screening mammogram documented in this encounter [facility] Work Phone: Evaluation note* Diagnosis Rotator cuff impingement syndrome of right shoulder- Primary Right shoulder pain, unspecified chronicity documented in this encounter [facility] Work Phone: History of Present illness [...] not need it. * Hand dermatitis resolved. [facility] Work Phone: History of [...] Her m uncle suddenly passed from an [place] at 64. Had no previous inclinations. [facility] Work Phone: History of Present [...] on her own. She actually saw her revenue inspector this morning and has an ultrasound ordered. [...] She will follow-up with me as needed. Melanie Hung MD 12/19/2024 documented in this [facility] Work Phone: Progress note Author Dione Arreola [facility] Note Date/Time February 24, 2025 9: 24am [facility] [address], [address] [place] [address] OFFICE VISIT Date of Service: 02/24/25 MR#: [id number] Acct: [id number] Name: ANURAG VALENCIA Rep #: [id number] : 1985 Provider: Dr. Mike Arreola MD Age/Sex: 39/F [facility] Status: Signed Intake Vital Signs 12/19/24 08:28 02/24/25 08:20 02/24/25 08:22 Height 5 ft 6 in 5 ft 6 in 5 ft 6 in Weight: 264 lb 2 oz 278 lb 9 oz BMI 42.6 44.9 BP 123/84 H 155/88 H Intake Visit Reasons: consult for TAHBS keep 20 minutes Emergency Technician Required: No Is patient in pain?: No [...] physical activity do you participate in: none torey/temple: None seatbelt use: always do you feel safe at home: Yes additional social history: - Max. rn transitional care HPI consult for TAHBS keep 20 minutes [...] - full term 7lbs 2oz Female none [facility] 08/21/15 [place] live - full term 7lbs 15oz Male no ne [facility] ROS Const Constitutional: Denies fatigue, night sweats, [...] no acute distress and welldeveloped Orientation: alert [facility] Head: normal to inspection and normocephalic Ears: [...] Enlarged uterus N85.2 CPT Codes Endometrial Biopsy (35319) Assessment and Plan Assessment and Plan (1) [...] Cosigner Signature: Date (if applicable) CC: ~ [facility] Work Phone: Reason for referral (narrative)* Consultation (Routine) - Authorized Specialty Diagnoses / Procedures Referred By Contac t Referred To Contact Primary Care Procedures Follow Up In Primary Care Melanie Dumas DO [address] [facility] [place] [address] Referral ID Status Reason Start Date Expiration Date V isits Requested Visits Authorized [id number] Authorized 11/15/2022 05/14/2023 1 1 T [facility] Work Phone: reason for referral (narrative)* Consultation (Routine) - Authorized Specialty Diagnoses / Procedures Referred By Contac t Referred To Contact Primary Care Procedures Follow Up In Primary Care - Established Melanie Dumas DO [address] [facility] [place] [address] Referral ID Status Reason Start Date Expiration Date V isits Requested Visits Authorized [id number] Authorized 01/24/2023 07/23/2023 1 1 T [facility] Work Phone: reason for referral (narrative)* Consultation (Routine) - Authorized Specialty Diagnoses / Procedures Referred By Contac t Referred To Contact Primary Care Procedures Follow Up In Primary Care - Established Melanie Dumas DO [address] [facility] [place] [address] Referral ID Status Reason Start Date Expiration Date V isits Requested Visits Authorized [id number] Authorized 10/25/2023 10/24/2024 1 1 * Imaging (Routine) - Authorized Specialty Diagnoses / Procedures Referred By Contac t Referred To Contact Radiology Diagnoses Screening mammogram for breast cancer Procedures BI mammo bilateral screening tomosynthesis Melanie Dumas DO [address] [facility] [place] [address] Referral ID Status Reason Start Date Expiration Date Visits Requested Visits Authorized [id number] Authorized Perform Procedure 10/25/2023 10/24/2024 1 1 [facility] Work Phone: Rehopr for referral (narrative)No reason for referral information [facility] Work [facility]: Reason for visit Narrative* Consultation (Routine) - Authorized Specialty Diagnoses / Procedures Referred By Prabhu martin Referred To Contact General Surgery Diagnoses Calculus of gallbladder without cholecystitis without obstruction Melanie Dumas DO [address] [facility] [place] [address] Referral ID Status Reason Start Date Expiration Date Visits Requested Visits Authorized [id number] Authorized Specialty Services Required 01/09/2024 01/08/2025 1 1 [facility] Work Phone: Resksf for visit Narrative* Auth/Cert Specialty Diagnoses / Procedures Referred By Prabhu martin Referred To Contact Diagnoses Symptomatic cholelithiasis Symptomatic cholelithiasis [K80.20] Procedures WA LAPAROSCOPY SURG CHOLECYSTECTOMY Laparoscopic chole[place] [address] [place] [address], [address] [address] Phone: tel: fax: [facility] [place] [address] [place] [phone] fax: Referral ID Status Reason Start Date Expiration Date Visits Re quested Visits Authorized [id number] 1 1 [facility] Work Phone: reason for visit Narrative* Imaging (Routine) - Authorized Specialty Diagnoses / Procedures Referred By Prabhu t Referred To Contact Radiology Diagnoses Chronic right shoulder pain Procedures XR shoulder right 2+ views Yadira Arenas MD [address] [address] Phone: tel: fax: Referral ID Status Reason Start Date Expiration Date Visits Requested Visits Authorized [id number] Authorized Perform Procedure 01/28/2025 02/27/2026 1 1 [facility] Work Phone: Reason for visit Narrative* Imaging (Routine) - Authorized Specialty Diagnoses / Procedures Referred By Contac t Referred To Contact Radiology Diagnoses Visit for screening mammogram Procedures BI mammo bilateral screening tomosynthesis Yadira Arenas MD [address] [address] Phone: tel: fax: Referral ID Status Reason Start Date Expiration Date Visits Requested Visits Authorized [id number] Authorized Perform Procedure 01/28/2025 02/27/2026 1 1 [facility] Work Phone: Summary Purpose Family History [...] FoundDocuments on File Type Date Recorded 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 Advance Directives and Living Will [...] tomosynthesis Melanie Dumas, DO [address] [facility] [place] [address] Referral ID Status Reason Start Date Expiration Date Visits Requested Visits Authorized [id number] Authorized Perform Procedure 10/25/2023 10/24/2024 1 1 Specialty Diagnoses / Procedures Referred By Prabhu martin Referred To Contact Radiology Diagnoses RUQ pain Procedures US gallbladder Melanie Dumas, DO [address] [facility] [place] [address] Referral ID Status Reason Start Date Expiration Date Visits Requested Visits Authorized [id number] Authorized Perform Procedure 01/04/2024 01/03/2025 1 1 [...] section and content) DATE CREATED AUTHOR 11/10/2017 [facility] DATE CREATED AUTHOR AUTHOR'S ORGANIZ ATION 08/08/2018 [facility] DATE CREATED AUTHOR AUTHOR'S ORGANIZ ATION 11/15/2018 [facility] DATE CREATED AUTHOR AUTHOR'S ORGANIZ ATION 07/13/2021 [facility] DATE CREATED AUTHOR AUTHOR'S ORGANIZ ATION 11/25/2021 [employer] DATE CREATED AUTHOR AUTHOR'S ORGANIZ ATION 05/24/2022 [facility] DATE CREATED AUTHOR AUTHOR'S ORGANIZ ATION 10/03/2022 [facility] DATE CREATED AUTHOR AUTHOR'S ORGANIZ ATION 01/15/2024 [facility] DATE CREATED AUTHOR AUTHOR'S ORGANIZ ATION 02/01/2025 [facility] DATE CREATED AUTHOR AUTHOR'S ORGANIZ ATION 02/10/2025 [facility] DATE CREATED AUTHOR AUTHOR'S ORGANIZ ATION 03/07/[address] [facility] DATE CREATED AUTHOR AUTHOR'S ORGANIZ ATION 03/31/2025 [facility] Reason for Visit (unrecogniz ed section and content) Reason Comments Follow-up 3 month BP averaging 135/85 at home Specialty Diagnoses / Procedures Referred By Contac t Referred To Contact Primary Care Procedures Follow Up In Primary Care Melanie Dumas DO [address] [place] [address] Physician [place] [phone] Referral ID Status Reason Start Date Expiration Date V isits Requested Visits Authorized [id number] Authorized 11/15/2022 05/14/2023 1 1 Reason Comments Follow-up L 5th met stress fx Reason Comments Foot Pain right foot pain. got stepped on by a horse today. Reason Comments Other Left heel pain getti ng worse [id number]. H/o stress Fx. New x-rays today. Reason Comments Hypertension 1 monthPt brought in BP logHighest being 176/105Lowest being 139/96 Referral ID Status Reason Start Date Expiration Date V isits Requested Visits Authorized [id number] Authorized 10/13/2022 04/11/2023 1 1 Reason Comments Follow-up 3 month Specialty Diagnoses / Procedures Referred By Contac t Referred To Contact Primary Care Procedures Follow Up In Primary Care - Established Melanie Dumas [address] Physician [place] [phone] Referral ID Status Reason Start Date Expiration Date V isits Requested Visits Authorized [id number] Authorized 01/24/2023 07/23/2023 1 1 Reason Comments Follow-up 6 month Specialty Diagnoses / Procedures Referred By Contac t Referred To Contact Radiology Diagnoses Screening mammogram for breast cancer Procedures BI mammo bilateral screening tomosynthesis Melanie Dumas DO [address] [facility] [place] [address] Referral ID Status Reason Start Date Expiration Date Visits Requested Visits Authorized [id number] Authorized Perform Procedure 10/25/2023 10/24/2024 1 1 Specialty Diagnoses / Procedures Referred By Contac t Referred To Contact Radiology Diagnoses RUQ pain Procedures US gallbladder Melanie Dumas DO [address] [facility] [place] [address] Referral ID Status Reason Start Date Expiration Date Visits Requested Visits Authorized [id number] Authorized Perform Procedure 01/04/2024 01/03/2025 1 1 Reason Comments Establish Care Transferring [facility] Reason Comments New Patient Visit Pain Specialty Diagnoses / Procedures Referred By Contac t Referred To Contact Orthopaedic Surgery / Orthopedic Surgery Diagnoses Chronic right shoulder pain Yadira Arenas MD [address] [address] Phone: tel: fax: Referral ID Status Reason Start Date Expiration Date Visits Requested Visits Authorized [id number] Authorized Specialty Services Required 01/28/2025 01/28/2026 1 1 Care Teams (unrecognized sec tion and content) Gum Rolling Machine Tender Relationship Specialty Start Date End Date Melanie Dumas DO [address] [place] [phone] PCP - General Internal Medicine 11/18/20 Gum Rolling Machine Tender Relationship Specialty Start Date End Date Melanie Dumas DO [address] [facility] [place] [address] PCP - General 05/19/20 Melanie Dumas DO [address] [place] [address] [place] [address] PCP - MMO ACO PCP 05/22/21 Gum Rolling Machine Tender Relationship Specialty Start Date End Date Melanie Dumas DO [address] [facility] [place] [address] PCP - General 05/19/20 Melanie Dumas DO [address] [place] [place] [address] PCP - MMO ACO PCP 05/22/21 Gum Rolling Machine Tender Relationship Specialty Start Date End Date Melanie Dumas DO [address] [facility] [place] [address] PCP - General 05/19/20 G[employer] Rolling Machine Tender Relationship Specialty Start Date End Date Melanie Dumas DO [address] [facility] [place] [address] PCP - General 05/19/20 G[employer] Rolling Machine Tender Relationship Specialty Start Date End Date Melanie Dumas DO [address] [place] [place] [address] PCP - General 05/19/20 G[employer] Rolling Machine Tender Relationship Specialty Start Date End Date Melanie Dumas DO [address] [place] [place] [address] PCP - General 05/19/20 Gum Rolling Machine Tender Relationship Specialty Start Date End Date Generic Provider, [place] [address] PCP - General Nutrition Worker 12/03/24 Team Status: Active Member Role/Relationship Status Dates James Ruiz Family Provider Active Team Status: Inactive Member Role/Relationship Status Dates JOSEY Real Attending Provider Active Start: December 19, 2024 End: December 19, 2024 Gum Rolling Machine Tender Relationship Specialty Start Date End Date Generic Provider, [place] [address] PCP - General Nutrition Worker 12/03/24 Team Status: Active Member Role/Relationship Status Dates Dr. Melanie Dmuas , DO Primary Care Provider Active Team Status: Inactive Member Role/Relationship Status Dates Dr. Melanie Dumas , Primary Care Provider Active Start: December 30, 2024 End: December 30, 2024 JOSEY Real Attending Provider Active Start: December 30, 2024 End: December 30, 2024 JOSEY Real Referring Provider Active Start: December 30, 2024 End: December 30, 2024 Gum Rolling Machine Tender Relationship Specialty Start Date End Date Yadira Arenas MD [address] [address] PCP - General Family Medicine 01/28/25 Gum Rolling Machine Tender Relationship Specialty Start Date End Date Yadira Arenas MD [address] [address] PCP - General Family Medicine 01/28/25 Gum Rolling Machine Tender Relationship Specialty Start Date End Date Yadira Arenas MD [address] [address] PCP - General Family Medicine 01/28/25 Gum Rolling Machine Tender Relationship Specialty Start Date End Date Yadira Arenas MD [address] [address] PCP - General Family Medicine 01/28/25 Team [...] BE BASED ON THE PRIMARY CLINICAL RECORDS. [facility] [employer] [facility]. provides no warranty or guarantee of the accuracy or completeness of information in this document.
== END 2025-04-23 13:36 | disposition home or self-care (01) | DRG 742 ==
PROVIDERS: Admitting Provider Obstetrics & Gynecology; PCP Family Medicine; Referring Provider Obstetrics & Gynecology; Visit Provider Obstetrics & Gynecology
PROC: 0UT90ZZ Resection of Uterus, Open Approach (ICD-10-PCS; CPT 58150; principal; 2025-04-22 08:25)
DX: D25.9 Leiomyoma of uterus, unspecified (principal); Z68.42 Body mass index [BMI] 45.0-49.9, adult; D64.9 Anemia, unspecified; I10 Essential (primary) hypertension; E66.813 Obesity, class 3; N92.0 Excessive and frequent menstruation with regular cycle; R10.20 Pelvic and perineal pain unspecified side; N85.2 Hypertrophy of uterus; Z90.49 Acquired absence of other specified parts of digestive tract; Z87.19 Personal history of other diseases of the digestive system; Z79.899 Other long term (current) drug therapy; Z85.840 Personal history of malignant neoplasm of eye
CPT/HCPCS: 36415; 80053; 81025; 82962; 83735; 85027; 86850; 86900; 86901; 88307; 93005; 94668; J0666; J2405; J3475